=== PATIENT | male | born 1955 | race Caucasian/White ===

== ENCOUNTER 2016-08-04 09:43 | Outpatient (CLI) | payer BC | END 2016-08-04 09:44 | disposition home or self-care (01) | DX: E11.9 Type 2 diabetes mellitus without complications (principal) ==

== ENCOUNTER 2016-08-07 13:54 | Outpatient (CLI) | payer BC | END 2016-08-07 13:55 | disposition home or self-care (01) | DX: L89.613 Pressure ulcer of right heel, stage 3 (principal) ==

== ENCOUNTER 2016-10-30 08:17 | Outpatient (CLI) | payer BC ==
[2016-10-30 09:03] LABS: BASOPHILS # (AUTO) 0.1 10^3/uL (0.0-0.1); BASOPHILS % (AUTO) 0.7 %; EOSINOPHILS # (AUTO) 0.2 10^3/uL (0.0-0.7); EOSINOPHILS % (AUTO) 1.5 %; HCT - HEMATOCRIT 35.3 % (42.0-52.0); HGB - HEMOGLOBIN 11.3 g/dL (14.0-18.0); LYMPHOCYTES # (AUTO) 1.7 10^3/uL (1.5-3.5); LYMPHOCYTES % (AUTO) 15.5 %; MEAN CORPUSCULAR VOLUME 81.4 fL (80.0-94.0); MONOCYTES # (AUTO) 1.2 10^3/uL (0.0-1.0); MONOCYTES % (AUTO) 11.3 %; NEUTROPHILS # (AUTO) 7.7 10^3/uL (1.5-6.6); NUCLEATED RED BLOOD CELLS AUTO 0.1 /100WBC; RED BLOOD COUNT 4.34 10^6/uL (4.70-6.10); RED CELL DISTRIBUTION WIDTH 18.5 % (12.0-15.0); UNCORRECTED WHITE BLOOD COUNT 10.9 x10^3/uL; WHITE BLOOD COUNT 10.9 x10^3/uL (4.8-10.8)
[2016-10-30 09:25] LABS: HEMOGLOBIN A1C 0.63 g/dL
[2016-10-30 09:40] LABS: ALBUMIN/GLOBULIN RATIO 0.7 (1.0-2.2); BILIRUBIN,TOTAL 0.4 mg/dL (0.2-1.0); BUN - BLOOD UREA NITROGEN 26 mg/dL (6-20); CALCIUM 9.1 mg/dL (8.5-10.3); CARBON DIOXIDE - CO2 26 mmol/L (21-32); CHLORIDE 108 mmol/L (101-111); CHOL/HDL RATIO 4.2 (<5.0); CHOLESTEROL 161 mg/dL; CREATININE 0.8 mg/dL (0.6-1.2); GFR - MDRD 99 (>89); GLUCOSE 134 mg/dL (70-100); HDL CHOLESTEROL 38 mg/dL; LDL/HDL RATIO 2.1 (<3.6); POTASSIUM 4.3 mmol/L (3.5-5.0); SODIUM 142 mmol/L (135-145); TOTAL PROTEIN 7.2 g/dL (6.7-8.2); TRIGLYCERIDES 221 mg/dL; VLDL CHOLESTEROL 44 mg/dL
== END 2016-10-30 08:18 | disposition home or self-care (01) ==
LOC: LAB 08:17
PROVIDERS: ATTEND Family Medicine
DX: E11.9 Type 2 diabetes mellitus without complications (principal)
CPT/HCPCS: 36415; 80053; 80061; 81599; 82043; 83036; 84443; 85025; 85651; 86480; 87340

== ENCOUNTER 2016-11-08 08:07 | Outpatient (CLI) | payer BC ==
--- NOTE | 2016-11-09 13:40 | Ultrasound Report ---
DEXA SCAN: 11/08/2016 CLINICAL INDICATION: History of long-term prednisone use for rheumatoid arthritis. TECHNIQUE: Dual energy x-ray absorptiometry (DXA) was performed on a ZALORA system. Regions measured are the AP spine, femoral neck, and, if needed, forearm. COMPARISON: None, using the data from the left forearm and lumbar spine. In accordance with the International Society for Clinical Densitometry (ISCD) guidelines, data from previous exams may be reanalyzed using current recommendations and techniques. This is done to allow a more accurate basis for comparison with the current study. FINDINGS: The data for the lumbar spine is as follows: REGION BMD (g/cm/cm) T-SCORE Z-SCORE L1 1.076 -0.7 -0.7 L2 1.319 0.7 0.7 L3 1.259 0.2 0.2 L4 1.192 -0.4 -0.4 TOTAL 1.211 -0.1 -0.1 NOTE: All evaluable vertebrae are used for classification. The data for the forearm is as follows: REGION BMD (g/cm/cm) T-SCORE Z-SCORE 1/3 0.816 -1.8 -1.3 NOTE: The 33% radius of the nondominant forearm is used for classification. IMPRESSION: THE WHO CLASSIFICATION BASED ON THE INTERNATIONAL REFERENCE STANDARD IS OSTEOPENIA. THE FRACTURE RISK IS INCREASED. RECOMMENDATION: Patients with diagnosis of osteoporosis or osteopenia should have regular bone mineral density assessment. For those eligible for Medicare, routine testing is allowed once every 2 years. Testing frequency can be increased for patients who have rapidly progressing disease or for those who are receiving medical therapy to restore bone mass. COMMENT: World Health Organization (WHO) definitions for osteoporosis and osteopenia: NORMAL BMD: T-score at -1.0 or higher, fracture risk is low. OSTEOPENIA BMD: T-score between -1.0 and -2.5, fracture risk is increased. OSTEOPOROSIS BMD: T-score at -2.5 or lower, fracture risk high. National Osteoporosis Foundation recommends: 1. Obtain adequate dietary calcium (at least 1200 mg per day) and vitamin D (400 -800 international units per day). 2. Participate, as appropriate, in regular weightbearing and muscle- strengthening exercise. 3. Avoid tobacco use and reduce alcohol and caffeine intake. 4. For more detailed information see the website at www.NOF.org. MTDD
== END 2016-11-08 08:08 | disposition home or self-care (01) ==
LOC: DI 08:07
PROVIDERS: ATTEND Internal Medicine Rheumatology
DX: M85.839 Other specified disorders of bone density and structure, unspecified forearm (principal)
CPT/HCPCS: 77080; 77081

== ENCOUNTER → 2016-12-19 | Outpatient (CLI) | payer BC | LOC: LAB.WCP 08:00 | PROVIDERS: ATTEND Family Medicine | DX: L89.612 Pressure ulcer of right heel, stage 2 (principal) | CPT/HCPCS: 87070; 87077; 87205 ==

== ENCOUNTER 2017-01-05 17:01 | Outpatient (CLI) | payer BC ==
--- NOTE | 2017-01-05 18:12 | Ultrasound Preliminary Report ---
Exam: US Duplex Ext Veins Right IMPRESSION: No evidence for deep venous thrombosis. [facility] SITE ID: [id number]
--- NOTE | 2017-01-05 18:15 | Ultrasound Report ---
EXAM: RIGHT LOWER EXTREMITY VENOUS ULTRASOUND EXAM DATE: 01/05/2017 05:48 PM. CLINICAL HISTORY: RT LEG PAIN. COMPARISON: None. TECHNIQUE: Real-time sonographic vascular imaging was performed by the shirt maker through the lower extremity utilizing both color-flow and Doppler spectral analysis. Multiple access services representative static jessica ges were saved for review. FINDINGS: Common Femoral Vein (CFV): Normal. CFV-GSV Junction: Normal. Profunda Femoral Vein (PFV): Normal. Femoral Vein (FV) Prox: Normal. Femoral Vein (FV) Mid: Normal. Femoral Vein (FV) Dist: Normal. Popliteal Vein: Normal. Posterior Tibial Veins: Normal. Peroneal Veins: Normal. Contralateral Side CFV: Normal. Other: None. IMPRESSION: No evidence for deep venous thrombosis. [facility] Referring Provider Line: [phone] SITE ID: [id number]
== END 2017-01-05 17:02 | disposition home or self-care (01) ==
LOC: DI 17:01
PROVIDERS: ATTEND Family Medicine
DX: M79.604 Pain in right leg (principal)

== ENCOUNTER 2017-01-22 16:59 | Outpatient (CLI) | payer BC ==
--- NOTE | 2017-01-23 12:43 | Ultrasound Report ---
BILATERAL LOWER EXTREMITY ARTERIAL DUPLEX: 01/22/2017 CLINICAL INDICATION: Right pain. TECHNIQUE: Real-time sonographic vascular imaging was performed by the accountant clerk through the lower extremities utilizing both color-flow and Doppler spectral analysis. Multiple retail field representative static images were saved for review. RIGHT SIDE SITE PSV WAVEFORM STEN MADYSON -- -- -- MAO -- -- -- SKIP -- -- -- GLADIS -- -- -- EIA -- -- -- INSPECTION AND TESTING SUPERVISOR 105 TRIPHASIC -- PSFA 37 MONOPHASIC -- MSFA -- -- -- DSFA 73 MONOPHASIC -- PFA 125 TRIPHASIC -- POP 52 MONOPHASIC -- JAYNA 43 MONOPHASIC -- SALES AND IN HOME DELIVERY SPECIALIST 48 MONOPHASIC -- PER 41 MONOPHASIC -- DPA 53 MONOPHASIC -- LEFT SIDE SITE PSV WAVEFORM STEN GLADIS -- -- -- EIA -- -- -- INSPECTION AND TESTING SUPERVISOR 54 MONOPHASIC -- PSFA 55 MONOPHASIC -- MSFA -- -- -- DSFA -- -- -- PFA 75 TRIPHASIC -- POP 56 MONOPHASIC -- JAYNA 52 MONOPHASIC -- SALES AND IN HOME DELIVERY SPECIALIST 61 MONOPHASIC -- PER -- -- -- DPA 74 MONOPHASIC -- FINDINGS: Right leg: There is occlusion of the right mid superficial femoral artery, with collateral reconstitution distally. Monophasic flow is seen to the ankle. Left leg: There is occlusion of the left [id number] superficial femoral artery, with collateral reconstitution of the popliteal. Monophasic runoff is seen to the ankle, but the left peroneal artery only demonstrates minimal flow. IMPRESSION: BILATERAL SUPERFICIAL FEMORAL ARTERY OCCLUSIONS, WITH COLLATERAL RECONSTITUTION DISTALLY. [facility]
== END 2017-01-22 17:00 | disposition home or self-care (01) ==
LOC: DI 16:59
PROVIDERS: ATTEND Physician Assistant Medical
DX: M79.604 Pain in right leg (principal); I73.9 Peripheral vascular disease, unspecified; I77.1 Stricture of artery
CPT/HCPCS: 93925

== ENCOUNTER 2017-02-15 13:35 | Outpatient (CLI) | payer BC ==
[2017-02-15 13:24] LABS: BASOPHILS % (AUTO) 0.5 %; HCT - HEMATOCRIT 41.9 % (42.0-52.0); HGB - HEMOGLOBIN 13.7 g/dL (14.0-18.0); LYMPHOCYTES % (AUTO) 26.3 %; MEAN CORPUSCULAR HGB CONC 32.8 g/dL (32.0-36.0); MEAN CORPUSCULAR VOLUME 88.5 fL (80.0-94.0); MEAN PLATELET VOLUME 6.9 fL (7.4-11.4); MONOCYTES % (AUTO) 10.1 %; NEUTROPHILS % (AUTO) 63.1 %; RED BLOOD COUNT 4.73 10^6/uL (4.70-6.10); RED CELL DISTRIBUTION WIDTH 19.3 % (12.0-15.0); UNCORRECTED WHITE BLOOD COUNT 11.6 x10^3/uL; WHITE BLOOD COUNT 11.6 x10^3/uL (4.8-10.8)
[2017-02-15 14:38] LABS: BAND NEUTROPHILS % (MANUAL) 0 %
[2017-02-15 14:46] LABS: BASOPHILS % (MANUAL) 1 %; BILIRUBIN,TOTAL 0.6 mg/dL (0.2-1.0); CREATININE 0.8 mg/dL (0.6-1.2); LYMPHOCYTES % (MANUAL) 30 %; NEUTROPHILS % (MANUAL) 55 %; POTASSIUM 4.4 mmol/L (3.5-5.0); TOTAL CELLS COUNTED 100; TOTAL PROTEIN 6.9 g/dL (6.7-8.2)
[2017-02-15 14:48] LABS: NP AUTO DIFFERENTIAL? YES; NP MAN DIFFERENTIAL? NO
== END 2017-02-15 13:36 | disposition home or self-care (01) ==
LOC: LAB.WCP 13:35
PROVIDERS: ATTEND Internal Medicine Rheumatology
DX: L40.50 Arthropathic psoriasis, unspecified (principal)
CPT/HCPCS: 36415; 80053; 85025; 85651; 86140

== ENCOUNTER 2017-05-15 08:00 | Outpatient (CLI) | payer BC ==
[2017-05-15 19:04] LABS: BASOPHILS # (AUTO) 0.1 10^3/uL (0.0-0.1); BASOPHILS % (AUTO) 0.6 %; HCT - HEMATOCRIT 42.4 % (42.0-52.0); HGB - HEMOGLOBIN 13.9 g/dL (14.0-18.0); LYMPHOCYTES # (AUTO) 1.5 10^3/uL (1.5-3.5); LYMPHOCYTES % (AUTO) 10.2 %; MEAN CORPUSCULAR HEMOGLOBIN 30.7 pg (27.0-31.0); MEAN CORPUSCULAR HGB CONC 32.8 g/dL (32.0-36.0); MEAN CORPUSCULAR VOLUME 93.5 fL (80.0-94.0); MEAN PLATELET VOLUME 7.4 fL (7.4-11.4); MONOCYTES # (AUTO) 1.2 10^3/uL (0.0-1.0); MONOCYTES % (AUTO) 8.1 %; NEUTROPHILS # (AUTO) 12.2 10^3/uL (1.5-6.6); NEUTROPHILS % (AUTO) 81.1 %; NUCLEATED RED BLOOD CELLS AUTO 0.1 /100WBC; RED BLOOD COUNT 4.54 10^6/uL (4.70-6.10); RED CELL DISTRIBUTION WIDTH 16.9 % (12.0-15.0)
[2017-05-15 19:17] LABS: ALBUMIN/GLOBULIN RATIO 1.3 (1.0-2.2); BILIRUBIN,TOTAL 0.5 mg/dL (0.2-1.0); CALCIUM 9.1 mg/dL (8.5-10.3); CREATININE 0.9 mg/dL (0.6-1.2); POTASSIUM 4.2 mmol/L (3.5-5.0); TOTAL PROTEIN 6.3 g/dL (6.7-8.2)
[2017-05-15 19:22] LABS: HEMOGLOBIN A1C 0.99 g/dL
== END 2017-05-15 08:01 | disposition home or self-care (01) ==
LOC: LAB.WCP 08:00
PROVIDERS: ATTEND Family Medicine
DX: E11.9 Type 2 diabetes mellitus without complications (principal)
CPT/HCPCS: 36415; 80053; 83036; 85025

== ENCOUNTER 2017-06-20 14:51 | Outpatient (CLI) | payer BC | END 2017-06-20 14:52 | disposition home or self-care (01) | LOC: LAB.WCP 14:51 | PROVIDERS: ATTEND Internal Medicine Rheumatology | DX: L40.50 Arthropathic psoriasis, unspecified (principal) | CPT/HCPCS: 36415; 85651; 86140 ==

== ENCOUNTER 2017-11-13 08:00 | Outpatient (CLI) | payer BC ==
[2017-11-13 12:28] LABS: HB2 TOTAL 16.4 g/dL; HEMOGLOBIN A1C 1.06 g/dL; HEMOGLOBIN A1C % 8.1 % (4.6-6.2)
[2017-11-13 12:35] LABS: BASOPHILS # (AUTO) 0.1 10^3/uL (0.0-0.1); BASOPHILS % (AUTO) 0.8 %; HGB - HEMOGLOBIN 14.3 g/dL (14.0-18.0); LYMPHOCYTES % (AUTO) 21.4 %; MEAN CORPUSCULAR HEMOGLOBIN 31.5 pg (27.0-31.0); MEAN CORPUSCULAR HGB CONC 33.7 g/dL (32.0-36.0); MEAN CORPUSCULAR VOLUME 93.6 fL (80.0-94.0); MEAN PLATELET VOLUME 7.2 fL (7.4-11.4); MONOCYTES # (AUTO) 0.9 10^3/uL (0.0-1.0); MONOCYTES % (AUTO) 9.9 %; NEUTROPHILS # (AUTO) 6.3 10^3/uL (1.5-6.6); NEUTROPHILS % (AUTO) 67.9 %; PLT - PLATELET COUNT 282 10^3/uL (130-450); RED BLOOD COUNT 4.54 10^6/uL (4.70-6.10); RED CELL DISTRIBUTION WIDTH 16.6 % (12.0-15.0); WHITE BLOOD COUNT 9.3 x10^3/uL (4.8-10.8)
[2017-11-13 12:36] LABS: ALBUMIN 3.4 g/dL (3.2-5.5); ALKALINE PHOSPHATASE 104 IU/L (42-121); ALT ALANINE AMINOTRANSFERASE 30 IU/L (10-60); AST ASPARTATE AMINOTRANSFERASE 21 IU/L (10-42); BILIRUBIN,TOTAL 0.7 mg/dL (0.2-1.0); BUN - BLOOD UREA NITROGEN 27 mg/dL (6-20); CALCIUM 8.9 mg/dL (8.5-10.3); CARBON DIOXIDE - CO2 25 mmol/L (21-32); CHLORIDE 107 mmol/L (101-111); CHOL/HDL RATIO 5.4 (<5.0); CHOLESTEROL 185 mg/dL; CREATININE 0.7 mg/dL (0.6-1.2); GFR - MDRD 115 (>89); GLUCOSE 244 mg/dL (70-100); HDL CHOLESTEROL 34 mg/dL; SODIUM 136 mmol/L (135-145); TOTAL PROTEIN 6.7 g/dL (6.7-8.2)
[2017-11-13 13:10] LABS: LDL CHOLESTEROL,DIRECT 41 mg/dL; LDLD/HDL RATIO 1.2 (<3.6)
== END 2017-11-13 08:01 | disposition home or self-care (01) ==
LOC: LAB.WCP 08:00
PROVIDERS: ATTEND Family Medicine
DX: I10 Essential (primary) hypertension (principal); E78.2 Mixed hyperlipidemia; E11.9 Type 2 diabetes mellitus without complications; Z12.5 Encounter for screening for malignant neoplasm of prostate; L40.50 Arthropathic psoriasis, unspecified
CPT/HCPCS: 36415; 80053; 80061; 82043; 83036; 83721; 84153; 84443; 85025; 85651; 86140

== ENCOUNTER 2018-01-24 20:43 | Outpatient (CLI) | payer BC ==
--- NOTE | 2018-01-25 11:11 | Ultrasound Report ---
Reason: SYNOVIAL CYST Procedure Date: 01/24/2018 Accession Number: [id number] / [id number] Procedure: US - Ext Limited Non Vascular CPT Code: FULL RESULT: EXAM: RIGHT LOWER EXTREMITY ULTRASOUND - LIMITED EXAM DATE: 01/24/2018 08:51 PM. CLINICAL HISTORY: Synovial cyst. COMPARISON: None. TECHNIQUE: Real-time scanning was performed with static images obtained. FINDINGS: Medially along the right knee is a 4.4 x 4.6 x 1.8 cm hypoechoic heterogeneous mass with internal echoes which does not demonstrate vascularity by color Doppler. IMPRESSION: Hypoechoic hypovascular heterogeneous mass as described. The finding is not a simple cyst. [facility]
== END 2018-01-24 20:44 | disposition home or self-care (01) ==
LOC: DI 20:43
PROVIDERS: ATTEND Family Medicine
DX: R22.41 Localized swelling, mass and lump, right lower limb (principal)
CPT/HCPCS: 76882

== ENCOUNTER 2018-02-18 08:00 | Outpatient (CLI) | payer BC ==
[2018-02-18 14:17] LABS: BASOPHILS % (AUTO) 0.4 %; HGB - HEMOGLOBIN 12.6 g/dL (14.0-18.0); LYMPHOCYTES # (AUTO) 2.6 10^3/uL (1.5-3.5); LYMPHOCYTES % (AUTO) 29.3 %; MEAN CORPUSCULAR HEMOGLOBIN 31.6 pg (27.0-31.0); MEAN CORPUSCULAR HGB CONC 34.6 g/dL (32.0-36.0); MEAN CORPUSCULAR VOLUME 91.4 fL (80.0-94.0); MEAN PLATELET VOLUME 6.6 fL (7.4-11.4); MONOCYTES # (AUTO) 0.9 10^3/uL (0.0-1.0); MONOCYTES % (AUTO) 10.1 %; NEUTROPHILS # (AUTO) 5.4 10^3/uL (1.5-6.6); NEUTROPHILS % (AUTO) 60.2 %; PLT - PLATELET COUNT 342 10^3/uL (130-450); RED BLOOD COUNT 3.98 10^6/uL (4.70-6.10); RED CELL DISTRIBUTION WIDTH 16.5 % (12.0-15.0)
[2018-02-18 14:29] LABS: ALBUMIN 3.3 g/dL (3.2-5.5); BILIRUBIN,TOTAL 0.4 mg/dL (0.2-1.0); CALCIUM 8.8 mg/dL (8.5-10.3); CREATININE 0.8 mg/dL (0.6-1.2); CRP - C-REACTIVE PROTEIN 1.4 mg/dL (0-1.0); TOTAL PROTEIN 6.7 g/dL (6.7-8.2)
== END 2018-02-18 08:01 ==
LOC: LAB.WCP 08:00
PROVIDERS: ATTEND Internal Medicine Rheumatology
DX: L40.50 Arthropathic psoriasis, unspecified (principal); L08.9 Local infection of the skin and subcutaneous tissue, unspecified
CPT/HCPCS: 36415; 80053; 85025; 85651; 86140

== ENCOUNTER 2018-06-05 07:48 | Outpatient (CLI) | payer BC ==
[2018-06-05 12:45] LABS: ALBUMIN 3.3 g/dL (3.2-5.5); ALBUMIN/GLOBULIN RATIO 1.1 (1.0-2.2); ALKALINE PHOSPHATASE 94 IU/L (42-121); ALT ALANINE AMINOTRANSFERASE 20 IU/L (10-60); AST ASPARTATE AMINOTRANSFERASE 20 IU/L (10-42); BILIRUBIN,TOTAL 0.5 mg/dL (0.2-1.0); BUN - BLOOD UREA NITROGEN 20 mg/dL (6-20); CARBON DIOXIDE - CO2 27 mmol/L (21-32); CHLORIDE 104 mmol/L (101-111); CHOL/HDL RATIO 4.5 (<5.0); CHOLESTEROL 197 mg/dL; CREATININE 0.9 mg/dL (0.6-1.2); GFR - MDRD 86 (>89); GLUCOSE 85 mg/dL (70-100); HB2 TOTAL 13.9 g/dL; HDL CHOLESTEROL 44 mg/dL; HEMOGLOBIN A1C 0.96 g/dL; HEMOGLOBIN A1C % 8.5 % (4.6-6.2); LDL CHOLESTEROL,CALCULATED 90 mg/dL; SODIUM 141 mmol/L (135-145); TOTAL PROTEIN 6.3 g/dL (6.7-8.2); VLDL CHOLESTEROL 63 mg/dL
[2018-06-05 12:55] LABS: BASOPHILS # (AUTO) 0.1 10^3/uL (0.0-0.1); BASOPHILS % (AUTO) 0.8 %; HGB - HEMOGLOBIN 13.3 g/dL (14.0-18.0); LYMPHOCYTES # (AUTO) 2.9 10^3/uL (1.5-3.5); LYMPHOCYTES % (AUTO) 28.9 %; MEAN CORPUSCULAR HEMOGLOBIN 30.3 pg (27.0-31.0); MEAN CORPUSCULAR VOLUME 89.2 fL (80.0-94.0); MONOCYTES % (AUTO) 9.7 %; NEUTROPHILS # (AUTO) 6.1 10^3/uL (1.5-6.6); NEUTROPHILS % (AUTO) 60.6 %; PLT - PLATELET COUNT 382 10^3/uL (130-450); RED CELL DISTRIBUTION WIDTH 18.6 % (12.0-15.0); WHITE BLOOD COUNT 10.1 x10^3/uL (4.8-10.8)
== END 2018-06-05 23:59 | disposition home or self-care (01) ==
LOC: LAB.WCP 07:48
PROVIDERS: ATTEND Family Medicine
DX: E11.9 Type 2 diabetes mellitus without complications (principal); L40.50 Arthropathic psoriasis, unspecified; M45.9 Ankylosing spondylitis of unspecified sites in spine
CPT/HCPCS: 36415; 80053; 80061; 82043; 83036; 83721; 85025; 85651; 86140

== ENCOUNTER 2018-06-07 11:18 | Outpatient (CLI) | payer BC ==
--- NOTE | 2018-06-07 15:45 | XRAY Report ---
Reason: TYPE 2 DIABETES MELLITUS WITH FOOT ULCER Procedure Date: 06/07/2018 Accession Number: [id number] / [id number] Procedure: XR - Calcaneus RT CPT Code: FULL RESULT: EXAM: RIGHT CALCANEUS RADIOGRAPHY EXAM DATE: 06/07/2018 11:54 AM. CLINICAL HISTORY: Type 2 diabetes mellitus with foot ulcer. COMPARISON: None. TECHNIQUE: 2 views. FINDINGS: Bones: Bones are qualitatively osteopenic with no definite fracture identified. Joints: Extensive tibiotalar degenerative changes are incompletely visualized. There is a tibiotalar joint effusion. Soft Tissues: Perception of possible soft tissue defect underneath the heel. In the same region there is heterotopic ossification underneath the heel, 7 x 2 mm. Extensive vascular calcifications. No soft tissue gas is identified. IMPRESSION: Degenerative changes and heterotopic ossification in the region of a perceived soft tissue defect as described. [facility]
== END 2018-06-07 11:19 | disposition home or self-care (01) ==
LOC: DI 11:18
PROVIDERS: ATTEND Family Medicine
DX: E11.621 Type 2 diabetes mellitus with foot ulcer (principal); L97.519 Non-pressure chronic ulcer of other part of right foot with unspecified severity; M19.071 Primary osteoarthritis, right ankle and foot; M85.871 Other specified disorders of bone density and structure, right ankle and foot

== ENCOUNTER 2018-08-19 08:00 | Outpatient (CLI) | payer BC ==
[2018-08-19 13:28] LABS: HB2 TOTAL 13.4 g/dL; HEMOGLOBIN A1C 0.58 g/dL; HEMOGLOBIN A1C % 6.1 % (4.6-6.2)
== END 2018-08-19 23:59 | disposition home or self-care (01) ==
LOC: LAB.WCP 08:00
PROVIDERS: ATTEND Orthopaedic Surgery Foot and Ankle Surgery
DX: E11.9 Type 2 diabetes mellitus without complications (principal); L40.9 Psoriasis, unspecified; M13.872 Other specified arthritis, left ankle and foot; M19.071 Primary osteoarthritis, right ankle and foot
CPT/HCPCS: 36415; 82306; 83036

== ENCOUNTER 2019-08-05 12:03 | Outpatient (CLI) | payer BC ==
[2019-08-05 18:55] LABS: BASOPHILS # (AUTO) 0.1 10^3/uL (0.0-0.1); BASOPHILS % (AUTO) 0.9 %; HGB - HEMOGLOBIN 11.7 g/dL (14.0-18.0); LYMPHOCYTES # (AUTO) 1.5 10^3/uL (1.5-3.5); LYMPHOCYTES % (AUTO) 13.1 %; MEAN CORPUSCULAR HGB CONC 30.2 g/dL (32.0-36.0); MEAN CORPUSCULAR VOLUME 89.6 fL (80.0-94.0); MONOCYTES # (AUTO) 0.8 10^3/uL (0.0-1.0); MONOCYTES % (AUTO) 7.5 %; NEUTROPHILS # (AUTO) 8.6 10^3/uL (1.5-6.6); NEUTROPHILS % (AUTO) 76.9 %; PLT - PLATELET COUNT 378 10^3/uL (130-450); RED BLOOD COUNT 4.33 10^6/uL (4.70-6.10); RED CELL DISTRIBUTION WIDTH 17.2 % (12.0-15.0); WHITE BLOOD COUNT 11.1 x10^3/uL (4.8-10.8)
[2019-08-05 19:16] LABS: ALBUMIN 3.2 g/dL (3.2-5.5); ALBUMIN/GLOBULIN RATIO 1.3 (1.0-2.2); ALKALINE PHOSPHATASE 91 IU/L (42-121); ALT ALANINE AMINOTRANSFERASE 12 IU/L (10-60); AST ASPARTATE AMINOTRANSFERASE 17 IU/L (10-42); BILIRUBIN,TOTAL 0.4 mg/dL (0.2-1.0); BUN - BLOOD UREA NITROGEN 24 mg/dL (6-20); CALCIUM 8.5 mg/dL (8.5-10.3); CARBON DIOXIDE - CO2 26 mmol/L (21-32); CHLORIDE 106 mmol/L (101-111); CHOL/HDL RATIO 4.3 (<5.0); CHOLESTEROL 163 mg/dL; GFR - MDRD 75 (>89); GLUCOSE 140 mg/dL (70-100); HDL CHOLESTEROL 38 mg/dL; LDL CHOLESTEROL,CALCULATED 49 mg/dL; LDL/HDL RATIO 1.3 (<3.6); SODIUM 141 mmol/L (135-145); TOTAL PROTEIN 5.7 g/dL (6.7-8.2); VLDL CHOLESTEROL 76 mg/dL
[2019-08-05 19:19] LABS: HB2 TOTAL 12.4 g/dL; HEMOGLOBIN A1C 0.62 g/dL; HEMOGLOBIN A1C % 6.7 % (4.6-6.2)
[2019-08-06 12:26] LABS: HEPATITIS C ANTIBODY NON-REACTIVE (NON-REACTIVE)
== END 2019-08-05 23:59 | disposition home or self-care (01) ==
LOC: LAB.WCP 12:03
PROVIDERS: ATTEND Family Medicine
DX: E11.9 Type 2 diabetes mellitus without complications (principal); Z11.59 Encounter for screening for other viral diseases
CPT/HCPCS: 36415; 80053; 80061; 82043; 83036; 83721; 85025; 86803

== ENCOUNTER 2019-10-22 15:22 | Outpatient (CLI) | payer BC ==
[2019-10-22 17:48] LABS: BASOPHILS # (AUTO) 0.1 10^3/uL (0.0-0.1); BASOPHILS % (AUTO) 1.1 %; EOSINOPHILS # (AUTO) 0.2 10^3/uL (0.0-0.7); EOSINOPHILS % (AUTO) 1.9 %; HGB - HEMOGLOBIN 11.4 g/dL (14.0-18.0); LYMPHOCYTES # (AUTO) 1.8 10^3/uL (1.5-3.5); LYMPHOCYTES % (AUTO) 16.7 %; MEAN CORPUSCULAR HEMOGLOBIN 28.3 pg (27.0-31.0); MEAN CORPUSCULAR HGB CONC 30.3 g/dL (32.0-36.0); MEAN CORPUSCULAR VOLUME 93.3 fL (80.0-94.0); MEAN PLATELET VOLUME 8.8 fL (7.4-11.4); MONOCYTES # (AUTO) 0.9 10^3/uL (0.0-1.0); MONOCYTES % (AUTO) 8.3 %; NEUTROPHILS # (AUTO) 7.7 10^3/uL (1.5-6.6); NEUTROPHILS % (AUTO) 71.3 %; PLT - PLATELET COUNT 423 10^3/uL (130-450); RED BLOOD COUNT 4.03 10^6/uL (4.70-6.10); RED CELL DISTRIBUTION WIDTH 17.9 % (12.0-15.0); WHITE BLOOD COUNT 10.8 x10^3/uL (4.8-10.8)
[2019-10-22 18:10] LABS: ALBUMIN 3.4 g/dL (3.2-5.5); ALBUMIN/GLOBULIN RATIO 1.1 (1.0-2.2); BILIRUBIN,TOTAL 0.4 mg/dL (0.2-1.0); CALCIUM 8.6 mg/dL (8.5-10.3); CREATININE 1.1 mg/dL (0.6-1.2); TOTAL PROTEIN 6.5 g/dL (6.7-8.2)
== END 2019-10-22 23:59 | disposition home or self-care (01) ==
LOC: LAB.WCP 15:22
PROVIDERS: ATTEND Internal Medicine Rheumatology
DX: L40.50 Arthropathic psoriasis, unspecified (principal)
CPT/HCPCS: 36415; 80053; 85025; 85651

== ENCOUNTER 2019-11-25 07:25 | Day surgery (SDC) | payer BC ==
[2019-11-25] MEDS ORDERED: fentaNYL 250 MCG/5 ML VIAL IVP ONE (07:26)
[2019-11-25] MEDS ORDERED: MIDAZOLAM 2 MG/2 ML VIAL IVP ONE (07:26)
[2019-11-25] MEDS ORDERED: LACTATED RINGERS 1,000 ML IV ONE (07:33)
[2019-11-25 10:51] VITALS: BP 108/62
== END 2019-11-25 07:26 | disposition home or self-care (01) ==
LOC: SDS 07:25
PROVIDERS: ATTEND Surgery
PROC: 0DBM8ZZ Excision of Descending Colon, Via Natural or Artificial Opening Endoscopic (ICD-10-PCS; 2019-11-25)
PROC: 0DBP8ZZ Excision of Rectum, Via Natural or Artificial Opening Endoscopic (ICD-10-PCS; principal; 2019-11-25 08:45)
DX: R19.5 Other fecal abnormalities (principal); D12.4 Benign neoplasm of descending colon; K62.1 Rectal polyp; I10 Essential (primary) hypertension; D64.9 Anemia, unspecified
CPT/HCPCS: 45380; 45385; J3010; J7120

== ENCOUNTER 2020-08-25 08:00 | Outpatient (CLI) | payer BC ==
[2020-08-25 18:11] LABS: BASOPHILS # (AUTO) 0.1 10^3/uL (0.0-0.1); BASOPHILS % (AUTO) 0.6 %; HCT - HEMATOCRIT 38.5 % (42.0-52.0); HGB - HEMOGLOBIN 12.6 g/dL (14.0-18.0); LYMPHOCYTES # (AUTO) 1.4 10^3/uL (1.5-3.5); LYMPHOCYTES % (AUTO) 12.3 %; MEAN CORPUSCULAR HEMOGLOBIN 31.6 pg (27.0-31.0); MEAN CORPUSCULAR HGB CONC 32.7 g/dL (32.0-36.0); MEAN CORPUSCULAR VOLUME 96.5 fL (80.0-94.0); MEAN PLATELET VOLUME 9.1 fL (7.4-11.4); MONOCYTES # (AUTO) 0.8 10^3/uL (0.0-1.0); MONOCYTES % (AUTO) 7.1 %; NEUTROPHILS # (AUTO) 9.1 10^3/uL (1.5-6.6); NEUTROPHILS % (AUTO) 79.3 %; PLT - PLATELET COUNT 310 10^3/uL (130-450); RED BLOOD COUNT 3.99 10^6/uL (4.70-6.10); RED CELL DISTRIBUTION WIDTH 16.1 % (12.0-15.0); WHITE BLOOD COUNT 11.5 x10^3/uL (4.8-10.8)
[2020-08-25 18:43] LABS: ALBUMIN 3.6 g/dL (3.2-5.5); ALBUMIN/GLOBULIN RATIO 1.1 (1.0-2.2); ALKALINE PHOSPHATASE 102 IU/L (42-121); ALT ALANINE AMINOTRANSFERASE 17 IU/L (10-60); AST ASPARTATE AMINOTRANSFERASE 23 IU/L (10-42); BILIRUBIN,TOTAL 0.7 mg/dL (0.2-1.0); BUN - BLOOD UREA NITROGEN 28 mg/dL (6-20); CALCIUM 9.2 mg/dL (8.5-10.3); CARBON DIOXIDE - CO2 23 mmol/L (21-32); CHLORIDE 108 mmol/L (101-111); CHOLESTEROL 130 mg/dL; CRP - C-REACTIVE PROTEIN 6.9 mg/dL (0-1.0); GFR - MDRD 75 (>89); GLUCOSE 97 mg/dL (70-100); HDL CHOLESTEROL 43 mg/dL; LDL CHOLESTEROL,CALCULATED 28 mg/dL; LDL/HDL RATIO 0.7 (<3.6); POTASSIUM 4.1 mmol/L (3.5-5.0); SODIUM 140 mmol/L (135-145); TOTAL PROTEIN 6.8 g/dL (6.7-8.2); TRIGLYCERIDES 293 mg/dL; VLDL CHOLESTEROL 59 mg/dL
[2020-08-25 19:37] LABS: CREATININE,URINE 227.8 mg/dL; MICROALBUM/CREATININE RATIO,UR 7.9 ug/mg (<30.0); MICROALBUMIN,URINE 1.8 mg/dL (0-300.0)
[2020-08-25 20:13] LABS: ESTIMATED AVERAGE GLUCOSE 114 mg/dL (70-100); HEMOGLOBIN A1c% 5.6 % (4.27-6.07)
== END 2020-08-25 23:59 | disposition home or self-care (01) ==
LOC: LAB.WCP 08:00
PROVIDERS: ATTEND Family Medicine
DX: E11.9 Type 2 diabetes mellitus without complications (principal); M45.9 Ankylosing spondylitis of unspecified sites in spine; L40.50 Arthropathic psoriasis, unspecified
CPT/HCPCS: 36415; 80053; 80061; 82043; 82570; 83036; 83721; 85025; 85651; 86140

== ENCOUNTER 2020-11-12 08:00 | Outpatient (CLI) | payer BC ==
[2020-11-12 11:34] LABS: BASOPHILS # (AUTO) 0.1 10^3/uL (0.0-0.1); BASOPHILS % (AUTO) 0.7 %; EOSINOPHILS # (AUTO) 0.1 10^3/uL (0.0-0.7); EOSINOPHILS % (AUTO) 0.7 %; HCT - HEMATOCRIT 38.2 % (42.0-52.0); HGB - HEMOGLOBIN 12.7 g/dL (14.0-18.0); LYMPHOCYTES # (AUTO) 1.2 10^3/uL (1.5-3.5); LYMPHOCYTES % (AUTO) 8.7 %; MEAN CORPUSCULAR HEMOGLOBIN 32.1 pg (27.0-31.0); MEAN CORPUSCULAR HGB CONC 33.2 g/dL (32.0-36.0); MEAN CORPUSCULAR VOLUME 96.5 fL (80.0-94.0); MEAN PLATELET VOLUME 8.7 fL (7.4-11.4); MONOCYTES % (AUTO) 7.7 %; NEUTROPHILS # (AUTO) 10.9 10^3/uL (1.5-6.6); NEUTROPHILS % (AUTO) 81.7 %; PLT - PLATELET COUNT 328 10^3/uL (130-450); RED BLOOD COUNT 3.96 10^6/uL (4.70-6.10); RED CELL DISTRIBUTION WIDTH 15.3 % (12.0-15.0); WHITE BLOOD COUNT 13.4 x10^3/uL (4.8-10.8)
[2020-11-12 12:34] LABS: ALBUMIN 3.6 g/dL (3.2-5.5); ALBUMIN/GLOBULIN RATIO 1.5 (1.0-2.2); ALKALINE PHOSPHATASE 118 IU/L (42-121); ALT ALANINE AMINOTRANSFERASE 14 IU/L (10-60); AST ASPARTATE AMINOTRANSFERASE 21 IU/L (10-42); BILIRUBIN,TOTAL 0.8 mg/dL (0.2-1.0); BUN - BLOOD UREA NITROGEN 27 mg/dL (6-20); CALCIUM 8.9 mg/dL (8.5-10.3); CARBON DIOXIDE - CO2 21 mmol/L (21-32); CHLORIDE 108 mmol/L (101-111); CHOL/HDL RATIO 3.1 (<5.0); CHOLESTEROL 136 mg/dL; CREATININE 1.1 mg/dL (0.6-1.2); GFR - MDRD 67 (>89); GLUCOSE 206 mg/dL (70-100); HDL CHOLESTEROL 44 mg/dL; LDL CHOLESTEROL,CALCULATED 45 mg/dL; POTASSIUM 4.4 mmol/L (3.5-5.0); SODIUM 139 mmol/L (135-145); TRIGLYCERIDES 237 mg/dL; VLDL CHOLESTEROL 47 mg/dL
[2020-11-12 13:16] LABS: ESTIMATED AVERAGE GLUCOSE 114 mg/dL (70-100); HEMOGLOBIN A1c% 5.6 % (4.27-6.07)
[2020-11-12 13:42] LABS: CREATININE,URINE 219.8 mg/dL; MICROALBUM/CREATININE RATIO,UR 12.7 ug/mg (<30.0); MICROALBUMIN,URINE 2.8 mg/dL (0-300.0)
== END 2020-11-12 08:01 | disposition home or self-care (01) ==
LOC: LAB.WCP 08:00
PROVIDERS: ATTEND Family Medicine
DX: I10 Essential (primary) hypertension (principal); E11.9 Type 2 diabetes mellitus without complications; E78.2 Mixed hyperlipidemia; Z12.5 Encounter for screening for malignant neoplasm of prostate; Z79.4 Long term (current) use of insulin
CPT/HCPCS: 36415; 80053; 80061; 82043; 82570; 83036; 83721; 84153; 85025

== ENCOUNTER 2021-03-14 08:00 | Outpatient (CLI) | payer BC ==
[2021-03-14 18:14] LABS: BASOPHILS # (AUTO) 0.1 10^3/uL (0.0-0.1); EOSINOPHILS # (AUTO) 0.4 10^3/uL (0.0-0.7); EOSINOPHILS % (AUTO) 4.4 %; HCT - HEMATOCRIT 39.4 % (42.0-52.0); HGB - HEMOGLOBIN 12.2 g/dL (14.0-18.0); LYMPHOCYTES # (AUTO) 1.1 10^3/uL (1.5-3.5); LYMPHOCYTES % (AUTO) 12.8 %; MEAN CORPUSCULAR HEMOGLOBIN 31.1 pg (27.0-31.0); MEAN CORPUSCULAR VOLUME 100.5 fL (80.0-94.0); MEAN PLATELET VOLUME 9.4 fL (7.4-11.4); MONOCYTES # (AUTO) 0.8 10^3/uL (0.0-1.0); MONOCYTES % (AUTO) 9.8 %; NEUTROPHILS % (AUTO) 71.5 %; PLT - PLATELET COUNT 353 10^3/uL (130-450); RED BLOOD COUNT 3.92 10^6/uL (4.70-6.10); RED CELL DISTRIBUTION WIDTH 15.8 % (12.0-15.0); WHITE BLOOD COUNT 8.4 x10^3/uL (4.8-10.8)
[2021-03-14 18:44] LABS: ALBUMIN 3.7 g/dL (3.2-5.5); BILIRUBIN,TOTAL 0.7 mg/dL (0.2-1.0); CALCIUM 9.2 mg/dL (8.5-10.3); CREATININE 0.9 mg/dL (0.6-1.2); CRP - C-REACTIVE PROTEIN 9.9 mg/dL (0-1.0); POTASSIUM 4.9 mmol/L (3.5-5.0); TOTAL PROTEIN 7.3 g/dL (6.7-8.2)
[2021-03-14 20:40] LABS: ESTIMATED AVERAGE GLUCOSE 111 mg/dL (70-100); HEMOGLOBIN A1c% 5.5 % (4.27-6.07)
== END 2021-03-14 23:59 | disposition home or self-care (01) ==
LOC: LAB.WCP 08:00
PROVIDERS: ATTEND Internal Medicine Rheumatology
DX: L40.50 Arthropathic psoriasis, unspecified (principal)
CPT/HCPCS: 36415; 80053; 83036; 85025; 85651; 86140

== ENCOUNTER 2021-06-11 15:47 | Outpatient (CLI) | payer MEDICARE, BC | END 2021-06-11 15:48 | disposition critical access hospital (66) | LOC: EMS 15:47 | DX: R11.2 Nausea with vomiting, unspecified (principal); R19.7 Diarrhea, unspecified; R06.02 Shortness of breath; R53.81 Other malaise | CPT/HCPCS: A0425; A0427 ==

== ENCOUNTER 2021-06-11 16:07 | Inpatient (IN) | payer MEDICARE, BC ==
--- NOTE | 2021-06-11 16:17 | ED Physician Documentation ---
PD HPI DYSPNEA - Stated complaint Stated Complaint: SOA - History obtained from History obtained from: Patient, EMS - Additional information Additional information: 65-year-old gentleman with history of ankylosing spondylitis and psoriatic a rthritis on multiple types of immunosuppressive therapy, also peripheral vascular disease although was never a smoker, and recent surgery for a cyst on his knee with a 3-day hospitalization a few days before Mariano has been sick for about a week. It started with a cough minimally productive and has been progressive since then with shortness of breath. His was sick just before he became sick and was tested for COVID but was negative. Paramedics found him to have room air sats below 50% although does seem to respond to a nasal cannula. On the way here he received Solu-Medrol and a DuoNeb. Review of Systems Ten Systems: 10 systems reviewed and negative Constitutional: denies: Fever, Chills Nose: denies: Rhinorrhea / runny nose Respiratory: reports: Dyspnea, Cough PD PAST MEDICAL HISTORY - Past Medical History Cardiovascular: Hypertension, High cholesterol Respiratory: None Endocrine/Autoimmune: Type 2 diabetes GI: None : None HEENT: None Psych: None Musculoskeletal: None Derm: Psoriasis - Past Surgical History Past Surgical History: Yes General: Appendectomy Ortho: Hip replacement, Knee replacement, Other - Present Medications Home Medications: Ambulatory Orders Medication Instructions Recorded Confirmed Prednisone 20 mg PO DAILY 10/09/12 11/25/19 Metoprolol Tartrate [Lopressor] 12.5 mg PO BID 08/13/15 11/25/19 Oxycodone HCl/Acetaminophen 1 - 2 each PO Q6H PRN #14 tablet 08/29/15 11/25/19 [Percocet 5-325 mg Tablet] Cholecalciferol [Vitamin D3] 2,000 units PO DAILY 09/27/15 11/25/19 Insulin Glargine,Hum.rec.anlog 35 units SQ BID 09/27/15 11/25/19 [Lantus] Multivitamin [Multivitamins] 1 tab PO DAILY 09/27/15 11/25/19 amLODIPine [Norvasc] 5 mg PO DAILY 09/27/15 11/25/19 Indomethacin 50 mg PO TID 11/23/15 11/25/19 Sulfasalazine [Sulfazine] 500 mg PO BID 03/28/16 11/25/19 Atorvastatin Calcium 40 mg PO DAILY 11/25/19 11/25/19 Clopidogrel [Plavix] 75 mg PO ONCE 11/25/19 11/25/19 metHOTREXate sodium [Methotrexate] 2.5 mg PO DAILY 11/25/19 11/25/19 - Allergies Allergies/Adverse Reactions: Allergies Allergy/AdvReac Type Severity Reaction Status Date / Time infliximab [From Remicade] Allergy Rash Verified 06/11/21 16:18 vancomycin AdvReac Severe RENAL Verified 06/11/21 16:18 FAILURE - Social History Does the pt smoke?: No Smoking Status: Never smoker Does the pt drink ETOH?: Yes Does the pt have substance abuse?: No - Immunizations Immunizations are current?: Yes - POLST Patient has POLST: Yes PD ED PE NORMAL - Vitals Vital signs reviewed: Yes - General General: Alert and oriented X 3, Other (Clearly labored breathing with respiratory rates in the 30s and peripheral cyanosis) - HEENT HEENT: PERRL, Pharynx benign - Neck Neck: Supple, no meningeal sign, No bony TTP - Cardiac Cardiac: Other (Tachycardia, regular, no murmur) - Respiratory Respiratory: Other (Tachypneic and labored but lungs are relatively clear) - Abdomen Abdomen: Normal bowel sounds, Soft, Non tender - Back Back: No CVA TTP, No spinal TTP - Derm Derm: Normal color, Warm and dry - Extremities Extremities: No edema, No calf tenderness / cord - Neuro Neuro: Alert and oriented X 3, Normal speech Results - Vitals Vitals: Vital Signs - 24 hr 06/11/21 06/11/21 06/11/21 16:10 16:21 16:47 Temperature 36.5 C Heart Rate 108 H 104 H 100 Respiratory 38 H 37 H 30 H Rate Blood Pressure 152/81 H 157/84 H 135/71 H O2 Saturation 96 98 99 06/11/21 06/11/21 06/11/21 17:17 17:30 18:00 Temperature Heart Rate 97 96 100 Respiratory 27 H 28 H 24 Rate Blood Pressure 142/78 H 140/76 H 162/90 H O2 Saturation 100 100 100 Oxygen O2 Source [Without Activity] 2L O2 via NC O2 Source [facility] [address] - Labs Labs: Laboratory Tests 06/11/21 06/11/21 06/11/21 16:15 16:15 16:15 WBC 20.3 H RBC 3.71 L Hgb 11.0 L Hct 33.8 L MCV 91.1 MCH 29.6 MCHC 32.5 RDW 16.7 H Plt Count 612 H MPV 8.6 Neut # (Auto) 17.7 H Lymph # (Auto) 0.9 L Hughes # (Auto) 1.2 H Eos # (Auto) 0.0 Baso # (Auto) 0.1 Absolute Nucleated RBC 0.09 Band Neuts % (Manual) Not Reportable Abnorm Lymph % (Manual) Not Reportable Nucleated RBC % 0.4 Neutrophils # (Manual) Not Reportable Lymphocytes # (Manual) Not Reportable Monocytes # (Manual) Not Reportable Eosinophils # (Manual) Not Reportable Basophils # (Manual) Not Reportable Differential Comment MANUAL=AUTO DIFF Manual Slide Review Indicated WBC Morphology 1+ HYPERSEG NEUT Platelet Estimate INCREASED (>450,000) Platelet Morphology NORMAL APPEARANCE RBC Morph Micro Appear NORMAL APPEARANCE PT 17.4 H INR 1.6 H D-Dimer VBG pH VBG pCO2 VBG pO2 VBG HCO3 VBG Total CO2 VBG O2 Saturation VBG Base Excess Sodium 135 Potassium 5.6 H Chloride 105 Carbon Dioxide 15 L Anion Gap 15.0 H BUN 114 H* Creatinine 2.3 H Estimated GFR (MDRD) 29 L Glucose 253 H Lactic Acid Calcium 8.6 Phosphorus 5.0 H Magnesium 2.6 Total Bilirubin 0.6 AST 42 ALT 18 Alkaline Phosphatase 147 H Troponin I High Sens B-Natriuretic Peptide Total Protein 7.8 Albumin 2.5 L Globulin 5.3 H Albumin/Globulin Ratio 0.5 L Lipase 62 H Nasal Adenovirus (PCR) Nasal B. parapertussis DNA (PCR) Nasal Coronavir 229E PCR Nasal Coronavir HKU1 PCR Nasal Coronavir NL63 PCR Nasal Coronavir OC43 PCR Nasal Enterovir/Rhinovir PCR Nasal Influenza B PCR Nasal Influenza A PCR Nasal Parainfluen 1 PCR Nasal Parainfluen 2 PCR Nasal Parainfluen 3 PCR Nasal Parainfluen 4 PCR Nasal RSV (PCR) Nasal B.pertussis DNA PCR Nasal C.pneumoniae (PCR) Zain Human Metapneumo PCR Nasal M.pneumoniae (PCR) Nasal SARS-CoV-2 (PCR) 06/11/21 06/11/21 06/11/21 16:15 16:15 16:15 WBC RBC Hgb Hct MCV MCH MCHC RDW Plt Count MPV Neut # (Auto) Lymph # (Auto) Hughes # (Auto) Eos # (Auto) Baso # (Auto) Absolute Nucleated RBC Band Neuts % (Manual) Abnorm Lymph % (Manual) Nucleated RBC % Neutrophils # (Manual) Lymphocytes # (Manual) Monocytes # (Manual) Eosinophils # (Manual) Basophils # (Manual) Differential Comment Manual Slide Review WBC Morphology Platelet Estimate Platelet Morphology RBC Morph Micro Appear PT INR D-Dimer VBG pH VBG pCO2 VBG pO2 VBG HCO3 VBG Total CO2 VBG O2 Saturation VBG Base Excess Sodium Potassium Chloride Carbon Dioxide Anion Gap BUN Creatinine Estimated GFR (MDRD) Glucose Lactic Acid 3.8 H* Calcium Phosphorus Magnesium Total Bilirubin AST ALT Alkaline Phosphatase Troponin I High Sens 41.8 H* B-Natriuretic Peptide 110 H Total Protein Albumin Globulin Albumin/Globulin Ratio Lipase Nasal Adenovirus (PCR) Nasal B. parapertussis DNA (PCR) Nasal Coronavir 229E PCR Nasal Coronavir HKU1 PCR Nasal Coronavir NL63 PCR Nasal Coronavir OC43 PCR Nasal Enterovir/Rhinovir PCR Nasal Influenza B PCR Nasal Influenza A PCR Nasal Parainfluen 1 PCR Nasal Parainfluen 2 PCR Nasal Parainfluen 3 PCR Nasal Parainfluen 4 PCR Nasal RSV (PCR) Nasal B.pertussis DNA PCR Nasal C.pneumoniae (PCR) Zain Human Metapneumo PCR Nasal M.pneumoniae (PCR) Nasal SARS-CoV-2 (PCR) 06/11/21 06/11/21 06/11/21 16:15 16:15 17:42 WBC RBC Hgb Hct MCV MCH MCHC RDW Plt Count MPV Neut # (Auto) Lymph # (Auto) Hughes # (Auto) Eos # (Auto) Baso # (Auto) Absolute Nucleated RBC Band Neuts % (Manual) Abnorm Lymph % (Manual) Nucleated RBC % Neutrophils # (Manual) Lymphocytes # (Manual) Monocytes # (Manual) Eosinophils # (Manual) Basophils # (Manual) Differential Comment Manual Slide Review WBC Morphology Platelet Estimate Platelet Morphology RBC Morph Micro Appear PT INR D-Dimer > 1050.0 H VBG pH 7.320 VBG pCO2 28.7 L VBG pO2 24.9 L VBG HCO3 14.5 L VBG Total CO2 15.3 L VBG O2 Saturation 38.7 L VBG Base Excess -10.3 L Sodium Potassium Chloride Carbon Dioxide Anion Gap BUN Creatinine Estimated GFR (MDRD) Glucose Lactic Acid Calcium Phosphorus Magnesium Total Bilirubin AST ALT Alkaline Phosphatase Troponin I High Sens B-Natriuretic Peptide Total Protein Albumin Globulin Albumin/Globulin Ratio Lipase Nasal Adenovirus (PCR) NOT DETECTED Nasal B. parapertussis DNA (PCR) NOT DETECTED Nasal Coronavir 229E PCR NOT DETECTED Nasal Coronavir HKU1 PCR NOT DETECTED Nasal Coronavir NL63 PCR NOT DETECTED Nasal Coronavir OC43 PCR NOT DETECTED Nasal Enterovir/Rhinovir PCR NOT DETECTED Nasal Influenza B PCR NOT DETECTED Nasal Influenza A PCR NOT DETECTED Nasal Parainfluen 1 PCR NOT DETECTED Nasal Parainfluen 2 PCR NOT DETECTED Nasal Parainfluen 3 PCR NOT DETECTED Nasal Parainfluen 4 PCR NOT DETECTED Nasal RSV (PCR) NOT DETECTED Nasal B.pertussis DNA PCR NOT DETECTED Nasal C.pneumoniae (PCR) NOT DETECTED Zain Human Metapneumo PCR NOT DETECTED Nasal M.pneumoniae (PCR) NOT DETECTED Nasal SARS-CoV-2 (PCR) DETECTED A - Rads (name of study) 1v cxr Radiology: EMP read contemporaneously (Bilateral interstitial type infiltrates, COVID more likely than CHF.) PD MEDICAL DECISION MAKING - ED course Complexity details: d/w healthcare network consultant (Spoke with Dr Friedman for admit [id number]) ED course: 65-year-old gentleman who is fully vaccinated and boosted against COVID presents with severe shortness of breath and profound hypoxemia. He is a "set up" for vaccine failure given that he is on multiple immunomodulatory medications and is found to be positive for COVID. Given the elevated white count there is also concern for sepsis and he was given cefepime and azithromycin after blood cultures. He was given IV fluids and he does not appear fluid overloaded or in heart failure. He is found to be in acute renal failure with metabolic acidosis with respiratory compensation. He is placed on high flow O2 with good improvem ent although not resolution in his increased work of breathing and very acceptable pulse oximetry's. We discussed CODE STATUS and he is full code for now. - Critical Care Time(min): 45 Time Includes: Direct patient care, Review records, Reassess patient, Document care, Coordinate care, Medical consult, Family consult for tx dec Data interpretation: Labs, Pulse ox Procedures included in critical care time: Peripheral IV Departure - Departure Disposition: 66 [facility] DC/Xfer Clinical Impression: COVID-19, ARF (acute renal failure), Prerenal azotemia Condition: Critical
[2021-06-11 16:27] LABS: NUCLEATED RED BLOOD CELLS AUTO 0.4 /100WBC
[2021-06-11 16:29] LABS: BASOPHILS # (AUTO) 0.1 10^3/uL (0.0-0.1); BASOPHILS % (AUTO) 0.5 %; HCT - HEMATOCRIT 33.8 % (42.0-52.0); LYMPHOCYTES # (AUTO) 0.9 10^3/uL (1.5-3.5); LYMPHOCYTES % (AUTO) 4.6 %; MEAN CORPUSCULAR HEMOGLOBIN 29.6 pg (27.0-31.0); MEAN CORPUSCULAR HGB CONC 32.5 g/dL (32.0-36.0); MEAN CORPUSCULAR VOLUME 91.1 fL (80.0-94.0); MEAN PLATELET VOLUME 8.6 fL (7.4-11.4); MONOCYTES # (AUTO) 1.2 10^3/uL (0.0-1.0); MONOCYTES % (AUTO) 5.8 %; NEUTROPHILS # (AUTO) 17.7 10^3/uL (1.5-6.6); NEUTROPHILS % (AUTO) 87.5 %; NRBC ABSOLUTE COUNT (AUTO) 0.09 x10^3/uL; PLT - PLATELET COUNT 612 10^3/uL (130-450); RED BLOOD COUNT 3.71 10^6/uL (4.70-6.10); RED CELL DISTRIBUTION WIDTH 16.7 % (12.0-15.0); WHITE BLOOD COUNT 20.3 x10^3/uL (4.8-10.8)
[2021-06-11 16:32] LABS: INR 1.6 (0.8-1.2); PT - PROTHROMBIN TIME 17.4 secs (9.9-12.6)
[2021-06-11] MEDS ORDERED: iohexoL-300 100 ML VIAL ONE (16:34)
[2021-06-11 16:42] LABS: VBG BASE EXCESS -10.3 mmol/L (-2 - +2); VBG HCO3 14.5 mmol/L (23-28); VBG OXYGEN SATURATION 38.7 % (60-80); VBG PCO2 28.7 mmHg (41-51); VBG PH 7.32 (7.31-7.41); VBG PO2 24.9 mmHg (25-47); VBG TOTAL CO2 15.3 mmol/L (24-29)
[2021-06-11 16:47] LABS: SLIDE REVIEW? Indicated
[2021-06-11] MEDS ORDERED: CEFEPIME 2 GM in SODIUM CHLORIDE 0.9% MINIBAG 100 ML IV STA (16:48)
[2021-06-11] MEDS ORDERED: SODIUM CHLORIDE 0.9% 1,000 ML IV STA ×2 (16:48→17:15)
[2021-06-11 17:00] LABS: ALBUMIN 2.5 g/dL (3.2-5.5); ALBUMIN/GLOBULIN RATIO 0.5 (1.0-2.2); BILIRUBIN,TOTAL 0.6 mg/dL (0.2-1.0); CALCIUM 8.6 mg/dL (8.5-10.3); CREATININE 2.3 mg/dL (0.6-1.2); MAGNESIUM 2.6 mg/dL (1.7-2.8); POTASSIUM 5.6 mmol/L (3.5-5.0); TOTAL PROTEIN 7.8 g/dL (6.7-8.2)
[2021-06-11 17:03] LABS: DIFFERENTIAL COMMENT MANUAL=AUTO DIFF; PLATELET ESTIMATE, MANUAL INCREASED (>450,000) (NORMAL); PLATELET MORPHOLOGY NORMAL APPEARANCE (NORMAL); RBC MORPHOLOGY (MULTIPLE) NORMAL APPEARANCE (NORMAL); WBC MORPHOLOGY (MULTIPLE) 1+ HYPERSEG NEUT (NORMAL)
--- NOTE | 2021-06-11 17:10 | XRAY Report ---
PROCEDURE: Chest 1 View X-Ray INDICATIONS: dyspnea TECHNIQUE: One view of the chest was acquired. COMPARISON: 12/17/2015. Correlation is also made with chest CT angiogram, 12/17/2015. FINDINGS: Surgical changes and devices: None. Lungs and pleura: No pleural effusions or pneumothorax. Abnormal interstitial infiltrates are seen, right worse than left. Lung volumes are low. No large pneumothorax or large pleural effusion can be s een. Mediastinum: Mediastinal contours appear normal. Heart size is normal. Bones and chest wall: No suspicious bony lesions. Age-appropriate degenerative changes are seen. Overlying soft tissues appear unremarkable. IMPRESSION: Bilateral interstitial type infiltrates are seen. Please consider COVID pneumonia versus fluid overlo ad. Reviewed by: Ike Ross MD on 06/11/2021 4:08 PM [facility] Approved by: Ike Ross MD on 06/11/2021 4:08 PM [facility] Station ID: [id number]
[2021-06-11] MEDS ORDERED: AZITHROMYCIN INJ 500 MG in SODIUM CHLORIDE 0.9% 250 ML IV STA (17:30)
[2021-06-11 17:33] LABS: CORONAVIRUS 229E-RESP PCR NOT DETECTED; CORONAVIRUS HKU1-RESP PCR NOT DETECTED; CORONAVIRUS NL63-RESP PCR NOT DETECTED; CORONAVIRUS OC43-RESP PCR NOT DETECTED
[2021-06-11 17:36] LABS: B. PARAPERTUSSIS- RESP PCR PAN NOT DETECTED; B. PERTUSSIS- RESP PCR PANEL NOT DETECTED; C. PNEUMONIAE- RESP PCR PANEL NOT DETECTED; HUMAN METAPNEUMOVIRUS NOT DETECTED; INFLUENZA A- RESP PCR PANEL NOT DETECTED; INFLUENZA B - RESP PCR PANEL NOT DETECTED; M. PNEUMONIAE- RESP PCR PANEL NOT DETECTED; PARAINFLUENZA VIRUS 1 NOT DETECTED; PARAINFLUENZA VIRUS 2 NOT DETECTED; PARAINFLUENZA VIRUS 3 NOT DETECTED; PARAINFLUENZA VIRUS 4 NOT DETECTED; RHINOVIRUS/ENTEROVIRUS NOT DETECTED; RSV- RESP PCR PANEL NOT DETECTED; SARS-CoV-2 -RESP PCR PANEL DETECTED
[2021-06-11] MEDS ORDERED: ONDANSETRON 4 MG/2 ML VIAL IVP PRN (18:12)
[2021-06-11] MEDS ORDERED: hydrALAZINE INJ 20 MG/ML VIAL IVP PRN (18:33)
[2021-06-11] MEDS ORDERED: oxyCODONE 5 MG TABLET PO PRN (18:38)
[2021-06-11] MEDS ORDERED: MORPHINE 2 MG/ML CARPUJECT IVP PRN (18:38)
[2021-06-11] MEDS: ACETAMINOPHEN 325 MG TABLET PO PRN (20:03)
[2021-06-11] MEDS: ATORVASTATIN 40 MG TABLET PO SCH (20:03)
[2021-06-11] MEDS: ENOXAPARIN 80 MG/0.8 ML SYRINGE SUBQ SCH (20:04)
[2021-06-11] MEDS: INSULIN ASPART 300 UNIT/3 ML PEN SUBQ SCH (20:05)
[2021-06-11] MEDS: INSULIN GLARGINE 300 UNIT/3 ML PEN SUBQ SCH (20:06)
[2021-06-11] MEDS: SODIUM CHLORIDE 0.9% 1,000 ML IV SCH (20:12)
[2021-06-11] MEDS: guaiFENesin 600 MG TABLET PO SCH (20:26)
--- NOTE | 2021-06-11 20:57 | HISTORY & PHYSICAL EXAMINATION ---
Chief Complaint - Chief Complaint Chief Complaint: SOB and cough History of Present Illness - Admitted From Admitted From:: ED - History Obtained From History obtained from: ED provider, chart review and the patient - History of Present Illness HPI Comment/Other: This is a 65-year-old white male with history of ankylosing spondylitis and psoriatic arthritis on 3 immunosuppressants, PVD with leg stents, hypertension, he has had 3 Covid vaccinations, he also has DM on insulin and possibly asthma not on inhalers. He developed a cough with progressively worse sputum produ ction 1 week ago and non-painful diarrhea for a week. He has had intermittent chills but does not know if he spiked a fever. He has had no nausea or vomiting. He had a knee cyst removed at [facility] and was hospitalized there for 3 days. His also had a cough but she tested COVID-negative. Today his SOB was so bad he called an ambulance. His oxygen saturation was in the 50% at the scene. He received Solu-Medrol and a nebulizer on route. In the ED he had labored breathing and required supplemental oxygen, up to needing HiFlow and work-up shows he is COVID-positive, has bilateral infiltrates on chest x-ray, has dehydration and new renal failure with elevated BUN and creatinine. He had a diarrheal bowel movement. The patient is being admitted to the Hospitalist team into the ICU. We discussed his CODE STATUS and wants to be a Full Code. We discussed if he is agreeable to be on a ventilator if it is required, and he at first said "intubation is okay but I only want to be on the ventilator for 5 days". I explained to him that some people need just over 5 days and some need many more days and that there is no way to predict. He then agreed to be on the ventilator as long as it is needed. History - Past Medical History Cardiovascular: reports: Hypertension, High cholesterol, Peripheral Vascular Disease, Murmur Respiratory: reports: Asthma (He told RT he has probable asthma but does not use inhalers.) Neuro: reports: None Endocrine/Autoimmune: reports: Type 2 diabetes GI: reports: None : reports: None HEENT: reports: None Psych: reports: None Musculoskeletal: reports: Osteoarthritis, Other Derm: reports: Psoriasis MRSA Hx?: No Other Past Medical History: Umbilical hernia - Past Surgical History General: reports: Appendectomy Ortho: reports: Hip replacement, Knee replacement, Other Derm: reports: Skin grafts - Family & Social History Living arrangement: At home Living Situation: With spouse/s.o. Social History Notes: He lives with his . He is severely disabled with spine stiffness from his ankylosing spondylitis. He has never smoked. He drinks very rare alcohol - Substance History Use: Uses substance without health or social issues: NONE - POLST Patient has POLST: Yes Meds/Allgy - Home Medications Home Medications: Ambulatory Orders Medication Instructions Recorded Confirmed Prednisone 20 mg PO DAILY 10/09/12 11/25/19 Metoprolol Tartrate [Lopressor] 12.5 mg PO BID 08/13/15 11/25/19 Oxycodone HCl/Acetaminophen 1 - 2 each PO Q6H PRN #14 tablet 08/29/15 11/25/19 [Percocet 5-325 mg Tablet] Cholecalciferol [Vitamin D3] 2,000 units PO DAILY 09/27/15 11/25/19 Insulin Glargine,Hum.rec.anlog 35 units SQ BID 09/27/15 11/25/19 [Lantus] Multivitamin [Multivitamins] 1 tab PO DAILY 09/27/15 11/25/19 amLODIPine [Norvasc] 5 mg PO DAILY 09/27/15 11/25/19 Indomethacin 50 mg PO TID 11/23/15 11/25/19 Sulfasalazine [Sulfazine] 500 mg PO BID 03/28/16 11/25/19 Atorvastatin Calcium 40 mg PO DAILY 11/25/19 11/25/19 Clopidogrel [Plavix] 75 mg PO ONCE 11/25/19 11/25/19 metHOTREXate sodium [Methotrexate] 2.5 mg PO DAILY 11/25/19 11/25/19 - Allergies Allergies/Adverse Reactions: Allergies Allergy/AdvReac Type Severity Reaction Status Date / Time infliximab [From Remicade] Allergy Rash Verified 06/11/21 16:18 vancomycin AdvReac Severe RENAL Verified 06/11/21 16:18 FAILURE Review of Systems - Constitutional Constitutional: reports: Chills, Malaise - Respiratory Respiratory: reports: Cough, Sputum production (at first had green, now brown sputum), SOB at rest, SOB with exertion - Gastrointestinal Gastrointestinal: reports: Diarrhea - Neurological Neurological: reports: General weakness, Numbness - All Other Systems All Other Systems: reports: Reviewed and negative Exam - Vital Signs Vital Signs: Vital Signs x48h Temp Pulse Resp BP Pulse Ox 06/11/21 19:43 36.9 C 06/11/21 18:30 36.6 C 100 24 160/90 H 100 06/11/21 18:00 100 24 162/90 H 100 06/11/21 17:30 96 28 H 140/76 H 100 06/11/21 17:17 97 27 H 142/78 H 100 06/11/21 16:47 100 30 H 135/71 H 99 06/11/21 16:21 104 H 37 H 157/84 H 98 06/11/21 16:10 36.5 C 108 H 38 H 152/81 H 96 - Physical Exam General Appearance: positive: Mild distress (Tachypneic when he speaks), Other (Tall thin white male) Eyes Bilateral: positive: Normal inspection ENT: positive: Dry mucous membranes, Other (Wearing high flow nasal cannula oxygen) Neck: positive: Nml inspection, Stiff neck (His neck is permanently bent forward from his ankylosing spondylitis.) Respiratory: positive: Breath sounds nml, Other (Tachypnea) Cardiovascular: positive: Regular rate & rhythm, No murmur Abdomen: positive: Non-tender, Nml bowel sounds, No distention Skin: positive: Warm, Dry Extremities: positive: No pedal edema, Other (Hands have disfigured morphology (ankylosing spondylitis and arthritis)) Neurologic/Psychiatric: positive: Oriented x3, CN's nml (2-12) Conclusion/Plan - Problem List (1) Acute respiratory failure with hypoxia Conclusion/Plan: Continue with supplemental oxygen keeping sats greater than 92%. Remain in the ICU in case of worsening oxygenation and need for BIPAP or ventilator Treat the underlying problem, the COVID-pneumonia. Also treating a possible community-acquired pneumonia, with empiric ceftriaxone and Zithromax, given the very high WBC. Also treating potential pulmonary emboli of COVID, given the high D-dimer Will order IV morphine as needed dyspnea (2) Pneumonia due to COVID-19 virus Conclusion/Plan: Begin remdesivir for 5-day course. Begin Decadron high-dose for 8 to 10-day course. Begin therapeutic twice daily Lovenox for treating any potential clot formation from COVID, since his D-dimer is very high Treat with Imodium for the diarrhea and adjust his diet to easily-digestible pured diet. Sleeping prone was advised and discussed with the patient. Because of his neck and spine stiffness, assistance to get into that position with RN will be ordered. Isolation precautions ordered (3) COVID-19 Conclusion/Plan: He has had 6 days of diarrhea, he has adjusted his diet appropriately down to scrambled eggs, soft food that is easily digestible and lots of liquids. Will order a pured diet which she is requesting. Will order Imodium for his diarrhea. We will treat his COVID-pneumonia as described here (4) Dehydration Conclusion/Plan: Related to fluid loss and his diarrhea and will be treated as described above (5) ARF (acute renal failure) Conclusion/Plan: Likely due to 6 days of watery diarrhea. IV fluids of NS ordered and will continue. No limit on oral fluid intake also. Avoid nephrotoxins. Follow BMP daily (6) HTN (hypertension) Conclusion/Plan: Will resume his usual medications when they are reconciled and use as needed IV hydralazine (7) Uncontrolled diabetes mellitus with hyperglycemia, with long-term current use of insulin Conclusion/Plan: We will order a diabetic diet, hypoglycemia protocol, insulin coverage and sliding scale insulin coverage. He will likely have poor glu control since needing to be on high-dose steroids Check A1c with a.m. labs (8) Ankylosing spondylitis Conclusion/Plan: Resume his pain medications and other treatment, when his med list is rec onciled. Indocin is one of the medications. We will therefore put him on po Protonix for stress ulcer prophylaxis He is on Decadron now instead of the po Prednisone (9) Psoriatic arthritis Conclusion/Plan: Will resume medications when list reconciled (10) PVD (peripheral vascular disease) Conclusion/Plan: He is on baby aspirin daily which will be resumed. Any other medications for his PVD will also be resumed when the list is reconciled. - Lab Results Lab results reviewed: Yes Fish Bones: 06/11/21 16:15 06/11/21 16:15 - Diagnostic Imaging Results Diagnostic Imaging Results: positive: Final report reviewed - Other Other Results/Comments: Attestation: The patient is expected to be discharged or transferred to another facility for 96 hours.
[2021-06-11] MEDS ORDERED: INSULIN ASPART 300 UNIT/3 ML PEN SUBQ SCH (21:00)
[2021-06-11] MEDS: MORPHINE 2 MG/ML CARPUJECT IVP PRN (21:51)
[2021-06-11] MEDS ORDERED: INDOMETHACIN 25 MG CAPSULE PO ONE (22:00)
[2021-06-11] MEDS ORDERED: ASPIRIN EC 81 MG TABLET PO ONE (22:00)
[2021-06-11] MEDS: sulfaSALAzine 500 MG TABLET PO SCH (22:04)
[2021-06-11 22:47] LABS: CALCIUM 8.3 mg/dL (8.5-10.3); CREATININE 1.8 mg/dL (0.6-1.2); POTASSIUM 5.8 mmol/L (3.5-5.0)
[2021-06-12] MEDS: SODIUM CHLORIDE 0.9% 1,000 ML IV SCH ×2 (02:01→14:15)
[2021-06-12] MEDS: SODIUM CHLORIDE FLUSH 0.9% 10 ML SYRINGE IVP SCH ×5 (02:28→23:24)
[2021-06-12 05:26] LABS: BASOPHILS % (AUTO) 0.1 %; HCT - HEMATOCRIT 31.9 % (42.0-52.0); HGB - HEMOGLOBIN 10.2 g/dL (14.0-18.0); LYMPHOCYTES % (AUTO) 6.2 %; MEAN CORPUSCULAR HEMOGLOBIN 29.3 pg (27.0-31.0); MEAN CORPUSCULAR VOLUME 91.7 fL (80.0-94.0); MEAN PLATELET VOLUME 8.4 fL (7.4-11.4); MONOCYTES # (AUTO) 1.3 10^3/uL (0.0-1.0); MONOCYTES % (AUTO) 8.7 %; NEUTROPHILS # (AUTO) 12.9 10^3/uL (1.5-6.6); NEUTROPHILS % (AUTO) 83.4 %; NRBC ABSOLUTE COUNT (AUTO) 0.12 x10^3/uL; NUCLEATED RED BLOOD CELLS AUTO 0.8 /100WBC; PLT - PLATELET COUNT 591 10^3/uL (130-450); RED BLOOD COUNT 3.48 10^6/uL (4.70-6.10); RED CELL DISTRIBUTION WIDTH 16.4 % (12.0-15.0); WHITE BLOOD COUNT 15.5 x10^3/uL (4.8-10.8)
[2021-06-12 05:29] LABS: CALCIUM 8.4 mg/dL (8.5-10.3); CREATININE 1.5 mg/dL (0.6-1.2); POTASSIUM 5.5 mmol/L (3.5-5.0)
[2021-06-12 05:53] LABS: MAGNESIUM 2.7 mg/dL (1.7-2.8); PHOSPHORUS 4.4 mg/dL (2.5-4.6)
[2021-06-12 06:03] LABS: CALCIUM, IONIZED 1.15 mmol/L (1.15-1.33); VBG PH 7.343 (7.31-7.41)
[2021-06-12] MEDS: PANTOPRAZOLE 40 MG TABLET PO SCH (06:23)
[2021-06-12] MEDS: MORPHINE 2 MG/ML CARPUJECT IVP PRN ×3 (06:24→20:33)
[2021-06-12] MEDS: ACETAMINOPHEN 325 MG TABLET PO PRN ×3 (06:24→20:31)
--- NOTE | 2021-06-12 07:50 | PROVIDER PROGRESS NOTE ---
Assessment/Plan - Problem List (1) Acute respiratory failure with hypoxia Assessment/Plan: Secondary to COVID 19 pneumonia. Patient was vaccinated and also received boosters. Decadron 07/06 Remdesivir 06/01. Azithromycin 2/3. Cefepime Patient was initially on high flow nasal cannula FiO2 80% flow rate 40 with oxygen saturation at 94%. However due to slight increase in work of breathing he was switched to a BiPAP 8/4 with FiO2 60% White blood cell count improved from 20.5 down to 15.5. Gram stain on respiratory cultures showed moderate gram-positive cocci and few gram-negative rods. Blood cultures pending. Chest x-ray done on 06/11/2021 showed bilateral interstitial type infiltrates suspicious of COVID pneumonia. D dimer was greater than 1050. Patient is on Lovenox 80 mg subcu twice daily (2) Pneumonia due to COVID-19 virus Assessment/Plan: Patient was vaccinated and also received boosters. Decadron 07/06 Remdesivir 06/01. Azithromycin 2/3. Cefepime Patient was initially on high flow nasal cannula FiO2 80% flow rate 40 with oxygen saturation at 94%. However due to slight increase in work of breathing he was switched to a BiPAP 8/4 with FiO2 60% White blood cell count improved from 20.5 down to 15.5. Gram stain on respiratory cultures showed moderate gram-positive cocci and few gram-negative rods. Blood cultures pending. Chest x-ray done on 06/11/2021 showed bilateral interstitial type infiltrates suspicious of COVID pneumonia. D dimer was greater than 1050. Patient is on Lovenox 80 mg subcu twice daily (3) NSTEMI (non-ST elevated myocardial infarction) Assessment/Plan: Troponin: 41.8-> 105.5-> 381.1-> 817.4 Lovenox 80 mg SQ twice daily Aspirin 81 mg p.o. daily Plavix 75 mg p.o. daily Metoprolol Succinate 25 mg p.o. daily Atorvastatin 40 mg p.o. every afternoon (4) ARF (acute renal failure) Assessment/Plan: Likely secondary to dehydration. Creatinine At admission was 2.3. Currently creatinine is 1.5. Patient received gentle IV hydration with normal saline for over 24hrs. We will hold off on any further IV hydration for now. (5) Dehydration Assessment/Plan: Improving Creatinine at admission was 2.3. Currently creatinine is 1.5. Patient received gentle IV hydration with normal saline for over 24hrs. We will hold off on any further IV hydration for now. (6) Ankylosing spondylitis Assessment/Plan: Currently on Dexamethasone 6 mg IV daily. Indomethacin 25 mg p.o. twice daily Calcium 500 mg p.o. twice daily (7) Psoriatic arthritis Assessment/Plan: Currently on Dexamethasone 6 mg IV daily. Indomethacin 25 mg p.o. twice daily Calcium 500 mg p.o. twice daily (8) Uncontrolled diabetes mellitus with hyperglycemia, with long-term current use of insulin Assessment/Plan: Lantus 35 units subcu twice daily High-dose sliding scale insulin. Hemoglobin A1c pending. (9) PVD (peripheral vascular disease) Assessment/Plan: On baby aspirin and Plavix 75 mg p.o. daily (10) HTN (hypertension) Assessment/Plan: Currently normotensive. Amlodipine 5 mg p.o. daily. Metoprolol succinate 25 mg p.o. daily. - Current Meds Current Meds: Current Medications Generic Name Dose Route Start Last Admin Trade Name Freq PRN Reason Stop Dose Admin Acetaminophen 650 mg 06/11/21 18:12 06/12/21 06:24 Acetaminophen 325 Mg Tablet PO 650 mg Q4HR PRN Administration Pain 1 to 4 Atorvastatin Calcium 40 mg 06/11/21 21:00 06/11/21 20:03 Atorvastatin 40 Mg Tablet PO 40 mg QPM [place] Administration Enoxaparin Sodium 80 mg 06/11/21 21:00 06/11/21 20:04 Enoxaparin 80 Mg/0.8 Ml Syringe SUBQ 80 mg BID [place] Administration Guaifenesin 600 mg 06/11/21 21:00 06/11/21 20:26 Guaifenesin 600 Mg Tablet PO 600 mg BID [place] Administration Sodium Chloride 1,000 mls @ 100 mls/hr 06/11/21 19:00 06/12/21 04:00 Normal Saline 0.9% IV 100 mls/hr .Q10H [place] Infusion Insulin Aspart 3 - 11 unit 06/11/21 21:00 06/11/21 20:05 Insulin Aspart 300 Unit/3 Ml Pen SUBQ 5 unit 0800,1200,1700,2100 [place] Administration Protocol Insulin Glargine 35 unit 06/11/21 21:00 06/11/21 20:06 Insulin Glargine 300 Unit/3 Ml Pen SUBQ 35 unit BID [place] Administration Morphine Sulfate 2 mg 06/11/21 20:03 06/12/21 06:24 Morphine 2 Mg/Ml Carpuject IVP 2 mg Q6HR PRN Administration Dyspnea Pantoprazole Sodium 40 mg 06/12/21 07:00 06/12/21 06:23 Pantoprazole 40 Mg Tablet PO 40 mg QDAC [place] Administration Sodium Chloride 10 ml 06/12/21 01:00 06/12/21 02:28 Sodium Chloride Flush 0.9% 10 Ml Syringe IVP Not Given 0100,0900,1700 [place] Sulfasalazine 500 mg 06/11/21 22:00 06/11/21 22:04 Sulfasalazine 500 Mg Tablet PO 500 mg BID [place] Administration - Lab Result Fish Bone Diagrams: 06/12/21 05:00 06/12/21 05:00 - Additional Planning My Orders: My Active Orders 06/11/21 18:12 Activity Orders [RC] Q2HR Daily Weight [RC] 0600 IO [RC] Q1HR Initiate Bowel Care Protocol [RC] QSHIFT Initiate ICU Electrolyte Prot. [RC] .protocol Initiate Line Care Protocol [RC] .protocol Initiate Personal Care Protoco [RC] .protocol Vital Signs [RC] Q1HR Acetaminophen [Tylenol] 650 mg PO Q4HR PRN Ondansetron Inj [Zofran Inj] 4 mg IVP Q6HR PRN Sodium Chloride Flush 0.9% [Normal Saline Flush 0.9%] 10 ml IVP PRN PRN Code Status [OTHERS] Routine Condition of Patient [OTHERS] Routine DVT Prophylaxis [OTHERS] Routine 06/11/21 18:17 Oxygen Therapy [RC] .PRN Telemetry- [RC] Q4HR 06/11/21 18:26 Blood Glucose Checks - Eating [RC] 0800,1200,1700,2100 06/11/21 18:31 Initiate Hypoglycemia Protocol [RC] .protocol 06/11/21 18:33 hydrALAZINE INJ [Apresoline Inj] 10 mg IVP Q4H PRN 06/11/21 18:38 oxyCODONE [Roxicodone] 5 mg PO Q4HR PRN 06/11/21 19:00 Sodium Chloride 0.9% [Normal Saline 0.9%] 1,000 ml IV 100 mls/hr 06/11/21 21:00 Atorvastatin [Lipitor] 40 mg PO QPM Enoxaparin [Lovenox] 80 mg SUBQ BID Insulin Aspart [NovoLOG] 3 - 11 unit SUBQ 0800,1200,1700,2100 Insulin Glargine [Lantus Solostar] 35 unit SUBQ BID 06/12/21 01:00 Sodium Chloride Flush 0.9% [Normal Saline Flush 0.9%] 10 ml IVP 0100,0900,1700 06/12/21 05:00 HEMOGLOBIN A1c% [CHEM] DAILYLAB 06/12/21 07:00 Pantoprazole [Protonix] 40 mg PO QDAC 06/12/21 09:00 Azithromycin Inj [Zithromax Inj] 500 mg Sodium Chloride 0.9% [Normal Saline 0.9%] 250 ml IV DAILY Cefepime 2 gm Sodium Chloride 0.9% Minibag [Normal Saline 0.9% Minibag] 100 ml IV BID Clopidogrel [Plavix] 75 mg PO DAILY Metoprolol Succinate [Toprol Xl] 25 mg PO DAILY amLODIPine [Norvasc] 5 mg PO DAILY dexAMETHasone [Decadron] 6 mg IVP DAILY 06/12/21 10:00 TROPONIN I HIGH SENSITIVITY [IAI] Q6H 06/13/21 05:00 BMP - BASIC METABOLIC PANEL [CHEM] DAILYLAB CALCIUM, IONIZED ([facility]) [BG] DAILYLAB CBC - COMP BLD CT W/AUTO DIFF [HEME] DAILYLAB MAGNESIUM [CHEM] DAILYLAB PHOSPHORUS [CHEM] DAILYLAB 06/14/21 05:00 BMP - BASIC METABOLIC PANEL [CHEM] DAILYLAB CALCIUM, IONIZED ([facility]) [BG] DAILYLAB CBC - COMP BLD CT W/AUTO DIFF [HEME] DAILYLAB MAGNESIUM [CHEM] DAILYLAB PHOSPHORUS [CHEM] DAILYLAB 06/15/21 05:00 BMP - BASIC METABOLIC PANEL [CHEM] DAILYLAB CBC - COMP BLD CT W/AUTO DIFF [HEME] DAILYLAB 06/16/21 05:00 BMP - BASIC METABOLIC PANEL [CHEM] DAILYLAB CBC - COMP BLD CT W/AUTO DIFF [HEME] DAILYLAB 06/17/21 05:00 BMP - BASIC METABOLIC PANEL [CHEM] DAILYLAB CBC - COMP BLD CT W/AUTO DIFF [HEME] DAILYLAB 06/18/21 05:00 BMP - BASIC METABOLIC PANEL [CHEM] DAILYLAB CBC - COMP BLD CT W/AUTO DIFF [HEME] DAILYLAB Subjective - Subjective Patient Reports: Other (Appeared to be resting comfortably at time of exam however he was very tachypneic with respiratory rate in the 30s. He was on a high flow nasal cannula at an FiO2 of 80% and a flow rate of 40 L/min. Oxygen saturation was 94%. He denied chest pain. Afebrile, no abdominal pain nausea or vomiting.) Objective Vital Signs: Vital Signs - 24 hr 06/11/21 06/11/21 06/11/21 16:10 16:21 16:47 Temperature 36.5 C Heart Rate 108 H 104 H 100 Heart Rate [ Monitoring electrodes] Respiratory 38 H 37 H 30 H Rate Blood Pressure 152/81 H 157/84 H 135/71 H Blood Pressure [Left Brachial artery] O2 Saturation 96 98 99 06/11/21 06/11/21 06/11/21 17:17 17:30 18:00 Temperature Heart Rate 97 96 100 Heart Rate [ Monitoring electrodes] Respiratory 27 H 28 H 24 Rate Blood Pressure 142/78 H 140/76 H 162/90 H Blood Pressure [Left Brachial artery] O2 Saturation 100 100 100 06/11/21 06/11/21 06/11/21 18:30 19:43 21:00 Temperature 36.6 C 36.9 C Heart Rate 100 Heart Rate [ 108 H Monitoring electrodes] Respiratory 24 34 H Rate Blood Pressure 160/90 H Blood Pressure 145/54 H [Left Brachial artery] O2 Saturation 100 95 06/11/21 06/11/21 06/12/21 22:00 23:00 00:00 Temperature 36.6 C Heart Rate Heart Rate [ 107 H 106 H 104 H Monitoring electrodes] Respiratory 39 H 38 H 32 H Rate Blood Pressure Blood Pressure 120/84 H 131/72 H 131/87 H [Left Brachial artery] O2 Saturation 96 96 96 06/12/21 06/12/21 06/12/21 01:00 02:00 03:00 Temperature Heart Rate Heart Rate [ 98 103 H 101 H Monitoring electrodes] Respiratory 39 H 41 H 34 H Rate Blood Pressure Blood Pressure 131/78 H 139/92 H 126/74 [Left Brachial artery] O2 Saturation 98 90 L 96 06/12/21 06/12/21 06/12/21 04:00 05:00 06:00 Temperature Heart Rate Heart Rate [ 95 103 H 102 H Monitoring electrodes] Respiratory 34 H 32 H 27 H Rate Blood Pressure Blood Pressure 150/73 H 153/80 H 135/83 H [Left Brachial artery] O2 Saturation 97 93 97 06/12/21 07:00 Temperature Heart Rate Heart Rate [ 99 Monitoring electrodes] Respiratory 34 H Rate Blood Pressure Blood Pressure 116/73 [Left Brachial artery] O2 Saturation 98 Oxygen O2 Source [Without Activity] 2L O2 via NC O2 Source FGA I&O (Last 24 Hrs): Intake and Output Totals x24h 06/10/21 06/11/21 06/12/21 23:59 23:59 23:59 Intake Total 2323 1100.000 Output Total 550 1125 Balance 1773 -25.000 General: Alert, Moderate distress (Respiratory) HEENT: PERRLA, EOMI Neck: Supple, No JVD Neuro: Alert Cardiovascular: Regular rate, No murmurs Respiratory: Chest non-tender, Other (Coarse but no wheezing or rhonchi) Abdomen: Normal bowel sounds, Soft, No tenderness Extremities: No edema, No tenderness/swelling, Other (disfigured morphology of lower extremities and hands from ankylosing spondylitis and arthritis) Skin: No rashes (Dry skin with flakes/plaques and scabs especially in lower extremity) - Results Results: Laboratory Results WBC 15.5 x10^3/uL (4.8-10.8) H 06/12/21 05:00 RBC 3.48 10^6/uL (4.70-6.10) L 06/12/21 05:00 Hgb 10.2 g/dL (14.0-18.0) L 06/12/21 05:00 Hct 31.9 % (42.0-52.0) L 06/12/21 05:00 MCV 91.7 fL (80.0-94.0) 06/12/21 05:00 MCH 29.3 pg (27.0-31.0) 06/12/21 05:00 MCHC 32.0 g/dL (32.0-36.0) 06/12/21 05:00 RDW 16.4 % (12.0-15.0) H 06/12/21 05:00 Plt Count 591 10^3/uL (130-450) H 06/12/21 05:00 MPV 8.4 fL (7.4-11.4) 06/12/21 05:00 Neut # (Auto) 12.9 10^3/uL (1.5-6.6) H 06/12/21 05:00 Lymph # (Auto) 1.0 10^3/uL (1.5-3.5) L 06/12/21 05:00 Wilkes # (Auto) 1.3 10^3/uL (0.0-1.0) H 06/12/21 05:00 Eos # (Auto) 0.0 10^3/uL (0.0-0.7) 06/12/21 05:00 Baso # (Auto) 0.0 10^3/uL (0.0-0.1) 06/12/21 05:00 Absolute Nucleated RBC 0.12 x10^3/uL 06/12/21 05:00 Band Neuts % (Manual) Not Reportable 06/11/21 16:15 Abnorm Lymph % (Manual) Not Reportable 06/11/21 16:15 Nucleated RBC % 0.8 /100WBC 06/12/21 05:00 Neutrophils # (Manual) Not Reportable 06/11/21 16:15 Lymphocytes # (Manual) Not Reportable 06/11/21 16:15 Monocytes # (Manual) Not Reportable 06/11/21 16:15 Eosinophils # (Manual) Not Reportable 06/11/21 16:15 Basophils # (Manual) Not Reportable 06/11/21 16:15 Differential Comment MANUAL=AUTO DIFF 06/11/21 16:15 Manual Slide Review Indicated 06/11/21 16:15 WBC Morphology 1+ HYPERSEG NEUT (NORMAL) 06/11/21 16:15 Platelet Estimate INCREASED (>450,000) (NORMAL) 06/11/21 16:15 Platelet Morphology NORMAL APPEARANCE (NORMAL) 06/11/21 16:15 RBC Morph Micro Appear NORMAL APPEARANCE (NORMAL) 06/11/21 16:15 PT 17.4 secs (9.9-12.6) H 06/11/21 16:15 INR 1.6 (0.8-1.2) H 06/11/21 16:15 D-Dimer > 1050.0 ng/mL (200.0-255.0) H 06/11/21 17:42 VBG pH 7.343 (7.31-7.41) 06/12/21 05:07 VBG pCO2 28.7 mmHg (41-51) L 06/11/21 16:15 VBG pO2 24.9 mmHg (25-47) L 06/11/21 16:15 VBG HCO3 14.5 mmol/L (23-28) L 06/11/21 16:15 VBG Total CO2 15.3 mmol/L (24-29) L 06/11/21 16:15 VBG O2 Saturation 38.7 % (60-80) L 06/11/21 16:15 VBG Base Excess -10.3 mmol/L (-2 - +2) L 06/11/21 16:15 Ionized Calcium 1.15 mmol/L (1.15-1.33) 06/12/21 05:07 Sodium 142 mmol/L (135-145) 06/12/21 05:00 Potassium 5.5 mmol/L (3.5-5.0) H 06/12/21 05:00 Chloride 113 mmol/L (101-111) H 06/12/21 05:00 Carbon Dioxide 18 mmol/L (21-32) L 06/12/21 05:00 Anion Gap 11.0 (6-13) 06/12/21 05:00 BUN 98 mg/dL (6-20) H* 06/12/21 05:00 Creatinine 1.5 mg/dL (0.6-1.2) H 06/12/21 05:00 Estimated GFR (MDRD) 47 (>89) L 06/12/21 05:00 Glucose 114 mg/dL (70-100) H 06/12/21 05:00 Lactic Acid 1.9 mmol/L (0.5-2.2) 06/12/21 00:05 Calcium 8.4 mg/dL (8.5-10.3) L 06/12/21 05:00 Phosphorus 4.4 mg/dL (2.5-4.6) 06/12/21 05:07 Magnesium 2.7 mg/dL (1.7-2.8) 06/12/21 05:07 Total Bilirubin 0.6 mg/dL (0.2-1.0) 06/11/21 16:15 AST 42 IU/L (10-42) 06/11/21 16:15 ALT 18 IU/L (10-60) 06/11/21 16:15 Alkaline Phosphatase 147 IU/L (42-121) H 06/11/21 16:15 Troponin I High Sens 381.1 ng/L (2.3-19.7) H* 06/12/21 05:00 B-Natriuretic Peptide 110 pg/mL (5-100) H 06/11/21 16:15 Total Protein 7.8 g/dL (6.7-8.2) 06/11/21 16:15 Albumin 2.5 g/dL (3.2-5.5) L 06/11/21 16:15 Globulin 5.3 g/dL (2.1-4.2) H 06/11/21 16:15 Albumin/Globulin Ratio 0.5 (1.0-2.2) L 06/11/21 16:15 Lipase 62 U/L (22-51) H 06/11/21 16:15 Nasal Adenovirus (PCR) NOT DETECTED 06/11/21 16:15 Nasal B. parapertussis DNA (PCR) NOT DETECTED 06/11/21 16:15 Nasal Coronavir 229E PCR NOT DETECTED 06/11/21 16:15 Nasal Coronavir HKU1 PCR NOT DETECTED 06/11/21 16:15 Nasal Coronavir NL63 PCR NOT DETECTED 06/11/21 16:15 Nasal Coronavir OC43 PCR NOT DETECTED 06/11/21 16:15 Nasal Enterovir/Rhinovir PCR NOT DETECTED 06/11/21 16:15 Nasal Influenza B PCR NOT DETECTED 06/11/21 16:15 Nasal Influenza A PCR NOT DETECTED 06/11/21 16:15 Nasal Parainfluen 1 PCR NOT DETECTED 06/11/21 16:15 Nasal Parainfluen 2 PCR NOT DETECTED 06/11/21 16:15 Nasal Parainfluen 3 PCR NOT DETECTED 06/11/21 16:15 Nasal Parainfluen 4 PCR NOT DETECTED 06/11/21 16:15 Nasal RSV (PCR) NOT DETECTED 06/11/21 16:15 Nasal Screen MRSA (PCR) NEGATIVE (NEGATIVE) 06/11/21 19:29 Nasal B.pertussis DNA PCR NOT DETECTED 06/11/21 16:15 Nasal C.pneumoniae (PCR) NOT DETECTED 06/11/21 16:15 Zain Human Metapneumo PCR NOT DETECTED 06/11/21 16:15 Nasal M.pneumoniae (PCR) NOT DETECTED 06/11/21 16:15 Nasal SARS-CoV-2 (PCR) DETECTED A 06/11/21 16:15 - Procedures Procedures: Procedures EXCISION OF DESCENDING COLON, ENDO (11/25/19) EXCISION OF R FOOT SUBCU/FASCIA, OPEN APPROACH (08/30/15) EXCISION OF RECTUM, ENDO (11/25/19) EXCISION OF RIGHT UPPER LEG SKIN, EXTERNAL APPROACH (10/26/15) INSERTION OF INFUSION DEV INTO SUP VENA CAVA, PERC APPROACH (08/30/15) REPLACE R FOOT SKIN W AUTOL SUB, PART THICK, OIL FIELD ROUSTABOUT (10/26/15) REPLACE R FOOT SKIN W NONAUT SUB, FULL THICK, OIL FIELD ROUSTABOUT (10/06/15) REPLACEMENT OF RIGHT LENS WITH SYNTH SUB, PERC APPROACH (03/29/16) ABX Reporting Has patient been on IV antibiotics over the past 48 hours?: Yes
[2021-06-12] MEDS: INSULIN ASPART 300 UNIT/3 ML PEN SUBQ SCH ×4 (08:34→20:31)
[2021-06-12] MEDS: INDOMETHACIN 25 MG CAPSULE PO SCH ×2 (08:38→17:09)
[2021-06-12] MEDS: amLODIPine 5 MG TABLET PO SCH (08:38)
[2021-06-12] MEDS: CLOPIDOGREL 75 MG TABLET PO SCH (08:39)
[2021-06-12] MEDS: guaiFENesin 600 MG TABLET PO SCH ×2 (08:39→20:32)
[2021-06-12] MEDS: METOPROLOL SUCCINATE 25 MG TABLET PO SCH (08:39)
[2021-06-12] MEDS: sulfaSALAzine 500 MG TABLET PO SCH ×2 (08:40→20:32)
[2021-06-12] MEDS: ENOXAPARIN 80 MG/0.8 ML SYRINGE SUBQ SCH ×2 (08:43→20:32)
[2021-06-12] MEDS: INSULIN GLARGINE 300 UNIT/3 ML PEN SUBQ SCH ×2 (08:48→20:46)
[2021-06-12] MEDS: AZITHROMYCIN INJ 500 MG in SODIUM CHLORIDE 0.9% 250 ML IV SCH (09:00)
[2021-06-12] MEDS: DEXAMETHASONE 4 MG/ML VIAL IVP SCH (09:00)
[2021-06-12] MEDS: ASPIRIN EC 81 MG TABLET PO SCH (09:04)
[2021-06-12] MEDS: CEFEPIME 2 GM in SODIUM CHLORIDE 0.9% MINIBAG 100 ML IV SCH ×2 (10:00→20:29)
[2021-06-12] MEDS ORDERED: REMDESIVIR 100MG VIAL 200 MG in SODIUM CHLORIDE 0.9% 250 ML IV ONE (12:00)
--- NOTE | 2021-06-12 15:05 | PHARMACY PROGRESS NOTE ---
- Best Possible Medication History Admit Date and Time: 06/11/211811 Processed by: Pharmacy Medication History completed: Yes Patient Interview: Completed Secondary Source(s): Physician records, Pharmacy records, Insurance records As the person ultimately responsible for medication therapy, providers are able to order a medication from an existing home medication list in [facility] via the "Reconcile Routine" prior to Confirmation of that medication by academic support specialist. Such practice is discouraged except when the physician, in their clinical judgment, deems that a medical need exists for a medication without regard to previous use.
[2021-06-12] MEDS: ATORVASTATIN 40 MG TABLET PO SCH (20:32)
[2021-06-12 20:44] LABS: ESTIMATED AVERAGE GLUCOSE 140 mg/dL (70-100); HEMOGLOBIN A1c% 6.5 % (4.27-6.07)
[2021-06-12] MEDS: LORazepam 2 MG/ML VIAL IVP STA (23:23)
[2021-06-13] MEDS: MORPHINE 2 MG/ML CARPUJECT IVP PRN (02:54)
[2021-06-13] MEDS: SODIUM CHLORIDE FLUSH 0.9% 10 ML SYRINGE IVP SCH ×3 (02:55→17:44)
[2021-06-13 05:41] LABS: BASOPHILS % (AUTO) 0.4 %; HCT - HEMATOCRIT 34.2 % (42.0-52.0); HGB - HEMOGLOBIN 10.6 g/dL (14.0-18.0); LYMPHOCYTES % (AUTO) 11.5 %; MEAN CORPUSCULAR HEMOGLOBIN 29.1 pg (27.0-31.0); MEAN PLATELET VOLUME 8.4 fL (7.4-11.4); MONOCYTES % (AUTO) 5.6 %; NEUTROPHILS % (AUTO) 80.8 %; PLT - PLATELET COUNT 678 10^3/uL (130-450); RED BLOOD COUNT 3.64 10^6/uL (4.70-6.10); RED CELL DISTRIBUTION WIDTH 17.5 % (12.0-15.0); WHITE BLOOD COUNT 20.7 x10^3/uL (4.8-10.8)
[2021-06-13 05:51] LABS: ABNORMAL LYMPHS % (MANUAL) 0 %; BAND NEUTROPHILS % (MANUAL) 0 %
[2021-06-13 05:59] LABS: CALCIUM, IONIZED 1.21 mmol/L (1.15-1.33); VBG PH 7.337 (7.31-7.41)
[2021-06-13 06:01] LABS: CALCIUM 8.8 mg/dL (8.5-10.3); MAGNESIUM 2.3 mg/dL (1.7-2.8); PHOSPHORUS 2.4 mg/dL (2.5-4.6); POTASSIUM 5.2 mmol/L (3.5-5.0)
[2021-06-13 06:07] LABS: EOSINOPHILS # (MANUAL) 0.2 10^3/uL (0-0.7); LYMPHOCYTES # (MANUAL) 3.1 10^3/uL (1.5-3.5); LYMPHOCYTES % (MANUAL) 15 %; MONOCYTES # (MANUAL) 0.4 10^3/uL (0.0-1.0); MYELOCYTES % (MANUAL) 1 %; NEUTROPHILS # (MANUAL) 16.8 10^3/uL (1.5-6.6); PLATELET ESTIMATE, MANUAL INCREASED (>450,000) (NORMAL); PLATELET MORPHOLOGY NORMAL APPEARANCE (NORMAL); RBC MORPHOLOGY (MULTIPLE) 1+ ANISOCYTOSIS (NORMAL); WBC MORPHOLOGY (MULTIPLE) NORMAL APPEARANCE (NORMAL)
[2021-06-13 06:08] LABS: DIFFERENTIAL COMMENT MANUAL DIFFERENTIAL
[2021-06-13] MEDS: PANTOPRAZOLE 40 MG TABLET PO SCH (06:13)
[2021-06-13] MEDS: LORazepam 2 MG/ML VIAL IVP STA (06:30)
[2021-06-13] MEDS: DEXTROSE 50% ABBOJECT 25 GM/50 ML SYRINGE IVP ONE ×2 (06:59→11:44)
[2021-06-13] MEDS ORDERED: guaiFENesin/CODEINE 5 ML UDC PO PRN (07:50)
--- NOTE | 2021-06-13 08:05 | PROVIDER PROGRESS NOTE ---
Assessment/Plan - Problem List (1) Acute respiratory failure with hypoxia Assessment/Plan: Secondary to COVID 19 pneumonia. Patient's respiratory status worsened earlier this morning. He did not tolerate the BiPAP machine this morning. He was tachypneic at 1 point with respiratory rate of as high as 50. Patient appeared very exhausted at time of exam. After discussion about the likelihood of him tiring out he agreed to be intubated. He was a very difficult intubation due to the effects of ankylosing spondylitis on his musculature.but was successfully done Initially sedated using propofol however it was not successful in achieving appropriate sedation consequently Versed and fentanyl was ordered with plan to titrate and wean off propofol. Patient's systolic blood pressure was low as a result of sedation dropping to as low as a systolic blood pressure in the sixties. As a result Levophed was in itiated. ABG showed pH 7.26, PCO2 42, PO2 130, HCO3 18.4. On assist control mode, respiratory rate 18, FiO2 100, tidal volume 450, PEEP 5 Patient was vaccinated and also received boosters. Decadron 08/03 Remdesivir 07/02. Azithromycin 07/28. Cefepime White blood cell count is 20.7 This is likely exacerbated by steroid use Gram stain on respiratory cultures showed moderate gram-positive cocci and few gram-negative rods. Blood cultures are NGTD. Chest x-ray done on 06/11/2021 showed bilateral interstitial type infiltrates suspicious of COVID pneumonia. D dimer was greater than 1050. Patient is on Lovenox 80 mg subcu twice daily Tube feed initiated 06/13/2021 (2) Pneumonia due to COVID-19 virus Assessment/Plan: Patient's respiratory status worsened earlier this morning. He did not tolerate the BiPAP machine this morning. He was tachypneic at 1 point with respiratory rate of as high as 50. Patient appeared very exhausted at time of exam. After discussion about the likelihood of him tiring out he agreed to be intubated. He was a very difficult intubation due to the effects of ankylosing spondylitis on his musculature.but was successfully done Initially sedated using propofol however it was not successful in achieving appropriate sedation consequently Versed and fentanyl was ordered with plan to titrate and wean off propofol. Patient's systolic blood pressure was low as a result of sedation dropping to as low as a systolic blood pressure in the sixties. As a result Levophed was initiated. ABG showed pH 7.26, PCO2 42, PO2 130, HCO3 18.4. On assist control mode, respiratory rate 18, FiO2 100, tidal volume 450, PEEP 5 Patient was vaccinated and also received boosters. Decadron 08/03 Remdesivir 07/02. Azithromycin 07/28. Cefepime White blood cell count is 20.7 This is likely exacerbated by steroid use Gram stain on respiratory cultures showed moderate gram-positive cocci and few gram-negative rods. Blood cultures are NGTD. Chest x-ray done on 06/11/2021 showed bilateral interstitial type infiltrates suspicious of COVID pneumonia. D dimer was greater than 1050. Patient is on Lovenox 80 mg subcu twice daily Tube feed initiated 06/13/2021 (3) NSTEMI (non-ST elevated myocardial infarction) Assessment/Plan: Assessment/Plan: Troponin: 41.8-> 105.5-> 381.1-> 817.4-> 637.8 Lovenox 80 mg SQ twice daily Aspirin 81 mg p.o. daily Plavix 75 mg p.o. daily Metoprolol Succinate 25 mg p.o. daily Atorvastatin 40 mg p.o. every afternoon (4) ARF (acute renal failure) Assessment/Plan: Likely secondary to dehydration. Improved/ Resolved Creatinine at admission was 2.3. Currently creatinine is 0.8. Patient received gentle IV hydration with normal saline for over 24hrs. Continue to hold IV hydration for now. (5) Dehydration Assessment/Plan: Improved/ Resolved Creatinine at admission was 2.3. Currently creatinine is 0.8. Patient received gentle IV hydration with normal saline for over 24hrs. Continue to hold IV hydration for now. (6) Ankylosing spondylitis Assessment/Plan: Currently on Dexamethasone 6 mg IV daily. Indomethacin 25 mg p.o. twice daily Sulfasalazine 500 mg p.o. twice daily (7) Psoriatic arthritis Assessment/Plan: Currently on Dexamethasone 6 mg IV daily. Indomethacin 25 mg p.o. twice daily Sulfasalazine 500 mg p.o. twice daily (8) Uncontrolled diabetes mellitus with hyperglycemia, with long-term current use of insulin Assessment/Plan: Lantus 35 units subcu twice daily High-dose sliding scale insulin. Hemoglobin A1c 6.5. (9) PVD (peripheral vascular disease) Assessment/Plan: On baby aspirin and Plavix 75 mg p.o. daily (10) HTN (hypertension) Assessment/Plan: Currently on Levophed due to hypotension with sedation. - Current Meds Current Meds: Current Medications Generic Name Dose Route Start Last Admin Trade Name Freq PRN Reason Stop Dose Admin Acetaminophen 650 mg 06/11/21 18:12 06/12/21 20:31 Acetaminophen 325 Mg Tablet PO 650 mg Q4HR PRN Administration Pain 1 to 4 Amlodipine Besylate 5 mg 06/12/21 09:00 06/12/21 08:38 Amlodipine 5 Mg Tablet PO 5 mg DAILY [place] Administration Aspirin 81 mg 06/12/21 09:00 06/12/21 09:04 Aspirin Ec 81 Mg Tablet PO 81 mg DAILY [place] Administration Atorvastatin Calcium 40 mg 06/11/21 21:00 06/12/21 20:32 Atorvastatin 40 Mg Tablet PO 40 mg QPM [place] Administration Clopidogrel Bisulfate 75 mg 06/12/21 09:00 06/12/21 08:39 Clopidogrel 75 Mg Tablet PO 75 mg DAILY [place] Administration Dexamethasone 6 mg 06/12/21 09:00 06/12/21 09:00 Dexamethasone 4 Mg/Ml Vial IVP 06/19/21 09:01 6 mg DAILY [place] Administration Enoxaparin Sodium 80 mg 06/11/21 21:00 06/12/21 20:32 Enoxaparin 80 Mg/0.8 Ml Syringe SUBQ 80 mg BID [place] Administration Guaifenesin 600 mg 06/11/21 21:00 06/12/21 20:32 Guaifenesin 600 Mg Tablet PO 600 mg BID [place] Administration Azithromycin 500 mg/ Sodium 250 mls @ 250 mls/hr 06/12/21 09:00 06/12/21 10:00 Chloride IV 06/13/21 09:59 Infused DAILY [place] Infusion Cefepime HCl 2 gm/ Sodium 100 mls @ 200 mls/hr 06/12/21 09:00 06/12/21 21:20 Chloride IV Infused BID [place] Infusion Indomethacin 25 mg 06/12/21 08:00 06/12/21 17:09 Indomethacin 25 Mg Capsule PO 25 mg BIDWM [place] Administration Insulin Aspart 3 - 11 unit 06/11/21 21:00 06/12/21 20:31 Insulin Aspart 300 Unit/3 Ml Pen SUBQ Not Given 0800,1200,1700,2100 [facility] Protocol Metoprolol Succinate 25 mg 06/12/21 09:00 06/12/21 08:39 Metoprolol Succinate 25 Mg Tablet PO 25 mg DAILY [place] Administration Morphine Sulfate 2 mg 06/11/21 20:03 06/13/21 02:54 Morphine 2 Mg/Ml Carpuject IVP 2 mg Q6HR PRN Administration Dyspnea Pantoprazole Sodium 40 mg 06/12/21 07:00 06/13/21 06:13 Pantoprazole 40 Mg Tablet PO 40 mg QDAC [place] Administration Sodium Chloride 10 ml 06/12/21 01:00 06/13/21 02:55 Sodium Chloride Flush 0.9% 10 Ml Syringe IVP 10 ml 0100,0900,1700 [place] Administration Sulfasalazine 500 mg 06/11/21 22:00 06/12/21 20:32 Sulfasalazine 500 Mg Tablet PO 500 mg BID [place] Administration - Lab Result Fish Bone Diagrams: 06/13/21 04:50 06/13/21 04:50 - Additional Planning My Orders: My Active Orders 06/12/21 09:00 Azithromycin Inj [Zithromax Inj] 500 mg Sodium Chloride 0.9% [Normal Saline 0.9%] 250 ml IV DAILY Cefepime 2 gm Sodium Chloride 0.9% Minibag [Normal Saline 0.9% Minibag] 100 ml IV BID Clopidogrel [Plavix] 75 mg PO DAILY Metoprolol Succinate [Toprol Xl] 25 mg PO DAILY amLODIPine [Norvasc] 5 mg PO DAILY dexAMETHasone [Decadron] 6 mg IVP DAILY 06/13/21 07:48 RT - Obtain Arterial Specimen [RC] .ONCE ABG - ARTERIAL BLOOD GAS [BG] Stat 06/13/21 07:50 guaiFENesin/CODEINE [Robitussin AC] 5 ml PO Q6HR PRN 06/13/21 09:00 Insulin Glargine [Lantus Solostar] 20 unit SUBQ BID Remdesivir 100Mg Vial [Veklury] 100 mg Sodium Chloride 0.9% 100Ml [Normal Saline 0.9% 100Ml] 100 ml IV DAILY 06/14/21 05:00 BMP - BASIC METABOLIC PANEL [CHEM] DAILYLAB CALCIUM, IONIZED ([facility]) [BG] DAILYLAB CBC - COMP BLD CT W/AUTO DIFF [HEME] DAILYLAB MAGNESIUM [CHEM] DAILYLAB PHOSPHORUS [CHEM] DAILYLAB 06/15/21 05:00 BMP - BASIC METABOLIC PANEL [CHEM] DAILYLAB CBC - COMP BLD CT W/AUTO DIFF [HEME] DAILYLAB 06/16/21 05:00 BMP - BASIC METABOLIC PANEL [CHEM] DAILYLAB CBC - COMP BLD CT W/AUTO DIFF [HEME] DAILYLAB 06/17/21 05:00 BMP - BASIC METABOLIC PANEL [CHEM] DAILYLAB CBC - COMP BLD CT W/AUTO DIFF [HEME] DAILYLAB 06/18/21 05:00 BMP - BASIC METABOLIC PANEL [CHEM] DAILYLAB CBC - COMP BLD CT W/AUTO DIFF [HEME] DAILYLAB Subjective - Subjective Patient Reports: Other (Patient appeared very exhausted this morning. It was reported that he was tachypneic earlier in the morning with respiratory rates as high as the fifties. I discussed intubation with the patient and he was agreeable to it.) Objective Vital Signs: Vital Signs - 24 hr 06/12/21 06/12/21 06/12/21 09:00 09:55 10:00 Temperature Heart Rate Heart Rate [ 96 88 Monitoring electrodes] Respiratory 29 H 28 H 29 H Rate Blood Pressure 148/62 H 119/71 [Left Brachial artery] O2 Saturation 98 97 95 06/12/21 06/12/21 06/12/21 11:00 12:00 13:00 Temperature Heart Rate Heart Rate [ 93 93 82 Monitoring electrodes] Respiratory 28 H 32 H 35 H Rate Blood Pressure 147/93 H 137/76 H 129/76 [Left Brachial artery] O2 Saturation 91 L 90 L 96 06/12/21 06/12/21 06/12/21 14:00 14:15 15:00 Temperature Heart Rate Heart Rate [ 99 95 Monitoring electrodes] Respiratory 34 H 25 H 26 H Rate Blood Pressure 139/69 H 117/66 [Left Brachial artery] O2 Saturation 98 100 100 06/12/21 06/12/21 06/12/21 16:00 17:00 18:00 Temperature 36.6 C Heart Rate Heart Rate [ 81 100 79 Monitoring electrodes] Respiratory 34 H 33 H 34 H Rate Blood Pressure 129/76 122/78 121/77 [Left Brachial artery] O2 Saturation 100 97 100 06/12/21 06/12/21 06/12/21 19:00 20:00 21:00 Temperature 36.9 C Heart Rate Heart Rate [ 80 83 96 Monitoring electrodes] Respiratory 39 H 35 H 34 H Rate Blood Pressure 129/73 133/83 H 128/73 [Left Brachial artery] O2 Saturation 100 97 92 06/12/21 06/12/21 06/12/21 22:00 23:00 23:36 Temperature 36.8 C Heart Rate Heart Rate [ 92 93 Monitoring electrodes] Respiratory 28 H 34 H 35 H Rate Blood Pressure 107/59 L 116/70 [Left Brachial artery] O2 Saturation 100 98 95 06/13/21 06/13/21 06/13/21 00:00 01:00 02:00 Temperature Heart Rate Heart Rate [ 94 94 95 Monitoring electrodes] Respiratory 36 H 30 H 34 H Rate Blood Pressure 84/60 L 107/66 131/65 H [Left Brachial artery] O2 Saturation 100 99 99 06/13/21 06/13/21 06/13/21 03:00 03:06 03:30 Temperature 37.2 C Heart Rate 86 Heart Rate [ 105 H Monitoring electrodes] Respiratory 26 H Rate Blood Pressure 123/76 [Left Brachial artery] O2 Saturation 94 06/13/21 06/13/21 06/13/21 04:00 05:00 06:00 Temperature Heart Rate Heart Rate [ 95 110 H 120 H Monitoring electrodes] Respiratory 29 H 41 H 31 H Rate Blood Pressure 118/70 139/89 H 154/83 H [Left Brachial artery] O2 Saturation 95 94 76 L 06/13/21 06/13/21 06/13/21 07:00 07:02 08:00 Temperature Heart Rate 90 Heart Rate [ 126 H 114 H Monitoring electrodes] Respiratory 23 31 H Rate Blood Pressure 165/84 H 85/57 L [Left Brachial artery] O2 Saturation 95 100 Oxygen O2 Source [Without Activity] 2L O2 via NC O2 Source BIPAP I&O (Last 24 Hrs): Intake and Output Totals x24h 06/11/21 06/12/21 06/13/21 23:59 23:59 23:59 Intake Total 2323 4608.667 400 Output Total 550 3000 350 Balance 1773 1608.667 50 Comments/Notes: General: Alert, Severe distress (Respiratory), Exhausted HEENT: PERRLA, EOMI Neck: Supple, No JVD Neuro: Alert Cardiovascular: Regular rate, No murmurs Respiratory: Chest non-tender, Other (Coarse but no wheezing or rhonchi) Abdomen: Normal bowel sounds, Soft, No tenderness Extremities: No edema, No tenderness/swelling, Other (disfigured morphology of lower extremities and hands from ankylosing spondylitis and arthritis) Skin: No rashes (Dry skin with flakes/plaques and scabs especially in lower extremity) - Results Results: Laboratory Results WBC 20.7 x10^3/uL (4.8-10.8) H 06/13/21 04:50 RBC 3.64 10^6/uL (4.70-6.10) L 06/13/21 04:50 Hgb 10.6 g/dL (14.0-18.0) L 06/13/21 04:50 Hct 34.2 % (42.0-52.0) L 06/13/21 04:50 MCV 94.0 fL (80.0-94.0) 06/13/21 04:50 MCH 29.1 pg (27.0-31.0) 06/13/21 04:50 MCHC 31.0 g/dL (32.0-36.0) L 06/13/21 04:50 RDW 17.5 % (12.0-15.0) H 06/13/21 04:50 Plt Count 678 10^3/uL (130-450) H 06/13/21 04:50 MPV 8.4 fL (7.4-11.4) 06/13/21 04:50 Neut # (Auto) Not Reportable 06/13/21 04:50 Lymph # (Auto) Not Reportable 06/13/21 04:50 [place] # (Auto) Not Reportable 06/13/21 04:50 Eos # (Auto) Not Reportable 06/13/21 04:50 Baso # (Auto) Not Reportable 06/13/21 04:50 Absolute Nucleated RBC Not Reportable 06/13/21 04:50 Total Counted 100 06/13/21 04:50 Band Neuts % (Manual) 0 % (0-10) 06/13/21 04:50 Abnorm Lymph % (Manual) 0 % 06/13/21 04:50 Myelocytes % 1 % (-0) H 06/13/21 04:50 Nucleated RBC % Not Reportable 06/13/21 04:50 Neutrophils # (Manual) 16.8 10^3/uL (1.5-6.6) H 06/13/21 04:50 Lymphocytes # (Manual) 3.1 10^3/uL (1.5-3.5) 06/13/21 04:50 Monocytes # (Manual) 0.4 10^3/uL (0.0-1.0) 06/13/21 04:50 Eosinophils # (Manual) 0.2 10^3/uL (0-0.7) 06/13/21 04:50 Basophils # (Manual) 0.0 10^3/uL (0-0.1) 06/13/21 04:50 Differential Comment MANUAL DIFFERENTIAL 06/13/21 04:50 Manual Slide Review Indicated 06/11/21 16:15 WBC Morphology NORMAL APPEARANCE (NORMAL) 06/13/21 04:50 Platelet Estimate INCREASED (>450,000) (NORMAL) 06/13/21 04:50 Platelet Morphology NORMAL APPEARANCE (NORMAL) 06/13/21 04:50 RBC Morph Micro Appear 1+ ANISOCYTOSIS (NORMAL) 06/13/21 04:50 PT 17.4 secs (9.9-12.6) H 06/11/21 16:15 INR 1.6 (0.8-1.2) H 06/11/21 16:15 D-Dimer > 1050.0 ng/mL (200.0-255.0) H 06/11/21 17:42 VBG pH 7.337 (7.31-7.41) 06/13/21 04:50 VBG pCO2 28.7 mmHg (41-51) L 06/11/21 16:15 VBG pO2 24.9 mmHg (25-47) L 06/11/21 16:15 VBG HCO3 14.5 mmol/L (23-28) L 06/11/21 16:15 VBG Total CO2 15.3 mmol/L (24-29) L 06/11/21 16:15 VBG O2 Saturation 38.7 % (60-80) L 06/11/21 16:15 VBG Base Excess -10.3 mmol/L (-2 - +2) L 06/11/21 16:15 Ionized Calcium 1.21 mmol/L (1.15-1.33) 06/13/21 04:50 Sodium 144 mmol/L (135-145) 06/13/21 04:50 Potassium 5.2 mmol/L (3.5-5.0) H 06/13/21 04:50 Chloride 113 mmol/L (101-111) H 06/13/21 04:50 Carbon Dioxide 20 mmol/L (21-32) L 06/13/21 04:50 Anion Gap 11.0 (6-13) 06/13/21 04:50 BUN 52 mg/dL (6-20) H 06/13/21 04:50 Creatinine 1.0 mg/dL (0.6-1.2) 06/13/21 04:50 Estimated GFR (MDRD) 75 (>89) L 06/13/21 04:50 Glucose 49 mg/dL (70-100) L* 06/13/21 04:50 Estimat Average Glucose 140 mg/dL (70-100) H 06/12/21 05:00 Hemoglobin A1c % 6.5 % (4.27-6.07) H 06/12/21 05:00 Lactic Acid 1.9 mmol/L (0.5-2.2) 06/12/21 00:05 Calcium 8.8 mg/dL (8.5-10.3) 06/13/21 04:50 Phosphorus 2.4 mg/dL (2.5-4.6) L 06/13/21 04:50 Magnesium 2.3 mg/dL (1.7-2.8) 06/13/21 04:50 Total Bilirubin 0.6 mg/dL (0.2-1.0) 06/11/21 16:15 AST 42 IU/L (10-42) 06/11/21 16:15 ALT 18 IU/L (10-60) 06/11/21 16:15 Alkaline Phosphatase 147 IU/L (42-121) H 06/11/21 16:15 Troponin I High Sens 637.8 ng/L (2.3-19.7) H* 06/12/21 17:11 B-Natriuretic Peptide 110 pg/mL (5-100) H 06/11/21 16:15 Total Protein 7.8 g/dL (6.7-8.2) 06/11/21 16:15 Albumin 2.5 g/dL (3.2-5.5) L 06/11/21 16:15 Globulin 5.3 g/dL (2.1-4.2) H 06/11/21 16:15 Albumin/Globulin Ratio 0.5 (1.0-2.2) L 06/11/21 16:15 Lipase 62 U/L (22-51) H 06/11/21 16:15 Nasal Adenovirus (PCR) NOT DETECTED 06/11/21 16:15 Nasal B. parapertussis DNA (PCR) NOT DETECTED 06/11/21 16:15 Nasal Coronavir 229E PCR NOT DETECTED 06/11/21 16:15 Nasal Coronavir HKU1 PCR NOT DETECTED 06/11/21 16:15 Nasal Coronavir NL63 PCR NOT DETECTED 06/11/21 16:15 Nasal Coronavir OC43 PCR NOT DETECTED 06/11/21 16:15 Nasal Enterovir/Rhinovir PCR NOT DETECTED 06/11/21 16:15 Nasal Influenza B PCR NOT DETECTED 06/11/21 16:15 Nasal Influenza A PCR NOT DETECTED 06/11/21 16:15 Nasal Parainfluen 1 PCR NOT DETECTED 06/11/21 16:15 Nasal Parainfluen 2 PCR NOT DETECTED 06/11/21 16:15 Nasal Parainfluen 3 PCR NOT DETECTED 06/11/21 16:15 Nasal Parainfluen 4 PCR NOT DETECTED 06/11/21 16:15 Nasal RSV (PCR) NOT DETECTED 06/11/21 16:15 Nasal Screen MRSA (PCR) NEGATIVE (NEGATIVE) 06/11/21 19:29 Nasal B.pertussis DNA PCR NOT DETECTED 06/11/21 16:15 Nasal C.pneumoniae (PCR) NOT DETECTED 06/11/21 16:15 Zain Human Metapneumo PCR NOT DETECTED 06/11/21 16:15 Nasal M.pneumoniae (PCR) NOT DETECTED 06/11/21 16:15 Nasal SARS-CoV-2 (PCR) DETECTED A 06/11/21 16:15 - Procedures Procedures: Procedures EXCISION OF DESCENDING COLON, ENDO (11/25/19) EXCISION OF R FOOT SUBCU/FASCIA, OPEN APPROACH (08/30/15) EXCISION OF RECTUM, ENDO (11/25/19) EXCISION OF RIGHT UPPER LEG SKIN, EXTERNAL APPROACH (10/26/15) INSERTION OF INFUSION DEV INTO SUP VENA CAVA, PERC APPROACH (08/30/15) REPLACE R FOOT SKIN W AUTOL SUB, PART THICK, WIRE COATING OPERATOR METAL (10/26/15) REPLACE R FOOT SKIN W NONAUT SUB, FULL THICK, WIRE COATING OPERATOR METAL (10/06/15) REPLACEMENT OF RIGHT LENS WITH SYNTH SUB, PERC APPROACH (03/29/16) ABX Reporting Has patient been on IV antibiotics over the past 48 hours?: Yes
[2021-06-13] MEDS: INSULIN ASPART 300 UNIT/3 ML PEN SUBQ SCH ×4 (08:26→21:01)
[2021-06-13] MEDS ORDERED: ETOMIDATE 40 MG/20 ML VIAL IVP ONE (09:30)
[2021-06-13] MEDS ORDERED: MIDAZOLAM 2 MG/2 ML VIAL ONE ×2 (09:30→13:03)
[2021-06-13 09:38] LABS: ABG BASE EXCESS -4.6 mmol/L (-2.0-3.0); ABG HCO3 18.1 mmol/L (22.0-26.0); ABG OXYGEN SATURATION 97 % (94-98); ABG PCO2 27 mmHg (34-45); ABG PH 7.45 (7.35-7.45); ABG PO2 89 mmHg (80-100); ALLEN TEST POSITIVE
[2021-06-13] MEDS ORDERED: SUCCINYLCHOLINE 200 MG/10 ML VIAL ONE (10:57)
[2021-06-13] MEDS ORDERED: ePHEDrine 50 MG/ML VIAL IVP ONE ×2 (10:57→13:02)
[2021-06-13] MEDS ORDERED: PHENYLEPHRINE 10 MG/ML VIAL ONE (10:57)
[2021-06-13] MEDS ORDERED: ROCURONIUM 50 MG/5 ML VIAL ONE (10:57)
[2021-06-13] MEDS ORDERED: PROPOFOL 200 MG/20 ML VIAL IVP ONE (10:57)
[2021-06-13] MEDS ORDERED: PROPOFOL 1000 MG/100 ML 1,000 MG/100 ML BOTTLE IV SCH (11:00)
--- NOTE | 2021-06-13 11:26 | CONSULTATION NOTE ---
Consultation Report: consulted for emergency intubation by Hospitalist due to Covid-19 respiratory failure. Informed consent obtained. All emergency equipment at the bedside. 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 Pt unable to extend at all. Unable to obtain view of oral pharynx. Unable to assess trachea. After preoxygenation, IV induction with Versed 2mg, Etomidate 30mg, and Succinylcholine 200mg. Glidescope with #4 blade used, Grade 4 view, with babatunde ngeal manipulation able to achieve Grade 3 view. #7.0 ETT placed, cuff visualized through the VC, secured at 25cm. +BBS, +CO2, o2 sat remained 90%. total intubation time less than 1 minute. Pt placed on vent with setting by RT/MD orders. Discussed with air liaison and special staff, RT, and Hospitalist pt's difficult airway. Care turned over to primary team
[2021-06-13] MEDS: ENOXAPARIN 80 MG/0.8 ML SYRINGE SUBQ SCH ×2 (11:27→20:44)
--- NOTE | 2021-06-13 11:27 | ANESTHESIA PROCEDURE NOTE ---
Anesthesia Intubation Template - Intubation Blade: positive: Glidescope Tube: Size-enter number (7.0), Cuffed, Marked at teeth-enter cm Route: Oral Placement Confirmation: End tidal CO2, Direct visualization, Bilateral breath sounds Complications: No complications
[2021-06-13] MEDS: DEXAMETHASONE 4 MG/ML VIAL IVP SCH (11:30)
[2021-06-13] MEDS: INSULIN GLARGINE 300 UNIT/3 ML PEN SUBQ SCH ×2 (11:38→21:01)
[2021-06-13] MEDS: INDOMETHACIN 25 MG CAPSULE PO SCH ×2 (11:42→17:44)
[2021-06-13] MEDS: amLODIPine 5 MG TABLET PO SCH (11:42)
[2021-06-13 12:02] LABS: ABG HCO3 18.4 mmol/L (22.0-26.0); ABG PCO2 42 mmHg (34-45); ABG PH 7.26 (7.35-7.45); ABG PO2 130 mmHg (80-100); ABG TCO2 19.7 MMOL/L (21.0-29.0)
[2021-06-13 12:03] LABS: ABG BASE EXCESS -8.2 mmol/L (-2.0-3.0); ABG MODE OF VENTILATION ASSIST/CONTROL; ABG OXYGEN SATURATION 98 % (94-98); ALLEN TEST POSITIVE
[2021-06-13 12:04] LABS: ABG RESPIRATORY RATE 18 b/min
[2021-06-13] MEDS: DEXTROSE 5% 1,000 ML IV SCH ×2 (12:51→22:51)
[2021-06-13] MEDS: sulfaSALAzine 500 MG TABLET PO SCH ×2 (12:57→20:44)
[2021-06-13] MEDS: guaiFENesin 600 MG TABLET PO SCH ×2 (12:58→20:44)
[2021-06-13] MEDS: METOPROLOL SUCCINATE 25 MG TABLET PO SCH (12:58)
[2021-06-13] MEDS ORDERED: SODIUM CHLORIDE 0.9% 10 ML VIAL IVP ONE (13:02)
--- NOTE | 2021-06-13 14:51 | XRAY Report ---
PROCEDURE: Chest for Line Placement INDICATIONS: cvl TECHNIQUE: One view of the chest was acquired. COMPARISON: 06/11/2021 FINDINGS: Surgical changes and devices: Interval placement of endotracheal tube is tip is 3.8 cm above the vee na. Right IJ central venous line tip projects over the expected location of the cavoatrial junction. A nasogastric tube is present. The tip is inferior to the diaphragm.. Lungs and pleura: Multifocal bilateral alveolar opacities and interstitial thickening. No dense conso lidations, effusion, or pneumothorax. Mediastinum: Mediastinal contours appear normal. Heart size is normal. Bones and chest wall: No suspicious bony lesions. Overlying soft tissues appear unremarkable. IMPRESSION: Fairly stable appearance of mixed interstitial and alveolar opacities throughout both lungs. Adequate placement of support tubes and lines as described. Reviewed by: Yvonne Bauer MD on 06/13/2021 2:50 PM PST Approved by: Yvonne Bauer MD on 06/13/2021 2:50 PM PST Station ID: [id number]
[2021-06-13] MEDS: ASPIRIN EC 81 MG TABLET PO SCH (15:27)
[2021-06-13] MEDS: CLOPIDOGREL 75 MG TABLET PO SCH (15:27)
[2021-06-13] MEDS: fentaNYL 2,500 MCG/250 ML 2,500 MCG/250 ML BAG IV SCH (15:42)
[2021-06-13] MEDS: MIDAZOLAM DRIP 50 MG/50 ML 50 MG/50 ML BAG IV SCH (15:52)
[2021-06-13] MEDS: REMDESIVIR 100MG VIAL 100 MG in SODIUM CHLORIDE 0.9% 100ML 100 ML IV SCH (15:57)
[2021-06-13] MEDS: CEFEPIME 2 GM in SODIUM CHLORIDE 0.9% MINIBAG 100 ML IV SCH ×2 (16:00→20:45)
[2021-06-13] MEDS: AZITHROMYCIN INJ 500 MG in SODIUM CHLORIDE 0.9% 250 ML IV SCH (16:05)
--- NOTE | 2021-06-13 16:18 | ANESTHESIA PROCEDURE NOTE ---
Anesth Central Line Template - Central Line Central Line Preparation: Consent Obtained Central line location: Right IJ Central line type: Triple lumen Central line catheter tip site resides: Superior vena cava (SVC) Central line aftercare: Chlorhexidine disc placed, Secured, Placement confirmed, No pneumothorax, No complications, Bundle checklist complete, Pt tolerated well
[2021-06-13] MEDS: ATORVASTATIN 40 MG TABLET PO SCH (20:44)
[2021-06-14] MEDS: SODIUM CHLORIDE FLUSH 0.9% 10 ML SYRINGE IVP PRN ×6 (00:56→19:58)
[2021-06-14] MEDS: CHLORHEXIDINE GLUCONATE 15 ML UDC PO SCH ×3 (00:56→21:03)
[2021-06-14] MEDS: SODIUM CHLORIDE FLUSH 0.9% 10 ML SYRINGE IVP SCH ×3 (00:56→16:13)
[2021-06-14] MEDS: MIDAZOLAM DRIP 50 MG/50 ML 50 MG/50 ML BAG IV SCH ×3 (00:57→19:09)
[2021-06-14] MEDS: ACETAMINOPHEN 325 MG TABLET PO PRN (03:55)
[2021-06-14 05:03] LABS: ABG BASE EXCESS -9.7 mmol/L (-2.0-3.0); ABG HCO3 19.1 mmol/L (22.0-26.0); ABG PCO2 55 mmHg (34-45); ABG PO2 78 mmHg (80-100); ABG TCO2 20.8 MMOL/L (21.0-29.0)
[2021-06-14 05:04] LABS: ABG MODE OF VENTILATION ASSIST/CONTROL; ABG OXYGEN SATURATION 93 % (94-98); ABG RESPIRATORY RATE 18 b/min; ALLEN TEST POSITIVE
[2021-06-14 05:07] LABS: ABG PH 7.16 (7.35-7.45)
[2021-06-14] MEDS ORDERED: DEXTROSE 5% 1,000 ML IV ONE (05:35)
[2021-06-14] MEDS: fentaNYL 2,500 MCG/250 ML 2,500 MCG/250 ML BAG IV SCH (05:35)
[2021-06-14] MEDS ORDERED: SODIUM BICARBONATE 8.4% 50 MEQ/50 ML VIAL ONE (05:42)
[2021-06-14] MEDS ORDERED: SODIUM BICARBONATE 150 MEQ in DEXTROSE 5% 1,000 ML IV SCH (06:00)
[2021-06-14 06:03] LABS: CALCIUM, IONIZED 1.1 mmol/L (1.15-1.33); VBG PH 7.128 (7.31-7.41)
[2021-06-14 06:04] LABS: BASOPHILS % (AUTO) 0.5 %; EOSINOPHILS % (AUTO) 0.3 %; HCT - HEMATOCRIT 31.6 % (42.0-52.0); LYMPHOCYTES % (AUTO) 4.7 %; MEAN CORPUSCULAR HGB CONC 31.6 g/dL (32.0-36.0); MEAN CORPUSCULAR VOLUME 94.9 fL (80.0-94.0); MEAN PLATELET VOLUME 8.3 fL (7.4-11.4); NEUTROPHILS % (AUTO) 90.1 %; PLT - PLATELET COUNT 474 10^3/uL (130-450); RED BLOOD COUNT 3.33 10^6/uL (4.70-6.10); RED CELL DISTRIBUTION WIDTH 18.8 % (12.0-15.0)
[2021-06-14 06:13] LABS: WHITE BLOOD COUNT 35.4 x10^3/uL (4.8-10.8)
[2021-06-14 06:14] LABS: ABNORMAL LYMPHS % (MANUAL) 0 %
[2021-06-14 06:22] LABS: BAND NEUTROPHILS % (MANUAL) 1 %; LYMPHOCYTES # (MANUAL) 1.8 10^3/uL (1.5-3.5); LYMPHOCYTES % (MANUAL) 5 %; MONOCYTES # (MANUAL) 0.7 10^3/uL (0.0-1.0); NEUTROPHILS # (MANUAL) 32.9 10^3/uL (1.5-6.6)
[2021-06-14 06:23] LABS: DIFFERENTIAL COMMENT MANUAL DIFFERENTIAL; PLATELET ESTIMATE, MANUAL INCREASED (>450,000) (NORMAL); PLATELET MORPHOLOGY NORMAL APPEARANCE (NORMAL); WBC MORPHOLOGY (MULTIPLE) NORMAL APPEARANCE (NORMAL)
[2021-06-14 06:48] LABS: ALBUMIN/GLOBULIN RATIO 0.5 (1.0-2.2); BILIRUBIN,TOTAL 0.6 mg/dL (0.2-1.0); CALCIUM 8.1 mg/dL (8.5-10.3); MAGNESIUM 2.1 mg/dL (1.7-2.8); PHOSPHORUS 5.1 mg/dL (2.5-4.6); TOTAL PROTEIN 5.9 g/dL (6.7-8.2)
[2021-06-14 06:49] LABS: POTASSIUM 6.6 mmol/L (3.5-5.0)
[2021-06-14] MEDS ORDERED: INSULIN REGULAR HUMAN 300 UNIT/3 ML VIAL IVP ONE ×2 (06:50→12:00)
[2021-06-14] MEDS ORDERED: SODIUM BICARBONATE ABBOJECT 50 MEQ/50 ML SYRINGE IVP ONE (06:51)
[2021-06-14] MEDS ORDERED: DEXTROSE 50% ABBOJECT 25 GM/50 ML SYRINGE IVP ONE ×2 (06:51→12:00)
[2021-06-14] MEDS: PANTOPRAZOLE 40 MG TABLET PO SCH (06:54)
[2021-06-14] MEDS ORDERED: SODIUM POLYSTYRENE SULFONATE 15 GM/60 ML BOTTLE PO ONE (07:53)
--- NOTE | 2021-06-14 08:38 | PROVIDER PROGRESS NOTE ---
Subjective - Prog Note Date Prog Note Date: 06/14/21 - Subjective Subjective: He remains intubated and sedated. Current Medications - Current Medications Current Medications: Active Medications Acetaminophen (Acetaminophen 325 Mg Tablet) 650 mg PO Q4HR PRN PRN Reason: Pain 1 to 4 Last Admin: 06/14/21 03:55 Dose: 650 mg Aspirin (Aspirin Ec 81 Mg Tablet) 81 mg PO DAILY [facility] Last Admin: 06/14/21 09:15 Dose: 81 mg Atorvastatin Calcium (Atorvastatin 40 Mg Tablet) 40 mg PO QPM [facility] Last Admin: 06/13/21 20:44 Dose: 40 mg Chlorhexidine Gluconate (Chlorhexidine Gluconate 15 Ml Udc) 15 ml PO BID [facility] Last Admin: 06/14/21 09:14 Dose: 15 ml Clopidogrel Bisulfate (Clopidogrel 75 Mg Tablet) 75 mg PO DAILY [facility] Last Admin: 06/14/21 09:14 Dose: 75 mg Dexamethasone (Dexamethasone 4 Mg/Ml Vial) 6 mg IVP DAILY [facility] Stop: 06/19/21 09:01 Last Admin: 06/14/21 09:16 Dose: 6 mg Enoxaparin Sodium (Enoxaparin 80 Mg/0.8 Ml Syringe) 80 mg SUBQ BID [facility] Last Admin: 06/14/21 09:16 Dose: 80 mg Folic Acid (Folic Acid 1 Mg Tablet) 1 mg PO DAILY [facility] Last Admin: 06/14/21 09:14 Dose: 1 mg Guaifenesin (Guaifenesin 600 Mg Tablet) 600 mg PO BID [facility] Last Admin: 06/14/21 09:14 Dose: 600 mg Guaifenesin/Codeine Phosphate (Guaifenesin/Codeine 5 Ml Udc) 5 ml PO Q6HR PRN PRN Reason: Cough Hydromorphone HCl (Hydromorphone 2 Mg/Ml Vial) 2 mg IVP Q2H PRN PRN Reason: PAIN Cefepime HCl 2 gm/ Sodium (Chloride) 100 mls @ 200 mls/hr IV BID [facility] Last Infusion: 06/14/21 09:45 Dose: Infused Remdesivir 100 mg/ Sodium (Chloride) 100 mls @ 200 mls/hr IV DAILY [facility] Stop: 06/16/21 09:29 Last Infusion: 06/14/21 11:15 Dose: Infused Midazolam HCl (Versed Drip 50 Mg/50 Ml) 50 mg in 50 mls @ 2.94 mls/hr IV .[id number] [facility]; Protocol Last Admin: 06/14/21 09:16 Dose: 0.08 mg/kg/hr, 5.88 mls/hr Norepinephrine Bitartrate 8 mg (/ Dextrose) 250 mls @ 15 mls/hr IV .[id number] [facility]; Protocol Last Admin: 06/14/21 13:18 Dose: 24 mcg/min, 45 mls/hr Linezolid (Zyvox 600 Mg/300 Ml) 600 mg in 300 mls @ 300 mls/hr IV Q12H [facility] Last Admin: 06/14/21 12:37 Dose: 300 mls/hr Vasopressin 20 unit/ Dextrose 100 mls @ 6 mls/hr IV .[id number] [facility] Last Titration: 06/14/21 11:02 Dose: 0.03 unit/min, 9 mls/hr Propofol (Diprivan) 1,000 mg in 100 mls @ 4.44 mls/hr IV .[id number] [facility]; Protocol Last Admin: 06/14/21 12:36 Dose: 40 mcg/kg/min, 17.76 mls/hr Insulin Aspart (Insulin Aspart 300 Unit/3 Ml Pen) 3 - 11 unit SUBQ 0800,1200,1700,2100 [facility]; Protocol Last Admin: 06/14/21 12:38 Dose: Not Given Insulin Glargine (Insulin Glargine 300 Unit/3 Ml Pen) 20 unit SUBQ BID [facility] Last Admin: 06/14/21 10:37 Dose: 20 unit Insulin Human Regular (Insulin Regular Human 300 Unit/3 Ml Vial) 1 - 5 unit SUBQ Q6HR [facility]; Protocol Last Admin: 06/14/21 12:38 Dose: 1 unit Metoprolol Succinate (Metoprolol Succinate 25 Mg Tablet) 25 mg PO DAILY [facility] Last Admin: 06/14/21 09:22 Dose: Not Given Morphine Sulfate (Morphine 2 Mg/Ml Carpuject) 2 mg IVP Q6HR PRN PRN Reason: Dyspnea Last Admin: 06/13/21 02:54 Dose: 2 mg Ondansetron HCl (Ondansetron 4 Mg/2 Ml Vial) 4 mg IVP Q6HR PRN PRN Reason: Nausea / Vomiting Oxycodone HCl (Oxycodone 5 Mg Tablet) 5 mg PO Q4HR PRN PRN Reason: PAIN Pantoprazole Sodium (Pantoprazole 40 Mg Vial) 40 mg IVP QDAC [facility] Last Admin: 06/14/21 09:15 Dose: 40 mg Sodium Chloride (Sodium Chloride Flush 0.9% 10 Ml Syringe) 10 ml IVP 0100,0900, 1700 [facility] Last Admin: 06/14/21 09:22 Dose: 10 ml Sodium Chloride (Sodium Chloride Flush 0.9% 10 Ml Syringe) 10 ml IVP PRN PRN PRN Reason: NEEDED PER PROVIDER ORDERS Last Admin: 06/14/21 07:06 Dose: 10 ml Prednisone 25 mg PO DAILY 10/09/12 Metoprolol Tartrate [Lopressor] 12.5 mg PO BID 08/13/15 Insulin Glargine,Hum.rec.anlog [Lantus] 35 units SQ BID 09/27/15 Multivitamin [Multivitamins] 1 tab PO DAILY 09/27/15 amLODIPine [Norvasc] 5 mg PO DAILY 09/27/15 Indomethacin 50 mg PO TID 11/23/15 Sulfasalazine [Sulfazine] 1,500 mg PO BID 03/28/16 Atorvastatin Calcium 40 mg PO QPM 11/25/19 Clopidogrel [Plavix] 75 mg PO DAILY 11/25/19 metHOTREXate sodium [Methotrexate] 22.5 mg PO Q7D 11/25/19 Cholecalciferol (Vitamin D3) [Vitamin D3] 50 mcg PO DAILY 06/12/21 Doxycycline Hyclate [Vibramycin] 100 mg PO BID 06/12/21 Folic Acid 1 mg PO DAILY 06/12/21 Pantoprazole [Protonix] 40 mg PO QDAC 06/12/21 Objective - Vital Signs/Intake & Output Reviewed Vital Signs: Yes Vital Signs: Vital Signs Temp Pulse Pulse Resp BP Pulse Ox 06/14/21 08:00 98 18 92/56 L 96 06/14/21 07:00 98 19 84/54 L 94 06/14/21 06:45 100 20 88/51 L 93 06/14/21 06:30 99 18 84/53 L 91 L 06/14/21 06:15 100 19 86/51 L 92 06/14/21 06:00 100 19 81/49 L 92 06/14/21 05:45 103 H 18 72/54 L 93 06/14/21 05:30 105 H 18 74/51 L 93 06/14/21 05:15 108 H 20 72/48 L 92 06/14/21 05:01 109 H 22 75/51 L 92 06/14/21 05:00 37.2 C 108 H 22 75/51 L 94 06/14/21 04:54 113 H 06/14/21 04:45 111 H 20 75/50 L 91 L 06/14/21 04:43 110 H 20 75/52 L 89 L 06/14/21 04:41 110 H 20 77/49 L 89 L Intake & Output: Intake & Output 06/11/21 06/12/21 06/13/21 06/14/21 23:59 23:59 23:59 23:59 Intake Total 2323 4608.667 2261.789 1164.685 Output Total 550 3000 1541 310 Balance 1773 1608.667 720.789 854.685 - Objective General Appearance: positive: Other (Sedated.) ENT: positive: Other (ET tube in place.) Neck: positive: Nml inspection Respiratory: positive: Rhonchi. negative: Wheezes, Rales Cardiovascular: positive: Regular rate & rhythm. negative: Tachycardia, Systolic murmur Abdomen: positive: Non-tender, No distention Skin: positive: Warm, Dry, Other (Multiple psoriatic lesions located over bilateral lower extremities.) Extremities: positive: No pedal edema Neurologic/Psychiatric: positive: Other (Does not follow commands on sedation.) - Lab Results Fish Bones: 06/14/21 05:45 06/14/21 15:46 Other Labs: Lab Results x24hrs 06/14/21 06/14/21 06/14/21 Range/Units 06:25 05:45 05:45 WBC 35.4 H* (4.8-10.8) x10^3/uL RBC 3.33 L (4.70-6.10) 10^6/uL Hgb 10.0 L (14.0-18.0) g/dL Hct 31.6 L (42.0-52.0) % MCV 94.9 H (80.0-94.0) fL MCH 30.0 (27.0-31.0) pg MCHC 31.6 L (32.0-36.0) g/dL RDW 18.8 H (12.0-15.0) % Plt Count 474 H (130-450) 10^3/uL MPV 8.3 (7.4-11.4) fL Neut # (Auto) Not Reportable Lymph # (Auto) Not Reportable [place] # (Auto) Not Reportable Eos # (Auto) Not Reportable Baso # (Auto) Not Reportable Absolute Nucleated RBC Not Reportable Total Counted 100 Band Neuts % (Manual) 1 (0 - 10) % Abnorm Lymph % (Manual) 0 % Nucleated RBC % Not Reportable Neutrophils # (Manual) 32.9 H (1.5-6.6) 10^3/uL Lymphocytes # (Manual) 1.8 (1.5-3.5) 10^3/uL Monocytes # (Manual) 0.7 (0.0-1.0) 10^3/uL Eosinophils # (Manual) 0.0 (0-0.7) 10^3/uL Basophils # (Manual) 0.0 (0-0.1) 10^3/uL Differential Comment MANUAL DIFFERENTIAL WBC Morphology NORMAL APPEARANCE (NORMAL) Platelet Estimate INCREASED (>450,000) (NORMAL) Platelet Morphology NORMAL APPEARANCE (NORMAL) RBC Morph Micro Appear 1+ HYPOCHROMASIA (NORMAL) Bld Gas Analysis Time Sample Site ABG pH (7.35-7.45) ABG pCO2 (34-45) mmHg ABG pO2 (80-100) mmHg ABG HCO3 (22.0-26.0) mmol/L ABG Total CO2 (21.0-29.0) MMOL/L ABG O2 Saturation (94-98) % ABG Base Excess (-2.0-3.0) mmol/L David Test VBG pH 7.128 L (7.31-7.41) Ionized Calcium 1.10 L (1.15-1.33) mmol/L Respiration Rate b/min O2 Delivery Device Vent Mode FiO2 Tidal Volume mL PEEP cmH2O Pressure Support Vent cmH2O EPAP cmH2O IPAP cmH2O Sodium 136 (135-145) mmol/L Potassium 6.6 H* (3.5-5.0) mmol/L Chloride 108 (101-111) mmol/L Carbon Dioxide 21 (21-32) mmol/L Anion Gap 7.0 (6-13) BUN 50 H (6-20) mg/dL Creatinine 2.0 H (0.6-1.2) mg/dL Estimated GFR (MDRD) 34 L (>89) Glucose 119 H (70-100) mg/dL Calcium 8.1 L (8.5-10.3) mg/dL Phosphorus 5.1 H (2.5-4.6) mg/dL Magnesium 2.1 (1.7-2.8) mg/dL Total Bilirubin 0.6 (0.2-1.0) mg/dL AST 30 (10-42) IU/L ALT 14 (10-60) IU/L Alkaline Phosphatase 115 (42-121) IU/L Total Protein 5.9 L (6.7-8.2) g/dL Albumin 2.0 L (3.2-5.5) g/dL Globulin 3.9 (2.1-4.2) g/dL Albumin/Globulin Ratio 0.5 L (1.0-2.2) Prealbumin 7 L (18-45) mg/dL Triglycerides 79 ( - 149) mg/dL 06/14/21 06/13/21 06/13/21 Range/Units 04:55 11:48 09:25 WBC (4.8-10.8) x10^3/uL RBC (4.70-6.10) 10^6/uL Hgb (14.0-18.0) g/dL Hct (42.0-52.0) % MCV (80.0-94.0) fL MCH (27.0-31.0) pg MCHC (32.0-36.0) g/dL RDW (12.0-15.0) % Plt Count (130-450) 10^3/uL MPV (7.4-11.4) fL Neut # (Auto) Lymph # (Auto) [place] # (Auto) Eos # (Auto) Baso # (Auto) Absolute Nucleated RBC Total Counted Band Neuts % (Manual) (0 - 10) % Abnorm Lymph % (Manual) % Nucleated RBC % Neutrophils # (Manual) (1.5-6.6) 10^3/uL Lymphocytes # (Manual) (1.5-3.5) 10^3/uL Monocytes # (Manual) (0.0-1.0) 10^3/uL Eosinophils # (Manual) (0-0.7) 10^3/uL Basophils # (Manual) (0-0.1) 10^3/uL Differential Comment WBC Morphology (NORMAL) Platelet Estimate (NORMAL) Platelet Morphology (NORMAL) RBC Morph Micro Appear (NORMAL) Bld Gas Analysis Time 050 1159 09:34 Sample Site LEFT BRACHIAL RIGHT RADIAL LEFT BRACHIAL ABG pH 7.16 L* 7.26 L 7.45 (7.35-7.45) ABG pCO2 55 H 42 27 L (34-45) mmHg ABG pO2 78 L 130 H 89 (80-100) mmHg ABG HCO3 19.1 L 18.4 L 18.1 L (22.0-26.0) mmol/L ABG Total CO2 20.8 L 19.7 L 19.0 L (21.0-29.0) MMOL/L ABG O2 Saturation 93 L 98 97 (94-98) % ABG Base Excess -9.7 L -8.2 L -4.6 L (-2.0-3.0) mmol/L David Test POSITIVE POSITIVE POSITIVE VBG pH (7.31-7.41) Ionized Calcium (1.15-1.33) mmol/L Respiration Rate 18 18 b/min O2 Delivery Device VENTILATOR VENTILATOR Vent Mode ASSIST/CONTROL ASSIST/CONTROL FiO2 70.00 100.00 80.00 Tidal Volume 450 450 mL PEEP 10 5 cmH2O Pressure Support Vent 10 cmH2O EPAP 6 cmH2O IPAP 8 cmH2O Sodium (135-145) mmol/L Potassium (3.5-5.0) mmol/L Chloride (101-111) mmol/L Carbon Dioxide (21-32) mmol/L Anion Gap (6-13) BUN (6-20) mg/dL Creatinine (0.6-1.2) mg/dL Estimated GFR (MDRD) (>89) Glucose (70-100) mg/dL Calcium (8.5-10.3) mg/dL Phosphorus (2.5-4.6) mg/dL Magnesium (1.7-2.8) mg/dL Total Bilirubin (0.2-1.0) mg/dL AST (10-42) IU/L ALT (10-60) IU/L Alkaline Phosphatase (42-121) IU/L Total Protein (6.7-8.2) g/dL Albumin (3.2-5.5) g/dL Globulin (2.1-4.2) g/dL Albumin/Globulin Ratio (1.0-2.2) Prealbumin (18-45) mg/dL Triglycerides ( - 149) mg/dL Assessment/Plan - Problem List (1) Acute respiratory failure with hypoxia Impression: This appears to be secondary to COVID-19 pneumonia. His BNP is only minimally elevated and although his troponins are quite elevated and consistent with NSTEMI, his echocardiogram does not reveal any significant wall motion normalities and his EF is not reduced. He remains on cefepime azithromycin. We did add Zyvox today for MRSA coverage. Continue with Decadron and remdesivir. His overall prognosis is quite guarded. His saturations are fortunately holding on FiO2 of 70% and we will look to hopefully wean this over the next 24 hours. (2) Septic shock Impression: The concern is for septic shock given his hypotension, elevated white count of 35,000 with a left shift. There has been no obvious source of infection. Blood cultures have been negative to date. He has been on antibiotics for pneumonia with cefepime and azithromycin. We will add Zyvox for MRSA coverage. We will check a urine analysis. We will continue norepinephrine and add vasopressin. We will also administer a liter of lactated Ringer's and continue on maintenance IV fluids. Check lactic acid. (3) Pneumonia due to COVID-19 virus Impression: This appears to be the cause of his acute hypoxic respiratory failure. He is va ccinated and does have the booster but unfortunately now has acute hypoxic respiratory failure. He is requiring mechanical ventilation. He remains on Decadron and remdesivir. We are continuing supportive measures and antibiotics for suspected pneumonia. We will continue management as mentioned above. (4) TORY (acute kidney injury) Impression: Initial acute kidney injury had resolved but today his creatinine doubled compared to his baseline of 1.0. Suspect is related to hypotension and likely ATN. We will hydrate him with lactated Ringer's and avoid all nephrotoxins. Continue monitor electrolytes closely as well as urine output. (5) NSTEMI (non-ST elevated myocardial infarction) Impression: The concern was for NSTEMI given his troponins peaked at over 800. Echocardiogram revealed no significant wall motion abnormalities and his EF is preserved. He has been managed with Lovenox. If he is able to survive the COVID-19 pneumonia then we will look to obtain a stress test or cardiology evaluation. Continue Lovenox for the NSTEMI as well as elevated D-dimer as we are unable to obtain a CTA of the chest at this time. (6) Hyperkalemia Impression: This is secondary to acute kidney injury. He has not been treated twice with insulin and dextrose. I have also administered Kayexalate. EKG did reveal a widened QRS of 128. He was given calcium. We will manage his acute kidney injury as mentioned above and continue to manage his hyperkalemia with insulin a nd dextrose. (7) Diabetes mellitus, insulin dependent (IDDM), uncontrolled Impression: We will continue current Lantus regimen with sliding scale as needed. We will use IV insulin as needed for the hyperkalemia. Continue trickle tube feeds. (8) PVD (peripheral vascular disease) Impression: He is on aspirin and Plavix as well as Lipitor at home. We will continue Plavix and Lovenox alone for the time being. Once Lovenox discontinued we will resume aspirin. (10) Ankylosing spondylitis Impression: We are holding indomethacin given the acute kidney injury. We are also holding sulfasalazine at this time.
[2021-06-14] MEDS: FOLIC ACID 1 MG TABLET PO SCH (09:14)
[2021-06-14] MEDS: CLOPIDOGREL 75 MG TABLET PO SCH (09:14)
[2021-06-14] MEDS: guaiFENesin 600 MG TABLET PO SCH ×2 (09:14→21:03)
[2021-06-14] MEDS: CEFEPIME 2 GM in SODIUM CHLORIDE 0.9% MINIBAG 100 ML IV SCH ×2 (09:15→21:04)
[2021-06-14] MEDS: ASPIRIN EC 81 MG TABLET PO SCH (09:15)
[2021-06-14] MEDS: PANTOPRAZOLE 40 MG VIAL IVP SCH (09:15)
[2021-06-14] MEDS: DEXAMETHASONE 4 MG/ML VIAL IVP SCH (09:16)
[2021-06-14] MEDS: ENOXAPARIN 80 MG/0.8 ML SYRINGE SUBQ SCH ×2 (09:16→21:03)
[2021-06-14] MEDS: METOPROLOL SUCCINATE 25 MG TABLET PO SCH (09:22)
[2021-06-14] MEDS: INSULIN ASPART 300 UNIT/3 ML PEN SUBQ SCH ×3 (10:36→16:01)
[2021-06-14] MEDS: INSULIN GLARGINE 300 UNIT/3 ML PEN SUBQ SCH ×2 (10:37→21:22)
[2021-06-14] MEDS: REMDESIVIR 100MG VIAL 100 MG in SODIUM CHLORIDE 0.9% 100ML 100 ML IV SCH (10:42)
[2021-06-14] MEDS: VASOPRESSIN 20 UNIT in DEXTROSE 5% 99 ML IV SCH ×2 (10:50→21:25)
[2021-06-14 11:09] LABS: CALCIUM 7.6 mg/dL (8.5-10.3)
[2021-06-14 11:13] LABS: POTASSIUM 6.8 mmol/L (3.5-5.0)
[2021-06-14] MEDS ORDERED: CALCIUM GLUCONATE IN NS 0.9% 2,000 MG/100 ML BAG IV ONE (12:00)
[2021-06-14] MEDS: PROPOFOL 1000 MG/100 ML 1,000 MG/100 ML BOTTLE IV SCH ×2 (12:36→19:08)
[2021-06-14] MEDS: LINEZOLID 600 MG/300 ML 600 MG/300 ML BAG IV SCH ×2 (12:37→22:09)
[2021-06-14] MEDS: INSULIN REGULAR HUMAN 300 UNIT/3 ML VIAL SUBQ SCH ×2 (12:38→18:21)
--- NOTE | 2021-06-14 14:27 | XRAY Report ---
PROCEDURE: Chest 1 View X-Ray INDICATIONS: Dyspnea, hypoxia, intubation TECHNIQUE: One view of the chest was acquired. COMPARISON: 06/13/2021 chest radiograph FINDINGS: Endotracheal and enteric tubes are in appropriate position. Right IJ central line terminates near the cavoatrial junction. Diffuse bilateral interstitial and airspace opacities are similar. No evidence of pneumothorax or visible pleural effusion. IMPRESSION: Adequate position of support devices. No significant change in diffuse airspace opacities. Reviewed by: William Flower MD on 06/14/2021 2:26 PM PST Approved by: William Flower MD on 06/14/2021 2:26 PM PST Station ID: [id number]
[2021-06-14] MEDS ORDERED: LACTATED RINGERS 1,000 ML IV ONE (15:45)
[2021-06-14 16:05] LABS: CALCIUM 7.2 mg/dL (8.5-10.3); CREATININE 1.6 mg/dL (0.6-1.2)
[2021-06-14 16:08] LABS: POTASSIUM 6.2 mmol/L (3.5-5.0)
[2021-06-14 20:56] LABS: CALCIUM 7.8 mg/dL (8.5-10.3); CREATININE 1.6 mg/dL (0.6-1.2)
[2021-06-14 21:00] LABS: POTASSIUM 6.7 mmol/L (3.5-5.0)
[2021-06-14] MEDS: ATORVASTATIN 40 MG TABLET PO SCH (21:03)
[2021-06-14] MEDS ORDERED: DEXTROSE 5% 100 ML IV ONE (21:23)
[2021-06-14] MEDS ORDERED: INSULIN REGULAR HUMAN 100 UNIT in SODIUM CHLORIDE 0.9% 100ML 99 ML IV ONE (23:34)
[2021-06-15] MEDS ORDERED: SODIUM CHLORIDE 0.9% 100ML 100 ML IV ONE (00:15)
[2021-06-15] MEDS ORDERED: INSULIN ASPART 100 UNIT/1 ML 10 ML MDV SUBQ ONE (00:18)
[2021-06-15] MEDS ORDERED: INSULIN REGULAR HUMAN 100 UNIT/1 ML 10 ML MDV ONE (00:37)
[2021-06-15] MEDS: SODIUM CHLORIDE FLUSH 0.9% 10 ML SYRINGE IVP SCH ×4 (00:48→21:14)
[2021-06-15] MEDS: MIDAZOLAM DRIP 50 MG/50 ML 50 MG/50 ML BAG IV SCH ×3 (02:48→22:46)
[2021-06-15] MEDS: PROPOFOL 1000 MG/100 ML 1,000 MG/100 ML BOTTLE IV SCH ×3 (05:16→23:15)
[2021-06-15 05:31] LABS: BASOPHILS % (AUTO) 0.5 %; HCT - HEMATOCRIT 27.5 % (42.0-52.0); HGB - HEMOGLOBIN 8.5 g/dL (14.0-18.0); LYMPHOCYTES % (AUTO) 2.5 %; MEAN CORPUSCULAR HEMOGLOBIN 29.3 pg (27.0-31.0); MEAN CORPUSCULAR HGB CONC 30.9 g/dL (32.0-36.0); MEAN CORPUSCULAR VOLUME 94.8 fL (80.0-94.0); MEAN PLATELET VOLUME 8.4 fL (7.4-11.4); MONOCYTES % (AUTO) 3.8 %; NEUTROPHILS % (AUTO) 91.3 %; PLT - PLATELET COUNT 429 10^3/uL (130-450); RED CELL DISTRIBUTION WIDTH 17.7 % (12.0-15.0); WHITE BLOOD COUNT 32.2 x10^3/uL (4.8-10.8)
[2021-06-15 05:36] LABS: CALCIUM, IONIZED 1.17 mmol/L (1.15-1.33); CREATININE 1.2 mg/dL (0.6-1.2); POTASSIUM 5.6 mmol/L (3.5-5.0); VBG PH 7.242 (7.31-7.41)
[2021-06-15 05:54] LABS: ABNORMAL LYMPHS % (MANUAL) 0 %
[2021-06-15 06:07] LABS: BAND NEUTROPHILS % (MANUAL) 13 %; DIFFERENTIAL COMMENT MANUAL DIFFERENTIAL; LYMPHOCYTES # (MANUAL) 2.6 10^3/uL (1.5-3.5); LYMPHOCYTES % (MANUAL) 8 %; MONOCYTES # (MANUAL) 1.6 10^3/uL (0.0-1.0); PLATELET ESTIMATE, MANUAL NORMAL (130-450,000) (NORMAL); RBC MORPHOLOGY (MULTIPLE) NORMAL APPEARANCE (NORMAL)
[2021-06-15 06:23] LABS: PHOSPHORUS 3.2 mg/dL (2.5-4.6)
[2021-06-15] MEDS: PANTOPRAZOLE 40 MG VIAL IVP SCH (06:42)
[2021-06-15] MEDS: SODIUM CHLORIDE FLUSH 0.9% 10 ML SYRINGE IVP PRN (06:42)
--- NOTE | 2021-06-15 07:31 | PROVIDER PROGRESS NOTE ---
Subjective - Prog Note Date Prog Note Date: 06/16/21 - Subjective Subjective: He remains intubated and sedated. Current Medications - Current Medications Current Medications: Active Medications Acetaminophen (Acetaminophen 325 Mg Tablet) 650 mg PO Q4HR PRN PRN Reason: Pain 1 to 4 Last Admin: 06/14/21 03:55 Dose: 650 mg Atorvastatin Calcium (Atorvastatin 40 Mg Tablet) 40 mg PO QPM [facility] Last Admin: 06/15/21 21:14 Dose: 40 mg Chlorhexidine Gluconate (Chlorhexidine Gluconate 15 Ml Udc) 15 ml PO BID [facility] Last Admin: 06/15/21 21:14 Dose: 15 ml Clopidogrel Bisulfate (Clopidogrel 75 Mg Tablet) 75 mg PO DAILY [facility] Last Admin: 06/15/21 09:19 Dose: 75 mg Dexamethasone (Dexamethasone 4 Mg/Ml Vial) 6 mg IVP DAILY [facility] Stop: 06/19/21 09:01 Last Admin: 06/15/21 09:33 Dose: 6 mg Enoxaparin Sodium (Enoxaparin 80 Mg/0.8 Ml Syringe) 80 mg SUBQ BID [facility] Last Admin: 06/15/21 21:14 Dose: 80 mg Folic Acid (Folic Acid 1 Mg Tablet) 1 mg PO DAILY [facility] Last Admin: 06/15/21 09:19 Dose: 1 mg Guaifenesin (Guaifenesin 600 Mg Tablet) 600 mg PO BID [facility] Last Admin: 06/15/21 21:14 Dose: 600 mg Guaifenesin/Codeine Phosphate (Guaifenesin/Codeine 5 Ml Udc) 5 ml PO Q6HR PRN PRN Reason: Cough Hydromorphone HCl (Hydromorphone 2 Mg/Ml Vial) 2 mg IVP Q2H PRN PRN Reason: PAIN Remdesivir 100 mg/ Sodium (Chloride) 100 mls @ 200 mls/hr IV DAILY [facility] Stop: 06/16/21 09:29 Last Infusion: 06/15/21 12:15 Dose: Infused Midazolam HCl (Versed Drip 50 Mg/50 Ml) 50 mg in 50 mls @ 2.94 mls/hr IV .[id number] [facility]; Protocol Last Titration: 06/16/21 08:00 Dose: 0.07 mg/kg/hr, 5.145 mls/hr Norepinephrine Bitartrate 8 mg (/ Dextrose) 250 mls @ 15 mls/hr IV .[id number] [facility]; Protocol Last Titration: 06/16/21 08:06 Dose: 6 mcg/min, 11.25 mls/hr Linezolid (Zyvox 600 Mg/300 Ml) 600 mg in 300 mls @ 300 mls/hr IV Q12H [facility] Last Infusion: 06/15/21 22:50 Dose: Infused Vasopressin 20 unit/ Dextrose 100 mls @ 6 mls/hr IV .[id number] [facility] Last Titration: 06/16/21 07:45 Dose: 0 unit/min, 0 mls/hr Propofol (Diprivan) 1,000 mg in 100 mls @ 4.44 mls/hr IV .[id number] [facility]; Protocol Last Admin: 06/16/21 07:55 Dose: 30 mcg/kg/min, 13.32 mls/hr Insulin Human Regular 100 unit (/ Sodium Chloride) 100 mls @ 1 mls/hr IV .Q72H [facility]; Protocol Stop: 06/17/21 23:33 Last Titration: 06/16/21 08:05 Dose: 0 unit/hr, 0 mls/hr Meropenem 1 gm/ Sodium (Chloride) 100 mls @ 200 mls/hr IV Q8H [facility] Last Infusion: 06/16/21 01:25 Dose: Infused Morphine Sulfate (Morphine 2 Mg/Ml Carpuject) 2 mg IVP Q6HR PRN PRN Reason: Dyspnea Last Admin: 06/13/21 02:54 Dose: 2 mg Ondansetron HCl (Ondansetron 4 Mg/2 Ml Vial) 4 mg IVP Q6HR PRN PRN Reason: Nausea / Vomiting Oxycodone HCl (Oxycodone 5 Mg Tablet) 5 mg PO Q4HR PRN PRN Reason: PAIN Pantoprazole Sodium (Pantoprazole 40 Mg Vial) 40 mg IVP QDAC [facility] Last Admin: 06/16/21 06:08 Dose: 40 mg Sodium Chloride (Sodium Chloride Flush 0.9% 10 Ml Syringe) 10 ml IVP 0100,0900,1700 [facility] Last Admin: 06/15/21 21:14 Dose: 10 ml Sodium Chloride (Sodium Chloride Flush 0.9% 10 Ml Syringe) 10 ml IVP PRN PRN PRN Reason: NEEDED PER PROVIDER ORDERS Last Admin: 06/16/21 06:10 Dose: 10 ml Prednisone 25 mg PO DAILY 10/09/12 Metoprolol Tartrate [Lopressor] 12.5 mg PO BID 08/13/15 Insulin Glargine,Hum.rec.anlog [Lantus] 35 units SQ BID 09/27/15 Multivitamin [Multivitamins] 1 tab PO DAILY 09/27/15 amLODIPine [Norvasc] 5 mg PO DAILY 09/27/15 Indomethacin 50 mg PO TID 11/23/15 Sulfasalazine [Sulfazine] 1,500 mg PO BID 03/28/16 Atorvastatin Calcium 40 mg PO QPM 11/25/19 Clopidogrel [Plavix] 75 mg PO DAILY 11/25/19 metHOTREXate sodium [Methotrexate] 22.5 mg PO Q7D 11/25/19 Cholecalciferol (Vitamin D3) [Vitamin D3] 50 mcg PO DAILY 06/12/21 Doxycycline Hyclate [Vibramycin] 100 mg PO BID 06/12/21 Folic Acid 1 mg PO DAILY 06/12/21 Pantoprazole [Protonix] 40 mg PO QDAC 06/12/21 Objective - Vital Signs/Intake & Output Reviewed Vital Signs: Yes Vital Signs: Vital Signs Pulse Pulse Resp BP Pulse Ox 06/15/21 07:00 93 20 144/61 H 94 06/15/21 06:00 88 87 20 133/66 H 96 06/15/21 05:22 88 06/15/21 05:00 86 22 144/51 H 98 06/15/21 04:00 88 91 18 137/63 H 97 Intake & Output: Intake & Output 06/12/21 06/13/21 06/14/21 06/15/21 23:59 23:59 23:59 23:59 Intake Total 4608.667 2261.789 5958.652 871.122 Output Total 3000 1541 1713 565 Balance 1608.667 511.126 9439.652 306.122 - Objective General Appearance: positive: Other (Sedated.) Eyes Bilateral: positive: Conjunctivae nml ENT: positive: ENT inspection nml, Other (ET tube in place.) Respiratory: positive: Rhonchi Cardiovascular: positive: Regular rate & rhythm. negative: Tachycardia Abdomen: positive: Non-tender, No distention Skin: positive: Warm, Dry, Other (Psoriatic lesions over bilateral lower extremities.) Extremities: positive: No pedal edema Neurologic/Psychiatric: positive: Other (Does not follow commands off of sedation.) - Lab Results Fish Bones: 06/16/21 04:44 06/16/21 04:44 Other Labs: Lab Results x24hrs 06/15/21 06/15/21 06/15/21 Range/Units 06:39 06:03 04:50 WBC (4.8-10.8) x10^3/uL RBC (4.70-6.10) 10^6/uL Hgb (14.0-18.0) g/dL Hct (42.0-52.0) % MCV (80.0-94.0) fL MCH (27.0-31.0) pg MCHC (32.0-36.0) g/dL RDW (12.0-15.0) % Plt Count (130-450) 10^3/uL MPV (7.4-11.4) fL Neut # (Auto) Lymph # (Auto) [place] # (Auto) Eos # (Auto) Baso # (Auto) Absolute Nucleated RBC Total Counted Band Neuts % (Manual) (0 - 10) % Abnorm Lymph % (Manual) % Nucleated RBC % Neutrophils # (Manual) (1.5-6.6) 10^3/uL Lymphocytes # (Manual) (1.5-3.5) 10^3/uL Monocytes # (Manual) (0.0-1.0) 10^3/uL Eosinophils # (Manual) (0-0.7) 10^3/uL Basophils # (Manual) (0-0.1) 10^3/uL Differential Comment Platelet Estimate (NORMAL) RBC Morph Micro Appear (NORMAL) VBG pH (7.31-7.41) Ionized Calcium (1.15-1.33) mmol/L Sodium (135-145) mmol/L Potassium (3.5-5.0) mmol/L Chloride (101-111) mmol/L Carbon Dioxide (21-32) mmol/L Anion Gap (6-13) BUN (6-20) mg/dL Creatinine (0.6-1.2) mg/dL Estimated GFR (MDRD) (>89) Glucose (70-100) mg/dL POC Whole Bld Glucose 107 H 126 H 130 H (70 - 100) mg/dL Lactic Acid (0.5-2.2) mmol/L Calcium (8.5-10.3) mg/dL Phosphorus (2.5-4.6) mg/dL Magnesium (1.7-2.8) mg/dL B-Natriuretic Peptide (5-100) pg/mL 06/15/21 06/15/21 06/15/21 Range/Units 04:44 04:44 04:44 WBC (4.8-10.8) x10^3/uL RBC (4.70-6.10) 10^6/uL Hgb (14.0-18.0) g/dL Hct (42.0-52.0) % MCV (80.0-94.0) fL MCH (27.0-31.0) pg MCHC (32.0-36.0) g/dL RDW (12.0-15.0) % Plt Count (130-450) 10^3/uL MPV (7.4-11.4) fL Neut # (Auto) Lymph # (Auto) [place] # (Auto) Eos # (Auto) Baso # (Auto) Absolute Nucleated RBC Total Counted Band Neuts % (Manual) (0 - 10) % Abnorm Lymph % (Manual) % Nucleated RBC % Neutrophils # (Manual) (1.5-6.6) 10^3/uL Lymphocytes # (Manual) (1.5-3.5) 10^3/uL Monocytes # (Manual) (0.0-1.0) 10^3/uL Eosinophils # (Manual) (0-0.7) 10^3/uL Basophils # (Manual) (0-0.1) 10^3/uL Differential Comment Platelet Estimate (NORMAL) RBC Morph Micro Appear (NORMAL) VBG pH 7.242 L (7.31-7.41) Ionized Calcium 1.17 (1.15-1.33) mmol/L Sodium 132 L (135-145) mmol/L Potassium 5.6 H (3.5-5.0) mmol/L Chloride 101 (101-111) mmol/L Carbon Dioxide 24 (21-32) mmol/L Anion Gap 7.0 (6-13) BUN 38 H (6-20) mg/dL Creatinine 1.2 (0.6-1.2) mg/dL Estimated GFR (MDRD) 61 L (>89) Glucose 131 H (70-100) mg/dL POC Whole Bld Glucose (70 - 100) mg/dL Lactic Acid (0.5-2.2) mmol/L Calcium 8.0 L (8.5-10.3) mg/dL Phosphorus 3.2 (2.5-4.6) mg/dL Magnesium 2.0 (1.7-2.8) mg/dL B-Natriuretic Peptide (5-100) pg/mL 06/15/21 06/15/21 06/15/21 Range/Units 04:44 03:31 02:38 WBC 32.2 H (4.8-10.8) x10^3/uL RBC 2.90 L (4.70-6.10) 10^6/uL Hgb 8.5 L (14.0-18.0) g/dL Hct 27.5 L (42.0-52.0) % MCV 94.8 H (80.0-94.0) fL MCH 29.3 (27.0-31.0) pg MCHC 30.9 L (32.0-36.0) g/dL RDW 17.7 H (12.0-15.0) % Plt Count 429 (130-450) 10^3/uL MPV 8.4 (7.4-11.4) fL Neut # (Auto) Not Reportable Lymph # (Auto) Not Reportable [place] # (Auto) Not Reportable Eos # (Auto) Not Reportable Baso # (Auto) Not Reportable Absolute Nucleated RBC Not Reportable Total Counted 100 Band Neuts % (Manual) 13 H (0 - 10) % Abnorm Lymph % (Manual) 0 % Nucleated RBC % Not Reportable Neutrophils # (Manual) 28.0 H (1.5-6.6) 10^3/uL Lymphocytes # (Manual) 2.6 (1.5-3.5) 10^3/uL Monocytes # (Manual) 1.6 H (0.0-1.0) 10^3/uL Eosinophils # (Manual) 0.0 (0-0.7) 10^3/uL Basophils # (Manual) 0.0 (0-0.1) 10^3/uL Differential Comment MANUAL DIFFERENTIAL Platelet Estimate NORMAL (130-450,000) (NORMAL) RBC Morph Micro Appear NORMAL APPEARANCE (NORMAL) VBG pH (7.31-7.41) Ionized Calcium (1.15-1.33) mmol/L Sodium (135-145) mmol/L Potassium (3.5-5.0) mmol/L Chloride (101-111) mmol/L Carbon Dioxide (21-32) mmol/L Anion Gap (6-13) BUN (6-20) mg/dL Creatinine (0.6-1.2) mg/dL Estimated GFR (MDRD) (>89) Glucose (70-100) mg/dL POC Whole Bld Glucose 144 H 136 H (70 - 100) mg/dL Lactic Acid (0.5-2.2) mmol/L Calcium (8.5-10.3) mg/dL Phosphorus (2.5-4.6) mg/dL Magnesium (1.7-2.8) mg/dL B-Natriuretic Peptide (5-100) pg/mL 06/15/21 06/15/21 06/14/21 Range/Units 01:32 00:13 21:11 WBC (4.8-10.8) x10^3/uL RBC (4.70-6.10) 10^6/uL Hgb (14.0-18.0) g/dL Hct (42.0-52.0) % MCV (80.0-94.0) fL MCH (27.0-31.0) pg MCHC (32.0-36.0) g/dL RDW (12.0-15.0) % Plt Count (130-450) 10^3/uL MPV (7.4-11.4) fL Neut # (Auto) Lymph # (Auto) [place] # (Auto) Eos # (Auto) Baso # (Auto) Absolute Nucleated RBC Total Counted Band Neuts % (Manual) (0 - 10) % Abnorm Lymph % (Manual) % Nucleated RBC % Neutrophils # (Manual) (1.5-6.6) 10^3/uL Lymphocytes # (Manual) (1.5-3.5) 10^3/uL Monocytes # (Manual) (0.0-1.0) 10^3/uL Eosinophils # (Manual) (0-0.7) 10^3/uL Basophils # (Manual) (0-0.1) 10^3/uL Differential Comment Platelet Estimate (NORMAL) RBC Morph Micro Appear (NORMAL) VBG pH (7.31-7.41) Ionized Calcium (1.15-1.33) mmol/L Sodium (135-145) mmol/L Potassium (3.5-5.0) mmol/L Chloride (101-111) mmol/L Carbon Dioxide (21-32) mmol/L Anion Gap (6-13) BUN (6-20) mg/dL Creatinine (0.6-1.2) mg/dL Estimated GFR (MDRD) (>89) Glucose (70-100) mg/dL POC Whole Bld Glucose 147 H 192 H 188 H (70 - 100) mg/dL Lactic Acid (0.5-2.2) mmol/L Calcium (8.5-10.3) mg/dL Phosphorus (2.5-4.6) mg/dL Magnesium (1.7-2.8) mg/dL B-Natriuretic Peptide (5-100) pg/mL 06/14/21 06/14/21 06/14/21 Range/Units 20:00 18:05 15:46 WBC (4.8-10.8) x10^3/uL RBC (4.70-6.10) 10^6/uL Hgb (14.0-18.0) g/dL Hct (42.0-52.0) % MCV (80.0-94.0) fL MCH (27.0-31.0) pg MCHC (32.0-36.0) g/dL RDW (12.0-15.0) % Plt Count (130-450) 10^3/uL MPV (7.4-11.4) fL Neut # (Auto) Lymph # (Auto) [place] # (Auto) Eos # (Auto) Baso # (Auto) Absolute Nucleated RBC Total Counted Band Neuts % (Manual) (0 - 10) % Abnorm Lymph % (Manual) % Nucleated RBC % Neutrophils # (Manual) (1.5-6.6) 10^3/uL Lymphocytes # (Manual) (1.5-3.5) 10^3/uL Monocytes # (Manual) (0.0-1.0) 10^3/uL Eosinophils # (Manual) (0-0.7) 10^3/uL Basophils # (Manual) (0-0.1) 10^3/uL Differential Comment Platelet Estimate (NORMAL) RBC Morph Micro Appear (NORMAL) VBG pH (7.31-7.41) Ionized Calcium (1.15-1.33) mmol/L Sodium 132 L 133 L (135-145) mmol/L Potassium 6.7 H* 6.2 H* (3.5-5.0) mmol/L Chloride 103 107 (101-111) mmol/L Carbon Dioxide 23 20 L (21-32) mmol/L Anion Gap 6.0 6.0 (6-13) BUN 46 H 46 H (6-20) mg/dL Creatinine 1.6 H 1.6 H (0.6-1.2) mg/dL Estimated GFR (MDRD) 44 L 44 L (>89) Glucose 221 H 221 H (70-100) mg/dL POC Whole Bld Glucose 223 H (70 - 100) mg/dL Lactic Acid (0.5-2.2) mmol/L Calcium 7.8 L 7.2 L (8.5-10.3) mg/dL Phosphorus (2.5-4.6) mg/dL Magnesium (1.7-2.8) mg/dL B-Natriuretic Peptide (5-100) pg/mL 06/14/21 06/14/21 06/14/21 Range/Units 15:46 11:54 10:34 WBC (4.8-10.8) x10^3/uL RBC (4.70-6.10) 10^6/uL Hgb (14.0-18.0) g/dL Hct (42.0-52.0) % MCV (80.0-94.0) fL MCH (27.0-31.0) pg MCHC (32.0-36.0) g/dL RDW (12.0-15.0) % Plt Count (130-450) 10^3/uL MPV (7.4-11.4) fL Neut # (Auto) Lymph # (Auto) [place] # (Auto) Eos # (Auto) Baso # (Auto) Absolute Nucleated RBC Total Counted Band Neuts % (Manual) (0 - 10) % Abnorm Lymph % (Manual) % Nucleated RBC % Neutrophils # (Manual) (1.5-6.6) 10^3/uL Lymphocytes # (Manual) (1.5-3.5) 10^3/uL Monocytes # (Manual) (0.0-1.0) 10^3/uL Eosinophils # (Manual) (0-0.7) 10^3/uL Basophils # (Manual) (0-0.1) 10^3/uL Differential Comment Platelet Estimate (NORMAL) RBC Morph Micro Appear (NORMAL) VBG pH (7.31-7.41) Ionized Calcium (1.15-1.33) mmol/L Sodium 134 L (135-145) mmol/L Potassium 6.8 H* (3.5-5.0) mmol/L Chloride 104 (101-111) mmol/L Carbon Dioxide 23 (21-32) mmol/L Anion Gap 7.0 (6-13) BUN 53 H (6-20) mg/dL Creatinine 2.0 H (0.6-1.2) mg/dL Estimated GFR (MDRD) 34 L (>89) Glucose 179 H (70-100) mg/dL POC Whole Bld Glucose 168 H (70 - 100) mg/dL Lactic Acid 1.4 (0.5-2.2) mmol/L Calcium 7.6 L (8.5-10.3) mg/dL Phosphorus (2.5-4.6) mg/dL Magnesium (1.7-2.8) mg/dL B-Natriuretic Peptide (5-100) pg/mL 06/14/21 06/14/21 06/13/21 Range/Units 05:50 05:45 23:36 WBC (4.8-10.8) x10^3/uL RBC (4.70-6.10) 10^6/uL Hgb (14.0-18.0) g/dL Hct (42.0-52.0) % MCV (80.0-94.0) fL MCH (27.0-31.0) pg MCHC (32.0-36.0) g/dL RDW (12.0-15.0) % Plt Count (130-450) 10^3/uL MPV (7.4-11.4) fL Neut # (Auto) Lymph # (Auto) [place] # (Auto) Eos # (Auto) Baso # (Auto) Absolute Nucleated RBC Total Counted Band Neuts % (Manual) (0 - 10) % Abnorm Lymph % (Manual) % Nucleated RBC % Neutrophils # (Manual) (1.5-6.6) 10^3/uL Lymphocytes # (Manual) (1.5-3.5) 10^3/uL Monocytes # (Manual) (0.0-1.0) 10^3/uL Eosinophils # (Manual) (0-0.7) 10^3/uL Basophils # (Manual) (0-0.1) 10^3/uL Differential Comment Platelet Estimate (NORMAL) RBC Morph Micro Appear (NORMAL) VBG pH (7.31-7.41) Ionized Calcium (1.15-1.33) mmol/L Sodium (135-145) mmol/L Potassium (3.5-5.0) mmol/L Chloride (101-111) mmol/L Carbon Dioxide (21-32) mmol/L Anion Gap (6-13) BUN (6-20) mg/dL Creatinine (0.6-1.2) mg/dL Estimated GFR (MDRD) (>89) Glucose (70-100) mg/dL POC Whole Bld Glucose 118 H 131 H (70 - 100) mg/dL Lactic Acid (0.5-2.2) mmol/L Calcium (8.5-10.3) mg/dL Phosphorus (2.5-4.6) mg/dL Magnesium (1.7-2.8) mg/dL B-Natriuretic Peptide 233 H (5-100) pg/mL 06/13/21 06/13/21 06/13/21 Range/Units 20:37 16:45 13:23 WBC (4.8-10.8) x10^3/uL RBC (4.70-6.10) 10^6/uL Hgb (14.0-18.0) g/dL Hct (42.0-52.0) % MCV (80.0-94.0) fL MCH (27.0-31.0) pg MCHC (32.0-36.0) g/dL RDW (12.0-15.0) % Plt Count (130-450) 10^3/uL MPV (7.4-11.4) fL Neut # (Auto) Lymph # (Auto) [place] # (Auto) Eos # (Auto) Baso # (Auto) Absolute Nucleated RBC Total Counted Band Neuts % (Manual) (0 - 10) % Abnorm Lymph % (Manual) % Nucleated RBC % Neutrophils # (Manual) (1.5-6.6) 10^3/uL Lymphocytes # (Manual) (1.5-3.5) 10^3/uL Monocytes # (Manual) (0.0-1.0) 10^3/uL Eosinophils # (Manual) (0-0.7) 10^3/uL Basophils # (Manual) (0-0.1) 10^3/uL Differential Comment Platelet Estimate (NORMAL) RBC Morph Micro Appear (NORMAL) VBG pH (7.31-7.41) Ionized Calcium (1.15-1.33) mmol/L Sodium (135-145) mmol/L Potassium (3.5-5.0) mmol/L Chloride (101-111) mmol/L Carbon Dioxide (21-32) mmol/L Anion Gap (6-13) BUN (6-20) mg/dL Creatinine (0.6-1.2) mg/dL Estimated GFR (MDRD) (>89) Glucose (70-100) mg/dL POC Whole Bld Glucose 160 H 121 H 103 H (70 - 100) mg/dL Lactic Acid (0.5-2.2) mmol/L Calcium (8.5-10.3) mg/dL Phosphorus (2.5-4.6) mg/dL Magnesium (1.7-2.8) mg/dL B-Natriuretic Peptide (5-100) pg/mL 06/13/21 06/13/21 06/13/21 Range/Units 12:10 11:43 07:59 WBC (4.8-10.8) x10^3/uL RBC (4.70-6.10) 10^6/uL Hgb (14.0-18.0) g/dL Hct (42.0-52.0) % MCV (80.0-94.0) fL MCH (27.0-31.0) pg MCHC (32.0-36.0) g/dL RDW (12.0-15.0) % Plt Count (130-450) 10^3/uL MPV (7.4-11.4) fL Neut # (Auto) Lymph # (Auto) [place] # (Auto) Eos # (Auto) Baso # (Auto) Absolute Nucleated RBC Total Counted Band Neuts % (Manual) (0 - 10) % Abnorm Lymph % (Manual) % Nucleated RBC % Neutrophils # (Manual) (1.5-6.6) 10^3/uL Lymphocytes # (Manual) (1.5-3.5) 10^3/uL Monocytes # (Manual) (0.0-1.0) 10^3/uL Eosinophils # (Manual) (0-0.7) 10^3/uL Basophils # (Manual) (0-0.1) 10^3/uL Differential Comment Platelet Estimate (NORMAL) RBC Morph Micro Appear (NORMAL) VBG pH (7.31-7.41) Ionized Calcium (1.15-1.33) mmol/L Sodium (135-145) mmol/L Potassium (3.5-5.0) mmol/L Chloride (101-111) mmol/L Carbon Dioxide (21-32) mmol/L Anion Gap (6-13) BUN (6-20) mg/dL Creatinine (0.6-1.2) mg/dL Estimated GFR (MDRD) (>89) Glucose (70-100) mg/dL POC Whole Bld Glucose 105 H 51 L* 96 (70 - 100) mg/dL Lactic Acid (0.5-2.2) mmol/L Calcium (8.5-10.3) mg/dL Phosphorus (2.5-4.6) mg/dL Magnesium (1.7-2.8) mg/dL B-Natriuretic Peptide (5-100) pg/mL 06/13/21 06/13/21 06/12/21 Range/Units 07:13 06:54 20:25 WBC (4.8-10.8) x10^3/uL RBC (4.70-6.10) 10^6/uL Hgb (14.0-18.0) g/dL Hct (42.0-52.0) % MCV (80.0-94.0) fL MCH (27.0-31.0) pg MCHC (32.0-36.0) g/dL RDW (12.0-15.0) % Plt Count (130-450) 10^3/uL MPV (7.4-11.4) fL Neut # (Auto) Lymph # (Auto) [place] # (Auto) Eos # (Auto) Baso # (Auto) Absolute Nucleated RBC Total Counted Band Neuts % (Manual) (0 - 10) % Abnorm Lymph % (Manual) % Nucleated RBC % Neutrophils # (Manual) (1.5-6.6) 10^3/uL Lymphocytes # (Manual) (1.5-3.5) 10^3/uL Monocytes # (Manual) (0.0-1.0) 10^3/uL Eosinophils # (Manual) (0-0.7) 10^3/uL Basophils # (Manual) (0-0.1) 10^3/uL Differential Comment Platelet Estimate (NORMAL) RBC Morph Micro Appear (NORMAL) VBG pH (7.31-7.41) Ionized Calcium (1.15-1.33) mmol/L Sodium (135-145) mmol/L Potassium (3.5-5.0) mmol/L Chloride (101-111) mmol/L Carbon Dioxide (21-32) mmol/L Anion Gap (6-13) BUN (6-20) mg/dL Creatinine (0.6-1.2) mg/dL Estimated GFR (MDRD) (>89) Glucose (70-100) mg/dL POC Whole Bld Glucose 103 H 66 L 140 H (70 - 100) mg/dL Lactic Acid (0.5-2.2) mmol/L Calcium (8.5-10.3) mg/dL Phosphorus (2.5-4.6) mg/dL Magnesium (1.7-2.8) mg/dL B-Natriuretic Peptide (5-100) pg/mL 06/12/21 06/12/21 06/12/21 Range/Units 17:04 12:16 08:17 WBC (4.8-10.8) x10^3/uL RBC (4.70-6.10) 10^6/uL Hgb (14.0-18.0) g/dL Hct (42.0-52.0) % MCV (80.0-94.0) fL MCH (27.0-31.0) pg MCHC (32.0-36.0) g/dL RDW (12.0-15.0) % Plt Count (130-450) 10^3/uL MPV (7.4-11.4) fL Neut # (Auto) Lymph # (Auto) [place] # (Auto) Eos # (Auto) Baso # (Auto) Absolute Nucleated RBC Total Counted Band Neuts % (Manual) (0 - 10) % Abnorm Lymph % (Manual) % Nucleated RBC % Neutrophils # (Manual) (1.5-6.6) 10^3/uL Lymphocytes # (Manual) (1.5-3.5) 10^3/uL Monocytes # (Manual) (0.0-1.0) 10^3/uL Eosinophils # (Manual) (0-0.7) 10^3/uL Basophils # (Manual) (0-0.1) 10^3/uL Differential Comment Platelet Estimate (NORMAL) RBC Morph Micro Appear (NORMAL) VBG pH (7.31-7.41) Ionized Calcium (1.15-1.33) mmol/L Sodium (135-145) mmol/L Potassium (3.5-5.0) mmol/L Chloride (101-111) mmol/L Carbon Dioxide (21-32) mmol/L Anion Gap (6-13) BUN (6-20) mg/dL Creatinine (0.6-1.2) mg/dL Estimated GFR (MDRD) (>89) Glucose (70-100) mg/dL POC Whole Bld Glucose 118 H 169 H 75 (70 - 100) mg/dL Lactic Acid (0.5-2.2) mmol/L Calcium (8.5-10.3) mg/dL Phosphorus (2.5-4.6) mg/dL Magnesium (1.7-2.8) mg/dL B-Natriuretic Peptide (5-100) pg/mL 06/11/21 Range/Units 20:02 WBC (4.8-10.8) x10^3/uL RBC (4.70-6.10) 10^6/uL Hgb (14.0-18.0) g/dL Hct (42.0-52.0) % MCV (80.0-94.0) fL MCH (27.0-31.0) pg MCHC (32.0-36.0) g/dL RDW (12.0-15.0) % Plt Count (130-450) 10^3/uL MPV (7.4-11.4) fL Neut # (Auto) Lymph # (Auto) [place] # (Auto) Eos # (Auto) Baso # (Auto) Absolute Nucleated RBC Total Counted Band Neuts % (Manual) (0 - 10) % Abnorm Lymph % (Manual) % Nucleated RBC % Neutrophils # (Manual) (1.5-6.6) 10^3/uL Lymphocytes # (Manual) (1.5-3.5) 10^3/uL Monocytes # (Manual) (0.0-1.0) 10^3/uL Eosinophils # (Manual) (0-0.7) 10^3/uL Basophils # (Manual) (0-0.1) 10^3/uL Differential Comment Platelet Estimate (NORMAL) RBC Morph Micro Appear (NORMAL) VBG pH (7.31-7.41) Ionized Calcium (1.15-1.33) mmol/L Sodium (135-145) mmol/L Potassium (3.5-5.0) mmol/L Chloride (101-111) mmol/L Carbon Dioxide (21-32) mmol/L Anion Gap (6-13) BUN (6-20) mg/dL Creatinine (0.6-1.2) mg/dL Estimated GFR (MDRD) (>89) Glucose (70-100) mg/dL POC Whole Bld Glucose 194 H (70 - 100) mg/dL Lactic Acid (0.5-2.2) mmol/L Calcium (8.5-10.3) mg/dL Phosphorus (2.5-4.6) mg/dL Magnesium (1.7-2.8) mg/dL B-Natriuretic Peptide (5-100) pg/mL Assessment/Plan - Problem List (1) Acute respiratory failure with hypoxia Impression: This is secondary to the COVID-19 pneumonia as well as the Klebsiella pneumonia infection. His FiO2 requirements are improved today to 50%. Now that he is on meropenem for the Klebsiella pneumonia infection, I suspect he will have further improvement and I am hoping he can be extubated and a couple of days. Continue with vent management as per protocol. (2) Septic shock Impression: This is likely secondary to the Klebsiella pneumonia infection as well as the COVID-19 infection. We will keep him on linezolid which was started yesterday but we will discontinue cefepime and start meropenem given he has ESBL Klebsiella. We will continue norepinephrine and vasopressin but fortunately his pressor requirements are improving and we will look to wean these off today. Continue pressors for goal mean arterial pressure greater than 65 mmHg. (3) Infection due to ESBL-producing Klebsiella pneumoniae Impression: Respiratory culture grew ESBL Klebsiella pneumonia as well as E. coli. This is likely contributing to his septic shock and respiratory failure. We will discontinue cefepime and switch him to meropenem. He will need at least 7 days of therapy. (4) Pneumonia due to COVID-19 virus Impression: This is contributing to his respiratory failure. He has been treated with remdesivir which we will continue as well as Decadron. He is also now on meropenem for the Klebsiella pneumonia infection. I am hopeful as FiO2 requirements improve he can be extubated in a couple of days. (5) TORY (acute kidney injury) Impression: This is improved and his creatinine is now down to 1.2. This was likely related to ATN due to hypotension. We will continue pressors for goal mean arterial pressure in 65 mmHg. We will hold off on further IV fluids at this time as he does not appear hypovolemic. We will continue to avoid nephrotoxins and monitor his urine output. (6) NSTEMI (non-ST elevated myocardial infarction) Impression: The concern was for NSTEMI given his troponins peaked at over 800. Echocardiogram revealed no significant wall motion abnormalities and his EF is preserved. There was evidence of what appears to be right heart strain. He has been managed with Lovenox. Based off of his clinical improvement, we will consider a stress test at some point or discussed with cardiology for need for an angiogram. Continue Lovenox for the NSTEMI as well as elevated D-dimer. We will look to obtain CTA once he is more stable but for the time being will order a duplex. (7) Hyperkalemia Impression: This was secondary to the acute kidney injury as well as the hyperglycemia. Potassium today is improved to 5.6. We will keep him on an insulin drip and recheck BMP this morning. (8) Diabetes mellitus, insulin dependent (IDDM), uncontrolled Impression: His blood glucose was better controlled after we start him on insulin drip. We will continue this for the time being given his blood glucose has been labile due to steroids and tube feeds. He also had hyperkalemia. We will hopefully be able to transition him to subcutaneous insulin over the next 24 hours as long as his electrolytes are stable. (9) PVD (peripheral vascular disease) Impression: He is on aspirin and Plavix as well as Lipitor at home. We will continue Plavix and Lovenox alone for the time being. Once Lovenox is discontinued we will resume aspirin. (10) Psoriatic arthritis Impression: We are holding his home immunosuppressants given the sepsis. (11) Ankylosing spondylitis Impression: We are holding his home immunosuppressants given the sepsis. Also holding the NSAIDs given his recent acute kidney injury.
[2021-06-15 08:14] LABS: BILIRUBIN,URINE NEGATIVE (NEGATIVE); GLUCOSE, URINE (UA) NEGATIVE (NEGATIVE); KETONES,URINE (UA) NEGATIVE (NEGATIVE); LEUKOCYTE ESTERASE, URINE NEGATIVE (NEGATIVE); NITRITE,URINE NEGATIVE (NEGATIVE); OCCULT BLOOD,URINE MODERATE (NEGATIVE); PH,URINE 5.5 PH (5.0-7.5); PROTEIN,URINE TRACE mg/dL (NEGATIVE); UROBILINOGEN,URINE 0.2 (NORMAL) E.U./dL (NORMAL)
[2021-06-15] MEDS: METOPROLOL SUCCINATE 25 MG TABLET PO SCH (08:14)
[2021-06-15 08:21] LABS: CLARITY,URINE SL. CLOUDY (CLEAR)
[2021-06-15 08:28] LABS: % IRON SATURATION 11 % (20-50); IRON 12 ug/dL (45-182); TOTAL IRON BINDING CAPACITY 113 ug/dL (250-450); TRANSFERRIN 81 mg/dL (180-329)
[2021-06-15 08:32] LABS: WBC,URINE 0-3 /HPF (0-3)
[2021-06-15 08:33] LABS: BACTERIA,URINE Moderate /HPF (None Seen); CASTS, URINE 6-10 Course Granular /LPF; RBC,URINE 0-5 /HPF (0-5); SQUAMOUS EPITHELIAL CELL,UR NONE SEEN (<= Few)
[2021-06-15 09:11] LABS: ABG HCO3 25.1 mmol/L (22.0-26.0); ABG PCO2 51 mmHg (34-45); ABG PH 7.31 (7.35-7.45); ABG TCO2 26.7 MMOL/L (21.0-29.0)
[2021-06-15 09:12] LABS: ABG BASE EXCESS -1.4 mmol/L (-2.0-3.0); ABG MODE OF VENTILATION ASSIST/CONTROL
[2021-06-15 09:13] LABS: ABG OXYGEN SATURATION 71 % (94-98); ABG PO2 37 mmHg (80-100)
[2021-06-15] MEDS: ENOXAPARIN 80 MG/0.8 ML SYRINGE SUBQ SCH ×2 (09:17→21:14)
[2021-06-15] MEDS: guaiFENesin 600 MG TABLET PO SCH ×2 (09:19→21:14)
[2021-06-15] MEDS: CLOPIDOGREL 75 MG TABLET PO SCH (09:19)
[2021-06-15] MEDS: FOLIC ACID 1 MG TABLET PO SCH (09:19)
[2021-06-15 09:21] LABS: ALLEN TEST POSITIVE
[2021-06-15] MEDS: CHLORHEXIDINE GLUCONATE 15 ML UDC PO SCH ×2 (09:25→21:14)
[2021-06-15] MEDS: VASOPRESSIN 20 UNIT in DEXTROSE 5% 99 ML IV SCH ×2 (09:27→21:19)
[2021-06-15] MEDS: MEROPENEM 1 GM in SODIUM CHLORIDE 0.9% MINIBAG 100 ML IV SCH ×2 (09:32→16:26)
[2021-06-15 09:33] LABS: CALCIUM 7.9 mg/dL (8.5-10.3); CREATININE 1.1 mg/dL (0.6-1.2); POTASSIUM 5.4 mmol/L (3.5-5.0)
[2021-06-15] MEDS: DEXAMETHASONE 4 MG/ML VIAL IVP SCH (09:33)
[2021-06-15] MEDS: REMDESIVIR 100MG VIAL 100 MG in SODIUM CHLORIDE 0.9% 100ML 100 ML IV SCH (11:45)
[2021-06-15] MEDS: LINEZOLID 600 MG/300 ML 600 MG/300 ML BAG IV SCH ×2 (11:45→21:44)
[2021-06-15] MEDS ORDERED: DEXTROSE 50% ABBOJECT 25 GM/50 ML SYRINGE IVP ONE (12:00)
[2021-06-15 20:35] LABS: CALCIUM 7.6 mg/dL (8.5-10.3); POTASSIUM 5.7 mmol/L (3.5-5.0)
[2021-06-15] MEDS: ATORVASTATIN 40 MG TABLET PO SCH (21:14)
[2021-06-16] MEDS: MEROPENEM 1 GM in SODIUM CHLORIDE 0.9% MINIBAG 100 ML IV SCH ×3 (00:50→17:15)
--- NOTE | 2021-06-16 01:44 | Ultrasound Report ---
PROCEDURE: Duplex Ext Veins Bilateral INDICATIONS: BRIANA YOUROCCO TECHNIQUE: Real-time imaging, as well as color and pulse Doppler interrogation, were performed of the deep veins of both legs from the inguinal ligament to the popliteal fossa. COMPARISON: 01/05/2017 FINDINGS: Right: Intraluminal filling defects are noted within distal right superficial femoral vein and poplit eal vein with poor compressibility. Left: The deep veins are normally compressible, and free of intraluminal thrombus. Color and pulse D oppler demonstrate normal phasic intravascular flow. There is normal augmentation response to distal compression maneuver. IMPRESSION: 1. Deep venous thrombosis within right distal superficial femoral vein and popliteal vein. 2. No evidence of DVT in visualized left lower extremity veins. Reviewed by: Rashard Bella MD on 06/16/2021 1:43 AM PST Approved by: Rashard Bella MD on 06/16/2021 1:[address] [facility] Station ID: [id number]
[2021-06-16] MEDS: SODIUM CHLORIDE FLUSH 0.9% 10 ML SYRINGE IVP PRN ×3 (04:44→20:35)
[2021-06-16 05:17] LABS: BASOPHILS % (AUTO) 0.2 %; HCT - HEMATOCRIT 24.6 % (42.0-52.0); HGB - HEMOGLOBIN 7.8 g/dL (14.0-18.0); MEAN CORPUSCULAR HEMOGLOBIN 29.3 pg (27.0-31.0); MEAN CORPUSCULAR HGB CONC 31.7 g/dL (32.0-36.0); MEAN CORPUSCULAR VOLUME 92.5 fL (80.0-94.0); MEAN PLATELET VOLUME 8.6 fL (7.4-11.4); NEUTROPHILS % (AUTO) 92.7 %; PLT - PLATELET COUNT 368 10^3/uL (130-450); RED BLOOD COUNT 2.66 10^6/uL (4.70-6.10); RED CELL DISTRIBUTION WIDTH 17.1 % (12.0-15.0); WHITE BLOOD COUNT 25.3 x10^3/uL (4.8-10.8)
[2021-06-16 05:18] LABS: CALCIUM, IONIZED 1.13 mmol/L (1.15-1.33); VBG PH 7.38 (7.31-7.41)
[2021-06-16 05:24] LABS: ABNORMAL LYMPHS % (MANUAL) 0 %
[2021-06-16 05:30] LABS: ALBUMIN 1.6 g/dL (3.2-5.5); ALBUMIN/GLOBULIN RATIO 0.4 (1.0-2.2); BILIRUBIN,TOTAL 0.5 mg/dL (0.2-1.0); CALCIUM 7.7 mg/dL (8.5-10.3); CREATININE 0.9 mg/dL (0.6-1.2); MAGNESIUM 1.7 mg/dL (1.7-2.8); PHOSPHORUS 2.5 mg/dL (2.5-4.6); POTASSIUM 5.2 mmol/L (3.5-5.0)
[2021-06-16 05:53] LABS: BAND NEUTROPHILS % (MANUAL) 8 %; DIFFERENTIAL COMMENT MANUAL DIFFERENTIAL; LYMPHOCYTES # (MANUAL) 2.3 10^3/uL (1.5-3.5); LYMPHOCYTES % (MANUAL) 9 %; MONOCYTES # (MANUAL) 1.5 10^3/uL (0.0-1.0); NEUTROPHILS # (MANUAL) 21.5 10^3/uL (1.5-6.6); PLATELET ESTIMATE, MANUAL NORMAL (130-450,000) (NORMAL); RBC MORPHOLOGY (MULTIPLE) NORMAL APPEARANCE (NORMAL)
[2021-06-16] MEDS: NEUTRA-PHOS 250 MG TABLET PO SCH ×2 (05:57→10:15)
[2021-06-16] MEDS: PANTOPRAZOLE 40 MG VIAL IVP SCH (06:08)
[2021-06-16] MEDS ORDERED: MAGNESIUM SULFATE 2 GRAM 2 GM/50 ML BAG IV ONE (07:00)
[2021-06-16] MEDS: PROPOFOL 1000 MG/100 ML 1,000 MG/100 ML BOTTLE IV SCH ×3 (07:55→22:07)
--- NOTE | 2021-06-16 08:20 | PROVIDER PROGRESS NOTE ---
Subjective - Prog Note Date Prog Note Date: 06/16/21 - Subjective Subjective: He remains intubated and sedated. Current Medications - Current Medications Current Medications: Active Medications Acetaminophen (Acetaminophen 325 Mg Tablet) 650 mg PO Q4HR PRN PRN Reason: Pain 1 to 4 Last Admin: 06/14/21 03:55 Dose: 650 mg Atorvastatin Calcium (Atorvastatin 40 Mg Tablet) 40 mg PO QPM [facility] Last Admin: 06/15/21 21:14 Dose: 40 mg Chlorhexidine Gluconate (Chlorhexidine Gluconate 15 Ml Udc) 15 ml PO BID [facility] Last Admin: 06/15/21 21:14 Dose: 15 ml Clopidogrel Bisulfate (Clopidogrel 75 Mg Tablet) 75 mg PO DAILY [facility] Last Admin: 06/15/21 09:19 Dose: 75 mg Dexamethasone (Dexamethasone 4 Mg/Ml Vial) 6 mg IVP DAILY [facility] Stop: 06/19/21 09:01 Last Admin: 06/15/21 09:33 Dose: 6 mg Enoxaparin Sodium (Enoxaparin 80 Mg/0.8 Ml Syringe) 80 mg SUBQ BID [facility] Last Admin: 06/15/21 21:14 Dose: 80 mg Folic Acid (Folic Acid 1 Mg Tablet) 1 mg PO DAILY [facility] Last Admin: 06/15/21 09:19 Dose: 1 mg Guaifenesin (Guaifenesin 600 Mg Tablet) 600 mg PO BID [facility] Last Admin: 06/15/21 21:14 Dose: 600 mg Guaifenesin/Codeine Phosphate (Guaifenesin/Codeine 5 Ml Udc) 5 ml PO Q6HR PRN PRN Reason: Cough Hydromorphone HCl (Hydromorphone 2 Mg/Ml Vial) 2 mg IVP Q2H PRN PRN Reason: PAIN Remdesivir 100 mg/ Sodium (Chloride) 100 mls @ 200 mls/hr IV DAILY [facility] Stop: 06/16/21 09:29 Last Infusion: 06/15/21 12:15 Dose: Infused Midazolam HCl (Versed Drip 50 Mg/50 Ml) 50 mg in 50 mls @ 2.94 mls/hr IV .[id number] [facility]; Protocol Last Titration: 06/16/21 08:00 Dose: 0.07 mg/kg/hr, 5.145 mls/hr Norepinephrine Bitartrate 8 mg (/ Dextrose) 250 mls @ 15 mls/hr IV .[id number] [facility]; Protocol Last Titration: 06/16/21 08:06 Dose: 6 mcg/min, 11.25 mls/hr Linezolid (Zyvox 600 Mg/300 Ml) 600 mg in 300 mls @ 300 mls/hr IV Q12H [facility] Last Infusion: 06/15/21 22:50 Dose: Infused Vasopressin 20 unit/ Dextrose 100 mls @ 6 mls/hr IV .[id number] [facility] Last Titration: 06/16/21 07:45 Dose: 0 unit/min, 0 mls/hr Propofol (Diprivan) 1,000 mg in 100 mls @ 4.44 mls/hr IV .[id number] [facility]; Protocol Last Admin: 06/16/21 07:55 Dose: 30 mcg/kg/min, 13.32 mls/hr Insulin Human Regular 100 unit (/ Sodium Chloride) 100 mls @ 1 mls/hr IV .Q72H [facility]; Protocol Stop: 06/17/21 23:33 Last Titration: 06/16/21 08:05 Dose: 0 unit/hr, 0 mls/hr Meropenem 1 gm/ Sodium (Chloride) 100 mls @ 200 mls/hr IV Q8H [facility] Last Infusion: 06/16/21 01:25 Dose: Infused Morphine Sulfate (Morphine 2 Mg/Ml Carpuject) 2 mg IVP Q6HR PRN PRN Reason: Dyspnea Last Admin: 06/13/21 02:54 Dose: 2 mg Ondansetron HCl (Ondansetron 4 Mg/2 Ml Vial) 4 mg IVP Q6HR PRN PRN Reason: Nausea / Vomiting Oxycodone HCl (Oxycodone 5 Mg Tablet) 5 mg PO Q4HR PRN PRN Reason: PAIN Pantoprazole Sodium (Pantoprazole 40 Mg Vial) 40 mg IVP QDAC [facility] Last Admin: 06/16/21 06:08 Dose: 40 mg Sodium Chloride (Sodium Chloride Flush 0.9% 10 Ml Syringe) 10 ml IVP 0100,0900,1700 [facility] Last Admin: 06/15/21 21:14 Dose: 10 ml Sodium Chloride (Sodium Chloride Flush 0.9% 10 Ml Syringe) 10 ml IVP PRN PRN PRN Reason: NEEDED PER PROVIDER ORDERS Last Admin: 06/16/21 06:10 Dose: 10 ml Prednisone 25 mg PO DAILY 10/09/12 Metoprolol Tartrate [Lopressor] 12.5 mg PO BID 08/13/15 Insulin Glargine,Hum.rec.anlog [Lantus] 35 units SQ BID 09/27/15 Multivitamin [Multivitamins] 1 tab PO DAILY 09/27/15 amLODIPine [Norvasc] 5 mg PO DAILY 09/27/15 Indomethacin 50 mg PO TID 11/23/15 Sulfasalazine [Sulfazine] 1,500 mg PO BID 03/28/16 Atorvastatin Calcium 40 mg PO QPM 11/25/19 Clopidogrel [Plavix] 75 mg PO DAILY 11/25/19 metHOTREXate sodium [Methotrexate] 22.5 mg PO Q7D 11/25/19 Cholecalciferol (Vitamin D3) [Vitamin D3] 50 mcg PO DAILY 06/12/21 Doxycycline Hyclate [Vibramycin] 100 mg PO BID 06/12/21 Folic Acid 1 mg PO DAILY 06/12/21 Pantoprazole [Protonix] 40 mg PO QDAC 06/12/21 Objective - Vital Signs/Intake & Output Reviewed Vital Signs: Yes Vital Signs: Vital Signs Temp Pulse Pulse Resp BP Pulse Ox 06/16/21 07:23 76 06/16/21 07:00 36.2 C L 81 25 H 127/67 96 06/16/21 06:00 36.8 C 82 79 24 130/75 96 06/16/21 05:33 82 06/16/21 05:00 81 25 H 137/76 H 95 Intake & Output: Intake & Output 06/13/21 06/14/21 06/15/21 06/16/21 23:59 23:59 23:59 23:59 Intake Total 2262.057 5958.985 3282.071 895.339 Output Total 1541 1713 1785 1000 Balance 179.340 0547.985 1497.071 -104.661 - Objective General Appearance: positive: Other (Sedated.) Eyes Bilateral: positive: Conjunctivae nml ENT: positive: Other (ET tube in place.) Respiratory: positive: Rhonchi. negative: Wheezes, Rales Cardiovascular: positive: Regular rate & rhythm, Extrasystoles. negative: Tachycardia Abdomen: positive: Non-tender, No distention. negative: Tenderness Skin: positive: Warm, Dry, Other (Psoriatic changes over bilateral lower extremities.) Extremities: positive: No pedal edema Neurologic/Psychiatric: positive: Other (Does not follow commands on sedation.) - Lab Results Fish Bones: 06/16/21 14:00 06/16/21 04:44 Other Labs: Lab Results x24hrs 06/16/21 06/16/21 06/16/21 Range/Units 06:44 05:53 04:52 WBC (4.8-10.8) x10^3/uL RBC (4.70-6.10) 10^6/uL Hgb (14.0-18.0) g/dL Hct (42.0-52.0) % MCV (80.0-94.0) fL MCH (27.0-31.0) pg MCHC (32.0-36.0) g/dL RDW (12.0-15.0) % Plt Count (130-450) 10^3/uL MPV (7.4-11.4) fL Neut # (Auto) Lymph # (Auto) [place] # (Auto) Eos # (Auto) Baso # (Auto) Absolute Nucleated RBC Total Counted Band Neuts % (Manual) (0 - 10) % Abnorm Lymph % (Manual) % Nucleated RBC % Neutrophils # (Manual) (1.5-6.6) 10^3/uL Lymphocytes # (Manual) (1.5-3.5) 10^3/uL Monocytes # (Manual) (0.0-1.0) 10^3/uL Eosinophils # (Manual) (0-0.7) 10^3/uL Basophils # (Manual) (0-0.1) 10^3/uL Differential Comment Platelet Estimate (NORMAL) RBC Morph Micro Appear (NORMAL) Bld Gas Analysis Time Sample Site ABG pH (7.35-7.45) ABG pCO2 (34-45) mmHg ABG pO2 (80-100) mmHg ABG HCO3 (22.0-26.0) mmol/L ABG Total CO2 (21.0-29.0) MMOL/L ABG O2 Saturation (94-98) % ABG Base Excess (-2.0-3.0) mmol/L David Test VBG pH (7.31-7.41) Ionized Calcium (1.15-1.33) mmol/L O2 Delivery Device Vent Mode FiO2 Tidal Volume mL PEEP cmH2O Sodium (135-145) mmol/L Potassium (3.5-5.0) mmol/L Chloride (101-111) mmol/L Carbon Dioxide (21-32) mmol/L Anion Gap (6-13) BUN (6-20) mg/dL Creatinine (0.6-1.2) mg/dL Estimated GFR (MDRD) (>89) Glucose (70-100) mg/dL POC Whole Bld Glucose 143 H 141 H 140 H (70 - 100) mg/dL Calcium (8.5-10.3) mg/dL Phosphorus (2.5-4.6) mg/dL Magnesium (1.7-2.8) mg/dL Iron (45-182) ug/dL TIBC (250-450) ug/dL % Saturation (20-50) % Transferrin (180-329) mg/dL Ferritin (23.9-336.2) ng/mL Total Bilirubin (0.2-1.0) mg/dL AST (10-42) IU/L ALT (10-60) IU/L Alkaline Phosphatase (42-121) IU/L Total Protein (6.7-8.2) g/dL Albumin (3.2-5.5) g/dL Globulin (2.1-4.2) g/dL Albumin/Globulin Ratio (1.0-2.2) Prealbumin (18-45) mg/dL Urine Color Urine Clarity (CLEAR) Urine pH (5.0-7.5) PH Ur Specific [place] (1.002-1.030) Urine Protein (NEGATIVE) mg/dL Urine Glucose (UA) (NEGATIVE) mg/dL Urine Ketones (NEGATIVE) mg/dL Urine Occult Blood (NEGATIVE) Urine Nitrite (NEGATIVE) Urine Bilirubin (NEGATIVE) Urine Urobilinogen (NORMAL) E.U./dL Ur Leukocyte Esterase (NEGATIVE) Urine RBC (0-5) /HPF Urine WBC (0-3) /HPF Ur Squamous Epith Cells (<= Few) Urine Bacteria (None Seen) /HPF Urine Casts /LPF Urine Culture Comments 06/16/21 06/16/21 06/16/21 Range/Units 04:44 04:44 04:44 WBC 25.3 H (4.8-10.8) x10^3/uL RBC 2.66 L (4.70-6.10) 10^6/uL Hgb 7.8 L (14.0-18.0) g/dL Hct 24.6 L (42.0-52.0) % MCV 92.5 (80.0-94.0) fL MCH 29.3 (27.0-31.0) pg MCHC 31.7 L (32.0-36.0) g/dL RDW 17.1 H (12.0-15.0) % Plt Count 368 (130-450) 10^3/uL MPV 8.6 (7.4-11.4) fL Neut # (Auto) Not Reportable Lymph # (Auto) Not Reportable [place] # (Auto) Not Reportable Eos # (Auto) Not Reportable Baso # (Auto) Not Reportable Absolute Nucleated RBC Not Reportable Total Counted 100 Band Neuts % (Manual) 8 (0 - 10) % Abnorm Lymph % (Manual) 0 % Nucleated RBC % Not Reportable Neutrophils # (Manual) 21.5 H (1.5-6.6) 10^3/uL Lymphocytes # (Manual) 2.3 (1.5-3.5) 10^3/uL Monocytes # (Manual) 1.5 H (0.0-1.0) 10^3/uL Eosinophils # (Manual) 0.0 (0-0.7) 10^3/uL Basophils # (Manual) 0.0 (0-0.1) 10^3/uL Differential Comment MANUAL DIFFERENTIAL Platelet Estimate NORMAL (130-450,000) (NORMAL) RBC Morph Micro Appear NORMAL APPEARANCE (NORMAL) Bld Gas Analysis Time Sample Site ABG pH (7.35-7.45) ABG pCO2 (34-45) mmHg ABG pO2 (80-100) mmHg ABG HCO3 (22.0-26.0) mmol/L ABG Total CO2 (21.0-29.0) MMOL/L ABG O2 Saturation (94-98) % ABG Base Excess (-2.0-3.0) mmol/L David Test VBG pH 7.380 (7.31-7.41) Ionized Calcium 1.13 L (1.15-1.33) mmol/L O2 Delivery Device Vent Mode FiO2 Tidal Volume mL PEEP cmH2O Sodium 130 L (135-145) mmol/L Potassium 5.2 H (3.5-5.0) mmol/L Chloride 98 L (101-111) mmol/L Carbon Dioxide 23 (21-32) mmol/L Anion Gap 9.0 (6-13) BUN 28 H (6-20) mg/dL Creatinine 0.9 (0.6-1.2) mg/dL Estimated GFR (MDRD) 85 L (>89) Glucose 150 H (70-100) mg/dL POC Whole Bld Glucose (70 - 100) mg/dL Calcium 7.7 L (8.5-10.3) mg/dL Phosphorus 2.5 (2.5-4.6) mg/dL Magnesium 1.7 (1.7-2.8) mg/dL Iron (45-182) ug/dL TIBC (250-450) ug/dL % Saturation (20-50) % Transferrin (180-329) mg/dL Ferritin (23.9-336.2) ng/mL Total Bilirubin 0.5 (0.2-1.0) mg/dL AST 22 (10-42) IU/L ALT 11 (10-60) IU/L Alkaline Phosphatase 99 (42-121) IU/L Total Protein 6.0 L (6.7-8.2) g/dL Albumin 1.6 L (3.2-5.5) g/dL Globulin 4.4 H (2.1-4.2) g/dL Albumin/Globulin Ratio 0.4 L (1.0-2.2) Prealbumin 4 L (18-45) mg/dL Urine Color Urine Clarity (CLEAR) Urine pH (5.0-7.5) PH Ur Specific [place] (1.002-1.030) Urine Protein (NEGATIVE) mg/dL Urine Glucose (UA) (NEGATIVE) mg/dL Urine Ketones (NEGATIVE) mg/dL Urine Occult Blood (NEGATIVE) Urine Nitrite (NEGATIVE) Urine Bilirubin (NEGATIVE) Urine Urobilinogen (NORMAL) E.U./dL Ur Leukocyte Esterase (NEGATIVE) Urine RBC (0-5) /HPF Urine WBC (0-3) /HPF Ur Squamous Epith Cells (<= Few) Urine Bacteria (None Seen) /HPF Urine Casts /LPF Urine Culture Comments 06/16/21 06/16/21 06/16/21 Range/Units 04:09 02:58 01:58 WBC (4.8-10.8) x10^3/uL RBC (4.70-6.10) 10^6/uL Hgb (14.0-18.0) g/dL Hct (42.0-52.0) % MCV (80.0-94.0) fL MCH (27.0-31.0) pg MCHC (32.0-36.0) g/dL RDW (12.0-15.0) % Plt Count (130-450) 10^3/uL MPV (7.4-11.4) fL Neut # (Auto) Lymph # (Auto) [place] # (Auto) Eos # (Auto) Baso # (Auto) Absolute Nucleated RBC Total Counted Band Neuts % (Manual) (0 - 10) % Abnorm Lymph % (Manual) % Nucleated RBC % Neutrophils # (Manual) (1.5-6.6) 10^3/uL Lymphocytes # (Manual) (1.5-3.5) 10^3/uL Monocytes # (Manual) (0.0-1.0) 10^3/uL Eosinophils # (Manual) (0-0.7) 10^3/uL Basophils # (Manual) (0-0.1) 10^3/uL Differential Comment Platelet Estimate (NORMAL) RBC Morph Micro Appear (NORMAL) Bld Gas Analysis Time Sample Site ABG pH (7.35-7.45) ABG pCO2 (34-45) mmHg ABG pO2 (80-100) mmHg ABG HCO3 (22.0-26.0) mmol/L ABG Total CO2 (21.0-29.0) MMOL/L ABG O2 Saturation (94-98) % ABG Base Excess (-2.0-3.0) mmol/L David Test VBG pH (7.31-7.41) Ionized Calcium (1.15-1.33) mmol/L O2 Delivery Device Vent Mode FiO2 Tidal Volume mL PEEP cmH2O Sodium (135-145) mmol/L Potassium (3.5-5.0) mmol/L Chloride (101-111) mmol/L Carbon Dioxide (21-32) mmol/L Anion Gap (6-13) BUN (6-20) mg/dL Creatinine (0.6-1.2) mg/dL Estimated GFR (MDRD) (>89) Glucose (70-100) mg/dL POC Whole Bld Glucose 150 H 158 H 159 H (70 - 100) mg/dL Calcium (8.5-10.3) mg/dL Phosphorus (2.5-4.6) mg/dL Magnesium (1.7-2.8) mg/dL Iron (45-182) ug/dL TIBC (250-450) ug/dL % Saturation (20-50) % Transferrin (180-329) mg/dL Ferritin (23.9-336.2) ng/mL Total Bilirubin (0.2-1.0) mg/dL AST (10-42) IU/L ALT (10-60) IU/L Alkaline Phosphatase (42-121) IU/L Total Protein (6.7-8.2) g/dL Albumin (3.2-5.5) g/dL Globulin (2.1-4.2) g/dL Albumin/Globulin Ratio (1.0-2.2) Prealbumin (18-45) mg/dL Urine Color Urine Clarity (CLEAR) Urine pH (5.0-7.5) PH Ur Specific [place] (1.002-1.030) Urine Protein (NEGATIVE) mg/dL Urine Glucose (UA) (NEGATIVE) mg/dL Urine Ketones (NEGATIVE) mg/dL Urine Occult Blood (NEGATIVE) Urine Nitrite (NEGATIVE) Urine Bilirubin (NEGATIVE) Urine Urobilinogen (NORMAL) E.U./dL Ur Leukocyte Esterase (NEGATIVE) Urine RBC (0-5) /HPF Urine WBC (0-3) /HPF Ur Squamous Epith Cells (<= Few) Urine Bacteria (None Seen) /HPF Urine Casts /LPF Urine Culture Comments 06/16/21 06/15/21 06/15/21 Range/Units 00:53 23:53 23:04 WBC (4.8-10.8) x10^3/uL RBC (4.70-6.10) 10^6/uL Hgb (14.0-18.0) g/dL Hct (42.0-52.0) % MCV (80.0-94.0) fL MCH (27.0-31.0) pg MCHC (32.0-36.0) g/dL RDW (12.0-15.0) % Plt Count (130-450) 10^3/uL MPV (7.4-11.4) fL Neut # (Auto) Lymph # (Auto) [place] # (Auto) Eos # (Auto) Baso # (Auto) Absolute Nucleated RBC Total Counted Band Neuts % (Manual) (0 - 10) % Abnorm Lymph % (Manual) % Nucleated RBC % Neutrophils # (Manual) (1.5-6.6) 10^3/uL Lymphocytes # (Manual) (1.5-3.5) 10^3/uL Monocytes # (Manual) (0.0-1.0) 10^3/uL Eosinophils # (Manual) (0-0.7) 10^3/uL Basophils # (Manual) (0-0.1) 10^3/uL Differential Comment Platelet Estimate (NORMAL) RBC Morph Micro Appear (NORMAL) Bld Gas Analysis Time Sample Site ABG pH (7.35-7.45) ABG pCO2 (34-45) mmHg ABG pO2 (80-100) mmHg ABG HCO3 (22.0-26.0) mmol/L ABG Total CO2 (21.0-29.0) MMOL/L ABG O2 Saturation (94-98) % ABG Base Excess (-2.0-3.0) mmol/L David Test VBG pH (7.31-7.41) Ionized Calcium (1.15-1.33) mmol/L O2 Delivery Device Vent Mode FiO2 Tidal Volume mL PEEP cmH2O Sodium (135-145) mmol/L Potassium (3.5-5.0) mmol/L Chloride (101-111) mmol/L Carbon Dioxide (21-32) mmol/L Anion Gap (6-13) BUN (6-20) mg/dL Creatinine (0.6-1.2) mg/dL Estimated GFR (MDRD) (>89) Glucose (70-100) mg/dL POC Whole Bld Glucose 169 H 181 H 188 H (70 - 100) mg/dL Calcium (8.5-10.3) mg/dL Phosphorus (2.5-4.6) mg/dL Magnesium (1.7-2.8) mg/dL Iron (45-182) ug/dL TIBC (250-450) ug/dL % Saturation (20-50) % Transferrin (180-329) mg/dL Ferritin (23.9-336.2) ng/mL Total Bilirubin (0.2-1.0) mg/dL AST (10-42) IU/L ALT (10-60) IU/L Alkaline Phosphatase (42-121) IU/L Total Protein (6.7-8.2) g/dL Albumin (3.2-5.5) g/dL Globulin (2.1-4.2) g/dL Albumin/Globulin Ratio (1.0-2.2) Prealbumin (18-45) mg/dL Urine Color Urine Clarity (CLEAR) Urine pH (5.0-7.5) PH Ur Specific [place] (1.002-1.030) Urine Protein (NEGATIVE) mg/dL Urine Glucose (UA) (NEGATIVE) mg/dL Urine Ketones (NEGATIVE) mg/dL Urine Occult Blood (NEGATIVE) Urine Nitrite (NEGATIVE) Urine Bilirubin (NEGATIVE) Urine Urobilinogen (NORMAL) E.U./dL Ur Leukocyte Esterase (NEGATIVE) Urine RBC (0-5) /HPF Urine WBC (0-3) /HPF Ur Squamous Epith Cells (<= Few) Urine Bacteria (None Seen) /HPF Urine Casts /LPF Urine Culture Comments 06/15/21 06/15/21 06/15/21 Range/Units 21:59 21:09 20:15 WBC (4.8-10.8) x10^3/uL RBC (4.70-6.10) 10^6/uL Hgb (14.0-18.0) g/dL Hct (42.0-52.0) % MCV (80.0-94.0) fL MCH (27.0-31.0) pg MCHC (32.0-36.0) g/dL RDW (12.0-15.0) % Plt Count (130-450) 10^3/uL MPV (7.4-11.4) fL Neut # (Auto) Lymph # (Auto) [place] # (Auto) Eos # (Auto) Baso # (Auto) Absolute Nucleated RBC Total Counted Band Neuts % (Manual) (0 - 10) % Abnorm Lymph % (Manual) % Nucleated RBC % Neutrophils # (Manual) (1.5-6.6) 10^3/uL Lymphocytes # (Manual) (1.5-3.5) 10^3/uL Monocytes # (Manual) (0.0-1.0) 10^3/uL Eosinophils # (Manual) (0-0.7) 10^3/uL Basophils # (Manual) (0-0.1) 10^3/uL Differential Comment Platelet Estimate (NORMAL) RBC Morph Micro Appear (NORMAL) Bld Gas Analysis Time Sample Site ABG pH (7.35-7.45) ABG pCO2 (34-45) mmHg ABG pO2 (80-100) mmHg ABG HCO3 (22.0-26.0) mmol/L ABG Total CO2 (21.0-29.0) MMOL/L ABG O2 Saturation (94-98) % ABG Base Excess (-2.0-3.0) mmol/L David Test VBG pH (7.31-7.41) Ionized Calcium (1.15-1.33) mmol/L O2 Delivery Device Vent Mode FiO2 Tidal Volume mL PEEP cmH2O Sodium (135-145) mmol/L Potassium (3.5-5.0) mmol/L Chloride (101-111) mmol/L Carbon Dioxide (21-32) mmol/L Anion Gap (6-13) BUN (6-20) mg/dL Creatinine (0.6-1.2) mg/dL Estimated GFR (MDRD) (>89) Glucose (70-100) mg/dL POC Whole Bld Glucose 174 H 124 H 131 H (70 - 100) mg/dL Calcium (8.5-10.3) mg/dL Phosphorus (2.5-4.6) mg/dL Magnesium (1.7-2.8) mg/dL Iron (45-182) ug/dL TIBC (250-450) ug/dL % Saturation (20-50) % Transferrin (180-329) mg/dL Ferritin (23.9-336.2) ng/mL Total Bilirubin (0.2-1.0) mg/dL AST (10-42) IU/L ALT (10-60) IU/L Alkaline Phosphatase (42-121) IU/L Total Protein (6.7-8.2) g/dL Albumin (3.2-5.5) g/dL Globulin (2.1-4.2) g/dL Albumin/Globulin Ratio (1.0-2.2) Prealbumin (18-45) mg/dL Urine Color Urine Clarity (CLEAR) Urine pH (5.0-7.5) PH Ur Specific [place] (1.002-1.030) Urine Protein (NEGATIVE) mg/dL Urine Glucose (UA) (NEGATIVE) mg/dL Urine Ketones (NEGATIVE) mg/dL Urine Occult Blood (NEGATIVE) Urine Nitrite (NEGATIVE) Urine Bilirubin (NEGATIVE) Urine Urobilinogen (NORMAL) E.U./dL Ur Leukocyte Esterase (NEGATIVE) Urine RBC (0-5) /HPF Urine WBC (0-3) /HPF Ur Squamous Epith Cells (<= Few) Urine Bacteria (None Seen) /HPF Urine Casts /LPF Urine Culture Comments 06/15/21 06/15/21 06/15/21 Range/Units 20:10 19:43 18:01 WBC (4.8-10.8) x10^3/uL RBC (4.70-6.10) 10^6/uL Hgb (14.0-18.0) g/dL Hct (42.0-52.0) % MCV (80.0-94.0) fL MCH (27.0-31.0) pg MCHC (32.0-36.0) g/dL RDW (12.0-15.0) % Plt Count (130-450) 10^3/uL MPV (7.4-11.4) fL Neut # (Auto) Lymph # (Auto) [place] # (Auto) Eos # (Auto) Baso # (Auto) Absolute Nucleated RBC Total Counted Band Neuts % (Manual) (0 - 10) % Abnorm Lymph % (Manual) % Nucleated RBC % Neutrophils # (Manual) (1.5-6.6) 10^3/uL Lymphocytes # (Manual) (1.5-3.5) 10^3/uL Monocytes # (Manual) (0.0-1.0) 10^3/uL Eosinophils # (Manual) (0-0.7) 10^3/uL Basophils # (Manual) (0-0.1) 10^3/uL Differential Comment Platelet Estimate (NORMAL) RBC Morph Micro Appear (NORMAL) Bld Gas Analysis Time Sample Site ABG pH (7.35-7.45) ABG pCO2 (34-45) mmHg ABG pO2 (80-100) mmHg ABG HCO3 (22.0-26.0) mmol/L ABG Total CO2 (21.0-29.0) MMOL/L ABG O2 Saturation (94-98) % ABG Base Excess (-2.0-3.0) mmol/L David Test VBG pH (7.31-7.41) Ionized Calcium (1.15-1.33) mmol/L O2 Delivery Device Vent Mode FiO2 Tidal Volume mL PEEP cmH2O Sodium 128 L (135-145) mmol/L Potassium 5.7 H (3.5-5.0) mmol/L Chloride 99 L (101-111) mmol/L Carbon Dioxide 23 (21-32) mmol/L Anion Gap 6.0 (6-13) BUN 29 H (6-20) mg/dL Creatinine 1.0 (0.6-1.2) mg/dL Estimated GFR (MDRD) 75 L (>89) Glucose 130 H (70-100) mg/dL POC Whole Bld Glucose 123 H 130 H (70 - 100) mg/dL Calcium 7.6 L (8.5-10.3) mg/dL Phosphorus (2.5-4.6) mg/dL Magnesium (1.7-2.8) mg/dL Iron (45-182) ug/dL TIBC (250-450) ug/dL % Saturation (20-50) % Transferrin (180-329) mg/dL Ferritin (23.9-336.2) ng/mL Total Bilirubin (0.2-1.0) mg/dL AST (10-42) IU/L ALT (10-60) IU/L Alkaline Phosphatase (42-121) IU/L Total Protein (6.7-8.2) g/dL Albumin (3.2-5.5) g/dL Globulin (2.1-4.2) g/dL Albumin/Globulin Ratio (1.0-2.2) Prealbumin (18-45) mg/dL Urine Color Urine Clarity (CLEAR) Urine pH (5.0-7.5) PH Ur Specific [place] (1.002-1.030) Urine Protein (NEGATIVE) mg/dL Urine Glucose (UA) (NEGATIVE) mg/dL Urine Ketones (NEGATIVE) mg/dL Urine Occult Blood (NEGATIVE) Urine Nitrite (NEGATIVE) Urine Bilirubin (NEGATIVE) Urine Urobilinogen (NORMAL) E.U./dL Ur Leukocyte Esterase (NEGATIVE) Urine RBC (0-5) /HPF Urine WBC (0-3) /HPF Ur Squamous Epith Cells (<= Few) Urine Bacteria (None Seen) /HPF Urine Casts /LPF Urine Culture Comments 06/15/21 06/15/21 06/15/21 Range/Units 16:24 15:16 14:11 WBC (4.8-10.8) x10^3/uL RBC (4.70-6.10) 10^6/uL Hgb (14.0-18.0) g/dL Hct (42.0-52.0) % MCV (80.0-94.0) fL MCH (27.0-31.0) pg MCHC (32.0-36.0) g/dL RDW (12.0-15.0) % Plt Count (130-450) 10^3/uL MPV (7.4-11.4) fL Neut # (Auto) Lymph # (Auto) [place] # (Auto) Eos # (Auto) Baso # (Auto) Absolute Nucleated RBC Total Counted Band Neuts % (Manual) (0 - 10) % Abnorm Lymph % (Manual) % Nucleated RBC % Neutrophils # (Manual) (1.5-6.6) 10^3/uL Lymphocytes # (Manual) (1.5-3.5) 10^3/uL Monocytes # (Manual) (0.0-1.0) 10^3/uL Eosinophils # (Manual) (0-0.7) 10^3/uL Basophils # (Manual) (0-0.1) 10^3/uL Differential Comment Platelet Estimate (NORMAL) RBC Morph Micro Appear (NORMAL) Bld Gas Analysis Time Sample Site ABG pH (7.35-7.45) ABG pCO2 (34-45) mmHg ABG pO2 (80-100) mmHg ABG HCO3 (22.0-26.0) mmol/L ABG Total CO2 (21.0-29.0) MMOL/L ABG O2 Saturation (94-98) % ABG Base Excess (-2.0-3.0) mmol/L David Test VBG pH (7.31-7.41) Ionized Calcium (1.15-1.33) mmol/L O2 Delivery Device Vent Mode FiO2 Tidal Volume mL PEEP cmH2O Sodium (135-145) mmol/L Potassium (3.5-5.0) mmol/L Chloride (101-111) mmol/L Carbon Dioxide (21-32) mmol/L Anion Gap (6-13) BUN (6-20) mg/dL Creatinine (0.6-1.2) mg/dL Estimated GFR (MDRD) (>89) Glucose (70-100) mg/dL POC Whole Bld Glucose 128 H 125 H 133 H (70 - 100) mg/dL Calcium (8.5-10.3) mg/dL Phosphorus (2.5-4.6) mg/dL Magnesium (1.7-2.8) mg/dL Iron (45-182) ug/dL TIBC (250-450) ug/dL % Saturation (20-50) % Transferrin (180-329) mg/dL Ferritin (23.9-336.2) ng/mL Total Bilirubin (0.2-1.0) mg/dL AST (10-42) IU/L ALT (10-60) IU/L Alkaline Phosphatase (42-121) IU/L Total Protein (6.7-8.2) g/dL Albumin (3.2-5.5) g/dL Globulin (2.1-4.2) g/dL Albumin/Globulin Ratio (1.0-2.2) Prealbumin (18-45) mg/dL Urine Color Urine Clarity (CLEAR) Urine pH (5.0-7.5) PH Ur Specific [place] (1.002-1.030) Urine Protein (NEGATIVE) mg/dL Urine Glucose (UA) (NEGATIVE) mg/dL Urine Ketones (NEGATIVE) mg/dL Urine Occult Blood (NEGATIVE) Urine Nitrite (NEGATIVE) Urine Bilirubin (NEGATIVE) Urine Urobilinogen (NORMAL) E.U./dL Ur Leukocyte Esterase (NEGATIVE) Urine RBC (0-5) /HPF Urine WBC (0-3) /HPF Ur Squamous Epith Cells (<= Few) Urine Bacteria (None Seen) /HPF Urine Casts /LPF Urine Culture Comments 06/15/21 06/15/21 06/15/21 Range/Units 13:01 11:40 10:49 WBC (4.8-10.8) x10^3/uL RBC (4.70-6.10) 10^6/uL Hgb (14.0-18.0) g/dL Hct (42.0-52.0) % MCV (80.0-94.0) fL MCH (27.0-31.0) pg MCHC (32.0-36.0) g/dL RDW (12.0-15.0) % Plt Count (130-450) 10^3/uL MPV (7.4-11.4) fL Neut # (Auto) Lymph # (Auto) [place] # (Auto) Eos # (Auto) Baso # (Auto) Absolute Nucleated RBC Total Counted Band Neuts % (Manual) (0 - 10) % Abnorm Lymph % (Manual) % Nucleated RBC % Neutrophils # (Manual) (1.5-6.6) 10^3/uL Lymphocytes # (Manual) (1.5-3.5) 10^3/uL Monocytes # (Manual) (0.0-1.0) 10^3/uL Eosinophils # (Manual) (0-0.7) 10^3/uL Basophils # (Manual) (0-0.1) 10^3/uL Differential Comment Platelet Estimate (NORMAL) RBC Morph Micro Appear (NORMAL) Bld Gas Analysis Time Sample Site ABG pH (7.35-7.45) ABG pCO2 (34-45) mmHg ABG pO2 (80-100) mmHg ABG HCO3 (22.0-26.0) mmol/L ABG Total CO2 (21.0-29.0) MMOL/L ABG O2 Saturation (94-98) % ABG Base Excess (-2.0-3.0) mmol/L Davdi Test VBG pH (7.31-7.41) Ionized Calcium (1.15-1.33) mmol/L O2 Delivery Device Vent Mode FiO2 Tidal Volume mL PEEP cmH2O Sodium (135-145) mmol/L Potassium (3.5-5.0) mmol/L Chloride (101-111) mmol/L Carbon Dioxide (21-32) mmol/L Anion Gap (6-13) BUN (6-20) mg/dL Creatinine (0.6-1.2) mg/dL Estimated GFR (MDRD) (>89) Glucose (70-100) mg/dL POC Whole Bld Glucose 143 H 70 83 (70 - 100) mg/dL Calcium (8.5-10.3) mg/dL Phosphorus (2.5-4.6) mg/dL Magnesium (1.7-2.8) mg/dL Iron (45-182) ug/dL TIBC (250-450) ug/dL % Saturation (20-50) % Transferrin (180-329) mg/dL Ferritin (23.9-336.2) ng/mL Total Bilirubin (0.2-1.0) mg/dL AST (10-42) IU/L ALT (10-60) IU/L Alkaline Phosphatase (42-121) IU/L Total Protein (6.7-8.2) g/dL Albumin (3.2-5.5) g/dL Globulin (2.1-4.2) g/dL Albumin/Globulin Ratio (1.0-2.2) Prealbumin (18-45) mg/dL Urine Color Urine Clarity (CLEAR) Urine pH (5.0-7.5) PH Ur Specific [place] (1.002-1.030) Urine Protein (NEGATIVE) mg/dL Urine Glucose (UA) (NEGATIVE) mg/dL Urine Ketones (NEGATIVE) mg/dL Urine Occult Blood (NEGATIVE) Urine Nitrite (NEGATIVE) Urine Bilirubin (NEGATIVE) Urine Urobilinogen (NORMAL) E.U./dL Ur Leukocyte Esterase (NEGATIVE) Urine RBC (0-5) /HPF Urine WBC (0-3) /HPF Ur Squamous Epith Cells (<= Few) Urine Bacteria (None Seen) /HPF Urine Casts /LPF Urine Culture Comments 06/15/21 06/15/21 06/15/21 Range/Units 09:33 09:15 08:55 WBC (4.8-10.8) x10^3/uL RBC (4.70-6.10) 10^6/uL Hgb (14.0-18.0) g/dL Hct (42.0-52.0) % MCV (80.0-94.0) fL MCH (27.0-31.0) pg MCHC (32.0-36.0) g/dL RDW (12.0-15.0) % Plt Count (130-450) 10^3/uL MPV (7.4-11.4) fL Neut # (Auto) Lymph # (Auto) [place] # (Auto) Eos # (Auto) Baso # (Auto) Absolute Nucleated RBC Total Counted Band Neuts % (Manual) (0 - 10) % Abnorm Lymph % (Manual) % Nucleated RBC % Neutrophils # (Manual) (1.5-6.6) 10^3/uL Lymphocytes # (Manual) (1.5-3.5) 10^3/uL Monocytes # (Manual) (0.0-1.0) 10^3/uL Eosinophils # (Manual) (0-0.7) 10^3/uL Basophils # (Manual) (0-0.1) 10^3/uL Differential Comment Platelet Estimate (NORMAL) RBC Morph Micro Appear (NORMAL) Bld Gas Analysis Time 0855 Sample Site LEFT BRACHIAL ABG pH 7.31 L (7.35-7.45) ABG pCO2 51 H (34-45) mmHg ABG pO2 37 L* (80-100) mmHg ABG HCO3 25.1 (22.0-26.0) mmol/L ABG Total CO2 26.7 (21.0-29.0) MMOL/L ABG O2 Saturation 71 L* (94-98) % ABG Base Excess -1.4 (-2.0-3.0) mmol/L David Test POSITIVE VBG pH (7.31-7.41) Ionized Calcium (1.15-1.33) mmol/L O2 Delivery Device VENTILATOR Vent Mode ASSIST/CONTROL FiO2 50.00 Tidal Volume 450 mL PEEP 10 cmH2O Sodium 130 L (135-145) mmol/L Potassium 5.4 H (3.5-5.0) mmol/L Chloride 100 L (101-111) mmol/L Carbon Dioxide 23 (21-32) mmol/L Anion Gap 7.0 (6-13) BUN 36 H (6-20) mg/dL Creatinine 1.1 (0.6-1.2) mg/dL Estimated GFR (MDRD) 67 L (>89) Glucose 99 (70-100) mg/dL POC Whole Bld Glucose 85 (70 - 100) mg/dL Calcium 7.9 L (8.5-10.3) mg/dL Phosphorus (2.5-4.6) mg/dL Magnesium (1.7-2.8) mg/dL Iron (45-182) ug/dL TIBC (250-450) ug/dL % Saturation (20-50) % Transferrin (180-329) mg/dL Ferritin (23.9-336.2) ng/mL Total Bilirubin (0.2-1.0) mg/dL AST (10-42) IU/L ALT (10-60) IU/L Alkaline Phosphatase (42-121) IU/L Total Protein (6.7-8.2) g/dL Albumin (3.2-5.5) g/dL Globulin (2.1-4.2) g/dL Albumin/Globulin Ratio (1.0-2.2) Prealbumin (18-45) mg/dL Urine Color Urine Clarity (CLEAR) Urine pH (5.0-7.5) PH Ur Specific [place] (1.002-1.030) Urine Protein (NEGATIVE) mg/dL Urine Glucose (UA) (NEGATIVE) mg/dL Urine Ketones (NEGATIVE) mg/dL Urine Occult Blood (NEGATIVE) Urine Nitrite (NEGATIVE) Urine Bilirubin (NEGATIVE) Urine Urobilinogen (NORMAL) E.U./dL Ur Leukocyte Esterase (NEGATIVE) Urine RBC (0-5) /HPF Urine WBC (0-3) /HPF Ur Squamous Epith Cells (<= Few) Urine Bacteria (None Seen) /HPF Urine Casts /LPF Urine Culture Comments 06/15/21 06/15/21 06/15/21 Range/Units 08:51 07:52 04:44 WBC (4.8-10.8) x10^3/uL RBC (4.70-6.10) 10^6/uL Hgb (14.0-18.0) g/dL Hct (42.0-52.0) % MCV (80.0-94.0) fL MCH (27.0-31.0) pg MCHC (32.0-36.0) g/dL RDW (12.0-15.0) % Plt Count (130-450) 10^3/uL MPV (7.4-11.4) fL Neut # (Auto) Lymph # (Auto) [place] # (Auto) Eos # (Auto) Baso # (Auto) Absolute Nucleated RBC Total Counted Band Neuts % (Manual) (0 - 10) % Abnorm Lymph % (Manual) % Nucleated RBC % Neutrophils # (Manual) (1.5-6.6) 10^3/uL Lymphocytes # (Manual) (1.5-3.5) 10^3/uL Monocytes # (Manual) (0.0-1.0) 10^3/uL Eosinophils # (Manual) (0-0.7) 10^3/uL Basophils # (Manual) (0-0.1) 10^3/uL Differential Comment Platelet Estimate (NORMAL) RBC Morph Micro Appear (NORMAL) Bld Gas Analysis Time Sample Site ABG pH (7.35-7.45) ABG pCO2 (34-45) mmHg ABG pO2 (80-100) mmHg ABG HCO3 (22.0-26.0) mmol/L ABG Total CO2 (21.0-29.0) MMOL/L ABG O2 Saturation (94-98) % ABG Base Excess (-2.0-3.0) mmol/L David Test VBG pH (7.31-7.41) Ionized Calcium (1.15-1.33) mmol/L O2 Delivery Device Vent Mode FiO2 Tidal Volume mL PEEP cmH2O Sodium (135-145) mmol/L Potassium (3.5-5.0) mmol/L Chloride (101-111) mmol/L Carbon Dioxide (21-32) mmol/L Anion Gap (6-13) BUN (6-20) mg/dL Creatinine (0.6-1.2) mg/dL Estimated GFR (MDRD) (>89) Glucose (70-100) mg/dL POC Whole Bld Glucose 92 (70 - 100) mg/dL Calcium (8.5-10.3) mg/dL Phosphorus (2.5-4.6) mg/dL Magnesium (1.7-2.8) mg/dL Iron (45-182) ug/dL TIBC (250-450) ug/dL % Saturation (20-50) % Transferrin (180-329) mg/dL Ferritin 966.8 H (23.9-336.2) ng/mL Total Bilirubin (0.2-1.0) mg/dL AST (10-42) IU/L ALT (10-60) IU/L Alkaline Phosphatase (42-121) IU/L Total Protein (6.7-8.2) g/dL Albumin (3.2-5.5) g/dL Globulin (2.1-4.2) g/dL Albumin/Globulin Ratio (1.0-2.2) Prealbumin (18-45) mg/dL Urine Color YELLOW Urine Clarity SL. CLOUDY (CLEAR) Urine pH 5.5 (5.0-7.5) PH Ur Specific [place] 1.025 (1.002-1.030) Urine Protein TRACE (NEGATIVE) mg/dL Urine Glucose (UA) NEGATIVE (NEGATIVE) mg/dL Urine Ketones NEGATIVE (NEGATIVE) mg/dL Urine Occult Blood MODERATE H (NEGATIVE) Urine Nitrite NEGATIVE (NEGATIVE) Urine Bilirubin NEGATIVE (NEGATIVE) Urine Urobilinogen 0.2 (NORMAL) (NORMAL) E.U./dL Ur Leukocyte Esterase NEGATIVE (NEGATIVE) Urine RBC 0-5 (0-5) /HPF Urine WBC 0-3 (0-3) /HPF Ur Squamous Epith Cells NONE SEEN (<= Few) Urine Bacteria Moderate H (None Seen) /HPF Urine Casts 6-10 Course Granular /LPF Urine Culture Comments INDICATED 06/15/21 Range/Units 04:44 WBC (4.8-10.8) x10^3/uL RBC (4.70-6.10) 10^6/uL Hgb (14.0-18.0) g/dL Hct (42.0-52.0) % MCV (80.0-94.0) fL MCH (27.0-31.0) pg MCHC (32.0-36.0) g/dL RDW (12.0-15.0) % Plt Count (130-450) 10^3/uL MPV (7.4-11.4) fL Neut # (Auto) Lymph # (Auto) [place] # (Auto) Eos # (Auto) Baso # (Auto) Absolute Nucleated RBC Total Counted Band Neuts % (Manual) (0 - 10) % Abnorm Lymph % (Manual) % Nucleated RBC % Neutrophils # (Manual) (1.5-6.6) 10^3/uL Lymphocytes # (Manual) (1.5-3.5) 10^3/uL Monocytes # (Manual) (0.0-1.0) 10^3/uL Eosinophils # (Manual) (0-0.7) 10^3/uL Basophils # (Manual) (0-0.1) 10^3/uL Differential Comment Platelet Estimate (NORMAL) RBC Morph Micro Appear (NORMAL) Bld Gas Analysis Time Sample Site ABG pH (7.35-7.45) ABG pCO2 (34-45) mmHg ABG pO2 (80-100) mmHg ABG HCO3 (22.0-26.0) mmol/L ABG Total CO2 (21.0-29.0) MMOL/L ABG O2 Saturation (94-98) % ABG Base Excess (-2.0-3.0) mmol/L David Test VBG pH (7.31-7.41) Ionized Calcium (1.15-1.33) mmol/L O2 Delivery Device Vent Mode FiO2 Tidal Volume mL PEEP cmH2O Sodium (135-145) mmol/L Potassium (3.5-5.0) mmol/L Chloride (101-111) mmol/L Carbon Dioxide (21-32) mmol/L Anion Gap (6-13) BUN (6-20) mg/dL Creatinine (0.6-1.2) mg/dL Estimated GFR (MDRD) (>89) Glucose (70-100) mg/dL POC Whole Bld Glucose (70 - 100) mg/dL Calcium (8.5-10.3) mg/dL Phosphorus (2.5-4.6) mg/dL Magnesium (1.7-2.8) mg/dL Iron 12 L (45-182) ug/dL TIBC 113 L (250-450) ug/dL % Saturation 11 L (20-50) % Transferrin 81 L (180-329) mg/dL Ferritin (23.9-336.2) ng/mL Total Bilirubin (0.2-1.0) mg/dL AST (10-42) IU/L ALT (10-60) IU/L Alkaline Phosphatase (42-121) IU/L Total Protein (6.7-8.2) g/dL Albumin (3.2-5.5) g/dL Globulin (2.1-4.2) g/dL Albumin/Globulin Ratio (1.0-2.2) Prealbumin (18-45) mg/dL Urine Color Urine Clarity (CLEAR) Urine pH (5.0-7.5) PH Ur Specific [place] (1.002-1.030) Urine Protein (NEGATIVE) mg/dL Urine Glucose (UA) (NEGATIVE) mg/dL Urine Ketones (NEGATIVE) mg/dL Urine Occult Blood (NEGATIVE) Urine Nitrite (NEGATIVE) Urine Bilirubin (NEGATIVE) Urine Urobilinogen (NORMAL) E.U./dL Ur Leukocyte Esterase (NEGATIVE) Urine RBC (0-5) /HPF Urine WBC (0-3) /HPF Ur Squamous Epith Cells (<= Few) Urine Bacteria (None Seen) /HPF Urine Casts /LPF Urine Culture Comments Sepsis Event Note (H) - Evaluation Current Stage of Sepsis: Septic shock Possible source of Sepsis: positive: Pulmonary - Sepsis Criteria Sepsis Criteria: Respiratory: Increasing oxygen requirements, WBC count greater than 12,000 or less than 4000, SBP drop more than 40mHg, MAP less than 65 mmHg, SBP less than 90 mmHg, Renal: urine output less than 0.5ml/kg/hr for 2 hours or creatinine gr Assessment/Plan - Problem List (1) Acute respiratory failure with hypoxia Impression: This is likely multifactorial and secondary to COVID-19 pneumonia, Klebsiella pneumonia as well as pulmonary embolism. He remained stable on FiO2 of 50% but his oxygen saturations are improved on this now being in the mid to high 90s. We will look to wean the FiO2 down further in hopes that he can be extubated in 24 to 48 hours. He will remain on remdesivir and Decadron for the COVID-19 infection. He is also on meropenem with today being day 2 for Klebsiella pneumonia. He also remains on Lovenox. Continue vent management as per protocol. Continue sedation with propofol and Dilaudid as needed for pain. (2) Septic shock Impression: Suspect this is secondary to the pneumonia due to COVID-19 as well as the ESBL Klebsiella. He has had significant improvement and he has not been weaned off of the vasopressin and can likely be weaned off of the norepinephrine today as well. I believe his hypotension is related to sepsis rather than the pulmonary embolism especially given his elevated white count. We will keep him on IV meropenem with today being day 2. We will look to possibly extubate him over next 24 to 40 hours as he has been off of pressors and his oxygenation improves. (3) Infection due to ESBL-producing Klebsiella pneumoniae Impression: Respiratory culture grew ESBL Klebsiella pneumonia. He was previously on cefepime but was switched to meropenem yesterday. He has now had improvement in his white count. Today is day 2 of antibiotics and he will need at least 7 days of treatment. (4) Pneumonia due to COVID-19 virus Impression: This is contributing to his acute respiratory failure with hypoxia. He has been treated with remdesivir as well as Decadron. We will complete a total of 5 days of remdesivir and continue the Decadron for up to 10 days. He also remains on Lovenox given his a DVT and likely pulmonary embolism. (5) TORY (acute kidney injury) Impression: This is now resolved. This was likely secondary to ATN due to the hypotension. His renal function is back at baseline. Continue to monitor as well as his urine output. (6) NSTEMI (non-ST elevated myocardial infarction) Impression: Initial concern was for NSTEMI given his troponins peaked over 800. His echocardiogram revealed no LV wall motion normalities and his EF was preserved. There was evidence of right heart strain likely secondary to pulmonary embolism. He remains on Lovenox. I wonder if his elevated troponin was likely due to demand ischemia as well as pulmonary embolism rather than due to coronary artery disease. We will continue the Lovenox for the pulmonary embolism and will discuss further cardiac work-up as he improves clinically. (7) Right leg DVT Impression: Duplex confirmed a right lower extremity DVT. The concern is that he likely has a pulmonary embolism given echo showed evidence of right heart strain. Clinically he is improving with an improvement in his hypotension as well as a decrease in his oxygen requirements. He has been on Lovenox but now with his anemia, we need to consider an IVC filter. (8) Anemia Impression: His hemoglobin has decreased over the past for 8 hours. It is not 7.8 when it was stable around 10 previously. There has been no obvious evidence of bleeding. Iron studies were suggestive of anemia of chronic disease. I have ordered for guaiac testing to ensure there is no evidence of GI bleed. He remains on GI prophylaxis given he has been intubated for more than 48 hours. We will keep him on Lovenox given the DVT but if his hemoglobin continues to decrease, we may need to consider an IVC filter. We will recheck hemoglobin this afternoon. His abdomen is soft but we can consider a CT of the abdomen pelvis to look for hemorrhage. (9) Hyperkalemia Impression: This is significantly improved and was likely secondary to acute kidney injury as well as hyperglycemia. We will monitor his potassium on a daily basis. (10) Diabetes mellitus, insulin dependent (IDDM), uncontrolled Impression: His blood glucose better controlled after starting him on an insulin drip. We will look to transition him to subcutaneous insulin tomorrow as his tube feeds are advanced. (11) PVD (peripheral vascular disease) Impression: Stable. He is on Lovenox and Plavix after we discontinue the aspirin as he would not be on triple therapy. (12) Psoriatic arthritis Impression: We are holding his home immunosuppressants. (13) Ankylosing spondylitis Impression: We are holding his home immunosuppressants.
[2021-06-16] MEDS: MIDAZOLAM DRIP 50 MG/50 ML 50 MG/50 ML BAG IV SCH ×2 (08:40→18:30)
[2021-06-16] MEDS: CHLORHEXIDINE GLUCONATE 15 ML UDC PO SCH ×2 (09:00→20:22)
[2021-06-16] MEDS: SODIUM CHLORIDE FLUSH 0.9% 10 ML SYRINGE IVP SCH ×2 (10:00→17:15)
[2021-06-16] MEDS: DEXAMETHASONE 4 MG/ML VIAL IVP SCH (10:15)
[2021-06-16] MEDS: ENOXAPARIN 80 MG/0.8 ML SYRINGE SUBQ SCH ×2 (10:15→20:22)
[2021-06-16] MEDS: FOLIC ACID 1 MG TABLET PO SCH (10:15)
[2021-06-16] MEDS: guaiFENesin 600 MG TABLET PO SCH ×2 (10:15→20:22)
[2021-06-16] MEDS: CLOPIDOGREL 75 MG TABLET PO SCH (10:15)
[2021-06-16] MEDS: REMDESIVIR 100MG VIAL 100 MG in SODIUM CHLORIDE 0.9% 100ML 100 ML IV SCH (11:15)
[2021-06-16] MEDS: MORPHINE 2 MG/ML CARPUJECT IVP PRN (13:20)
[2021-06-16 14:04] LABS: HCT - HEMATOCRIT 26.6 % (42.0-52.0); HGB - HEMOGLOBIN 8.7 g/dL (14.0-18.0)
[2021-06-16] MEDS: ATORVASTATIN 40 MG TABLET PO SCH (20:22)
[2021-06-16] MEDS: SODIUM CHLORIDE 0.9% 500 ML IV PRN (23:50)
[2021-06-17] MEDS: SODIUM CHLORIDE FLUSH 0.9% 10 ML SYRINGE IVP SCH ×3 (00:50→17:03)
[2021-06-17] MEDS: MEROPENEM 1 GM in SODIUM CHLORIDE 0.9% MINIBAG 100 ML IV SCH ×3 (00:50→17:02)
[2021-06-17] MEDS: MORPHINE 2 MG/ML CARPUJECT IVP PRN (00:50)
[2021-06-17] MEDS: HYDROmorphone 2 MG/ML VIAL IVP PRN ×3 (02:33→16:52)
[2021-06-17] MEDS: SODIUM CHLORIDE FLUSH 0.9% 10 ML SYRINGE IVP PRN ×3 (02:33→06:30)
[2021-06-17] MEDS: MIDAZOLAM DRIP 50 MG/50 ML 50 MG/50 ML BAG IV SCH ×4 (02:45→21:05)
[2021-06-17] MEDS: ACETAMINOPHEN 325 MG TABLET PO PRN (02:52)
[2021-06-17] MEDS: PROPOFOL 1000 MG/100 ML 1,000 MG/100 ML BOTTLE IV SCH ×4 (03:40→23:17)
[2021-06-17] MEDS: VASOPRESSIN 20 UNIT in DEXTROSE 5% 99 ML IV SCH (05:04)
[2021-06-17 05:20] LABS: BASOPHILS % (AUTO) 0.2 %; HCT - HEMATOCRIT 25.5 % (42.0-52.0); HGB - HEMOGLOBIN 7.9 g/dL (14.0-18.0); LYMPHOCYTES % (AUTO) 2.4 %; MEAN CORPUSCULAR VOLUME 93.8 fL (80.0-94.0); MEAN PLATELET VOLUME 8.7 fL (7.4-11.4); MONOCYTES % (AUTO) 5.9 %; NEUTROPHILS % (AUTO) 90.4 %; PLT - PLATELET COUNT 309 10^3/uL (130-450); RED BLOOD COUNT 2.72 10^6/uL (4.70-6.10); RED CELL DISTRIBUTION WIDTH 17.2 % (12.0-15.0)
[2021-06-17 05:25] LABS: ABNORMAL LYMPHS % (MANUAL) 0 %
[2021-06-17 05:35] LABS: CALCIUM 7.8 mg/dL (8.5-10.3); CREATININE 0.8 mg/dL (0.6-1.2); PHOSPHORUS 2.7 mg/dL (2.5-4.6); POTASSIUM 5.2 mmol/L (3.5-5.0)
[2021-06-17 05:40] LABS: CALCIUM, IONIZED 1.14 mmol/L (1.15-1.33); VBG PH 7.327 (7.31-7.41)
[2021-06-17 05:43] LABS: BAND NEUTROPHILS % (MANUAL) 9 %; LYMPHOCYTES # (MANUAL) 0.8 10^3/uL (1.5-3.5); LYMPHOCYTES % (MANUAL) 4 %; MONOCYTES # (MANUAL) 1.3 10^3/uL (0.0-1.0); NEUTROPHILS # (MANUAL) 18.9 10^3/uL (1.5-6.6)
[2021-06-17 05:44] LABS: DIFFERENTIAL COMMENT MANUAL DIFFERENTIAL; PLATELET ESTIMATE, MANUAL NORMAL (130-450,000) (NORMAL); PLATELET MORPHOLOGY NORMAL APPEARANCE (NORMAL); RBC MORPHOLOGY (MULTIPLE) NORMAL APPEARANCE (NORMAL); WBC MORPHOLOGY (MULTIPLE) NORMAL APPEARANCE (NORMAL)
[2021-06-17] MEDS: PANTOPRAZOLE 40 MG VIAL IVP SCH (06:30)
--- NOTE | 2021-06-17 07:20 | PROVIDER PROGRESS NOTE ---
Subjective - Prog Note Date Prog Note Date: 06/17/21 - Subjective Subjective: Remains intubated and sedated. Current Medications - Current Medications Current Medications: Active Medications Acetaminophen (Acetaminophen 325 Mg Tablet) 650 mg PO Q4HR PRN PRN Reason: Pain 1 to 4 Last Admin: 06/17/21 02:52 Dose: 650 mg Atorvastatin Calcium (Atorvastatin 40 Mg Tablet) 40 mg PO QPM [facility] Last Admin: 06/16/21 20:22 Dose: 40 mg Chlorhexidine Gluconate (Chlorhexidine Gluconate 15 Ml Udc) 15 ml PO BID [facility] Last Admin: 06/17/21 08:09 Dose: 15 ml Clopidogrel Bisulfate (Clopidogrel 75 Mg Tablet) 75 mg PO DAILY [facility] Last Admin: 06/17/21 08:09 Dose: 75 mg Dexamethasone (Dexamethasone 4 Mg/Ml Vial) 6 mg IVP DAILY [facility] Stop: 06/19/21 09:01 Last Admin: 06/17/21 08:10 Dose: 6 mg Enoxaparin Sodium (Enoxaparin 80 Mg/0.8 Ml Syringe) 80 mg SUBQ BID [facility] Last Admin: 06/17/21 08:10 Dose: 80 mg Folic Acid (Folic Acid 1 Mg Tablet) 1 mg PO DAILY [facility] Last Admin: 06/17/21 08:10 Dose: 1 mg Furosemide (Furosemide 40 Mg/4 Ml Vial) 40 mg IVP ONCE [facility] Stop: 06/17/21 16:54 Guaifenesin (Guaifenesin 600 Mg Tablet) 600 mg PO BID [facility] Last Admin: 06/17/21 08:10 Dose: 600 mg Guaifenesin/Codeine Phosphate (Guaifenesin/Codeine 5 Ml Udc) 5 ml PO Q6HR PRN PRN Reason: Cough Hydromorphone HCl (Hydromorphone 2 Mg/Ml Vial) 2 mg IVP Q2H PRN PRN Reason: PAIN Last Admin: 06/17/21 09:57 Dose: 2 mg Midazolam HCl (Versed Drip 50 Mg/50 Ml) 50 mg in 50 mls @ 2.94 mls/hr IV .[id number] [facility]; Protocol Last Titration: 06/17/21 13:00 Dose: 0.1 mg/kg/hr, 7.35 mls/hr Propofol (Diprivan) 1,000 mg in 100 mls @ 4.44 mls/hr IV .[id number] [facility]; Protocol Last Titration: 06/17/21 13:40 Dose: 35 mcg/kg/min, 15.54 mls/hr Meropenem 1 gm/ Sodium (Chloride) 100 mls @ 200 mls/hr IV Q8H [facility] Last Infusion: 06/17/21 08:45 Dose: Infused Sodium Chloride (Normal Saline 0.9%) 500 mls @ 20 mls/hr IV Q24H PRN PRN Reason: TKO RATE Last Infusion: 06/17/21 13:00 Dose: 20 mls/hr Insulin Glargine (Insulin Glargine 300 Unit/3 Ml Pen) 30 unit SUBQ BID [facility] Last Admin: 06/17/21 08:11 Dose: 30 unit Morphine Sulfate (Morphine 2 Mg/Ml Carpuject) 2 mg IVP Q6HR PRN PRN Reason: Dyspnea Last Admin: 06/17/21 00:50 Dose: 2 mg Ondansetron HCl (Ondansetron 4 Mg/2 Ml Vial) 4 mg IVP Q6HR PRN PRN Reason: Nausea / Vomiting Pantoprazole Sodium (Pantoprazole 40 Mg Vial) 40 mg IVP QDAC [facility] Last Admin: 06/17/21 06:30 Dose: 40 mg Sodium Chloride (Sodium Chloride Flush 0.9% 10 Ml Syringe) 10 ml IVP 0100,0900,1700 [facility] Last Admin: 06/17/21 08:12 Dose: 10 ml Sodium Chloride (Sodium Chloride Flush 0.9% 10 Ml Syringe) 10 ml IVP PRN PRN PRN Reason: NEEDED PER PROVIDER ORDERS Last Admin: 06/17/21 06:30 Dose: 10 ml Prednisone 25 mg PO DAILY 10/09/12 Metoprolol Tartrate [Lopressor] 12.5 mg PO BID 08/13/15 Insulin Glargine,Hum.rec.anlog [Lantus] 35 units SQ BID 09/27/15 Multivitamin [Multivitamins] 1 tab PO DAILY 09/27/15 amLODIPine [Norvasc] 5 mg PO DAILY 09/27/15 Indomethacin 50 mg PO TID 11/23/15 Sulfasalazine [Sulfazine] 1,500 mg PO BID 03/28/16 Atorvastatin Calcium 40 mg PO QPM 11/25/19 Clopidogrel [Plavix] 75 mg PO DAILY 11/25/19 metHOTREXate sodium [Methotrexate] 22.5 mg PO Q7D 11/25/19 Cholecalciferol (Vitamin D3) [Vitamin D3] 50 mcg PO DAILY 06/12/21 Doxycycline Hyclate [Vibramycin] 100 mg PO BID 06/12/21 Folic Acid 1 mg PO DAILY 06/12/21 Pantoprazole [Protonix] 40 mg PO QDAC 06/12/21 Objective - Vital Signs/Intake & Output Reviewed Vital Signs: Yes Vital Signs: Vital Signs Temp Pulse Pulse Resp BP Pulse Ox 06/17/21 07:00 96 22 105/50 L 91 L 06/17/21 06:00 36.8 C 101 H 21 104/52 L 92 06/17/21 05:32 101 H 06/17/21 05:00 101 H 19 102/52 L 93 06/17/21 04:00 36.9 C 105 H 20 101/50 L 95 06/17/21 03:47 18 93 Intake & Output: Intake & Output 06/14/21 06/15/21 06/16/21 06/17/21 23:59 23:59 23:59 23:59 Intake Total 5959.795 3282.071 2618.225 931.576 Output Total 1713 1785 3940 810 Balance 4246.795 1497.071 -1321.775 121.576 - Objective General Appearance: positive: Other (Sedated.) Eyes Bilateral: positive: Conjunctivae nml ENT: positive: Other (ET tube in place.) Neck: positive: Nml inspection Respiratory: positive: Rhonchi Cardiovascular: positive: Extrasystoles, Tachycardia. negative: Irregularly irregular, Systolic murmur Abdomen: positive: Non-tender, No distention Skin: positive: Warm, Dry, Other (Psoriatic lesions over bilateral lower extremities.) Extremities: positive: No pedal edema - Lab Results Fish Bones: 06/18/21 04:33 06/18/21 04:33 Other Labs: Lab Results x24hrs 06/17/21 06/17/21 06/17/21 Range/Units 06:05 04:40 04:40 WBC (4.8-10.8) x10^3/uL RBC (4.70-6.10) 10^6/uL Hgb (14.0-18.0) g/dL Hct (42.0-52.0) % MCV (80.0-94.0) fL MCH (27.0-31.0) pg MCHC (32.0-36.0) g/dL RDW (12.0-15.0) % Plt Count (130-450) 10^3/uL MPV (7.4-11.4) fL Neut # (Auto) Lymph # (Auto) [place] # (Auto) Eos # (Auto) Baso # (Auto) Absolute Nucleated RBC Total Counted Band Neuts % (Manual) (0 - 10) % Abnorm Lymph % (Manual) % Nucleated RBC % Neutrophils # (Manual) (1.5-6.6) 10^3/uL Lymphocytes # (Manual) (1.5-3.5) 10^3/uL Monocytes # (Manual) (0.0-1.0) 10^3/uL Eosinophils # (Manual) (0-0.7) 10^3/uL Basophils # (Manual) (0-0.1) 10^3/uL Differential Comment WBC Morphology (NORMAL) Platelet Estimate (NORMAL) Platelet Morphology (NORMAL) RBC Morph Micro Appear (NORMAL) VBG pH 7.327 (7.31-7.41) Ionized Calcium 1.14 L (1.15-1.33) mmol/L Sodium (135-145) mmol/L Potassium (3.5-5.0) mmol/L Chloride (101-111) mmol/L Carbon Dioxide (21-32) mmol/L Anion Gap (6-13) BUN (6-20) mg/dL Creatinine (0.6-1.2) mg/dL Estimated GFR (MDRD) (>89) Glucose (70-100) mg/dL POC Whole Bld Glucose 152 H (70 - 100) mg/dL Calcium (8.5-10.3) mg/dL Phosphorus (2.5-4.6) mg/dL Magnesium 2.2 (1.7-2.8) mg/dL Blood Type Antibody Screen 06/17/21 06/17/21 06/17/21 Range/Units 04:40 04:40 04:07 WBC 21.0 H (4.8-10.8) x10^3/uL RBC 2.72 L (4.70-6.10) 10^6/uL Hgb 7.9 L (14.0-18.0) g/dL Hct 25.5 L (42.0-52.0) % MCV 93.8 (80.0-94.0) fL MCH 29.0 (27.0-31.0) pg MCHC 31.0 L (32.0-36.0) g/dL RDW 17.2 H (12.0-15.0) % Plt Count 309 (130-450) 10^3/uL MPV 8.7 (7.4-11.4) fL Neut # (Auto) Not Reportable Lymph # (Auto) Not Reportable [place] # (Auto) Not Reportable Eos # (Auto) Not Reportable Baso # (Auto) Not Reportable Absolute Nucleated RBC Not Reportable Total Counted 100 Band Neuts % (Manual) 9 (0 - 10) % Abnorm Lymph % (Manual) 0 % Nucleated RBC % Not Reportable Neutrophils # (Manual) 18.9 H (1.5-6.6) 10^3/uL Lymphocytes # (Manual) 0.8 L (1.5-3.5) 10^3/uL Monocytes # (Manual) 1.3 H (0.0-1.0) 10^3/uL Eosinophils # (Manual) 0.0 (0-0.7) 10^3/uL Basophils # (Manual) 0.0 (0-0.1) 10^3/uL Differential Comment MANUAL DIFFERENTIAL WBC Morphology NORMAL APPEARANCE (NORMAL) Platelet Estimate NORMAL (130-450,000) (NORMAL) Platelet Morphology NORMAL APPEARANCE (NORMAL) RBC Morph Micro Appear NORMAL APPEARANCE (NORMAL) VBG pH (7.31-7.41) Ionized Calcium (1.15-1.33) mmol/L Sodium 137 (135-145) mmol/L Potassium 5.2 H (3.5-5.0) mmol/L Chloride 105 (101-111) mmol/L Carbon Dioxide 26 (21-32) mmol/L Anion Gap 6.0 (6-13) BUN 32 H (6-20) mg/dL Creatinine 0.8 (0.6-1.2) mg/dL Estimated GFR (MDRD) 97 (>89) Glucose 143 H (70-100) mg/dL POC Whole Bld Glucose 131 H (70 - 100) mg/dL Calcium 7.8 L (8.5-10.3) mg/dL Phosphorus 2.7 (2.5-4.6) mg/dL Magnesium (1.7-2.8) mg/dL Blood Type Antibody Screen 06/17/21 06/16/21 06/16/21 Range/Units 02:10 23:50 22:07 WBC (4.8-10.8) x10^3/uL RBC (4.70-6.10) 10^6/uL Hgb (14.0-18.0) g/dL Hct (42.0-52.0) % MCV (80.0-94.0) fL MCH (27.0-31.0) pg MCHC (32.0-36.0) g/dL RDW (12.0-15.0) % Plt Count (130-450) 10^3/uL MPV (7.4-11.4) fL Neut # (Auto) Lymph # (Auto) [place] # (Auto) Eos # (Auto) Baso # (Auto) Absolute Nucleated RBC Total Counted Band Neuts % (Manual) (0 - 10) % Abnorm Lymph % (Manual) % Nucleated RBC % Neutrophils # (Manual) (1.5-6.6) 10^3/uL Lymphocytes # (Manual) (1.5-3.5) 10^3/uL Monocytes # (Manual) (0.0-1.0) 10^3/uL Eosinophils # (Manual) (0-0.7) 10^3/uL Basophils # (Manual) (0-0.1) 10^3/uL Differential Comment WBC Morphology (NORMAL) Platelet Estimate (NORMAL) Platelet Morphology (NORMAL) RBC Morph Micro Appear (NORMAL) VBG pH (7.31-7.41) Ionized Calcium (1.15-1.33) mmol/L Sodium (135-145) mmol/L Potassium (3.5-5.0) mmol/L Chloride (101-111) mmol/L Carbon Dioxide (21-32) mmol/L Anion Gap (6-13) BUN (6-20) mg/dL Creatinine (0.6-1.2) mg/dL Estimated GFR (MDRD) (>89) Glucose (70-100) mg/dL POC Whole Bld Glucose 155 H 168 H 180 H (70 - 100) mg/dL Calcium (8.5-10.3) mg/dL Phosphorus (2.5-4.6) mg/dL Magnesium (1.7-2.8) mg/dL Blood Type Antibody Screen 06/16/21 06/16/21 06/16/21 Range/Units 20:29 18:56 18:16 WBC (4.8-10.8) x10^3/uL RBC (4.70-6.10) 10^6/uL Hgb (14.0-18.0) g/dL Hct (42.0-52.0) % MCV (80.0-94.0) fL MCH (27.0-31.0) pg MCHC (32.0-36.0) g/dL RDW (12.0-15.0) % Plt Count (130-450) 10^3/uL MPV (7.4-11.4) fL Neut # (Auto) Lymph # (Auto) [place] # (Auto) Eos # (Auto) Baso # (Auto) Absolute Nucleated RBC Total Counted Band Neuts % (Manual) (0 - 10) % Abnorm Lymph % (Manual) % Nucleated RBC % Neutrophils # (Manual) (1.5-6.6) 10^3/uL Lymphocytes # (Manual) (1.5-3.5) 10^3/uL Monocytes # (Manual) (0.0-1.0) 10^3/uL Eosinophils # (Manual) (0-0.7) 10^3/uL Basophils # (Manual) (0-0.1) 10^3/uL Differential Comment WBC Morphology (NORMAL) Platelet Estimate (NORMAL) Platelet Morphology (NORMAL) RBC Morph Micro Appear (NORMAL) VBG pH (7.31-7.41) Ionized Calcium (1.15-1.33) mmol/L Sodium (135-145) mmol/L Potassium (3.5-5.0) mmol/L Chloride (101-111) mmol/L Carbon Dioxide (21-32) mmol/L Anion Gap (6-13) BUN (6-20) mg/dL Creatinine (0.6-1.2) mg/dL Estimated GFR (MDRD) (>89) Glucose (70-100) mg/dL POC Whole Bld Glucose 200 H 203 H 203 H (70 - 100) mg/dL Calcium (8.5-10.3) mg/dL Phosphorus (2.5-4.6) mg/dL Magnesium (1.7-2.8) mg/dL Blood Type Antibody Screen 06/16/21 06/16/21 06/16/21 Range/Units 17:01 16:12 15:27 WBC (4.8-10.8) x10^3/uL RBC (4.70-6.10) 10^6/uL Hgb (14.0-18.0) g/dL Hct (42.0-52.0) % MCV (80.0-94.0) fL MCH (27.0-31.0) pg MCHC (32.0-36.0) g/dL RDW (12.0-15.0) % Plt Count (130-450) 10^3/uL MPV (7.4-11.4) fL Neut # (Auto) Lymph # (Auto) [place] # (Auto) Eos # (Auto) Baso # (Auto) Absolute Nucleated RBC Total Counted Band Neuts % (Manual) (0 - 10) % Abnorm Lymph % (Manual) % Nucleated RBC % Neutrophils # (Manual) (1.5-6.6) 10^3/uL Lymphocytes # (Manual) (1.5-3.5) 10^3/uL Monocytes # (Manual) (0.0-1.0) 10^3/uL Eosinophils # (Manual) (0-0.7) 10^3/uL Basophils # (Manual) (0-0.1) 10^3/uL Differential Comment WBC Morphology (NORMAL) Platelet Estimate (NORMAL) Platelet Morphology (NORMAL) RBC Morph Micro Appear (NORMAL) VBG pH (7.31-7.41) Ionized Calcium (1.15-1.33) mmol/L Sodium (135-145) mmol/L Potassium (3.5-5.0) mmol/L Chloride (101-111) mmol/L Carbon Dioxide (21-32) mmol/L Anion Gap (6-13) BUN (6-20) mg/dL Creatinine (0.6-1.2) mg/dL Estimated GFR (MDRD) (>89) Glucose (70-100) mg/dL POC Whole Bld Glucose 191 H 194 H 175 H (70 - 100) mg/dL Calcium (8.5-10.3) mg/dL Phosphorus (2.5-4.6) mg/dL Magnesium (1.7-2.8) mg/dL Blood Type Antibody Screen 06/16/21 06/16/21 06/16/21 Range/Units 14:00 13:57 13:10 WBC (4.8-10.8) x10^3/uL RBC (4.70-6.10) 10^6/uL Hgb 8.7 L (14.0-18.0) g/dL Hct 26.6 L (42.0-52.0) % MCV (80.0-94.0) fL MCH (27.0-31.0) pg MCHC (32.0-36.0) g/dL RDW (12.0-15.0) % Plt Count (130-450) 10^3/uL MPV (7.4-11.4) fL Neut # (Auto) Lymph # (Auto) [place] # (Auto) Eos # (Auto) Baso # (Auto) Absolute Nucleated RBC Total Counted Band Neuts % (Manual) (0 - 10) % Abnorm Lymph % (Manual) % Nucleated RBC % Neutrophils # (Manual) (1.5-6.6) 10^3/uL Lymphocytes # (Manual) (1.5-3.5) 10^3/uL Monocytes # (Manual) (0.0-1.0) 10^3/uL Eosinophils # (Manual) (0-0.7) 10^3/uL Basophils # (Manual) (0-0.1) 10^3/uL Differential Comment WBC Morphology (NORMAL) Platelet Estimate (NORMAL) Platelet Morphology (NORMAL) RBC Morph Micro Appear (NORMAL) VBG pH (7.31-7.41) Ionized Calcium (1.15-1.33) mmol/L Sodium (135-145) mmol/L Potassium (3.5-5.0) mmol/L Chloride (101-111) mmol/L Carbon Dioxide (21-32) mmol/L Anion Gap (6-13) BUN (6-20) mg/dL Creatinine (0.6-1.2) mg/dL Estimated GFR (MDRD) (>89) Glucose (70-100) mg/dL POC Whole Bld Glucose 162 H 153 H (70 - 100) mg/dL Calcium (8.5-10.3) mg/dL Phosphorus (2.5-4.6) mg/dL Magnesium (1.7-2.8) mg/dL Blood Type Antibody Screen 06/16/21 06/16/21 06/16/21 Range/Units 12:17 11:10 10:06 WBC (4.8-10.8) x10^3/uL RBC (4.70-6.10) 10^6/uL Hgb (14.0-18.0) g/dL Hct (42.0-52.0) % MCV (80.0-94.0) fL MCH (27.0-31.0) pg MCHC (32.0-36.0) g/dL RDW (12.0-15.0) % Plt Count (130-450) 10^3/uL MPV (7.4-11.4) fL Neut # (Auto) Lymph # (Auto) [place] # (Auto) Eos # (Auto) Baso # (Auto) Absolute Nucleated RBC Total Counted Band Neuts % (Manual) (0 - 10) % Abnorm Lymph % (Manual) % Nucleated RBC % Neutrophils # (Manual) (1.5-6.6) 10^3/uL Lymphocytes # (Manual) (1.5-3.5) 10^3/uL Monocytes # (Manual) (0.0-1.0) 10^3/uL Eosinophils # (Manual) (0-0.7) 10^3/uL Basophils # (Manual) (0-0.1) 10^3/uL Differential Comment WBC Morphology (NORMAL) Platelet Estimate (NORMAL) Platelet Morphology (NORMAL) RBC Morph Micro Appear (NORMAL) VBG pH (7.31-7.41) Ionized Calcium (1.15-1.33) mmol/L Sodium (135-145) mmol/L Potassium (3.5-5.0) mmol/L Chloride (101-111) mmol/L Carbon Dioxide (21-32) mmol/L Anion Gap (6-13) BUN (6-20) mg/dL Creatinine (0.6-1.2) mg/dL Estimated GFR (MDRD) (>89) Glucose (70-100) mg/dL POC Whole Bld Glucose 141 H 150 H 139 H (70 - 100) mg/dL Calcium (8.5-10.3) mg/dL Phosphorus (2.5-4.6) mg/dL Magnesium (1.7-2.8) mg/dL Blood Type Antibody Screen 06/16/21 06/16/21 06/16/21 Range/Units 09:08 08:12 07:54 WBC (4.8-10.8) x10^3/uL RBC (4.70-6.10) 10^6/uL Hgb (14.0-18.0) g/dL Hct (42.0-52.0) % MCV (80.0-94.0) fL MCH (27.0-31.0) pg MCHC (32.0-36.0) g/dL RDW (12.0-15.0) % Plt Count (130-450) 10^3/uL MPV (7.4-11.4) fL Neut # (Auto) Lymph # (Auto) [place] # (Auto) Eos # (Auto) Baso # (Auto) Absolute Nucleated RBC Total Counted Band Neuts % (Manual) (0 - 10) % Abnorm Lymph % (Manual) % Nucleated RBC % Neutrophils # (Manual) (1.5-6.6) 10^3/uL Lymphocytes # (Manual) (1.5-3.5) 10^3/uL Monocytes # (Manual) (0.0-1.0) 10^3/uL Eosinophils # (Manual) (0-0.7) 10^3/uL Basophils # (Manual) (0-0.1) 10^3/uL Differential Comment WBC Morphology (NORMAL) Platelet Estimate (NORMAL) Platelet Morphology (NORMAL) RBC Morph Micro Appear (NORMAL) VBG pH (7.31-7.41) Ionized Calcium (1.15-1.33) mmol/L Sodium (135-145) mmol/L Potassium (3.5-5.0) mmol/L Chloride (101-111) mmol/L Carbon Dioxide (21-32) mmol/L Anion Gap (6-13) BUN (6-20) mg/dL Creatinine (0.6-1.2) mg/dL Estimated GFR (MDRD) (>89) Glucose (70-100) mg/dL POC Whole Bld Glucose 139 H 132 H (70 - 100) mg/dL Calcium (8.5-10.3) mg/dL Phosphorus (2.5-4.6) mg/dL Magnesium (1.7-2.8) mg/dL Blood Type O NEGATIVE Antibody Screen NEGATIVE Sepsis Event Note (H) - Evaluation Current Stage of Sepsis: Septic shock Possible source of Sepsis: positive: Pulmonary - Sepsis Criteria Sepsis Criteria: Respiratory: Increasing oxygen requirements, WBC count greater than 12,000 or less than 4000, SBP drop more than 40mHg, MAP less than 65 mmHg, SBP less than 90 mmHg, Renal: urine output less than 0.5ml/kg/hr for 2 hours or creatinine gr Assessment/Plan - Problem List (1) Acute respiratory failure with hypoxia Impression: Secondary to bacterial pneumonia, COVID-pneumonia as well as suspected pulmonary embolism. His FiO2 requirement slightly increased today with his requirements increasing to 60% from 50% yesterday. At this point in time, he is not ready for weaning trials. We will keep him on Lovenox for suspected pulmonary embolism. He remains on Decadron and remdesivir for the COVID-19 infection. Today is also day 3 of meropenem for the Klebsiella pneumonia. Although he is not edematous, we will add Lasix daily given increase in his oxygen requirements and the fact that he has had a significant positive fluid balance since admission. Continue vent management as per protocol. Continue sedation with propofol and Dilaudid as needed for pain. (2) Septic shock Impression: This is likely secondary to pneumonia either due to COVID-19 or the ESBL Klebsiella pneumonia. The septic shock has now resolved. He is off of vasopressors. His white count remains elevated but is improving on a daily basis. We will continue meropenem with today being day 3 for the ESBL Klebsiella pneumonia. (3) Infection due to ESBL-producing Klebsiella pneumoniae Impression: Respiratory culture grew ESBL Klebsiella pneumonia. He was previously on cefepime but was switched to meropenem. He has now had improvement in his white count and is no longer requiring vasopressors. Today is day 3 of antibiotics and he will need at least 7 days of treatment. (4) Pneumonia due to COVID-19 virus Impression: This is contributing to his acute respiratory failure with hypoxia. He has been treated with remdesivir as well as Decadron. We will complete a total of 5 days of remdesivir and continue the Decadron for up to 10 days. (5) NSTEMI (non-ST elevated myocardial infarction) Impression: Initial concern was for NSTEMI given his troponins peaked over 800. Echocardiogram showed evidence of right heart strain which I suspect is due to a pulmonary embolism. LV showed no wall motion abnormalities. In hindsight, his elevated troponin may have been due to the pulmonary embolism and NSTEMI. We are continuing him on Lovenox and he will need further cardiac work-up once he improves from his respiratory failure. (6) Right leg DVT Impression: Duplex confirmed right lower extremity DVT and it is very likely that he has pulmonary embolism given echo showed evidence of right heart strain. Given he is clinically improving and is no longer hypotensive, will hold off on obtaining a CT angiogram as it would not change management administrator. We will continue him on Lovenox. (7) Anemia Impression: His hemoglobin has decreased since admission but has been stable around 8 now over the past 36 hours. I suspect the drop he had was likely dilutional given his white blood cell count and platelet count also decreased. There has been no evidence of bleeding. We will continue Lovenox for DVT and likely pulmonary embolism. (8) Hyperkalemia Impression: This is significantly improved and was secondary to hyperglycemia and acute kidney injury. His potassium was elevated at 5.2 and we will continue to monitor. (9) Diabetes mellitus, insulin dependent (IDDM), uncontrolled Impression: We have transitioned him to subcutaneous insulin today. His blood glucose has been stable previously on the insulin drip. We will start him on Lantus 30 units twice daily and continue tube feeds. (10) PVD (peripheral vascular disease) Impression: Stable. He is on Lovenox and Plavix after we discontinue the aspirin as he woul d not be on triple therapy. (11) Psoriatic arthritis Impression: We are holding his home immunosuppressants. (12) Ankylosing spondylitis Impression: We are holding his home immunosuppressants. (13) TORY (acute kidney injury) Impression: This is now resolved. This was likely secondary to ATN due to the hypotension. His renal function is back at baseline. Continue to monitor as well as his urine output.
[2021-06-17] MEDS: CHLORHEXIDINE GLUCONATE 15 ML UDC PO SCH ×2 (08:09→20:47)
[2021-06-17] MEDS: CLOPIDOGREL 75 MG TABLET PO SCH (08:09)
[2021-06-17] MEDS: ENOXAPARIN 80 MG/0.8 ML SYRINGE SUBQ SCH ×2 (08:10→20:47)
[2021-06-17] MEDS: DEXAMETHASONE 4 MG/ML VIAL IVP SCH (08:10)
[2021-06-17] MEDS: guaiFENesin 600 MG TABLET PO SCH ×2 (08:10→20:48)
[2021-06-17] MEDS: FOLIC ACID 1 MG TABLET PO SCH (08:10)
[2021-06-17] MEDS: INSULIN GLARGINE 300 UNIT/3 ML PEN SUBQ SCH ×2 (08:11→20:54)
[2021-06-17 08:16] LABS: ABG BASE EXCESS 3.4 mmol/L (-2.0-3.0); ABG HCO3 29.5 mmol/L (22.0-26.0); ABG OXYGEN SATURATION 90 % (94-98); ABG PCO2 53 mmHg (34-45); ABG PH 7.36 (7.35-7.45); ABG PO2 63 mmHg (80-100); ABG TCO2 31.1 MMOL/L (21.0-29.0)
[2021-06-17 08:17] LABS: ABG MODE OF VENTILATION AC/VCT; ABG RESPIRATORY RATE 18 b/min; ALLEN TEST POSITIVE
--- NOTE | 2021-06-17 14:06 | XRAY Report ---
PROCEDURE: Chest 1 View X-Ray INDICATIONS: Follow up infiltrates. TECHNIQUE: One view of the chest was acquired. COMPARISON: 06/14/2021 FINDINGS: Surgical changes and devices: ET tube, central venous catheter and NG tube are stable in position. Lungs and pleura: Bilateral lung diffuse airspace desiccation has progressed in the interval since pr ior exam.. Mediastinum: Mediastinal contours appear normal. Heart size is normal. Bones and chest wall: No suspicious bony lesions. Overlying soft tissues appear unremarkable. IMPRESSION: Progression of bilateral diffuse lung opacifications with new areas of consolidation concerning for b ilateral multifocal pneumonia, pulmonary edema or combination of pneumonia and edema. Reviewed by: Leanne Gudino MD, PhD on 06/17/2021 1:04 PM [facility] Approved by: Leanne Gudino MD, PhD on 06/17/2021 1:04 PM [facility] Station ID: [id number]
[2021-06-17 14:32] LABS: HCT - HEMATOCRIT 26.3 % (42.0-52.0); HGB - HEMOGLOBIN 8.1 g/dL (14.0-18.0)
[2021-06-17] MEDS ORDERED: FUROSEMIDE 40 MG/4 ML VIAL IVP STA (16:53)
[2021-06-17] MEDS: INSULIN REGULAR HUMAN 300 UNIT/3 ML VIAL SUBQ SCH (18:20)
[2021-06-17] MEDS: ATORVASTATIN 40 MG TABLET PO SCH (20:48)
[2021-06-18] MEDS: INSULIN REGULAR HUMAN 300 UNIT/3 ML VIAL SUBQ SCH ×4 (00:10→18:46)
[2021-06-18] MEDS: MEROPENEM 1 GM in SODIUM CHLORIDE 0.9% MINIBAG 100 ML IV SCH ×3 (00:11→18:14)
[2021-06-18] MEDS: SODIUM CHLORIDE FLUSH 0.9% 10 ML SYRINGE IVP SCH ×3 (00:11→18:46)
[2021-06-18] MEDS: METOPROLOL 5 MG/5 ML VIAL IVP SCH ×4 (00:37→18:48)
[2021-06-18] MEDS: SODIUM CHLORIDE 0.9% 500 ML IV PRN (00:38)
[2021-06-18] MEDS: MIDAZOLAM DRIP 50 MG/50 ML 50 MG/50 ML BAG IV SCH ×2 (05:46→19:32)
[2021-06-18 05:51] LABS: BASOPHILS % (AUTO) 0.3 %; CALCIUM, IONIZED 1.13 mmol/L (1.15-1.33); HCT - HEMATOCRIT 27.9 % (42.0-52.0); HGB - HEMOGLOBIN 8.5 g/dL (14.0-18.0); LYMPHOCYTES % (AUTO) 3.1 %; MEAN CORPUSCULAR HEMOGLOBIN 29.4 pg (27.0-31.0); MEAN CORPUSCULAR HGB CONC 30.5 g/dL (32.0-36.0); MEAN CORPUSCULAR VOLUME 96.5 fL (80.0-94.0); MEAN PLATELET VOLUME 9.2 fL (7.4-11.4); PLT - PLATELET COUNT 344 10^3/uL (130-450); RED BLOOD COUNT 2.89 10^6/uL (4.70-6.10); RED CELL DISTRIBUTION WIDTH 17.3 % (12.0-15.0); VBG PH 7.311 (7.31-7.41); WHITE BLOOD COUNT 25.9 x10^3/uL (4.8-10.8)
[2021-06-18 06:03] LABS: ABNORMAL LYMPHS % (MANUAL) 0 %; BAND NEUTROPHILS % (MANUAL) 0 %
[2021-06-18 06:06] LABS: CALCIUM 7.9 mg/dL (8.5-10.3); MAGNESIUM 2.4 mg/dL (1.7-2.8)
[2021-06-18 06:08] LABS: POTASSIUM 6.6 mmol/L (3.5-5.0)
[2021-06-18] MEDS: PANTOPRAZOLE 40 MG VIAL IVP SCH (06:20)
[2021-06-18 06:25] LABS: DIFFERENTIAL COMMENT MANUAL DIFFERENTIAL; LYMPHOCYTES % (MANUAL) 4 %; MONOCYTES # (MANUAL) 1.6 10^3/uL (0.0-1.0); NEUTROPHILS # (MANUAL) 23.3 10^3/uL (1.5-6.6); PLATELET ESTIMATE, MANUAL NORMAL (130-450,000) (NORMAL); PLATELET MORPHOLOGY NORMAL APPEARANCE (NORMAL); WBC MORPHOLOGY (MULTIPLE) NORMAL APPEARANCE (NORMAL)
[2021-06-18] MEDS ORDERED: DEXTROSE 50% ABBOJECT 25 GM/50 ML SYRINGE IVP ONE ×2 (06:26→11:04)
[2021-06-18] MEDS ORDERED: INSULIN REGULAR HUMAN 300 UNIT/3 ML VIAL IVP ONE ×4 (06:28→19:03)
[2021-06-18] MEDS: PROPOFOL 1000 MG/100 ML 1,000 MG/100 ML BOTTLE IV SCH ×3 (06:54→22:22)
--- NOTE | 2021-06-18 08:14 | PROVIDER PROGRESS NOTE ---
Subjective - Prog Note Date Prog Note Date: 06/18/21 - Subjective Subjective: Remains intubated and sedated. Current Medications - Current Medications Current Medications: Active Medications Acetaminophen (Acetaminophen 325 Mg Tablet) 650 mg PO Q4HR PRN PRN Reason: Pain 1 to 4 Last Admin: 06/17/21 02:52 Dose: 650 mg Atorvastatin Calcium (Atorvastatin 40 Mg Tablet) 40 mg PO QPM [facility] Last Admin: 06/17/21 20:48 Dose: 40 mg Chlorhexidine Gluconate (Chlorhexidine Gluconate 15 Ml Udc) 15 ml PO BID [facility] Last Admin: 06/17/21 20:47 Dose: 15 ml Clopidogrel Bisulfate (Clopidogrel 75 Mg Tablet) 75 mg PO DAILY [facility] Last Admin: 06/17/21 08:09 Dose: 75 mg Dexamethasone (Dexamethasone 4 Mg/Ml Vial) 6 mg IVP DAILY [facility] Stop: 06/19/21 09:01 Last Admin: 06/17/21 08:10 Dose: 6 mg Enoxaparin Sodium (Enoxaparin 80 Mg/0.8 Ml Syringe) 80 mg SUBQ BID [facility] Last Admin: 06/17/21 20:47 Dose: 80 mg Folic Acid (Folic Acid 1 Mg Tablet) 1 mg PO DAILY [facility] Last Admin: 06/17/21 08:10 Dose: 1 mg Guaifenesin (Guaifenesin 600 Mg Tablet) 600 mg PO BID [facility] Last Admin: 06/17/21 20:48 Dose: 600 mg Guaifenesin/Codeine Phosphate (Guaifenesin/Codeine 5 Ml Udc) 5 ml PO Q6HR PRN PRN Reason: Cough Hydromorphone HCl (Hydromorphone 2 Mg/Ml Vial) 2 mg IVP Q2H PRN PRN Reason: PAIN Last Admin: 06/17/21 16:52 Dose: 2 mg Midazolam HCl (Versed Drip 50 Mg/50 Ml) 50 mg in 50 mls @ 2.94 mls/hr IV .[id number] [facility]; Protocol Last Admin: 06/18/21 05:46 Dose: 0.06 mg/kg/hr, 4.41 mls/hr Propofol (Diprivan) 1,000 mg in 100 mls @ 4.44 mls/hr IV .[id number] [facility]; Protocol Last Admin: 06/18/21 06:54 Dose: 30 mcg/kg/min, 13.32 mls/hr Meropenem 1 gm/ Sodium (Chloride) 100 mls @ 200 mls/hr IV Q8H [facility] Last Infusion: 06/18/21 01:55 Dose: Infused Sodium Chloride (Normal Saline 0.9%) 500 mls @ 20 mls/hr IV Q24H PRN PRN Reason: TKO RATE Last Admin: 06/18/21 00:38 Dose: 20 mls/hr Insulin Glargine (Insulin Glargine 300 Unit/3 Ml Pen) 30 unit SUBQ BID [facility] Last Admin: 06/17/21 20:54 Dose: 30 unit Insulin Human Regular (Insulin Regular Human 300 Unit/3 Ml Vial) 1 - 5 unit SUBQ Q6HR [facility]; Protocol Last Admin: 06/18/21 06:19 Dose: 1 unit Metoprolol Tartrate (Metoprolol 5 Mg/5 Ml Vial) 5 mg IVP Q6HR [facility] Last Admin: 06/18/21 05:45 Dose: 5 mg Morphine Sulfate (Morphine 2 Mg/Ml Carpuject) 2 mg IVP Q6HR PRN PRN Reason: Dyspnea Last Admin: 06/17/21 00:50 Dose: 2 mg Ondansetron HCl (Ondansetron 4 Mg/2 Ml Vial) 4 mg IVP Q6HR PRN PRN Reason: Nausea / Vomiting Pantoprazole Sodium (Pantoprazole 40 Mg Vial) 40 mg IVP QDAC [facility] Last Admin: 06/18/21 06:20 Dose: 40 mg Sodium Chloride (Sodium Chloride Flush 0.9% 10 Ml Syringe) 10 ml IVP 0100,0900,1700 [facility] Last Admin: 06/18/21 00:11 Dose: 10 ml Sodium Chloride (Sodium Chloride Flush 0.9% 10 Ml Syringe) 10 ml IVP PRN PRN PRN Reason: NEEDED PER PROVIDER ORDERS Last Admin: 06/17/21 06:30 Dose: 10 ml Prednisone 25 mg PO DAILY 10/09/12 Metoprolol Tartrate [Lopressor] 12.5 mg PO BID 08/13/15 Insulin Glargine,Hum.rec.anlog [Lantus] 35 units SQ BID 09/27/15 Multivitamin [Multivitamins] 1 tab PO DAILY 09/27/15 amLODIPine [Norvasc] 5 mg PO DAILY 09/27/15 Indomethacin 50 mg PO TID 11/23/15 Sulfasalazine [Sulfazine] 1,500 mg PO BID 03/28/16 Atorvastatin Calcium 40 mg PO QPM 11/25/19 Clopidogrel [Plavix] 75 mg PO DAILY 11/25/19 metHOTREXate sodium [Methotrexate] 22.5 mg PO Q7D 11/25/19 Cholecalciferol (Vitamin D3) [Vitamin D3] 50 mcg PO DAILY 06/12/21 Doxycycline Hyclate [Vibramycin] 100 mg PO BID 06/12/21 Folic Acid 1 mg PO DAILY 06/12/21 Pantoprazole [Protonix] 40 mg PO QDAC 06/12/21 Objective - Vital Signs/Intake & Output Reviewed Vital Signs: Yes Vital Signs: Vital Signs Temp Pulse Pulse Resp BP BP Pulse Ox 06/18/21 07:33 101 H 06/18/21 07:00 101 H 24 111/61 100 06/18/21 06:00 98 29 H 93/59 L 99 06/18/21 05:45 105/69 06/18/21 05:41 99 06/18/21 05:00 103 H 31 H 98/71 99 06/18/21 04:00 98.9 C H 106 H 29 H 101/63 96 Intake & Output: Intake & Output 06/15/21 06/16/21 06/17/21 06/18/21 23:59 23:59 23:59 23:59 Intake Total 3282.071 2618.225 2653.422 382.667 Output Total 1785 3940 2785 395 Balance 1497.071 -1321.775 -131.578 -12.333 - Objective General Appearance: positive: Other (Sedated.) Eyes Bilateral: positive: Conjunctivae nml ENT: positive: ENT inspection nml, Other (ET tube in place.) Respiratory: positive: Rhonchi, Other. negative: Breath sounds nml, Rales Cardiovascular: positive: Extrasystoles, Tachycardia. negative: Systolic murmur Abdomen: positive: Non-tender, No distention. negative: Tenderness Skin: positive: Warm, Dry, Other (Psoriatic lesions over bilateral lower extremities.) Extremities: positive: Pedal edema (Trace edema in bilateral lower extremites.) - Lab Results Fish Bones: 06/18/21 04:33 06/18/21 09:05 Other Labs: Lab Results x24hrs 06/18/21 06/18/21 06/18/21 Range/Units 06:46 04:33 04:33 WBC (4.8-10.8) x10^3/uL RBC (4.70-6.10) 10^6/uL Hgb (14.0-18.0) g/dL Hct (42.0-52.0) % MCV (80.0-94.0) fL MCH (27.0-31.0) pg MCHC (32.0-36.0) g/dL RDW (12.0-15.0) % Plt Count (130-450) 10^3/uL MPV (7.4-11.4) fL Neut # (Auto) Lymph # (Auto) Hinds # (Auto) Eos # (Auto) Baso # (Auto) Absolute Nucleated RBC Total Counted Band Neuts % (Manual) (0 - 10) % Abnorm Lymph % (Manual) % Nucleated RBC % Neutrophils # (Manual) (1.5-6.6) 10^3/uL Lymphocytes # (Manual) (1.5-3.5) 10^3/uL Monocytes # (Manual) (0.0-1.0) 10^3/uL Eosinophils # (Manual) (0-0.7) 10^3/uL Basophils # (Manual) (0-0.1) 10^3/uL Differential Comment WBC Morphology (NORMAL) Platelet Estimate (NORMAL) Platelet Morphology (NORMAL) RBC Morph Micro Appear (NORMAL) Bld Gas Analysis Time Sample Site ABG pH (7.35-7.45) ABG pCO2 (34-45) mmHg ABG pO2 (80-100) mmHg ABG HCO3 (22.0-26.0) mmol/L ABG Total CO2 (21.0-29.0) MMOL/L ABG O2 Saturation (94-98) % ABG Base Excess (-2.0-3.0) mmol/L David Test VBG pH 7.311 (7.31-7.41) Ionized Calcium 1.13 L (1.15-1.33) mmol/L Respiration Rate b/min O2 Delivery Device Vent Mode FiO2 Tidal Volume mL PEEP cmH2O Sodium 138 (135-145) mmol/L Potassium 6.6 H* (3.5-5.0) mmol/L Chloride 102 (101-111) mmol/L Carbon Dioxide 29 (21-32) mmol/L Anion Gap 7.0 (6-13) BUN 43 H (6-20) mg/dL Creatinine 1.0 (0.6-1.2) mg/dL Estimated GFR (MDRD) 75 L (>89) Glucose 159 H (70-100) mg/dL POC Whole Bld Glucose 159 H (70 - 100) mg/dL Calcium 7.9 L (8.5-10.3) mg/dL Magnesium 2.4 (1.7-2.8) mg/dL 06/18/21 06/17/21 06/17/21 Range/Units 04:33 23:55 20:46 WBC 25.9 H (4.8-10.8) x10^3/uL RBC 2.89 L (4.70-6.10) 10^6/uL Hgb 8.5 L (14.0-18.0) g/dL Hct 27.9 L (42.0-52.0) % MCV 96.5 H (80.0-94.0) fL MCH 29.4 (27.0-31.0) pg MCHC 30.5 L (32.0-36.0) g/dL RDW 17.3 H (12.0-15.0) % Plt Count 344 (130-450) 10^3/uL MPV 9.2 (7.4-11.4) fL Neut # (Auto) Not Reportable Lymph # (Auto) Not Reportable Hinds # (Auto) Not Reportable Eos # (Auto) Not Reportable Baso # (Auto) Not Reportable Absolute Nucleated RBC Not Reportable Total Counted 100 Band Neuts % (Manual) 0 (0 - 10) % Abnorm Lymph % (Manual) 0 % Nucleated RBC % Not Reportable Neutrophils # (Manual) 23.3 H (1.5-6.6) 10^3/uL Lymphocytes # (Manual) 1.0 L (1.5-3.5) 10^3/uL Monocytes # (Manual) 1.6 H (0.0-1.0) 10^3/uL Eosinophils # (Manual) 0.0 (0-0.7) 10^3/uL Basophils # (Manual) 0.0 (0-0.1) 10^3/uL Differential Comment MANUAL DIFFERENTIAL WBC Morphology NORMAL APPEARANCE (NORMAL) Platelet Estimate NORMAL (130-450,000) (NORMAL) Platelet Morphology NORMAL APPEARANCE (NORMAL) RBC Morph Micro Appear 1+ HYPOCHROMASIA (NORMAL) Bld Gas Analysis Time Sample Site ABG pH (7.35-7.45) ABG pCO2 (34-45) mmHg ABG pO2 (80-100) mmHg ABG HCO3 (22.0-26.0) mmol/L ABG Total CO2 (21.0-29.0) MMOL/L ABG O2 Saturation (94-98) % ABG Base Excess (-2.0-3.0) mmol/L David Test VBG pH (7.31-7.41) Ionized Calcium (1.15-1.33) mmol/L Respiration Rate b/min O2 Delivery Device Vent Mode FiO2 Tidal Volume mL PEEP cmH2O Sodium (135-145) mmol/L Potassium (3.5-5.0) mmol/L Chloride (101-111) mmol/L Carbon Dioxide (21-32) mmol/L Anion Gap (6-13) BUN (6-20) mg/dL Creatinine (0.6-1.2) mg/dL Estimated GFR (MDRD) (>89) Glucose (70-100) mg/dL POC Whole Bld Glucose 151 H 155 H (70 - 100) mg/dL Calcium (8.5-10.3) mg/dL Magnesium (1.7-2.8) mg/dL 06/17/21 06/17/21 06/17/21 Range/Units 17:54 14:13 11:46 WBC (4.8-10.8) x10^3/uL RBC (4.70-6.10) 10^6/uL Hgb 8.1 L (14.0-18.0) g/dL Hct 26.3 L (42.0-52.0) % MCV (80.0-94.0) fL MCH (27.0-31.0) pg MCHC (32.0-36.0) g/dL RDW (12.0-15.0) % Plt Count (130-450) 10^3/uL MPV (7.4-11.4) fL Neut # (Auto) Lymph # (Auto) Hinds # (Auto) Eos # (Auto) Baso # (Auto) Absolute Nucleated RBC Total Counted Band Neuts % (Manual) (0 - 10) % Abnorm Lymph % (Manual) % Nucleated RBC % Neutrophils # (Manual) (1.5-6.6) 10^3/uL Lymphocytes # (Manual) (1.5-3.5) 10^3/uL Monocytes # (Manual) (0.0-1.0) 10^3/uL Eosinophils # (Manual) (0-0.7) 10^3/uL Basophils # (Manual) (0-0.1) 10^3/uL Differential Comment WBC Morphology (NORMAL) Platelet Estimate (NORMAL) Platelet Morphology (NORMAL) RBC Morph Micro Appear (NORMAL) Bld Gas Analysis Time Sample Site ABG pH (7.35-7.45) ABG pCO2 (34-45) mmHg ABG pO2 (80-100) mmHg ABG HCO3 (22.0-26.0) mmol/L ABG Total CO2 (21.0-29.0) MMOL/L ABG O2 Saturation (94-98) % ABG Base Excess (-2.0-3.0) mmol/L David Test VBG pH (7.31-7.41) Ionized Calcium (1.15-1.33) mmol/L Respiration Rate b/min O2 Delivery Device Vent Mode FiO2 Tidal Volume mL PEEP cmH2O Sodium (135-145) mmol/L Potassium (3.5-5.0) mmol/L Chloride (101-111) mmol/L Carbon Dioxide (21-32) mmol/L Anion Gap (6-13) BUN (6-20) mg/dL Creatinine (0.6-1.2) mg/dL Estimated GFR (MDRD) (>89) Glucose (70-100) mg/dL POC Whole Bld Glucose 162 H 150 H (70 - 100) mg/dL Calcium (8.5-10.3) mg/dL Magnesium (1.7-2.8) mg/dL 06/17/21 06/17/21 Range/Units 10:06 08:00 WBC (4.8-10.8) x10^3/uL RBC (4.70-6.10) 10^6/uL Hgb (14.0-18.0) g/dL Hct (42.0-52.0) % MCV (80.0-94.0) fL MCH (27.0-31.0) pg MCHC (32.0-36.0) g/dL RDW (12.0-15.0) % Plt Count (130-450) 10^3/uL MPV (7.4-11.4) fL Neut # (Auto) Lymph # (Auto) Hinds # (Auto) Eos # (Auto) Baso # (Auto) Absolute Nucleated RBC Total Counted Band Neuts % (Manual) (0 - 10) % Abnorm Lymph % (Manual) % Nucleated RBC % Neutrophils # (Manual) (1.5-6.6) 10^3/uL Lymphocytes # (Manual) (1.5-3.5) 10^3/uL Monocytes # (Manual) (0.0-1.0) 10^3/uL Eosinophils # (Manual) (0-0.7) 10^3/uL Basophils # (Manual) (0-0.1) 10^3/uL Differential Comment WBC Morphology (NORMAL) Platelet Estimate (NORMAL) Platelet Morphology (NORMAL) RBC Morph Micro Appear (NORMAL) Bld Gas Analysis Time 0812 Sample Site LEFT RADIAL ABG pH 7.36 (7.35-7.45) ABG pCO2 53 H (34-45) mmHg ABG pO2 63 L (80-100) mmHg ABG HCO3 29.5 H (22.0-26.0) mmol/L ABG Total CO2 31.1 H (21.0-29.0) MMOL/L ABG O2 Saturation 90 L (94-98) % ABG Base Excess 3.4 H (-2.0-3.0) mmol/L David Test POSITIVE VBG pH (7.31-7.41) Ionized Calcium (1.15-1.33) mmol/L Respiration Rate 18 b/min O2 Delivery Device VENTILATOR Vent Mode AC/VCT FiO2 60.00 Tidal Volume 500 mL PEEP 8 cmH2O Sodium (135-145) mmol/L Potassium (3.5-5.0) mmol/L Chloride (101-111) mmol/L Carbon Dioxide (21-32) mmol/L Anion Gap (6-13) BUN (6-20) mg/dL Creatinine (0.6-1.2) mg/dL Estimated GFR (MDRD) (>89) Glucose (70-100) mg/dL POC Whole Bld Glucose 128 H (70 - 100) mg/dL Calcium (8.5-10.3) mg/dL Magnesium (1.7-2.8) mg/dL Sepsis Event Note (H) - Evaluation Current Stage of Sepsis: Septic shock Possible source of Sepsis: positive: Pulmonary - Sepsis Criteria Sepsis Criteria: Respiratory: Increasing oxygen requirements, WBC count greater than 12,000 or less than 4000, SBP drop more than 40mHg, MAP less than 65 mmHg, SBP less than 90 mmHg, Renal: urine output less than 0.5ml/kg/hr for 2 hours or creatinine gr Assessment/Plan - Problem List (1) Acute respiratory failure with hypoxia Impression: This is ongoing and secondary to bacterial pneumonia, COVID-pneumonia as well as likely pulmonary embolism. Unfortunately, his FiO2 requirements have increased over the past 24 hours and he is now requiring an FiO2 of 70%. Repeat chest x- ray shows worsening infiltrates which may be edema or pneumonia. His white count has also increased today. Our plan will be to start him on Lasix 40 mg IV daily. We will continue Decadron and remdesivir. We will continue meropenem given respiratory cultures grew Klebsiella. We will also add Zyvox again to cover for MRSA given he was improving prior to discontinuation of this. Teo nue vent management as per protocol. Overall prognosis remains quite guarded. (2) Infection due to ESBL-producing Klebsiella pneumoniae Impression: Respiratory cultures grew Klebsiella pneumonia which is sensitive to carbapenems. He has not been on meropenem with today being day 4. Given the increase in his white count and oxygen requirements, will also add Zyvox to cover for MRSA given x-ray shows worsening infiltrates. He will need a least 1 week of treatment. (3) Pneumonia due to COVID-19 virus Impression: This is contributing to his respiratory failure with hypoxia. He remains on Decadron and remdesivir which he will continue. Continue contact precautions. (4) NSTEMI (non-ST elevated myocardial infarction) Impression: Initial concern was for NSTEMI given his troponins peaked over 800. Echocardiogram showed evidence of right heart strain which I suspect is due to a pulmonary embolism. LV showed no wall motion abnormalities. In hindsight, his elevated troponin may have been due to the pulmonary embolism and NSTEMI. We are continuing him on Lovenox and he will need further cardiac work-up once he improves from his respiratory failure. (5) Right leg DVT Impression: Duplex confirmed right lower extremity DVT and it is very likely that he has pulmonary embolism given echo showed evidence of right heart strain. 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 We will continue him on Lovenox. (6) Anemia Impression: Impression: His hemoglobin has decreased since admission but has been stable around 8 now over the past 36 hours. I suspect the drop he had was likely dilutional given his white blood cell count and platelet count also decreased. There has been no evidence of bleeding. We will continue Lovenox for DVT and likely pulmonary embolism. (7) Hyperkalemia Impression: His potassium is increased again today to 6.8 this morning. He does not have acute kidney injury like he previously had. He is a little hyperglycemic but I do not believe this is enough to cause the hyperkalemia. He is not on any medication now suspect to contribute to an elevated potassium. We have given him insulin and dextrose we will recheck in the afternoon. If it is still elevated we will give him Kayexalate. We will check a urine potassium. We cannot check a potassium tubular gradient as serum osmolality and urine osmolality are send out labs. We will continue to monitor closely. (8) Diabetes mellitus, insulin dependent (IDDM), uncontrolled Impression: His blood glucose has been controlled on the current dose of Lantus with sliding scale. Continue tube feeds. (9) PVD (peripheral vascular disease) Impression: Stable. He is on Lovenox and Plavix after we discontinue the aspirin as he would not be on triple therapy. (10) Psoriatic arthritis Impression: We are holding his home immunosuppressants. (11) Ankylosing spondylitis Impression: We are holding his home immunosuppressants. (12) TORY (acute kidney injury) Impression: This was secondary to ATN and has resolved. His renal function remains at baseline. We will continue to monitor. (13) Septic shock Impression: This is likely secondary to pneumonia either due to COVID-19 or the ESBL Klebsiella pneumonia. The septic shock has now resolved. He remains off of vasopressors.
[2021-06-18 08:32] LABS: ABG BASE EXCESS 0.4 mmol/L (-2.0-3.0); ABG HCO3 27.1 mmol/L (22.0-26.0); ABG OXYGEN SATURATION 88 % (94-98); ABG PCO2 55 mmHg (34-45); ABG PH 7.31 (7.35-7.45); ABG PO2 61 mmHg (80-100); ABG TCO2 28.8 MMOL/L (21.0-29.0)
[2021-06-18 08:36] LABS: ABG RESPIRATORY RATE 18 b/min
[2021-06-18] MEDS: CHLORHEXIDINE GLUCONATE 15 ML UDC PO SCH ×2 (09:00→20:31)
[2021-06-18] MEDS: DEXAMETHASONE 4 MG/ML VIAL IVP SCH (09:00)
[2021-06-18] MEDS: CLOPIDOGREL 75 MG TABLET PO SCH (09:02)
[2021-06-18] MEDS: FUROSEMIDE 40 MG/4 ML VIAL IVP SCH (09:15)
[2021-06-18] MEDS: ENOXAPARIN 80 MG/0.8 ML SYRINGE SUBQ SCH ×2 (09:20→20:31)
[2021-06-18 09:57] LABS: CREATININE 1.1 mg/dL (0.6-1.2)
[2021-06-18 09:58] LABS: POTASSIUM 6.2 mmol/L (3.5-5.0)
[2021-06-18] MEDS: INSULIN GLARGINE 300 UNIT/3 ML PEN SUBQ SCH ×2 (11:05→20:37)
[2021-06-18] MEDS: FOLIC ACID 1 MG TABLET PO SCH (11:41)
[2021-06-18] MEDS: LINEZOLID 600 MG/300 ML 600 MG/300 ML BAG IV SCH ×2 (11:44→21:00)
[2021-06-18] MEDS: HYDROmorphone 2 MG/ML VIAL IVP PRN (12:24)
[2021-06-18 15:52] LABS: CALCIUM 7.9 mg/dL (8.5-10.3); CREATININE 1.2 mg/dL (0.6-1.2)
[2021-06-18 15:54] LABS: POTASSIUM 6.8 mmol/L (3.5-5.0)
[2021-06-18] MEDS ORDERED: CALCIUM GLUCONATE IN NS 0.9% 2,000 MG/100 ML BAG IV ONE (15:56)
[2021-06-18] MEDS ORDERED: SODIUM POLYSTYRENE SULFONATE 15 GM/60 ML BOTTLE PO ONE (15:56)
[2021-06-18] MEDS ORDERED: SODIUM POLYSTYRENE SULFONATE 15 GM/60 ML BOTTLE ONE (16:39)
[2021-06-18 18:58] LABS: CALCIUM 8.4 mg/dL (8.5-10.3); CREATININE 1.1 mg/dL (0.6-1.2)
[2021-06-18 19:00] LABS: POTASSIUM 6.7 mmol/L (3.5-5.0)
[2021-06-18] MEDS: ATORVASTATIN 40 MG TABLET PO SCH (20:31)
[2021-06-18 23:37] LABS: CALCIUM 8.4 mg/dL (8.5-10.3); CREATININE 1.1 mg/dL (0.6-1.2)
[2021-06-18 23:38] LABS: POTASSIUM 6.7 mmol/L (3.5-5.0)
[2021-06-18] MEDS ORDERED: INSULIN REGULAR HUMAN 100 UNIT in SODIUM CHLORIDE 0.9% 100ML 99 ML IV ONE (23:40)
[2021-06-19] MEDS: INSULIN REGULAR HUMAN 300 UNIT/3 ML VIAL SUBQ SCH ×2 (00:26→05:07)
[2021-06-19] MEDS ORDERED: INSULIN REGULAR HUMAN 100 UNIT/1 ML 10 ML MDV ONE (00:26)
[2021-06-19] MEDS: METOPROLOL 5 MG/5 ML VIAL IVP SCH ×5 (00:27→23:06)
[2021-06-19] MEDS: MEROPENEM 1 GM in SODIUM CHLORIDE 0.9% MINIBAG 100 ML IV SCH ×3 (00:27→16:59)
[2021-06-19] MEDS: SODIUM CHLORIDE FLUSH 0.9% 10 ML SYRINGE IVP SCH ×3 (00:37→17:29)
[2021-06-19] MEDS: ACETAMINOPHEN 325 MG TABLET PO PRN (05:19)
[2021-06-19 05:41] LABS: CALCIUM, IONIZED 1.17 mmol/L (1.15-1.33); VBG PH 7.324 (7.31-7.41)
[2021-06-19 05:46] LABS: BASOPHILS % (AUTO) 0.1 %; HCT - HEMATOCRIT 26.9 % (42.0-52.0); HGB - HEMOGLOBIN 8.2 g/dL (14.0-18.0); LYMPHOCYTES % (AUTO) 3.1 %; MEAN CORPUSCULAR HEMOGLOBIN 29.6 pg (27.0-31.0); MEAN CORPUSCULAR HGB CONC 30.5 g/dL (32.0-36.0); MEAN CORPUSCULAR VOLUME 97.1 fL (80.0-94.0); MEAN PLATELET VOLUME 9.3 fL (7.4-11.4); MONOCYTES % (AUTO) 7.2 %; NEUTROPHILS % (AUTO) 88.5 %; PLT - PLATELET COUNT 376 10^3/uL (130-450); RED BLOOD COUNT 2.77 10^6/uL (4.70-6.10); RED CELL DISTRIBUTION WIDTH 17.3 % (12.0-15.0); WHITE BLOOD COUNT 21.4 x10^3/uL (4.8-10.8)
[2021-06-19] MEDS: PROPOFOL 1000 MG/100 ML 1,000 MG/100 ML BOTTLE IV SCH ×3 (05:48→19:45)
[2021-06-19 06:00] LABS: ABNORMAL LYMPHS % (MANUAL) 0 %
[2021-06-19 06:04] LABS: ALBUMIN 1.5 g/dL (3.2-5.5); ALBUMIN/GLOBULIN RATIO 0.3 (1.0-2.2); BILIRUBIN,TOTAL 0.4 mg/dL (0.2-1.0); CALCIUM 8.1 mg/dL (8.5-10.3); MAGNESIUM 2.4 mg/dL (1.7-2.8); PHOSPHORUS 3.3 mg/dL (2.5-4.6); TOTAL PROTEIN 6.7 g/dL (6.7-8.2)
[2021-06-19 06:05] LABS: POTASSIUM 6.2 mmol/L (3.5-5.0)
[2021-06-19 06:10] LABS: BAND NEUTROPHILS % (MANUAL) 2 %; LYMPHOCYTES # (MANUAL) 0.9 10^3/uL (1.5-3.5); LYMPHOCYTES % (MANUAL) 4 %; MONOCYTES # (MANUAL) 0.6 10^3/uL (0.0-1.0); MYELOCYTES % (MANUAL) 1 %; NEUTROPHILS # (MANUAL) 19.7 10^3/uL (1.5-6.6)
[2021-06-19 06:11] LABS: DIFFERENTIAL COMMENT MANUAL DIFFERENTIAL; PLATELET ESTIMATE, MANUAL NORMAL (130-450,000) (NORMAL); PLATELET MORPHOLOGY NORMAL APPEARANCE (NORMAL); RBC MORPHOLOGY (MULTIPLE) 1+ ANISOCYTOSIS (NORMAL); WBC MORPHOLOGY (MULTIPLE) NORMAL APPEARANCE (NORMAL)
[2021-06-19] MEDS: PANTOPRAZOLE 40 MG VIAL IVP SCH (06:29)
[2021-06-19] MEDS ORDERED: INSULIN REGULAR HUMAN 300 UNIT/3 ML VIAL IVP ONE (07:24)
--- NOTE | 2021-06-19 07:24 | PROVIDER PROGRESS NOTE ---
Subjective - Prog Note Date Prog Note Date: 06/19/21 - Subjective Subjective: Remains intubated and sedated. Current Medications - Current Medications Current Medications: Active Medications Acetaminophen (Acetaminophen 325 Mg Tablet) 650 mg PO Q4HR PRN PRN Reason: Pain 1 to 4 Last Admin: 06/19/21 05:19 Dose: 650 mg Atorvastatin Calcium (Atorvastatin 40 Mg Tablet) 40 mg PO QPM ON LICENSE OF [facility] Last Admin: 06/18/21 20:31 Dose: 40 mg Chlorhexidine Gluconate (Chlorhexidine Gluconate 15 Ml Udc) 15 ml PO BID ON LICENSE OF [facility] Last Admin: 06/19/21 08:36 Dose: 15 ml Clopidogrel Bisulfate (Clopidogrel 75 Mg Tablet) 75 mg PO DAILY ON LICENSE OF [facility] Last Admin: 06/19/21 08:35 Dose: 75 mg Dexamethasone (Dexamethasone 4 Mg/Ml Vial) 6 mg IVP DAILY ON LICENSE OF [facility] Stop: 06/19/21 09:01 Last Admin: 06/18/21 09:00 Dose: 6 mg Enoxaparin Sodium (Enoxaparin 80 Mg/0.8 Ml Syringe) 80 mg SUBQ BID ON LICENSE OF [facility] Last Admin: 06/19/21 08:36 Dose: 80 mg Folic Acid (Folic Acid 1 Mg Tablet) 1 mg PO DAILY ON LICENSE OF [facility] Last Admin: 06/19/21 08:35 Dose: 1 mg Furosemide (Furosemide 40 Mg/4 Ml Vial) 40 mg IVP DAILY ON LICENSE OF [facility] Last Admin: 06/18/21 09:15 Dose: 40 mg Hydromorphone HCl (Hydromorphone 2 Mg/Ml Vial) 2 mg IVP Q2H PRN PRN Reason: PAIN Last Admin: 06/18/21 12:24 Dose: 2 mg Midazolam HCl (Versed Drip 50 Mg/50 Ml) 50 mg in 50 mls @ 2.94 mls/hr IV .[id number] ON LICENSE OF [facility]; Protocol Last Titration: 06/19/21 05:40 Dose: 0.04 mg/kg/hr, 2.94 mls/hr Propofol (Diprivan) 1,000 mg in 100 mls @ 4.44 mls/hr IV .[id number] ON LICENSE OF [facility]; Protocol Last Admin: 06/19/21 05:48 Dose: 35 mcg/kg/min, 15.54 mls/hr Meropenem 1 gm/ Sodium (Chloride) 100 mls @ 200 mls/hr IV Q8H ON LICENSE OF [facility] Last Admin: 06/19/21 08:36 Dose: 200 mls/hr Sodium Chloride (Normal Saline 0.9%) 500 mls @ 20 mls/hr IV Q24H PRN PRN Reason: TKO RATE Last Infusion: 06/18/21 22:15 Dose: Infused Linezolid (Zyvox 600 Mg/300 Ml) 600 mg in 300 mls @ 300 mls/hr IV Q12H ON LICENSE OF [facility] Last Infusion: 06/18/21 22:14 Dose: Infused Insulin Human Regular 100 unit (/ Sodium Chloride) 100 mls @ 1 mls/hr IV .Q72H ONE; Protocol Stop: 06/21/21 23:39 Last Titration: 06/19/21 06:33 Dose: 0.5 unit/hr, 0.5 mls/hr Insulin Glargine (Insulin Glargine 300 Unit/3 Ml Pen) 30 unit SUBQ BID ON LICENSE OF [facility] Last Admin: 06/18/21 20:37 Dose: 30 unit Insulin Human Regular (Insulin Regular Human 300 Unit/3 Ml Vial) 1 - 5 unit SUBQ Q6HR ON LICENSE OF [facility]; Protocol Last Admin: 06/19/21 05:07 Dose: Not Given Metoprolol Tartrate (Metoprolol 5 Mg/5 Ml Vial) 5 mg IVP Q6HR ON LICENSE OF [facility] Last Admin: 06/19/21 05:20 Dose: 5 mg Morphine Sulfate (Morphine 2 Mg/Ml Carpuject) 2 mg IVP Q6HR PRN PRN Reason: Dyspnea Last Admin: 06/17/21 00:50 Dose: 2 mg Ondansetron HCl (Ondansetron 4 Mg/2 Ml Vial) 4 mg IVP Q6HR PRN PRN Reason: Nausea / Vomiting Pantoprazole Sodium (Pantoprazole 40 Mg Vial) 40 mg IVP QDAC ON LICENSE OF [facility] Last Admin: 06/19/21 06:29 Dose: 40 mg Sodium Chloride (Sodium Chloride Flush 0.9% 10 Ml Syringe) 10 ml IVP 0 100,0900,1700 ON LICENSE OF [facility] Last Admin: 06/19/21 00:37 Dose: 10 ml Sodium Chloride (Sodium Chloride Flush 0.9% 10 Ml Syringe) 10 ml IVP PRN PRN PRN Reason: NEEDED PER PROVIDER ORDERS Last Admin: 06/17/21 06:30 Dose: 10 ml Prednisone 25 mg PO DAILY 10/09/12 Metoprolol Tartrate [Lopressor] 12.5 mg PO BID 08/13/15 Insulin Glargine,Hum.rec.anlog [Lantus] 35 units SQ BID 09/27/15 Multivitamin [Multivitamins] 1 tab PO DAILY 09/27/15 amLODIPine [Norvasc] 5 mg PO DAILY 09/27/15 Indomethacin 50 mg PO TID 11/23/15 Sulfasalazine [Sulfazine] 1,500 mg PO BID 03/28/16 Atorvastatin Calcium 40 mg PO QPM 11/25/19 Clopidogrel [Plavix] 75 mg PO DAILY 11/25/19 metHOTREXate sodium [Methotrexate] 22.5 mg PO Q7D 11/25/19 Cholecalciferol (Vitamin D3) [Vitamin D3] 50 mcg PO DAILY 06/12/21 Doxycycline Hyclate [Vibramycin] 100 mg PO BID 06/12/21 Folic Acid 1 mg PO DAILY 06/12/21 Pantoprazole [Protonix] 40 mg PO QDAC 06/12/21 Objective - Vital Signs/Intake & Output Reviewed Vital Signs: Yes Vital Signs: Vital Signs Temp Pulse Pulse Resp BP BP Pulse Ox 06/19/21 07:00 93 26 H 108/61 96 06/19/21 06:34 37.7 C 06/19/21 06:00 94 22 114/65 96 06/19/21 05:20 131/65 H 06/19/21 05:00 100 22 131/65 H 93 06/19/21 04:53 94 06/19/21 04:00 99 26 H 110/64 97 Intake & Output: Intake & Output 06/16/21 06/17/21 06/18/21 06/19/21 23:59 23:59 23:59 23:59 Intake Total 2618.225 2653.422 3172.667 270.738 Output Total 3940 2785 2085 720 Balance -1321.775 -835.215 1967.667 -449.262 - Objective General Appearance: positive: Other (Sedated.) Eyes Bilateral: positive: Conjunctivae nml ENT: positive: Other (ET tube in place.) Respiratory: positive: Rhonchi Cardiovascular: positive: Regular rate & rhythm, Extrasystoles, Tachycardia Abdomen: positive: Non-tender, No distention. negative: Tenderness Skin: positive: Warm, Dry, Other (Psoriatic skin changes over bilateral lower extremities.) Extremities: positive: Pedal edema (Trace edema in bilateral lower extremities.) - Lab Results Fish Bones: 06/19/21 04:42 06/19/21 16:45 Other Labs: Lab Results x24hrs 06/19/21 06/19/21 06/19/21 Range/Units 06:34 05:05 04:42 WBC (4.8-10.8) x10^3/uL RBC (4.70-6.10) 10^6/uL Hgb (14.0-18.0) g/dL Hct (42.0-52.0) % MCV (80.0-94.0) fL MCH (27.0-31.0) pg MCHC (32.0-36.0) g/dL RDW (12.0-15.0) % Plt Count (130-450) 10^3/uL MPV (7.4-11.4) fL Neut # (Auto) Lymph # (Auto) [place] # (Auto) Eos # (Auto) Baso # (Auto) Absolute Nucleated RBC Total Counted Band Neuts % (Manual) (0 - 10) % Abnorm Lymph % (Manual) % Myelocytes % ( - 0) % Nucleated RBC % Neutrophils # (Manual) (1.5-6.6) 10^3/uL Lymphocytes # (Manual) (1.5-3.5) 10^3/uL Monocytes # (Manual) (0.0-1.0) 10^3/uL Eosinophils # (Manual) (0-0.7) 10^3/uL Basophils # (Manual) (0-0.1) 10^3/uL Differential Comment WBC Morphology (NORMAL) Platelet Estimate (NORMAL) Platelet Morphology (NORMAL) RBC Morph Micro Appear (NORMAL) Bld Gas Analysis Time Sample Site ABG pH (7.35-7.45) ABG pCO2 (34-45) mmHg ABG pO2 (80-100) mmHg ABG HCO3 (22.0-26.0) mmol/L ABG Total CO2 (21.0-29.0) MMOL/L ABG O2 Saturation (94-98) % ABG Base Excess (-2.0-3.0) mmol/L David Test VBG pH (7.31-7.41) Ionized Calcium (1.15-1.33) mmol/L Respiration Rate b/min O2 Delivery Device FiO2 Tidal Volume mL PEEP cmH2O Sodium (135-145) mmol/L Potassium (3.5-5.0) mmol/L Chloride (101-111) mmol/L Carbon Dioxide (21-32) mmol/L Anion Gap (6-13) BUN (6-20) mg/dL Creatinine (0.6-1.2) mg/dL Estimated GFR (MDRD) (>89) Glucose (70-100) mg/dL POC Whole Bld Glucose 150 H 177 H (70 - 100) mg/dL Calcium (8.5-10.3) mg/dL Phosphorus (2.5-4.6) mg/dL Magnesium (1.7-2.8) mg/dL Total Bilirubin (0.2-1.0) mg/dL AST (10-42) IU/L ALT (10-60) IU/L Alkaline Phosphatase (42-121) IU/L B-Natriuretic Peptide 303 H (5-100) pg/mL Total Protein (6.7-8.2) g/dL Albumin (3.2-5.5) g/dL Globulin (2.1-4.2) g/dL Albumin/Globulin Ratio (1.0-2.2) Prealbumin (18-45) mg/dL Urine Potassium mmol/L 06/19/21 06/19/21 06/19/21 Range/Units 04:42 04:42 04:42 WBC 21.4 H (4.8-10.8) x10^3/uL RBC 2.77 L (4.70-6.10) 10^6/uL Hgb 8.2 L (14.0-18.0) g/dL Hct 26.9 L (42.0-52.0) % MCV 97.1 H (80.0-94.0) fL MCH 29.6 (27.0-31.0) pg MCHC 30.5 L (32.0-36.0) g/dL RDW 17.3 H (12.0-15.0) % Plt Count 376 (130-450) 10^3/uL MPV 9.3 (7.4-11.4) fL Neut # (Auto) Not Reportable Lymph # (Auto) Not Reportable [place] # (Auto) Not Reportable Eos # (Auto) Not Reportable Baso # (Auto) Not Reportable Absolute Nucleated RBC Not Reportable Total Counted 100 Band Neuts % (Manual) 2 (0 - 10) % Abnorm Lymph % (Manual) 0 % Myelocytes % 1 H ( - 0) % Nucleated RBC % Not Reportable Neutrophils # (Manual) 19.7 H (1.5-6.6) 10^3/uL Lymphocytes # (Manual) 0.9 L (1.5-3.5) 10^3/uL Monocytes # (Manual) 0.6 (0.0-1.0) 10^3/uL Eosinophils # (Manual) 0.0 (0-0.7) 10^3/uL Basophils # (Manual) 0.0 (0-0.1) 10^3/uL Differential Comment MANUAL DIFFERENTIAL WBC Morphology NORMAL APPEARANCE (NORMAL) Platelet Estimate NORMAL (130-450,000) (NORMAL) Platelet Morphology NORMAL APPEARANCE (NORMAL) RBC Morph Micro Appear 1+ ANISOCYTOSIS (NORMAL) Bld Gas Analysis Time Sample Site ABG pH (7.35-7.45) ABG pCO2 (34-45) mmHg ABG pO2 (80-100) mmHg ABG HCO3 (22.0-26.0) mmol/L ABG Total CO2 (21.0-29.0) MMOL/L ABG O2 Saturation (94-98) % ABG Base Excess (-2.0-3.0) mmol/L David Test VBG pH 7.324 (7.31-7.41) Ionized Calcium 1.17 (1.15-1.33) mmol/L Respiration Rate b/min O2 Delivery Device FiO2 Tidal Volume mL PEEP cmH2O Sodium 138 (135-145) mmol/L Potassium 6.2 H* (3.5-5.0) mmol/L Chloride 102 (101-111) mmol/L Carbon Dioxide 29 (21-32) mmol/L Anion Gap 7.0 (6-13) BUN 52 H (6-20) mg/dL Creatinine 1.0 (0.6-1.2) mg/dL Estimated GFR (MDRD) 75 L (>89) Glucose 182 H (70-100) mg/dL POC Whole Bld Glucose (70 - 100) mg/dL Calcium 8.1 L (8.5-10.3) mg/dL Phosphorus 3.3 (2.5-4.6) mg/dL Magnesium 2.4 (1.7-2.8) mg/dL Total Bilirubin 0.4 (0.2-1.0) mg/dL AST 48 H (10-42) IU/L ALT 30 (10-60) IU/L Alkaline Phosphatase 146 H (42-121) IU/L B-Natriuretic Peptide (5-100) pg/mL Total Protein 6.7 (6.7-8.2) g/dL Albumin 1.5 L (3.2-5.5) g/dL Globulin 5.2 H (2.1-4.2) g/dL Albumin/Globulin Ratio 0.3 L (1.0-2.2) Prealbumin 6 L (18-45) mg/dL Urine Potassium mmol/L 06/19/21 06/19/21 06/18/21 Range/Units 02:58 00:54 23:20 WBC (4.8-10.8) x10^3/uL RBC (4.70-6.10) 10^6/uL Hgb (14.0-18.0) g/dL Hct (42.0-52.0) % MCV (80.0-94.0) fL MCH (27.0-31.0) pg MCHC (32.0-36.0) g/dL RDW (12.0-15.0) % Plt Count (130-450) 10^3/uL MPV (7.4-11.4) fL Neut # (Auto) Lymph # (Auto) [place] # (Auto) Eos # (Auto) Baso # (Auto) Absolute Nucleated RBC Total Counted Band Neuts % (Manual) (0 - 10) % Abnorm Lymph % (Manual) % Myelocytes % ( - 0) % Nucleated RBC % Neutrophils # (Manual) (1.5-6.6) 10^3/uL Lymphocytes # (Manual) (1.5-3.5) 10^3/uL Monocytes # (Manual) (0.0-1.0) 10^3/uL Eosinophils # (Manual) (0-0.7) 10^3/uL Basophils # (Manual) (0-0.1) 10^3/uL Differential Comment WBC Morphology (NORMAL) Platelet Estimate (NORMAL) Platelet Morphology (NORMAL) RBC Morph Micro Appear (NORMAL) Bld Gas Analysis Time Sample Site ABG pH (7.35-7.45) ABG pCO2 (34-45) mmHg ABG pO2 (80-100) mmHg ABG HCO3 (22.0-26.0) mmol/L ABG Total CO2 (21.0-29.0) MMOL/L ABG O2 Saturation (94-98) % ABG Base Excess (-2.0-3.0) mmol/L David Test VBG pH (7.31-7.41) Ionized Calcium (1.15-1.33) mmol/L Respiration Rate b/min O2 Delivery Device FiO2 Tidal Volume mL PEEP cmH2O Sodium 140 (135-145) mmol/L Potassium 6.7 H* (3.5-5.0) mmol/L Chloride 104 (101-111) mmol/L Carbon Dioxide 28 (21-32) mmol/L Anion Gap 8.0 (6-13) BUN 50 H (6-20) mg/dL Creatinine 1.1 (0.6-1.2) mg/dL Estimated GFR (MDRD) 67 L (>89) Glucose 249 H (70-100) mg/dL POC Whole Bld Glucose 190 H 211 H (70 - 100) mg/dL Calcium 8.4 L (8.5-10.3) mg/dL Phosphorus (2.5-4.6) mg/dL Magnesium (1.7-2.8) mg/dL Total Bilirubin (0.2-1.0) mg/dL AST (10-42) IU/L ALT (10-60) IU/L Alkaline Phosphatase (42-121) IU/L B-Natriuretic Peptide (5-100) pg/mL Total Protein (6.7-8.2) g/dL Albumin (3.2-5.5) g/dL Globulin (2.1-4.2) g/dL Albumin/Globulin Ratio (1.0-2.2) Prealbumin (18-45) mg/dL Urine Potassium mmol/L 06/18/21 06/18/21 06/18/21 Range/Units 23:16 20:24 18:41 WBC (4.8-10.8) x10^3/uL RBC (4.70-6.10) 10^6/uL Hgb (14.0-18.0) g/dL Hct (42.0-52.0) % MCV (80.0-94.0) fL MCH (27.0-31.0) pg MCHC (32.0-36.0) g/dL RDW (12.0-15.0) % Plt Count (130-450) 10^3/uL MPV (7.4-11.4) fL Neut # (Auto) Lymph # (Auto) [place] # (Auto) Eos # (Auto) Baso # (Auto) Absolute Nucleated RBC Total Counted Band Neuts % (Manual) (0 - 10) % Abnorm Lymph % (Manual) % Myelocytes % ( - 0) % Nucleated RBC % Neutrophils # (Manual) (1.5-6.6) 10^3/uL Lymphocytes # (Manual) (1.5-3.5) 10^3/uL Monocytes # (Manual) (0.0-1.0) 10^3/uL Eosinophils # (Manual) (0-0.7) 10^3/uL Basophils # (Manual) (0-0.1) 10^3/uL Differential Comment WBC Morphology (NORMAL) Platelet Estimate (NORMAL) Platelet Morphology (NORMAL) RBC Morph Micro Appear (NORMAL) Bld Gas Analysis Time Sample Site ABG pH (7.35-7.45) ABG pCO2 (34-45) mmHg ABG pO2 (80-100) mmHg ABG HCO3 (22.0-26.0) mmol/L ABG Total CO2 (21.0-29.0) MMOL/L ABG O2 Saturation (94-98) % ABG Base Excess (-2.0-3.0) mmol/L David Test VBG pH (7.31-7.41) Ionized Calcium (1.15-1.33) mmol/L Respiration Rate b/min O2 Delivery Device FiO2 Tidal Volume mL PEEP cmH2O Sodium 137 (135-145) mmol/L Potassium 6.7 H* (3.5-5.0) mmol/L Chloride 102 (101-111) mmol/L Carbon Dioxide 28 (21-32) mmol/L Anion Gap 7.0 (6-13) BUN 50 H (6-20) mg/dL Creatinine 1.1 (0.6-1.2) mg/dL Estimated GFR (MDRD) 67 L (>89) Glucose 219 H (70-100) mg/dL POC Whole Bld Glucose 213 H 197 H (70 - 100) mg/dL Calcium 8.4 L (8.5-10.3) mg/dL Phosphorus (2.5-4.6) mg/dL Magnesium (1.7-2.8) mg/dL Total Bilirubin (0.2-1.0) mg/dL AST (10-42) IU/L ALT (10-60) IU/L Alkaline Phosphatase (42-121) IU/L B-Natriuretic Peptide (5-100) pg/mL Total Protein (6.7-8.2) g/dL Albumin (3.2-5.5) g/dL Globulin (2.1-4.2) g/dL Albumin/Globulin Ratio (1.0-2.2) Prealbumin (18-45) mg/dL Urine Potassium mmol/L 06/18/21 06/18/21 06/18/21 Range/Units 18:35 15:24 11:51 WBC (4.8-10.8) x10^3/uL RBC (4.70-6.10) 10^6/uL Hgb (14.0-18.0) g/dL Hct (42.0-52.0) % MCV (80.0-94.0) fL MCH (27.0-31.0) pg MCHC (32.0-36.0) g/dL RDW (12.0-15.0) % Plt Count (130-450) 10^3/uL MPV (7.4-11.4) fL Neut # (Auto) Lymph # (Auto) [place] # (Auto) Eos # (Auto) Baso # (Auto) Absolute Nucleated RBC Total Counted Band Neuts % (Manual) (0 - 10) % Abnorm Lymph % (Manual) % Myelocytes % ( - 0) % Nucleated RBC % Neutrophils # (Manual) (1.5-6.6) 10^3/uL Lymphocytes # (Manual) (1.5-3.5) 10^3/uL Monocytes # (Manual) (0.0-1.0) 10^3/uL Eosinophils # (Manual) (0-0.7) 10^3/uL Basophils # (Manual) (0-0.1) 10^3/uL Differential Comment WBC Morphology (NORMAL) Platelet Estimate (NORMAL) Platelet Morphology (NORMAL) RBC Morph Micro Appear (NORMAL) Bld Gas Analysis Time Sample Site ABG pH (7.35-7.45) ABG pCO2 (34-45) mmHg ABG pO2 (80-100) mmHg ABG HCO3 (22.0-26.0) mmol/L ABG Total CO2 (21.0-29.0) MMOL/L ABG O2 Saturation (94-98) % ABG Base Excess (-2.0-3.0) mmol/L David Test VBG pH (7.31-7.41) Ionized Calcium (1.15-1.33) mmol/L Respiration Rate b/min O2 Delivery Device FiO2 Tidal Volume mL PEEP cmH2O Sodium 134 L (135-145) mmol/L Potassium 6.8 H* (3.5-5.0) mmol/L Chloride 101 (101-111) mmol/L Carbon Dioxide 30 (21-32) mmol/L Anion Gap 3.0 L (6-13) BUN 52 H (6-20) mg/dL Creatinine 1.2 (0.6-1.2) mg/dL Estimated GFR (MDRD) 61 L (>89) Glucose 229 H (70-100) mg/dL POC Whole Bld Glucose 207 H 291 H (70 - 100) mg/dL Calcium 7.9 L (8.5-10.3) mg/dL Phosphorus (2.5-4.6) mg/dL Magnesium (1.7-2.8) mg/dL Total Bilirubin (0.2-1.0) mg/dL AST (10-42) IU/L ALT (10-60) IU/L Alkaline Phosphatase (42-121) IU/L B-Natriuretic Peptide (5-100) pg/mL Total Protein (6.7-8.2) g/dL Albumin (3.2-5.5) g/dL Globulin (2.1-4.2) g/dL Albumin/Globulin Ratio (1.0-2.2) Prealbumin (18-45) mg/dL Urine Potassium mmol/L 06/18/21 06/18/21 06/18/21 Range/Units 09:05 09:05 08:20 WBC (4.8-10.8) x10^3/uL RBC (4.70-6.10) 10^6/uL Hgb (14.0-18.0) g/dL Hct (42.0-52.0) % MCV (80.0-94.0) fL MCH (27.0-31.0) pg MCHC (32.0-36.0) g/dL RDW (12.0-15.0) % Plt Count (130-450) 10^3/uL MPV (7.4-11.4) fL Neut # (Auto) Lymph # (Auto) [place] # (Auto) Eos # (Auto) Baso # (Auto) Absolute Nucleated RBC Total Counted Band Neuts % (Manual) (0 - 10) % Abnorm Lymph % (Manual) % Myelocytes % ( - 0) % Nucleated RBC % Neutrophils # (Manual) (1.5-6.6) 10^3/uL Lymphocytes # (Manual) (1.5-3.5) 10^3/uL Monocytes # (Manual) (0.0-1.0) 10^3/uL Eosinophils # (Manual) (0-0.7) 10^3/uL Basophils # (Manual) (0-0.1) 10^3/uL Differential Comment WBC Morphology (NORMAL) Platelet Estimate (NORMAL) Platelet Morphology (NORMAL) RBC Morph Micro Appear (NORMAL) Bld Gas Analysis Time 0829 Sample Site RIGHT BRACHIAL ABG pH 7.31 L (7.35-7.45) ABG pCO2 55 H (34-45) mmHg ABG pO2 61 L (80-100) mmHg ABG HCO3 27.1 H (22.0-26.0) mmol/L ABG Total CO2 28.8 (21.0-29.0) MMOL/L ABG O2 Saturation 88 L (94-98) % ABG Base Excess 0.4 (-2.0-3.0) mmol/L David Test NOT APPLICABLE VBG pH (7.31-7.41) Ionized Calcium (1.15-1.33) mmol/L Respiration Rate 18 b/min O2 Delivery Device VENTILATOR FiO2 70.00 Tidal Volume 500 mL PEEP 10 cmH2O Sodium 136 (135-145) mmol/L Potassium 6.2 H* (3.5-5.0) mmol/L Chloride 104 (101-111) mmol/L Carbon Dioxide 26 (21-32) mmol/L Anion Gap 6.0 (6-13) BUN 45 H (6-20) mg/dL Creatinine 1.1 (0.6-1.2) mg/dL Estimated GFR (MDRD) 67 L (>89) Glucose 192 H (70-100) mg/dL POC Whole Bld Glucose (70 - 100) mg/dL Calcium 8.0 L (8.5-10.3) mg/dL Phosphorus (2.5-4.6) mg/dL Magnesium (1.7-2.8) mg/dL Total Bilirubin (0.2-1.0) mg/dL AST (10-42) IU/L ALT (10-60) IU/L Alkaline Phosphatase (42-121) IU/L B-Natriuretic Peptide (5-100) pg/mL Total Protein (6.7-8.2) g/dL Albumin (3.2-5.5) g/dL Globulin (2.1-4.2) g/dL Albumin/Globulin Ratio (1.0-2.2) Prealbumin (18-45) mg/dL Urine Potassium 39.1 mmol/L Sepsis Event Note (H) - Evaluation Current Stage of Sepsis: Septic shock Possible source of Sepsis: positive: Pulmonary - Sepsis Criteria Sepsis Criteria: Respiratory: Increasing oxygen requirements, WBC count greater than 12,000 or less than 4000, SBP drop more than 40mHg, MAP less than 65 mmHg, SBP less than 90 mmHg, Renal: urine output less than 0.5ml/kg/hr for 2 hours or creatinine gr Assessment/Plan - Problem List (1) Acute respiratory failure with hypoxia Impression: This is secondary to bacterial pneumonia, COVID-19 pneumonia as well as pulmonary embolism. His FiO2 requirements are stable compared to yesterday evening as he is now requiring an FiO2 of 60%. Chest x-ray yesterday showed worsening infiltrates. ABG this morning showed pH 7.4 with a PCO2 of 50 and a PO2 of 53 on FiO2 of 60%. It appears he has had slight improvement over the past 24 hours or so. We will keep him on the Decadron for the COVID-19. We will continue to diurese him with Lasix 40 mg IV daily. His white count is improved today's we will keep the Zyvox cover for MRSA. Continue meropenem IV given respiratory cultures grew ESBL Klebsiella. Continue vent management per protocol. We will check a CK level and lipid panel since he has been on propofol. (2) Infection due to ESBL-producing Klebsiella pneumoniae Impression: Respiratory cultures grew Klebsiella pneumonia which is sensitive to carbapenems. He has not been on meropenem with today being day 5. We will continue Zyvox cover for MRSA given his white count improved with the addition of this. He will need a total of 1 week of treatment. (3) Pneumonia due to COVID-19 virus Impression: This is contributing to his respiratory failure with hypoxia. Continue Decadron. Continue contact precautions. (4) NSTEMI (non-ST elevated myocardial infarction) Impression: Initial concern was for NSTEMI given his troponins peaked over 800. Echocardiogram showed evidence of right heart strain which I suspect is due to a pulmonary embolism. LV showed no wall motion abnormalities. In hindsight, his elevated troponin may have been due to the pulmonary embolism and NSTEMI. We are continuing him on Lovenox and he will need further cardiac work-up once he improves from his respiratory failure. (5) Right leg DVT Impression: Duplex confirmed right lower extremity DVT and it is very likely that he has pulmonary embolism given echo showed evidence of right heart strain. Given he is clinically improving and is no longer hypotensive, will hold off on obtaining a CT angiogram as it would not exchange engineer. We will continue him on Lovenox. (6) Anemia Impression: After a drop in his hemoglobin about 2 days ago, it has since been stable. That drop was likely due to hemodilution as the other cell counts dropped as well. There has been no evidence of bleeding. His hemoglobin has been stable we will continue Lovenox for DVT and likely pulmonary embolism. (7) Hyperkalemia Impression: This is an ongoing problem. He has been hyperkalemic throughout his hospit alization and it has been worse over the past 24 hours. This morning his potassium is still greater than 6. We will give him another dose of IV insulin. He received Kayexalate yesterday. Urine potassium came back at just less than 40. We cannot check a potassium tubular gradient as serum osmolality and urine osmolality are send out labs. I will order a CK to ensure there is no evidence of rhabdomyolysis which may be causing the hyperkalemia. We will also look to discontinue the beta-[place] all of this was just started so I doubt this is contributing to the hyperkalemia. If he remains hyperkalemic then we will put him back on an insulin drip as this previously did improve his potassium. Continue to check labs every 4 hours. (8) Diabetes mellitus, insulin dependent (IDDM), uncontrolled Impression: His blood glucose is well controlled on the current dose of insulin. If he remains persistently hypokalemic we will switch him back to an insulin infusion. (9) PVD (peripheral vascular disease) Impression: Stable. He is on Lovenox and Plavix after we discontinue the aspirin as he would not be on triple therapy. (10) Psoriatic arthritis Impression: We are holding his home immunosuppressants. (11) Ankylosing spondylitis Impression: We are holding his home immunosuppressants. (12) TORY (acute kidney injury) Impression: This was secondary to ATN and has resolved. His renal function remains at baseline. We will continue to monitor. (13) Septic shock Impression: This is likely secondary to pneumonia either due to COVID-19 or the ESBL Klebsiella pneumonia. The septic shock has now resolved. He remains off of vasopressors.
[2021-06-19] MEDS: CLOPIDOGREL 75 MG TABLET PO SCH (08:35)
[2021-06-19] MEDS: FOLIC ACID 1 MG TABLET PO SCH (08:35)
[2021-06-19] MEDS: ENOXAPARIN 80 MG/0.8 ML SYRINGE SUBQ SCH ×2 (08:36→20:03)
[2021-06-19] MEDS: CHLORHEXIDINE GLUCONATE 15 ML UDC PO SCH ×2 (08:36→20:03)
[2021-06-19] MEDS: DEXAMETHASONE 4 MG/ML VIAL IVP SCH (08:40)
[2021-06-19] MEDS: INSULIN GLARGINE 300 UNIT/3 ML PEN SUBQ SCH (08:49)
[2021-06-19 09:39] LABS: CHOL/HDL RATIO 2.8 (<5.0); CHOLESTEROL 54 mg/dL; CK- CREATINE KINASE 94 IU/L (22-269); CRP - C-REACTIVE PROTEIN 16.9 mg/dL (0-1.0); HDL CHOLESTEROL 19 mg/dL; LDL CHOLESTEROL,CALCULATED 19 mg/dL; TRIGLYCERIDES 80 mg/dL; VLDL CHOLESTEROL 16 mg/dL
[2021-06-19 09:47] LABS: CALCIUM 7.9 mg/dL (8.5-10.3); CREATININE 1.1 mg/dL (0.6-1.2); POTASSIUM 5.9 mmol/L (3.5-5.0)
[2021-06-19] MEDS: MORPHINE 2 MG/ML CARPUJECT IVP PRN ×2 (10:14→23:06)
[2021-06-19] MEDS: FUROSEMIDE 40 MG/4 ML VIAL IVP SCH (10:17)
[2021-06-19] MEDS: LINEZOLID 600 MG/300 ML 600 MG/300 ML BAG IV SCH ×2 (10:20→21:55)
[2021-06-19] MEDS ORDERED: INSULIN REGULAR HUMAN 100 UNIT in SODIUM CHLORIDE 0.9% 100ML 99 ML IV ONE (10:31)
[2021-06-19] MEDS: SODIUM CHLORIDE 0.9% 500 ML IV PRN (11:30)
[2021-06-19] MEDS: polyethylene glycoL 3350 17 GM PACKET PO SCH (11:46)
[2021-06-19] MEDS: MIDAZOLAM DRIP 50 MG/50 ML 50 MG/50 ML BAG IV SCH (12:47)
[2021-06-19 13:24] LABS: CALCIUM 7.9 mg/dL (8.5-10.3); CREATININE 1.1 mg/dL (0.6-1.2)
[2021-06-19 13:26] LABS: POTASSIUM 6.2 mmol/L (3.5-5.0)
[2021-06-19 14:14] LABS: ABG HCO3 31.5 mmol/L (22.0-26.0); ABG PCO2 50 mmHg (34-45)
[2021-06-19 14:15] LABS: ABG MODE OF VENTILATION ASSIST/CONTROL; ABG RESPIRATORY RATE 18 b/min; ALLEN TEST POSITIVE
[2021-06-19 14:18] LABS: ABG SATURATION PULSE OXIMETRY% 94 %
[2021-06-19 14:34] LABS: ABG PO2 53 mmHg (80-100)
[2021-06-19 14:35] LABS: ABG OXYGEN SATURATION 87 % (94-98)
[2021-06-19] MEDS: HYDROmorphone 2 MG/ML VIAL IVP PRN (17:01)
[2021-06-19 17:07] LABS: CALCIUM 8.1 mg/dL (8.5-10.3)
[2021-06-19 17:16] LABS: POTASSIUM 6.3 mmol/L (3.5-5.0)
[2021-06-19] MEDS ORDERED: MIN OIL/DIMETHICON/COCONUT OIL 92 GM TUBE TOP PRN (17:57)
[2021-06-19] MEDS: ATORVASTATIN 40 MG TABLET PO SCH (20:03)
[2021-06-19 21:33] LABS: CALCIUM 7.9 mg/dL (8.5-10.3)
[2021-06-19 21:34] LABS: POTASSIUM 6.3 mmol/L (3.5-5.0)
[2021-06-20] MEDS: MEROPENEM 1 GM in SODIUM CHLORIDE 0.9% MINIBAG 100 ML IV SCH ×3 (00:10→18:26)
[2021-06-20] MEDS: SODIUM CHLORIDE FLUSH 0.9% 10 ML SYRINGE IVP SCH ×3 (00:33→18:29)
[2021-06-20] MEDS: PROPOFOL 1000 MG/100 ML 1,000 MG/100 ML BOTTLE IV SCH ×3 (02:05→18:00)
[2021-06-20] MEDS: MIDAZOLAM DRIP 50 MG/50 ML 50 MG/50 ML BAG IV SCH ×2 (04:29→18:30)
[2021-06-20] MEDS: METOPROLOL 5 MG/5 ML VIAL IVP SCH ×2 (05:36→11:40)
[2021-06-20 05:47] LABS: BASOPHILS % (AUTO) 0.3 %; HCT - HEMATOCRIT 28.6 % (42.0-52.0); HGB - HEMOGLOBIN 8.6 g/dL (14.0-18.0); LYMPHOCYTES % (AUTO) 5.6 %; MEAN CORPUSCULAR HEMOGLOBIN 28.9 pg (27.0-31.0); MEAN CORPUSCULAR HGB CONC 30.1 g/dL (32.0-36.0); MEAN PLATELET VOLUME 9.4 fL (7.4-11.4); MONOCYTES % (AUTO) 9.4 %; NEUTROPHILS % (AUTO) 83.3 %; PLT - PLATELET COUNT 440 10^3/uL (130-450); RED BLOOD COUNT 2.98 10^6/uL (4.70-6.10); RED CELL DISTRIBUTION WIDTH 17.5 % (12.0-15.0); WHITE BLOOD COUNT 22.9 x10^3/uL (4.8-10.8)
[2021-06-20 05:51] LABS: ABNORMAL LYMPHS % (MANUAL) 0 %
[2021-06-20 05:55] LABS: CALCIUM 8.1 mg/dL (8.5-10.3); CREATININE 0.9 mg/dL (0.6-1.2); MAGNESIUM 2.2 mg/dL (1.7-2.8); PHOSPHORUS 3.2 mg/dL (2.5-4.6)
[2021-06-20 05:57] LABS: POTASSIUM 6.2 mmol/L (3.5-5.0)
[2021-06-20] MEDS: PANTOPRAZOLE 40 MG VIAL IVP SCH (06:11)
[2021-06-20 06:22] LABS: BAND NEUTROPHILS % (MANUAL) 3 %; DIFFERENTIAL COMMENT MANUAL DIFFERENTIAL; LYMPHOCYTES # (MANUAL) 1.4 10^3/uL (1.5-3.5); LYMPHOCYTES % (MANUAL) 6 %; MONOCYTES # (MANUAL) 2.3 10^3/uL (0.0-1.0); NEUTROPHILS # (MANUAL) 19.2 10^3/uL (1.5-6.6); PLATELET ESTIMATE, MANUAL NORMAL (130-450,000) (NORMAL); PLATELET MORPHOLOGY NORMAL APPEARANCE (NORMAL); RBC MORPHOLOGY (MULTIPLE) 1+ ANISOCYTOSIS (NORMAL); WBC MORPHOLOGY (MULTIPLE) NORMAL APPEARANCE (NORMAL)
[2021-06-20] MEDS ORDERED: ACETAMINOPHEN 1,000 MG/100 ML 100 ML IV PRN (07:03)
--- NOTE | 2021-06-20 07:29 | PROVIDER PROGRESS NOTE ---
Subjective - Prog Note Date Prog Note Date: 06/20/21 - Subjective Subjective: He had a significant increase in his oxygen requirements morning. He is also febrile. He remains intubated and sedated. Current Medications - Current Medications Current Medications: Active Medications Acetaminophen (Acetaminophen 325 Mg Tablet) 650 mg PO Q4HR PRN PRN Reason: Pain 1 to 4 Last Admin: 06/19/21 05:19 Dose: 650 mg Atorvastatin Calcium (Atorvastatin 40 Mg Tablet) 40 mg PO QPM [facility] Last Admin: 06/19/21 20:03 Dose: 40 mg Chlorhexidine Gluconate (Chlorhexidine Gluconate 15 Ml Udc) 15 ml PO BID [facility] Last Admin: 06/20/21 09:52 Dose: 15 ml Clopidogrel Bisulfate (Clopidogrel 75 Mg Tablet) 75 mg PO DAILY [facility] Last Admin: 06/20/21 09:52 Dose: 75 mg Dexamethasone (Dexamethasone 4 Mg/Ml Vial) 6 mg IVP DAILY [facility] Last Admin: 06/20/21 09:52 Dose: 6 mg Enoxaparin Sodium (Enoxaparin 80 Mg/0.8 Ml Syringe) 80 mg SUBQ BID [facility] Last Admin: 06/20/21 09:53 Dose: 80 mg Folic Acid (Folic Acid 1 Mg Tablet) 1 mg PO DAILY [facility] Last Admin: 06/20/21 09:54 Dose: 1 mg Furosemide (Furosemide 40 Mg/4 Ml Vial) 40 mg IVP DAILY [facility] Last Admin: 06/20/21 09:54 Dose: 40 mg Hydromorphone HCl (Hydromorphone 2 Mg/Ml Vial) 2 mg IVP Q2H PRN PRN Reason: PAIN Last Admin: 06/19/21 17:01 Dose: 2 mg Midazolam HCl (Versed Drip 50 Mg/50 Ml) 50 mg in 50 mls @ 2.94 mls/hr IV .Q17H1M [facility]; Protocol Last Titration: 06/20/21 12:10 Dose: 0.06 mg/kg/hr, 4.41 mls/hr Propofol (Diprivan) 1,000 mg in 100 mls @ 4.44 mls/hr IV .[id number] [facility]; Protocol Last Titration: 06/20/21 12:05 Dose: 40 mcg/kg/min, 17.76 mls/hr Meropenem 1 gm/ Sodium (Chloride) 100 mls @ 200 mls/hr IV Q8H [facility] Last Infusion: 06/20/21 10:30 Dose: Infused Sodium Chloride (Normal Saline 0.9%) 500 mls @ 20 mls/hr IV Q24H PRN PRN Reason: TKO RATE Last Infusion: 06/20/21 12:05 Dose: 20 mls/hr Linezolid (Zyvox 600 Mg/300 Ml) 600 mg in 300 mls @ 300 mls/hr IV Q12H [facility] Last Infusion: 06/20/21 11:37 Dose: Infused Acetaminophen (Ofirmev) 100 mls @ 400 mls/hr IV Q6HR PRN PRN Reason: PAIN Last Infusion: 06/20/21 11:59 Dose: Infused Insulin Human Regular 100 unit (/ Sodium Chloride) 100 mls @ 1 mls/hr IV .Q72H [facility]; Protocol Vecuronium [place] 100 mg/ (Sodium Chloride) 100 mls @ 4.98 mls/hr IV .Q20H5M [facility]; Protocol Mineral Oil (Min Oil/Dimethicon/Coconut Oil 92 Gm Tube) 1 applic TOP PRN PRN PRN Reason: Skin Care Morphine Sulfate (Morphine 2 Mg/Ml Carpuject) 2 mg IVP Q6HR PRN PRN Reason: Dyspnea Last Admin: 06/19/21 23:06 Dose: 2 mg Ondansetron HCl (Ondansetron 4 Mg/2 Ml Vial) 4 mg IVP Q6HR PRN PRN Reason: Nausea / Vomiting Pantoprazole Sodium (Pantoprazole 40 Mg Vial) 40 mg IVP QDAC [facility] Last Admin: 06/20/21 06:11 Dose: 40 mg Polyethylene Glycol (Polyethylene Glycol 3350 17 Gm Packet) 17 gm PO DAILY [facility] Last Admin: 06/20/21 09:54 Dose: 17 gm Sodium Chloride (Sodium Chloride Flush 0.9% 10 Ml Syringe) 10 ml IVP 0100,0900,1700 [facility] Last Admin: 06/20/21 09:55 Dose: 10 ml Sodium Chloride (Sodium Chloride Flush 0.9% 10 Ml Syringe) 10 ml IVP PRN PRN PRN Reason: NEEDED PER PROVIDER ORDERS Last Admin: 06/17/21 06:30 Dose: 10 ml Prednisone 25 mg PO DAILY 10/09/12 Metoprolol Tartrate [Lopressor] 12.5 mg PO BID 08/13/15 Insulin Glargine,Hum.rec.anlog [Lantus] 35 units SQ BID 09/27/15 Multivitamin [Multivitamins] 1 tab PO DAILY 09/27/15 amLODIPine [Norvasc] 5 mg PO DAILY 09/27/15 Indomethacin 50 mg PO TID 11/23/15 Sulfasalazine [Sulfazine] 1,500 mg PO BID 03/28/16 Atorvastatin Calcium 40 mg PO QPM 11/25/19 Clopidogrel [Plavix] 75 mg PO DAILY 11/25/19 metHOTREXate sodium [Methotrexate] 22.5 mg PO Q7D 11/25/19 Cholecalciferol (Vitamin D3) [Vitamin D3] 50 mcg PO DAILY 06/12/21 Doxycycline Hyclate [Vibramycin] 100 mg PO BID 06/12/21 Folic Acid 1 mg PO DAILY 06/12/21 Pantoprazole [Protonix] 40 mg PO QDAC 06/12/21 Objective - Vital Signs/Intake & Output Reviewed Vital Signs: Yes Vital Signs: Vital Signs Temp Pulse Pulse Resp BP BP BP 06/20/21 07:00 95 24 110/63 118/63 06/20/21 06:00 38.7 C H 93 26 H 119/56 L 109/59 L 06/20/21 05:36 131/61 H 06/20/21 05:21 91 06/20/21 05:00 101 H 22 131/61 H 132/66 H 06/20/21 04:00 105 H 18 126/66 136/70 H Pulse Ox 06/20/21 07:00 93 06/20/21 06:00 94 06/20/21 05:36 06/20/21 05:21 06/20/21 05:00 94 06/20/21 04:00 94 Intake & Output: Intake & Output 06/17/21 06/18/21 06/19/21 06/20/21 23:59 23:59 23:59 23:59 Intake Total 2653.422 3172.667 2749.825 258.271 Output Total 2785 2085 2910 1350 Balance -985.705 4443.667 -160.175 -1091.729 - Objective General Appearance: positive: Other (Sedated.) ENT: positive: Other (ET tube in place.) Respiratory: positive: Rhonchi. negative: Wheezes Cardiovascular: positive: Extrasystoles, Tachycardia. negative: Systolic murmur Abdomen: positive: Non-tender, No distention. negative: Tenderness Skin: positive: Other (Psoriatic changes over lower extremities.) Extremities: positive: Pedal edema (+1 edema in extremities.) - Lab Results Fish Bones: 06/20/21 05:05 06/20/21 05:05 Other Labs: Lab Results x24hrs 06/20/21 06/20/21 06/20/21 Range/Units 06:40 05:14 05:05 WBC (4.8-10.8) x10^3/uL RBC (4.70-6.10) 10^6/uL Hgb (14.0-18.0) g/dL Hct (42.0-52.0) % MCV (80.0-94.0) fL MCH (27.0-31.0) pg MCHC (32.0-36.0) g/dL RDW (12.0-15.0) % Plt Count (130-450) 10^3/uL MPV (7.4-11.4) fL Neut # (Auto) Lymph # (Auto) [place] # (Auto) Eos # (Auto) Baso # (Auto) Absolute Nucleated RBC Total Counted Band Neuts % (Manual) (0 - 10) % Abnorm Lymph % (Manual) % Nucleated RBC % Neutrophils # (Manual) (1.5-6.6) 10^3/uL Lymphocytes # (Manual) (1.5-3.5) 10^3/uL Monocytes # (Manual) (0.0-1.0) 10^3/uL Eosinophils # (Manual) (0-0.7) 10^3/uL Basophils # (Manual) (0-0.1) 10^3/uL Differential Comment WBC Morphology (NORMAL) Platelet Estimate (NORMAL) Platelet Morphology (NORMAL) RBC Morph Micro Appear (NORMAL) Bld Gas Analysis Time Sample Site ABG pH (7.35-7.45) ABG pCO2 (34-45) mmHg ABG pO2 (80-100) mmHg ABG HCO3 (22.0-26.0) mmol/L ABG Total CO2 (21.0-29.0) MMOL/L ABG O2 Saturation (94-98) % ABG Oximetry Spot Check % ABG Base Excess (-2.0-3.0) mmol/L David Test Respiration Rate b/min O2 Delivery Device Vent Mode FiO2 Tidal Volume mL PEEP cmH2O EPAP cmH2O Sodium 141 (135-145) mmol/L Potassium 6.2 H* (3.5-5.0) mmol/L Chloride 103 (101-111) mmol/L Carbon Dioxide 32 (21-32) mmol/L Anion Gap 6.0 (6-13) BUN 53 H (6-20) mg/dL Creatinine 0.9 (0.6-1.2) mg/dL Estimated GFR (MDRD) 85 L (>89) Glucose 169 H (70-100) mg/dL POC Whole Bld Glucose 151 H 165 H (70 - 100) mg/dL Calcium 8.1 L (8.5-10.3) mg/dL Phosphorus 3.2 (2.5-4.6) mg/dL Magnesium 2.2 (1.7-2.8) mg/dL Total Creatine Kinase (22-269) IU/L C-Reactive Protein (0-1.0) mg/dL Triglycerides ( - 149) mg/dL Cholesterol ( - 199) mg/dL LDL Cholesterol, Calc ( - 129) mg/dL VLDL Cholesterol mg/dL HDL Cholesterol (60 - ) mg/dL LDL/HDL Ratio (<3.6) Cholesterol/HDL Ratio (<5.0) 06/20/21 06/20/21 06/20/21 Range/Units 05:05 03:06 01:01 WBC 22.9 H (4.8-10.8) x10^3/uL RBC 2.98 L (4.70-6.10) 10^6/uL Hgb 8.6 L (14.0-18.0) g/dL Hct 28.6 L (42.0-52.0) % MCV 96.0 H (80.0-94.0) fL MCH 28.9 (27.0-31.0) pg MCHC 30.1 L (32.0-36.0) g/dL RDW 17.5 H (12.0-15.0) % Plt Count 440 (130-450) 10^3/uL MPV 9.4 (7.4-11.4) fL Neut # (Auto) Not Reportable Lymph # (Auto) Not Reportable [place] # (Auto) Not Reportable Eos # (Auto) Not Reportable Baso # (Auto) Not Reportable Absolute Nucleated RBC Not Reportable Total Counted 100 Band Neuts % (Manual) 3 (0 - 10) % Abnorm Lymph % (Manual) 0 % Nucleated RBC % Not Reportable Neutrophils # (Manual) 19.2 H (1.5-6.6) 10^3/uL Lymphocytes # (Manual) 1.4 L (1.5-3.5) 10^3/uL Monocytes # (Manual) 2.3 H (0.0-1.0) 10^3/uL Eosinophils # (Manual) 0.0 (0-0.7) 10^3/uL Basophils # (Manual) 0.0 (0-0.1) 10^3/uL Differential Comment MANUAL DIFFERENTIAL WBC Morphology NORMAL APPEARANCE (NORMAL) Platelet Estimate NORMAL (130-450,000) (NORMAL) Platelet Morphology NORMAL APPEARANCE (NORMAL) RBC Morph Micro Appear 1+ ANISOCYTOSIS (NORMAL) Bld Gas Analysis Time Sample Site ABG pH (7.35-7.45) ABG pCO2 (34-45) mmHg ABG pO2 (80-100) mmHg ABG HCO3 (22.0-26.0) mmol/L ABG Total CO2 (21.0-29.0) MMOL/L ABG O2 Saturation (94-98) % ABG Oximetry Spot Check % ABG Base Excess (-2.0-3.0) mmol/L David Test Respiration Rate b/min O2 Delivery Device Vent Mode FiO2 Tidal Volume mL PEEP cmH2O EPAP cmH2O Sodium (135-145) mmol/L Potassium (3.5-5.0) mmol/L Chloride (101-111) mmol/L Carbon Dioxide (21-32) mmol/L Anion Gap (6-13) BUN (6-20) mg/dL Creatinine (0.6-1.2) mg/dL Estimated GFR (MDRD) (>89) Glucose (70-100) mg/dL POC Whole Bld Glucose 178 H 201 H (70 - 100) mg/dL Calcium (8.5-10.3) mg/dL Phosphorus (2.5-4.6) mg/dL Magnesium (1.7-2.8) mg/dL Total Creatine Kinase (22-269) IU/L C-Reactive Protein (0-1.0) mg/dL Triglycerides ( - 149) mg/dL Cholesterol ( - 199) mg/dL LDL Cholesterol, Calc ( - 129) mg/dL VLDL Cholesterol mg/dL HDL Cholesterol (60 - ) mg/dL LDL/HDL Ratio (<3.6) Cholesterol/HDL Ratio (<5.0) 06/19/21 06/19/21 06/19/21 Range/Units 23:05 21:09 19:12 WBC (4.8-10.8) x10^3/uL RBC (4.70-6.10) 10^6/uL Hgb (14.0-18.0) g/dL Hct (42.0-52.0) % MCV (80.0-94.0) fL MCH (27.0-31.0) pg MCHC (32.0-36.0) g/dL RDW (12.0-15.0) % Plt Count (130-450) 10^3/uL MPV (7.4-11.4) fL Neut # (Auto) Lymph # (Auto) [place] # (Auto) Eos # (Auto) Baso # (Auto) Absolute Nucleated RBC Total Counted Band Neuts % (Manual) (0 - 10) % Abnorm Lymph % (Manual) % Nucleated RBC % Neutrophils # (Manual) (1.5-6.6) 10^3/uL Lymphocytes # (Manual) (1.5-3.5) 10^3/uL Monocytes # (Manual) (0.0-1.0) 10^3/uL Eosinophils # (Manual) (0-0.7) 10^3/uL Basophils # (Manual) (0-0.1) 10^3/uL Differential Comment WBC Morphology (NORMAL) Platelet Estimate (NORMAL) Platelet Morphology (NORMAL) RBC Morph Micro Appear (NORMAL) Bld Gas Analysis Time Sample Site ABG pH (7.35-7.45) ABG pCO2 (34-45) mmHg ABG pO2 (80-100) mmHg ABG HCO3 (22.0-26.0) mmol/L ABG Total CO2 (21.0-29.0) MMOL/L ABG O2 Saturation (94-98) % ABG Oximetry Spot Check % ABG Base Excess (-2.0-3.0) mmol/L David Test Respiration Rate b/min O2 Delivery Device Vent Mode FiO2 Tidal Volume mL PEEP cmH2O EPAP cmH2O Sodium 139 (135-145) mmol/L Potassium 6.3 H* (3.5-5.0) mmol/L Chloride 102 (101-111) mmol/L Carbon Dioxide 29 (21-32) mmol/L Anion Gap 8.0 (6-13) BUN 58 H (6-20) mg/dL Creatinine 1.0 (0.6-1.2) mg/dL Estimated GFR (MDRD) 75 L (>89) Glucose 189 H (70-100) mg/dL POC Whole Bld Glucose 225 H 168 H (70 - 100) mg/dL Calcium 7.9 L (8.5-10.3) mg/dL Phosphorus (2.5-4.6) mg/dL Magnesium (1.7-2.8) mg/dL Total Creatine Kinase (22-269) IU/L C-Reactive Protein (0-1.0) mg/dL Triglycerides ( - 149) mg/dL Cholesterol ( - 199) mg/dL LDL Cholesterol, Calc ( - 129) mg/dL VLDL Cholesterol mg/dL HDL Cholesterol (60 - ) mg/dL LDL/HDL Ratio (<3.6) Cholesterol/HDL Ratio (<5.0) 06/19/21 06/19/21 06/19/21 Range/Units 16:45 13:55 13:02 WBC (4.8-10.8) x10^3/uL RBC (4.70-6.10) 10^6/uL Hgb (14.0-18.0) g/dL Hct (42.0-52.0) % MCV (80.0-94.0) fL MCH (27.0-31.0) pg MCHC (32.0-36.0) g/dL RDW (12.0-15.0) % Plt Count (130-450) 10^3/uL MPV (7.4-11.4) fL Neut # (Auto) Lymph # (Auto) [place] # (Auto) Eos # (Auto) Baso # (Auto) Absolute Nucleated RBC Total Counted Band Neuts % (Manual) (0 - 10) % Abnorm Lymph % (Manual) % Nucleated RBC % Neutrophils # (Manual) (1.5-6.6) 10^3/uL Lymphocytes # (Manual) (1.5-3.5) 10^3/uL Monocytes # (Manual) (0.0-1.0) 10^3/uL Eosinophils # (Manual) (0-0.7) 10^3/uL Basophils # (Manual) (0-0.1) 10^3/uL Differential Comment WBC Morphology (NORMAL) Platelet Estimate (NORMAL) Platelet Morphology (NORMAL) RBC Morph Micro Appear (NORMAL) Bld Gas Analysis Time 1405 Sample Site A-LINE ABG pH 7.40 (7.35-7.45) ABG pCO2 50 H (34-45) mmHg ABG pO2 53 L* (80-100) mmHg ABG HCO3 31.5 H (22.0-26.0) mmol/L ABG Total CO2 33.0 H (21.0-29.0) MMOL/L ABG O2 Saturation 87 L* (94-98) % ABG Oximetry Spot Check 94 % ABG Base Excess 7.0 H (-2.0-3.0) mmol/L David Test POSITIVE Respiration Rate 18 b/min O2 Delivery Device VENTILATOR Vent Mode ASSIST/CONTROL FiO2 60.00 Tidal Volume 500 mL PEEP 10 cmH2O EPAP 1 cmH2O Sodium 139 136 (135-145) mmol/L Potassium 6.3 H* 6.2 H* (3.5-5.0) mmol/L Chloride 102 100 L (101-111) mmol/L Carbon Dioxide 29 28 (21-32) mmol/L Anion Gap 8.0 8.0 (6-13) BUN 54 H 53 H (6-20) mg/dL Creatinine 1.0 1.1 (0.6-1.2) mg/dL Estimated GFR (MDRD) 75 L 67 L (>89) Glucose 203 H 205 H (70-100) mg/dL POC Whole Bld Glucose (70 - 100) mg/dL Calcium 8.1 L 7.9 L (8.5-10.3) mg/dL Phosphorus (2.5-4.6) mg/dL Magnesium (1.7-2.8) mg/dL Total Creatine Kinase (22-269) IU/L C-Reactive Protein (0-1.0) mg/dL Triglycerides ( - 149) mg/dL Cholesterol ( - 199) mg/dL LDL Cholesterol, Calc ( - 129) mg/dL VLDL Cholesterol mg/dL HDL Cholesterol (60 - ) mg/dL LDL/HDL Ratio (<3.6) Cholesterol/HDL Ratio (<5.0) 06/19/21 06/19/21 06/19/21 Range/Units 11:11 09:41 09:13 WBC (4.8-10.8) x10^3/uL RBC (4.70-6.10) 10^6/uL Hgb (14.0-18.0) g/dL Hct (42.0-52.0) % MCV (80.0-94.0) fL MCH (27.0-31.0) pg MCHC (32.0-36.0) g/dL RDW (12.0-15.0) % Plt Count (130-450) 10^3/uL MPV (7.4-11.4) fL Neut # (Auto) Lymph # (Auto) [place] # (Auto) Eos # (Auto) Baso # (Auto) Absolute Nucleated RBC Total Counted Band Neuts % (Manual) (0 - 10) % Abnorm Lymph % (Manual) % Nucleated RBC % Neutrophils # (Manual) (1.5-6.6) 10^3/uL Lymphocytes # (Manual) (1.5-3.5) 10^3/uL Monocytes # (Manual) (0.0-1.0) 10^3/uL Eosinophils # (Manual) (0-0.7) 10^3/uL Basophils # (Manual) (0-0.1) 10^3/uL Differential Comment WBC Morphology (NORMAL) Platelet Estimate (NORMAL) Platelet Morphology (NORMAL) RBC Morph Micro Appear (NORMAL) Bld Gas Analysis Time Sample Site ABG pH (7.35-7.45) ABG pCO2 (34-45) mmHg ABG pO2 (80-100) mmHg ABG HCO3 (22.0-26.0) mmol/L ABG Total CO2 (21.0-29.0) MMOL/L ABG O2 Saturation (94-98) % ABG Oximetry Spot Check % ABG Base Excess (-2.0-3.0) mmol/L David Test Respiration Rate b/min O2 Delivery Device Vent Mode FiO2 Tidal Volume mL PEEP cmH2O EPAP cmH2O Sodium (135-145) mmol/L Potassium (3.5-5.0) mmol/L Chloride (101-111) mmol/L Carbon Dioxide (21-32) mmol/L Anion Gap (6-13) BUN (6-20) mg/dL Creatinine (0.6-1.2) mg/dL Estimated GFR (MDRD) (>89) Glucose (70-100) mg/dL POC Whole Bld Glucose 168 H 124 H (70 - 100) mg/dL Calcium (8.5-10.3) mg/dL Phosphorus (2.5-4.6) mg/dL Magnesium (1.7-2.8) mg/dL Total Creatine Kinase 94 (22-269) IU/L C-Reactive Protein 16.9 H (0-1.0) mg/dL Triglycerides 80 ( - 149) mg/dL Cholesterol 54 ( - 199) mg/dL LDL Cholesterol, Calc 19 ( - 129) mg/dL VLDL Cholesterol 16 mg/dL HDL Cholesterol 19 L (60 - ) mg/dL LDL/HDL Ratio 1.0 (<3.6) Cholesterol/HDL Ratio 2.8 (<5.0) 06/19/21 06/19/21 Range/Units 09:13 07:43 WBC (4.8-10.8) x10^3/uL RBC (4.70-6.10) 10^6/uL Hgb (14.0-18.0) g/dL Hct (42.0-52.0) % MCV (80.0-94.0) fL MCH (27.0-31.0) pg MCHC (32.0-36.0) g/dL RDW (12.0-15.0) % Plt Count (130-450) 10^3/uL MPV (7.4-11.4) fL Neut # (Auto) Lymph # (Auto) [place] # (Auto) Eos # (Auto) Baso # (Auto) Absolute Nucleated RBC Total Counted Band Neuts % (Manual) (0 - 10) % Abnorm Lymph % (Manual) % Nucleated RBC % Neutrophils # (Manual) (1.5-6.6) 10^3/uL Lymphocytes # (Manual) (1.5-3.5) 10^3/uL Monocytes # (Manual) (0.0-1.0) 10^3/uL Eosinophils # (Manual) (0-0.7) 10^3/uL Basophils # (Manual) (0-0.1) 10^3/uL Differential Comment WBC Morphology (NORMAL) Platelet Estimate (NORMAL) Platelet Morphology (NORMAL) RBC Morph Micro Appear (NORMAL) Bld Gas Analysis Time Sample Site ABG pH (7.35-7.45) ABG pCO2 (34-45) mmHg ABG pO2 (80-100) mmHg ABG HCO3 (22.0-26.0) mmol/L ABG Total CO2 (21.0-29.0) MMOL/L ABG O2 Saturation (94-98) % ABG Oximetry Spot Check % ABG Base Excess (-2.0-3.0) mmol/L David Test Respiration Rate b/min O2 Delivery Device Vent Mode FiO2 Tidal Volume mL PEEP cmH2O EPAP cmH2O Sodium 137 (135-145) mmol/L Potassium 5.9 H (3.5-5.0) mmol/L Chloride 103 (101-111) mmol/L Carbon Dioxide 27 (21-32) mmol/L Anion Gap 7.0 (6-13) BUN 51 H (6-20) mg/dL Creatinine 1.1 (0.6-1.2) mg/dL Estimated GFR (MDRD) 67 L (>89) Glucose 145 H (70-100) mg/dL POC Whole Bld Glucose 141 H (70 - 100) mg/dL Calcium 7.9 L (8.5-10.3) mg/dL Phosphorus (2.5-4.6) mg/dL Magnesium (1.7-2.8) mg/dL Total Creatine Kinase (22-269) IU/L C-Reactive Protein (0-1.0) mg/dL Triglycerides ( - 149) mg/dL Cholesterol ( - 199) mg/dL LDL Cholesterol, Calc ( - 129) mg/dL VLDL Cholesterol mg/dL HDL Cholesterol (60 - ) mg/dL LDL/HDL Ratio (<3.6) Cholesterol/HDL Ratio (<5.0) Sepsis Event Note (H) - Evaluation Current Stage of Sepsis: Septic shock Possible source of Sepsis: positive: Pulmonary - Sepsis Criteria Sepsis Criteria: Respiratory: Increasing oxygen requirements, WBC count greater than 12,000 or less than 4000, SBP drop more than 40mHg, MAP less than 65 mmHg, SBP less than 90 mmHg, Renal: urine output less than 0.5ml/kg/hr for 2 hours or creatinine gr Assessment/Plan - Problem List (1) Acute respiratory failure with hypoxia Impression: Unfortunately, he has had a decline in his respiratory status early this mor piper. He is now saturating 85% on FiO2 of 100% and a PEEP of 15. An ABG was obtained which showed his pH that is acceptable but his PO2 is low at 65. Repeat chest x-ray this morning shows persistent bilateral infiltrates with no evidence of pneumothorax. I did speak with his and I have documented a separate ACP note. I explained to her his poor prognosis and critical condition. She like to speak with her children more to discuss goals of care. I did recommend at least making him a DNR and to see how he does over the next 24 to 40 hours before potentially considering comfort measures. In the interim, we will keep him on meropenem and Zyvox. Continue sedation with propofol and Versed. We will add Dilaudid pushes and we will look to paralyze him with vecuronium to prevent ventilator DC conization. We will use [employer] protocol. Continue diuresis with Lasix IV.We unfortunately cannot prone him due to his ankylosing spondylitis. (2) Fever Impression: He is febrile this morning after he previously had been afebrile for the past few days. His white count slightly increased but stable overall. It remains elevated at over 20,000. Chest x-ray shows stable bilateral infiltrates. We will hold off on repeating urinalysis given he just had one if he is ago which showed no evidence of infection. He has also been on Zyvox and meropenem. We will recheck blood cultures today. (3) Infection due to ESBL-producing Klebsiella pneumoniae Impression: Respiratory cultures grew Klebsiella pneumonia which is sensitive to carbapenems. He has now been on meropenem with today being day 6. We will continue the meropenem and Zyvox was added again due to his elevated white count. The plan was to treat for 1 week but given his fever, we will keep him on antibiotics. (4) Pneumonia due to COVID-19 virus Impression: This is contributing to the respiratory failure with hypoxia. We have kept him on Decadron as he is on chronic steroids at home. We are continuing contact precautions. Overall prognosis remains guarded. (5) NSTEMI (non-ST elevated myocardial infarction) Impression: Initial concern was for NSTEMI given his troponins peaked over 800. Echocardiogram showed evidence of right heart strain which I suspect is due to a pulmonary embolism. LV showed no wall motion abnormalities. In hindsight, his elevated troponin may have been due to the pulmonary embolism and NSTEMI. We are continuing him on Lovenox. (6) Right leg DVT Impression: Duplex confirmed right lower extremity DVT and it is very likely that he has pulmonary embolism given echo showed evidence of right heart strain. 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 We will continue him on Lovenox. (7) Anemia Impression: After a drop in his hemoglobin a few days ago, it has since been stable. That drop was likely due to hemodilution as the other cell counts dropped as well. There has been no evidence of bleeding. His hemoglobin has been stable we will continue Lovenox for DVT and likely pulmonary embolism. (8) Hyperkalemia Impression: He remains hyperkalemic with a potassium of 6.2 and I do not have an etiology for this. He is not hyperglycemic and his creatinine is stable at his baseline. We did check CK and there was no evidence of rhabdomyolysis. He was started on a beta-petrona 2 days ago so we will discontinue this as this may be contributing to the hyperkalemia. We will keep him on insulin drip. We will continue to check labs every 4-6 hours. We will give Kayexalate again. (9) Diabetes mellitus, insulin dependent (IDDM), uncontrolled Impression: His blood glucose has been controlled on the insulin drip which was started yesterday for the hyperkalemia. (10) PVD (peripheral vascular disease) Impression: Stable. He is on Lovenox and Plavix after we discontinue the aspirin as he would not be on triple therapy. (11) Psoriatic arthritis Impression: We are holding his home immunosuppressants. (12) Ankylosing spondylitis Impression: We are holding his home immunosuppressants. (13) TORY (acute kidney injury) Impression: This was secondary to ATN and has resolved. His renal function remains at baseline. We will continue to monitor. (14) Septic shock Impression: This is likely secondary to pneumonia either due to COVID-19 or the ESBL Klebsiella pneumonia. The septic shock has now resolved. He remains off of vasopressors.
[2021-06-20 08:23] LABS: VBG PH 7.412 (7.31-7.41)
[2021-06-20 08:24] LABS: CALCIUM, IONIZED 1.08 mmol/L (1.15-1.33)
[2021-06-20] MEDS ORDERED: CALCIUM GLUCONATE IN NS 0.9% 1,000 MG/50 ML BAG IV ONE (09:23)
[2021-06-20] MEDS: CHLORHEXIDINE GLUCONATE 15 ML UDC PO SCH ×2 (09:52→21:18)
[2021-06-20] MEDS: DEXAMETHASONE 4 MG/ML VIAL IVP SCH (09:52)
[2021-06-20] MEDS: CLOPIDOGREL 75 MG TABLET PO SCH (09:52)
[2021-06-20] MEDS: ENOXAPARIN 80 MG/0.8 ML SYRINGE SUBQ SCH ×2 (09:53→21:20)
[2021-06-20] MEDS: FOLIC ACID 1 MG TABLET PO SCH (09:54)
[2021-06-20] MEDS: FUROSEMIDE 40 MG/4 ML VIAL IVP SCH (09:54)
[2021-06-20] MEDS: polyethylene glycoL 3350 17 GM PACKET PO SCH (09:54)
[2021-06-20] MEDS: LINEZOLID 600 MG/300 ML 600 MG/300 ML BAG IV SCH ×2 (10:04→22:46)
[2021-06-20 11:09] LABS: ABG HCO3 29.3 mmol/L (22.0-26.0); ABG PCO2 54 mmHg (34-45); ABG PH 7.34 (7.35-7.45); ABG PO2 65 mmHg (80-100)
[2021-06-20 11:10] LABS: ABG MODE OF VENTILATION ASSIST/CONTROL; ABG OXYGEN SATURATION 91 % (94-98)
--- NOTE | 2021-06-20 11:12 | XRAY Report ---
PROCEDURE: Chest 1 View X-Ray INDICATIONS: Worsening hypoxia. TECHNIQUE: One view of the chest was acquired. COMPARISON: 06/17/2021, 06/14/2021. FINDINGS: Surgical changes and devices: ET tube tip is approximately 2.2 cm above the kay. Enteric tube tip is below the left hemidiaphragm and is in the expected location of stomach lumen. Right internal jugu lar central venous catheter tip is in the region of SVC. Lungs and pleura: Blunting of right costophrenic angle is noted suggestive of small right pleural eff usion. No gross pneumothorax. Extensive airspace opacities are seen scattered throughout bilateral [place]. Mediastinum: Mediastinal contours appear normal. Heart size is normal. Bones and chest wall: No suspicious bony lesions. Overlying soft tissues appear unremarkable. IMPRESSION: Tube and line positions as above. Persistent extensive bilateral pulmonary infiltrates not significan tly changed from prior study. No gross pneumothorax. Small right pleural effusion. Reviewed by: Rashard Santos MD on 06/20/2021 11:11 AM PST Approved by: Rashard Santos MD on 06/20/2021 11:11 AM PST Station ID: [id number]
--- NOTE | 2021-06-20 12:28 | ADVANCE CARE PLANNING NOTE ---
Advance Care Planning - Planning Encounter Date: 06/20/21 Time: 12:00 Purpose: To discuss goals of care. Parties in Attendance: Patient (intubate), his (Leticia), and patient's RN. Decisional Capacity of the Patient: He is intubated and unable to make his own medical decisions. - Diagnosis for Encounter (1) Acute respiratory failure with hypoxia Summary: He has not been intubated for more than 1 week for acute hypoxic respiratory failure secondary to COVID-19 pneumonia, bacterial pneumonia, and pulmonary embolism. After initial improvement, he has had an increase in his oxygen requirements and is now maxed on FiO2 100% and PEEP of 15 on a ventilator. - Encounter Subjective/Patient's Story: He was independent prior to this admission but had physical limitations due to ankylosing spondylitis. Objective/Medical Story: This is an immunocompromised gentleman who is on chronic steroids for causing spondylitis and psoriatic arthritis presents with COVID-19 pneumonia as well as bacterial pneumonia and likely pulmonary embolism. He has been on the ventilator now for 1 week and although he had been initially improving, has had an increase in his oxygen requirements today. He is also now febrile. He remains on Zyvox, meropenem, Decadron, Lovenox. His oxygen saturations are 85% on FiO2 100% with a PEEP of 15. Goals of Care: He is currently a full code and will remain that way until his can discuss with her children regarding at least making him a DNR. Plan: He will remain a full code for the time being but I asked the patient's to discuss his CODE STATUS with her children as I recommended that he should at least be made a DNR given his critical condition. We will continue to try and support him best we can. We will sedate him further with Dilaudid pushes in addition to the Versed and propofol. We will also start him on vecuronium given his hypoxia and to prevent ventilator desynchronization. We will continue the antibiotics, steroids and diuresis. He will also remain on Lovenox for suspected PE. Additional Discussion: We will attempt to support him best we can until his speaks with her children to discuss goals of care further. I did discuss with her that if there is no improvement over next 24 hours or so, we can consider focusing on his comfort which would entail palliative extubation. Code Status: Attempt Resuscitation Time spent on advance care plannin
[2021-06-20] MEDS ORDERED: SODIUM POLYSTYRENE SULFONATE 15 GM/60 ML BOTTLE PO ONE ×2 (13:25→19:14)
[2021-06-20 13:58] LABS: CALCIUM 8.3 mg/dL (8.5-10.3); CREATININE 0.9 mg/dL (0.6-1.2)
[2021-06-20 14:00] LABS: POTASSIUM 6.5 mmol/L (3.5-5.0)
[2021-06-20] MEDS: INSULIN REGULAR HUMAN 100 UNIT in SODIUM CHLORIDE 0.9% 100ML 99 ML IV SCH (14:00)
[2021-06-20] MEDS: VECURONIUM BROMIDE IV SCH (14:00)
[2021-06-20] MEDS: SODIUM CHLORIDE 0.9% IV SCH (14:00)
[2021-06-20] MEDS ORDERED: DEXTROSE 50% ABBOJECT 25 GM/50 ML SYRINGE IVP ONE (14:00)
[2021-06-20] MEDS ORDERED: INSULIN REGULAR HUMAN 300 UNIT/3 ML VIAL IVP ONE ×2 (14:00→19:13)
[2021-06-20 16:40] LABS: ABG BASE EXCESS 0.9 mmol/L (-2.0-3.0); ABG HCO3 27.8 mmol/L (22.0-26.0); ABG OXYGEN SATURATION 94 % (94-98); ABG PCO2 58 mmHg (34-45); ABG PO2 84 mmHg (80-100); ABG TCO2 29.5 MMOL/L (21.0-29.0)
[2021-06-20 16:41] LABS: ABG RESPIRATORY RATE 20 b/min
[2021-06-20] MEDS: SODIUM CHLORIDE 0.9% 500 ML IV PRN (18:31)
[2021-06-20 19:04] LABS: CALCIUM 8.1 mg/dL (8.5-10.3); CREATININE 1.1 mg/dL (0.6-1.2)
[2021-06-20 19:09] LABS: POTASSIUM 6.8 mmol/L (3.5-5.0)
[2021-06-20] MEDS ORDERED: CALCIUM GLUCONATE IN NS 0.9% 2,000 MG/100 ML BAG IV ONE (19:14)
[2021-06-20] MEDS: ATORVASTATIN 40 MG TABLET PO SCH (21:19)
[2021-06-20 21:34] LABS: ABG BASE EXCESS 3.4 mmol/L (-2.0-3.0); ABG HCO3 31.1 mmol/L (22.0-26.0); ABG OXYGEN SATURATION 96 % (94-98); ABG PH 7.29 (7.35-7.45); ABG PO2 100 mmHg (80-100); ABG TCO2 33.1 MMOL/L (21.0-29.0)
[2021-06-20 21:35] LABS: ABG MODE OF VENTILATION ASSIST/CONTROL; ABG RESPIRATORY RATE 20 b/min
[2021-06-20 21:36] LABS: ABG PCO2 66 mmHg (34-45)
[2021-06-20 22:00] LABS: CALCIUM 8.6 mg/dL (8.5-10.3)
[2021-06-20 22:03] LABS: POTASSIUM 6.5 mmol/L (3.5-5.0)
[2021-06-21] MEDS: MEROPENEM 1 GM in SODIUM CHLORIDE 0.9% MINIBAG 100 ML IV SCH ×3 (00:44→17:02)
[2021-06-21] MEDS: VECURONIUM BROMIDE IV SCH ×2 (00:52→14:23)
[2021-06-21] MEDS: SODIUM CHLORIDE 0.9% IV SCH ×2 (00:52→14:23)
[2021-06-21] MEDS: SODIUM CHLORIDE FLUSH 0.9% 10 ML SYRINGE IVP SCH ×3 (00:54→17:03)
[2021-06-21] MEDS: PROPOFOL 1000 MG/100 ML 1,000 MG/100 ML BOTTLE IV SCH ×4 (04:16→22:47)
[2021-06-21 05:24] LABS: BASOPHILS % (AUTO) 0.2 %; HCT - HEMATOCRIT 28.5 % (42.0-52.0); HGB - HEMOGLOBIN 8.4 g/dL (14.0-18.0); LYMPHOCYTES % (AUTO) 6.8 %; MEAN CORPUSCULAR HGB CONC 29.5 g/dL (32.0-36.0); MEAN CORPUSCULAR VOLUME 98.3 fL (80.0-94.0); MEAN PLATELET VOLUME 9.4 fL (7.4-11.4); MONOCYTES % (AUTO) 11.3 %; NEUTROPHILS % (AUTO) 80.3 %; PLT - PLATELET COUNT 383 10^3/uL (130-450); RED CELL DISTRIBUTION WIDTH 17.8 % (12.0-15.0); WHITE BLOOD COUNT 18.8 x10^3/uL (4.8-10.8)
[2021-06-21 05:31] LABS: ABNORMAL LYMPHS % (MANUAL) 0 %; BAND NEUTROPHILS % (MANUAL) 0 %
[2021-06-21 05:36] LABS: CALCIUM 8.4 mg/dL (8.5-10.3); CREATININE 0.9 mg/dL (0.6-1.2); MAGNESIUM 2.1 mg/dL (1.7-2.8); PHOSPHORUS 3.9 mg/dL (2.5-4.6)
[2021-06-21 05:41] LABS: POTASSIUM 6.3 mmol/L (3.5-5.0)
[2021-06-21 05:52] LABS: LYMPHOCYTES # (MANUAL) 0.6 10^3/uL (1.5-3.5); LYMPHOCYTES % (MANUAL) 3 %; MONOCYTES # (MANUAL) 2.1 10^3/uL (0.0-1.0); MYELOCYTES % (MANUAL) 1 %
[2021-06-21 05:53] LABS: DIFFERENTIAL COMMENT MANUAL DIFFERENTIAL; PLATELET ESTIMATE, MANUAL NORMAL (130-450,000) (NORMAL); PLATELET MORPHOLOGY NORMAL APPEARANCE (NORMAL); WBC MORPHOLOGY (MULTIPLE) NORMAL APPEARANCE (NORMAL)
[2021-06-21] MEDS: PANTOPRAZOLE 40 MG VIAL IVP SCH (06:39)
[2021-06-21 06:55] LABS: CALCIUM, IONIZED 1.15 mmol/L (1.15-1.33); VBG PH 7.359 (7.31-7.41)
[2021-06-21] MEDS ORDERED: DEXTROSE 50% ABBOJECT 25 GM/50 ML SYRINGE IVP ONE (08:50)
[2021-06-21] MEDS ORDERED: INSULIN REGULAR HUMAN 300 UNIT/3 ML VIAL IVP ONE (08:50)
[2021-06-21] MEDS: ENOXAPARIN 80 MG/0.8 ML SYRINGE SUBQ SCH ×2 (09:04→21:39)
[2021-06-21] MEDS: polyethylene glycoL 3350 17 GM PACKET PO SCH (09:05)
[2021-06-21] MEDS: CHLORHEXIDINE GLUCONATE 15 ML UDC PO SCH ×2 (09:06→21:39)
[2021-06-21] MEDS: CLOPIDOGREL 75 MG TABLET PO SCH (09:06)
[2021-06-21] MEDS: FOLIC ACID 1 MG TABLET PO SCH (09:07)
[2021-06-21] MEDS: DEXAMETHASONE 4 MG/ML VIAL IVP SCH (09:08)
[2021-06-21] MEDS: HYDROmorphone 2 MG/ML VIAL IVP PRN (09:37)
[2021-06-21] MEDS: FUROSEMIDE 40 MG/4 ML VIAL IVP SCH (09:37)
[2021-06-21] MEDS: LINEZOLID 600 MG/300 ML 600 MG/300 ML BAG IV SCH ×2 (10:14→22:05)
--- NOTE | 2021-06-21 12:11 | PROVIDER PROGRESS NOTE ---
Subjective - Prog Note Date Prog Note Date: 06/21/21 - Subjective Pt reports feeling: No change (Per his RN, since he is sedated and on the vent.) Objective - Vital Signs/Intake & Output Reviewed Vital Signs: Yes Vital Signs: Vital Signs Temp Pulse Pulse Resp BP BP Pulse Ox 06/21/21 11:07 98 06/21/21 11:00 37.6 C 101 H 30 H 83/53 L 83/52 L 93 06/21/21 10:00 38.0 C H 102 H 30 H 88/52 L 83/53 L 93 06/21/21 09:00 38.2 C H 109 H 30 H 133/68 H 113/59 L 94 06/21/21 08:25 109 H Intake & Output: Intake & Output 06/18/21 06/19/21 06/20/21 06/21/21 23:59 23:59 23:59 23:59 Intake Total 3172.667 2749.825 3339.015 1369.152 Output Total 2085 2910 3455 1435 Balance 1087.667 -160.175 -115.985 -65.848 - Objective General Appearance: positive: Other (Exam done remotely. He is sedated and intubated and on the vent.) ENT: positive: Other (Has ET tube and ng tube) Respiratory: positive: Other (On the vent) Cardiovascular: positive: Irregularly irregular Abdomen: positive: No distention Skin: positive: Warm Extremities: positive: Other (1+ edema) Neurologic/Psychiatric: positive: Other (On iv sedative meds) - Lab Results Fish Bones: 06/21/21 04:50 06/21/21 04:50 Other Labs: Lab Results x24hrs 06/21/21 06/21/21 06/21/21 Range/Units 12:05 10:19 08:22 WBC (4.8-10.8) x10^3/uL RBC (4.70-6.10) 10^6/uL Hgb (14.0-18.0) g/dL Hct (42.0-52.0) % MCV (80.0-94.0) fL MCH (27.0-31.0) pg MCHC (32.0-36.0) g/dL RDW (12.0-15.0) % Plt Count (130-450) 10^3/uL MPV (7.4-11.4) fL Neut # (Auto) Lymph # (Auto) Chambers # (Auto) Eos # (Auto) Baso # (Auto) Absolute Nucleated RBC Total Counted Band Neuts % (Manual) (0 - 10) % Abnorm Lymph % (Manual) % Myelocytes % ( - 0) % Nucleated RBC % Neutrophils # (Manual) (1.5-6.6) 10^3/uL Lymphocytes # (Manual) (1.5-3.5) 10^3/uL Monocytes # (Manual) (0.0-1.0) 10^3/uL Eosinophils # (Manual) (0-0.7) 10^3/uL Basophils # (Manual) (0-0.1) 10^3/uL Differential Comment WBC Morphology (NORMAL) Platelet Estimate (NORMAL) Platelet Morphology (NORMAL) RBC Morph Micro Appear (NORMAL) Bld Gas Analysis Time Sample Site ABG pH (7.35-7.45) ABG pCO2 (34-45) mmHg ABG pO2 (80-100) mmHg ABG HCO3 (22.0-26.0) mmol/L ABG Total CO2 (21.0-29.0) MMOL/L ABG O2 Saturation (94-98) % ABG Base Excess (-2.0-3.0) mmol/L David Test VBG pH (7.31-7.41) Ionized Calcium (1.15-1.33) mmol/L Respiration Rate b/min O2 Delivery Device Vent Mode FiO2 Tidal Volume mL PEEP cmH2O Sodium (135-145) mmol/L Potassium (3.5-5.0) mmol/L Chloride (101-111) mmol/L Carbon Dioxide (21-32) mmol/L Anion Gap (6-13) BUN (6-20) mg/dL Creatinine (0.6-1.2) mg/dL Estimated GFR (MDRD) (>89) Glucose (70-100) mg/dL POC Whole Bld Glucose 191 H 180 H 148 H (70 - 100) mg/dL Calcium (8.5-10.3) mg/dL Phosphorus (2.5-4.6) mg/dL Magnesium (1.7-2.8) mg/dL 06/21/21 06/21/2122 Range/Units 06:35 06:12 04:50 WBC (4.8-10.8) x10^3/uL RBC (4.70-6.10) 10^6/uL Hgb (14.0-18.0) g/dL Hct (42.0-52.0) % MCV (80.0-94.0) fL MCH (27.0-31.0) pg MCHC (32.0-36.0) g/dL RDW (12.0-15.0) % Plt Count (130-450) 10^3/uL MPV (7.4-11.4) fL Neut # (Auto) Lymph # (Auto) Chambers # (Auto) Eos # (Auto) Baso # (Auto) Absolute Nucleated RBC Total Counted Band Neuts % (Manual) (0 - 10) % Abnorm Lymph % (Manual) % Myelocytes % ( - 0) % Nucleated RBC % Neutrophils # (Manual) (1.5-6.6) 10^3/uL Lymphocytes # (Manual) (1.5-3.5) 10^3/uL Monocytes # (Manual) (0.0-1.0) 10^3/uL Eosinophils # (Manual) (0-0.7) 10^3/uL Basophils # (Manual) (0-0.1) 10^3/uL Differential Comment WBC Morphology (NORMAL) Platelet Estimate (NORMAL) Platelet Morphology (NORMAL) RBC Morph Micro Appear (NORMAL) Bld Gas Analysis Time Sample Site ABG pH (7.35-7.45) ABG pCO2 (34-45) mmHg ABG pO2 (80-100) mmHg ABG HCO3 (22.0-26.0) mmol/L ABG Total CO2 (21.0-29.0) MMOL/L ABG O2 Saturation (94-98) % ABG Base Excess (-2.0-3.0) mmol/L David Test VBG pH 7.359 (7.31-7.41) Ionized Calcium 1.15 (1.15-1.33) mmol/L Respiration Rate b/min O2 Delivery Device Vent Mode FiO2 Tidal Volume mL PEEP cmH2O Sodium 144 (135-145) mmol/L Potassium 6.3 H* (3.5-5.0) mmol/L Chloride 101 (101-111) mmol/L Carbon Dioxide 33 H (21-32) mmol/L Anion Gap 10.0 (6-13) BUN 55 H (6-20) mg/dL Creatinine 0.9 (0.6-1.2) mg/dL Estimated GFR (MDRD) 85 L (>89) Glucose 169 H (70-100) mg/dL POC Whole Bld Glucose 149 H (70 - 100) mg/dL Calcium 8.4 L (8.5-10.3) mg/dL Phosphorus 3.9 (2.5-4.6) mg/dL Magnesium 2.1 (1.7-2.8) mg/dL 06/21/21 06/21/21 06/21/21 Range/Units 04:50 04:45 02:07 WBC 18.8 H (4.8-10.8) x10^3/uL RBC 2.90 L (4.70-6.10) 10^6/uL Hgb 8.4 L (14.0-18.0) g/dL Hct 28.5 L (42.0-52.0) % MCV 98.3 H (80.0-94.0) fL MCH 29.0 (27.0-31.0) pg MCHC 29.5 L (32.0-36.0) g/dL RDW 17.8 H (12.0-15.0) % Plt Count 383 (130-450) 10^3/uL MPV 9.4 (7.4-11.4) fL Neut # (Auto) Not Reportable Lymph # (Auto) Not Reportable Chambers # (Auto) Not Reportable Eos # (Auto) Not Reportable Baso # (Auto) Not Reportable Absolute Nucleated RBC Not Reportable Total Counted 100 Band Neuts % (Manual) 0 (0 - 10) % Abnorm Lymph % (Manual) 0 % Myelocytes % 1 H ( - 0) % Nucleated RBC % Not Reportable Neutrophils # (Manual) 16.0 H (1.5-6.6) 10^3/uL Lymphocytes # (Manual) 0.6 L (1.5-3.5) 10^3/uL Monocytes # (Manual) 2.1 H (0.0-1.0) 10^3/uL Eosinophils # (Manual) 0.0 (0-0.7) 10^3/uL Basophils # (Manual) 0.0 (0-0.1) 10^3/uL Differential Comment MANUAL DIFFERENTIAL WBC Morphology NORMAL APPEARANCE (NORMAL) Platelet Estimate NORMAL (130-450,000) (NORMAL) Platelet Morphology NORMAL APPEARANCE (NORMAL) RBC Morph Micro Appear 1+ STOMATOCYTES (NORMAL) Bld Gas Analysis Time Sample Site ABG pH (7.35-7.45) ABG pCO2 (34-45) mmHg ABG pO2 (80-100) mmHg ABG HCO3 (22.0-26.0) mmol/L ABG Total CO2 (21.0-29.0) MMOL/L ABG O2 Saturation (94-98) % ABG Base Excess (-2.0-3.0) mmol/L David Test VBG pH (7.31-7.41) Ionized Calcium (1.15-1.33) mmol/L Respiration Rate b/min O2 Delivery Device Vent Mode FiO2 Tidal Volume mL PEEP cmH2O Sodium (135-145) mmol/L Potassium (3.5-5.0) mmol/L Chloride (101-111) mmol/L Carbon Dioxide (21-32) mmol/L Anion Gap (6-13) BUN (6-20) mg/dL Creatinine (0.6-1.2) mg/dL Estimated GFR (MDRD) (>89) Glucose (70-100) mg/dL POC Whole Bld Glucose 164 H 181 H (70 - 100) mg/dL Calcium (8.5-10.3) mg/dL Phosphorus (2.5-4.6) mg/dL Magnesium (1.7-2.8) mg/dL 06/20/21 06/20/21 06/20/21 Range/Units 23:34 21:51 21:35 WBC (4.8-10.8) x10^3/uL RBC (4.70-6.10) 10^6/uL Hgb (14.0-18.0) g/dL Hct (42.0-52.0) % MCV (80.0-94.0) fL MCH (27.0-31.0) pg MCHC (32.0-36.0) g/dL RDW (12.0-15.0) % Plt Count (130-450) 10^3/uL MPV (7.4-11.4) fL Neut # (Auto) Lymph # (Auto) Chambers # (Auto) Eos # (Auto) Baso # (Auto) Absolute Nucleated RBC Total Counted Band Neuts % (Manual) (0 - 10) % Abnorm Lymph % (Manual) % Myelocytes % ( - 0) % Nucleated RBC % Neutrophils # (Manual) (1.5-6.6) 10^3/uL Lymphocytes # (Manual) (1.5-3.5) 10^3/uL Monocytes # (Manual) (0.0-1.0) 10^3/uL Eosinophils # (Manual) (0-0.7) 10^3/uL Basophils # (Manual) (0-0.1) 10^3/uL Differential Comment WBC Morphology (NORMAL) Platelet Estimate (NORMAL) Platelet Morphology (NORMAL) RBC Morph Micro Appear (NORMAL) Bld Gas Analysis Time Sample Site ABG pH (7.35-7.45) ABG pCO2 (34-45) mmHg ABG pO2 (80-100) mmHg ABG HCO3 (22.0-26.0) mmol/L ABG Total CO2 (21.0-29.0) MMOL/L ABG O2 Saturation (94-98) % ABG Base Excess (-2.0-3.0) mmol/L David Test VBG pH (7.31-7.41) Ionized Calcium (1.15-1.33) mmol/L Respiration Rate b/min O2 Delivery Device Vent Mode FiO2 Tidal Volume mL PEEP cmH2O Sodium 139 (135-145) mmol/L Potassium 6.5 H* (3.5-5.0) mmol/L Chloride 100 L (101-111) mmol/L Carbon Dioxide 32 (21-32) mmol/L Anion Gap 7.0 (6-13) BUN 59 H (6-20) mg/dL Creatinine 1.0 (0.6-1.2) mg/dL Estimated GFR (MDRD) 75 L (>89) Glucose 192 H (70-100) mg/dL POC Whole Bld Glucose 222 H 177 H (70 - 100) mg/dL Calcium 8.6 (8.5-10.3) mg/dL Phosphorus (2.5-4.6) mg/dL Magnesium (1.7-2.8) mg/dL 06/20/21 06/20/21 06/20/21 Range/Units 21:15 20:05 18:17 WBC (4.8-10.8) x10^3/uL RBC (4.70-6.10) 10^6/uL Hgb (14.0-18.0) g/dL Hct (42.0-52.0) % MCV (80.0-94.0) fL MCH (27.0-31.0) pg MCHC (32.0-36.0) g/dL RDW (12.0-15.0) % Plt Count (130-450) 10^3/uL MPV (7.4-11.4) fL Neut # (Auto) Lymph # (Auto) Chambers # (Auto) Eos # (Auto) Baso # (Auto) Absolute Nucleated RBC Total Counted Band Neuts % (Manual) (0 - 10) % Abnorm Lymph % (Manual) % Myelocytes % ( - 0) % Nucleated RBC % Neutrophils # (Manual) (1.5-6.6) 10^3/uL Lymphocytes # (Manual) (1.5-3.5) 10^3/uL Monocytes # (Manual) (0.0-1.0) 10^3/uL Eosinophils # (Manual) (0-0.7) 10^3/uL Basophils # (Manual) (0-0.1) 10^3/uL Differential Comment WBC Morphology (NORMAL) Platelet Estimate (NORMAL) Platelet Morphology (NORMAL) RBC Morph Micro Appear (NORMAL) Bld Gas Analysis Time 2132 Sample Site A-LINE ABG pH 7.29 L (7.35-7.45) ABG pCO2 66 H* (34-45) mmHg ABG pO2 100 (80-100) mmHg ABG HCO3 31.1 H (22.0-26.0) mmol/L ABG Total CO2 33.1 H (21.0-29.0) MMOL/L ABG O2 Saturation 96 (94-98) % ABG Base Excess 3.4 H (-2.0-3.0) mmol/L David Test NOT APPLICABLE VBG pH (7.31-7.41) Ionized Calcium (1.15-1.33) mmol/L Respiration Rate 20 b/min O2 Delivery Device VENTILATOR Vent Mode ASSIST/CONTROL FiO2 100.00 Tidal Volume 520 mL PEEP 15 cmH2O Sodium (135-145) mmol/L Potassium (3.5-5.0) mmol/L Chloride (101-111) mmol/L Carbon Dioxide (21-32) mmol/L Anion Gap (6-13) BUN (6-20) mg/dL Creatinine (0.6-1.2) mg/dL Estimated GFR (MDRD) (>89) Glucose (70-100) mg/dL POC Whole Bld Glucose 208 H 245 H (70 - 100) mg/dL Calcium (8.5-10.3) mg/dL Phosphorus (2.5-4.6) mg/dL Magnesium (1.7-2.8) mg/dL 06/20/21 06/20/21 06/20/21 Range/Units 17:00 16:30 15:57 WBC (4.8-10.8) x10^3/uL RBC (4.70-6.10) 10^6/uL Hgb (14.0-18.0) g/dL Hct (42.0-52.0) % MCV (80.0-94.0) fL MCH (27.0-31.0) pg MCHC (32.0-36.0) g/dL RDW (12.0-15.0) % Plt Count (130-450) 10^3/uL MPV (7.4-11.4) fL Neut # (Auto) Lymph # (Auto) Chambers # (Auto) Eos # (Auto) Baso # (Auto) Absolute Nucleated RBC Total Counted Band Neuts % (Manual) (0 - 10) % Abnorm Lymph % (Manual) % Myelocytes % ( - 0) % Nucleated RBC % Neutrophils # (Manual) (1.5-6.6) 10^3/uL Lymphocytes # (Manual) (1.5-3.5) 10^3/uL Monocytes # (Manual) (0.0-1.0) 10^3/uL Eosinophils # (Manual) (0-0.7) 10^3/uL Basophils # (Manual) (0-0.1) 10^3/uL Differential Comment WBC Morphology (NORMAL) Platelet Estimate (NORMAL) Platelet Morphology (NORMAL) RBC Morph Micro Appear (NORMAL) Bld Gas Analysis Time 1637 Sample Site A-LINE ABG pH 7.30 L (7.35-7.45) ABG pCO2 58 H (34-45) mmHg ABG pO2 84 (80-100) mmHg ABG HCO3 27.8 H (22.0-26.0) mmol/L ABG Total CO2 29.5 H (21.0-29.0) MMOL/L ABG O2 Saturation 94 (94-98) % ABG Base Excess 0.9 (-2.0-3.0) mmol/L David Test NOT APPLICABLE VBG pH (7.31-7.41) Ionized Calcium (1.15-1.33) mmol/L Respiration Rate 20 b/min O2 Delivery Device VENTILATOR Vent Mode FiO2 100.00 Tidal Volume 520 mL PEEP 15 cmH2O Sodium 137 (135-145) mmol/L Potassium 6.8 H* (3.5-5.0) mmol/L Chloride 100 L (101-111) mmol/L Carbon Dioxide 30 (21-32) mmol/L Anion Gap 7.0 (6-13) BUN 61 H (6-20) mg/dL Creatinine 1.1 (0.6-1.2) mg/dL Estimated GFR (MDRD) 67 L (>89) Glucose 254 H (70-100) mg/dL POC Whole Bld Glucose 205 H (70 - 100) mg/dL Calcium 8.1 L (8.5-10.3) mg/dL Phosphorus (2.5-4.6) mg/dL Magnesium (1.7-2.8) mg/dL 06/20/21 06/20/21 Range/Units 14:08 13:30 WBC (4.8-10.8) x10^3/uL RBC (4.70-6.10) 10^6/uL Hgb (14.0-18.0) g/dL Hct (42.0-52.0) % MCV (80.0-94.0) fL MCH (27.0-31.0) pg MCHC (32.0-36.0) g/dL RDW (12.0-15.0) % Plt Count (130-450) 10^3/uL MPV (7.4-11.4) fL Neut # (Auto) Lymph # (Auto) Chambers # (Auto) Eos # (Auto) Baso # (Auto) Absolute Nucleated RBC Total Counted Band Neuts % (Manual) (0 - 10) % Abnorm Lymph % (Manual) % Myelocytes % ( - 0) % Nucleated RBC % Neutrophils # (Manual) (1.5-6.6) 10^3/uL Lymphocytes # (Manual) (1.5-3.5) 10^3/uL Monocytes # (Manual) (0.0-1.0) 10^3/uL Eosinophils # (Manual) (0-0.7) 10^3/uL Basophils # (Manual) (0-0.1) 10^3/uL Differential Comment WBC Morphology (NORMAL) Platelet Estimate (NORMAL) Platelet Morphology (NORMAL) RBC Morph Micro Appear (NORMAL) Bld Gas Analysis Time Sample Site ABG pH (7.35-7.45) ABG pCO2 (34-45) mmHg ABG pO2 (80-100) mmHg ABG HCO3 (22.0-26.0) mmol/L ABG Total CO2 (21.0-29.0) MMOL/L ABG O2 Saturation (94-98) % ABG Base Excess (-2.0-3.0) mmol/L David Test VBG pH (7.31-7.41) Ionized Calcium (1.15-1.33) mmol/L Respiration Rate b/min O2 Delivery Device Vent Mode FiO2 Tidal Volume mL PEEP cmH2O Sodium 137 (135-145) mmol/L Potassium 6.5 H* (3.5-5.0) mmol/L Chloride 99 L (101-111) mmol/L Carbon Dioxide 32 (21-32) mmol/L Anion Gap 6.0 (6-13) BUN 55 H (6-20) mg/dL Creatinine 0.9 (0.6-1.2) mg/dL Estimated GFR (MDRD) 85 L (>89) Glucose 161 H (70-100) mg/dL POC Whole Bld Glucose 146 H (70 - 100) mg/dL Calcium 8.3 L (8.5-10.3) mg/dL Phosphorus (2.5-4.6) mg/dL Magnesium (1.7-2.8) mg/dL Sepsis Event Note (H) - Evaluation Current Stage of Sepsis: Septic shock Possible source of Sepsis: positive: Pulmonary - Sepsis Criteria Sepsis Criteria: Respiratory: Increasing oxygen requirements, WBC count greater than 12,000 or less than 4000, SBP drop more than 40mHg, MAP less than 65 mmHg, SBP less than 90 mmHg, Renal: urine output less than 0.5ml/kg/hr for 2 hours or creatinine gr Assessment/Plan - Problem List (1) Acute respiratory failure with hypoxia Impression: Unfortunately, he has had a decline in his respiratory status since yesterday. He is now needing FiO2 of 100% and a PEEP of 14. His pulm pressures were in the 40's and RT had to increase resp rate and decrease his TV for pressure to drop into the 30's. An ABG was obtained which showed his pH is acidotic today (see #2). Repeat chest x-ray done yesterday morning showed persistent bilateral infiltrates with no evidence of pneumothorax. The last Hospitalist did speak with his yesterday and documented his poor prognosis and critical condition and recommend at least making him a DNR and to see how he does over the next 24 to 40 hours before potentially considering comfort measures. She wanted to speak with her children more to discuss goals of care and code status. In the interim, we are keeping him on meropenem and Zyvox. Continue sedation and paralyzed while on the vent. We added Dilaudid pushes and we will look to paralyze him with vecuronium. We will use [employer] protocol. Continue diuresis with Lasix IV. We unfortunately cannot prone him due to his ankylosing spondylitis. (2) Metabolic acidosis Impression: Worsened pH since yesterday. Unfortunately this may be him shutting down. Will start iv Bicarb drip. Contiunue empiric broad spectrum antibx. (3) Hyperkalemia Impression: He remains hyperkalemic with a potassium of 6.3 and it is possibly from worsened acidosis. He is not hyperglycemic and his creatinine is stable at his baseline. We did check CK and there was no evidence of rhabdomyolysis. He was started on a beta-petrona several days ago which we discontinued, as this may be contributing to the hyperkalemia. Continue insulin drip. We will continue to check labs and VBG every 6-12 hours. We will give Insulin iv push and D50 push again. (4) Infection due to ESBL-producing Klebsiella pneumoniae Impression: Respiratory cultures grew Klebsiella pneumonia which is sensitive to carbapenems. He has now been on meropenem with today being day 7. We will continue the meropenem and Zyvox was added again due to his elevated white count and worsened condition. The plan had been to treat for 1 week but given his f ever, we will keep him on antibiotics. (5) Pneumonia due to COVID-19 virus Impression: Unfortunately he was on immunosuppressants and contracted this. It is con tributing to the respiratory failure with hypoxia. We have kept him on Decadron as he is on chronic steroids at home. We are continuing contact precautions. Overall prognosis remains poor. (6) Fever Impression: He was febrile yesterday and today. His white count slightly decreased but stable overall. It remains elevated at over 20,000. Chest x-ray shows stable bilateral infiltrates. We will hold off on repeating urinalysis given he just had one if he is ago which showed no evidence of infection. He has also been on Zyvox and meropenem. We rechecked blood cultures yesterday. (7) NSTEMI (non-ST elevated myocardial infarction) Impression: Initial concern was for NSTEMI given his troponins peaked over 800. Echocardiogram showed evidence of right heart overload which I suspect is due to a pulmonary embolism (even though there was no VQ scan or CTA chest), since he did have a DVT. LV showed no wall motion abnormalities. In hindsight, his elevated troponin may have been due to the pulmonary embolism and RV NSTEMI. We are continuing him on bid Lovenox. (8) Cor pulmonale Impression: As per Echo and likely from all of his pulmonary pathologies. Continue daily Lasix. (9) Right leg DVT Impression: Duplex confirmed right lower extremity DVT and it is very likely that he has pulmonary embolism given that his Echo showed evidence of right heart overload. 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 We will continue him on bid Lovenox. (10) Anemia Impression: After a drop in his hemoglobin a few days ago, it has since been stable. That drop was likely due to hemodilution as the other cell counts dropped as well. There has been no evidence of bleeding. His hemoglobin has been stable we will continue Lovenox for DVT and a likely pulmonary embolism. (11) Diabetes mellitus, insulin dependent (IDDM), uncontrolled Impression: His blood glucose has been controlled on the insulin drip which was started yesterday for the hyperkalemia. (12) PVD (peripheral vascular disease) Impression: Stable. He is on Lovenox and Plavix after we discontinue the aspirin as he would not be on triple therapy. (13) Psoriatic arthritis Impression: We are holding his home immunosuppressants. He is on Decadron and Dilaudid. (14) Ankylosing spondylitis Impression: We are holding his home immunosuppressants. He is on Decadron and Dilaudid. (15) TORY (acute kidney injury) Impression: This was secondary to ATN and has resolved. His renal function remains at baseline. We will continue to monitor. (16) Septic shock Impression: This was likely secondary to pneumonia either due to COVID-19 or the ESBL Klebsiella pneumonia. The septic shock is now resolving. He remains off of vasopressors.
[2021-06-21] MEDS: MIDAZOLAM DRIP 50 MG/50 ML 50 MG/50 ML BAG IV SCH ×2 (12:13→22:19)
[2021-06-21 13:53] LABS: ABG PH 7.37 (7.35-7.45)
[2021-06-21 13:54] LABS: ABG BASE EXCESS 8.3 mmol/L (-2.0-3.0); ABG HCO3 34.8 mmol/L (22.0-26.0); ABG MODE OF VENTILATION ASSIST/CONTROL; ABG OXYGEN SATURATION 96 % (94-98); ABG PO2 93 mmHg (80-100); ABG TCO2 36.7 MMOL/L (21.0-29.0)
[2021-06-21 13:55] LABS: ABG RESPIRATORY RATE 30 b/min
[2021-06-21 13:57] LABS: ABG PCO2 62 mmHg (34-45)
[2021-06-21] MEDS: SODIUM BICARBONATE 150 MEQ in DEXTROSE 5% 1,000 ML IV SCH (14:22)
[2021-06-21] MEDS: INSULIN REGULAR HUMAN 100 UNIT in SODIUM CHLORIDE 0.9% 100ML 99 ML IV SCH (18:40)
[2021-06-21] MEDS: SODIUM CHLORIDE 0.9% 500 ML IV PRN (20:00)
[2021-06-21] MEDS: ATORVASTATIN 40 MG TABLET PO SCH (21:38)
[2021-06-22] MEDS: SODIUM CHLORIDE 0.9% IV SCH ×2 (00:12→12:00)
[2021-06-22] MEDS: VECURONIUM BROMIDE IV SCH ×2 (00:12→12:00)
[2021-06-22] MEDS: SODIUM BICARBONATE 150 MEQ in DEXTROSE 5% 1,000 ML IV SCH ×2 (00:57→12:05)
[2021-06-22] MEDS: MEROPENEM 1 GM in SODIUM CHLORIDE 0.9% MINIBAG 100 ML IV SCH ×3 (01:02→16:55)
[2021-06-22 05:20] LABS: BASOPHILS % (AUTO) 0.3 %; HGB - HEMOGLOBIN 7.9 g/dL (14.0-18.0); LYMPHOCYTES % (AUTO) 6.4 %; MEAN CORPUSCULAR HEMOGLOBIN 29.2 pg (27.0-31.0); MEAN CORPUSCULAR HGB CONC 29.3 g/dL (32.0-36.0); MEAN CORPUSCULAR VOLUME 99.6 fL (80.0-94.0); MEAN PLATELET VOLUME 9.5 fL (7.4-11.4); MONOCYTES % (AUTO) 11.4 %; NEUTROPHILS % (AUTO) 80.2 %; PLT - PLATELET COUNT 335 10^3/uL (130-450); RED BLOOD COUNT 2.71 10^6/uL (4.70-6.10); RED CELL DISTRIBUTION WIDTH 17.6 % (12.0-15.0); WHITE BLOOD COUNT 15.4 x10^3/uL (4.8-10.8)
[2021-06-22 05:25] LABS: CALCIUM 7.6 mg/dL (8.5-10.3); CREATININE 0.7 mg/dL (0.6-1.2); MAGNESIUM 2.1 mg/dL (1.7-2.8); PHOSPHORUS 3.5 mg/dL (2.5-4.6); POTASSIUM 5.6 mmol/L (3.5-5.0)
[2021-06-22 05:36] LABS: ABNORMAL LYMPHS % (MANUAL) 0 %; BAND NEUTROPHILS % (MANUAL) 0 %
[2021-06-22] MEDS: PANTOPRAZOLE 40 MG VIAL IVP SCH (05:46)
[2021-06-22] MEDS: SODIUM CHLORIDE FLUSH 0.9% 10 ML SYRINGE IVP SCH ×3 (05:47→16:59)
[2021-06-22 06:00] LABS: LYMPHOCYTES # (MANUAL) 1.7 10^3/uL (1.5-3.5); LYMPHOCYTES % (MANUAL) 11 %; MONOCYTES # (MANUAL) 1.1 10^3/uL (0.0-1.0); NEUTROPHILS # (MANUAL) 12.6 10^3/uL (1.5-6.6)
[2021-06-22 06:00] LABS: CALCIUM, IONIZED 1.1 mmol/L (1.15-1.33); VBG PH 7.404 (7.31-7.41)
[2021-06-22 06:01] LABS: DIFFERENTIAL COMMENT MANUAL DIFFERENTIAL; PLATELET ESTIMATE, MANUAL NORMAL (130-450,000) (NORMAL)
[2021-06-22] MEDS: PROPOFOL 1000 MG/100 ML 1,000 MG/100 ML BOTTLE IV SCH ×4 (07:13→21:26)
[2021-06-22] MEDS ORDERED: CALCIUM CHLORIDE 1,000 MG in SODIUM CHLORIDE 0.9% 50 ML IV ONE (07:30)
[2021-06-22] MEDS: CLOPIDOGREL 75 MG TABLET PO SCH (09:45)
[2021-06-22] MEDS: polyethylene glycoL 3350 17 GM PACKET PO SCH (09:45)
[2021-06-22] MEDS: FOLIC ACID 1 MG TABLET PO SCH (09:45)
[2021-06-22] MEDS: MIDAZOLAM DRIP 50 MG/50 ML 50 MG/50 ML BAG IV SCH ×2 (09:45→21:10)
[2021-06-22] MEDS: FUROSEMIDE 40 MG/4 ML VIAL IVP SCH (09:50)
[2021-06-22] MEDS: DEXAMETHASONE 4 MG/ML VIAL IVP SCH (09:50)
[2021-06-22] MEDS: CHLORHEXIDINE GLUCONATE 15 ML UDC PO SCH ×2 (09:50→21:05)
[2021-06-22] MEDS: ENOXAPARIN 80 MG/0.8 ML SYRINGE SUBQ SCH ×2 (10:00→21:05)
[2021-06-22] MEDS: HYDROmorphone 1 MG/ML CARPUJECT IVP SCH ×2 (10:15→16:55)
[2021-06-22] MEDS: LINEZOLID 600 MG/300 ML 600 MG/300 ML BAG IV SCH (10:55)
[2021-06-22 11:35] LABS: ABG PH 7.38 (7.35-7.45)
[2021-06-22 11:36] LABS: ABG HCO3 43.4 mmol/L (22.0-26.0)
--- NOTE | 2021-06-22 11:40 | XRAY Report ---
PROCEDURE: Chest 1 View X-Ray INDICATIONS: PE TECHNIQUE: One view of the chest was acquired. COMPARISON: 06/20/2021 chest xray FINDINGS: Surgical changes and devices: Endotracheal tube, right-sided central venous catheter and nasogastric tube are unchanged. Lungs and pleura: There remains severe bilateral pulmonary opacities, felt to be slightly worse in th e left base and minimally improved in the right base compared to prior exam. Mediastinum: Mediastinal contours appear normal. Heart size is normal. Bones and chest wall: No suspicious bony lesions. Overlying soft tissues appear unremarkable. IMPRESSION: Diffuse bilateral pulmonary opacities, relatively unchanged given overall appearance and most consist ent with pneumonia. Reviewed by: Tiffany Reyes MD on 06/22/2021 11:38 AM PST Approved by: Tiffany Reyes MD on 06/22/2021 11:38 AM PST Station ID: [id number]
[2021-06-22 11:41] LABS: ABG OXYGEN SATURATION 47 % (94-98); ABG PCO2 75 mmHg (34-45); ABG PO2 28 mmHg (80-100); ABG TCO2 45.7 MMOL/L (21.0-29.0)
[2021-06-22 11:42] LABS: ABG MODE OF VENTILATION ASSIST/CONTROL; ABG RESPIRATORY RATE 30 b/min
[2021-06-22] MEDS: MORPHINE 2 MG/ML CARPUJECT IVP PRN ×2 (13:30→20:08)
--- NOTE | 2021-06-22 19:11 | PROVIDER PROGRESS NOTE ---
Subjective - Prog Note Date Prog Note Date: 06/22/21 Objective - Vital Signs/Intake & Output Reviewed Vital Signs: Yes Vital Signs: Vital Signs Temp Pulse Pulse Resp BP BP Pulse Ox 06/22/21 18:00 36.7 C 100 30 H 94/58 L 83/46 L 70 L 06/22/21 17:00 36.6 C 103 H 30 H 96/43 L 73/35 L 63 L 06/22/21 16:53 99 06/22/21 16:00 36.5 C 101 H 30 H 116/61 91/45 L 76 L Intake & Output: Intake & Output 06/19/21 06/20/21 06/21/21 06/22/21 23:59 23:59 23:59 23:59 Intake Total 2749.825 3339.015 2599.270 5302.728 Output Total 2910 0495 2685 1995 Balance -160.175 -115.985 -85.730 3307.728 - Objective General Appearance: positive: Other (sedated on vent) Eyes Bilateral: positive: No lid inflammation ENT: positive: No signs of dehydration Neck: positive: Stiff neck (from ankylosing spondylitis) Respiratory: positive: Other (on vent, clear lungs bilat) Cardiovascular: positive: Regular rate & rhythm, No murmur Abdomen: positive: No distention Extremities: positive: No pedal edema, Other (exzema) Neurologic/Psychiatric: positive: Other (sedated (on the vent)) - Lab Results Fish Bones: 06/22/21 04:17 06/22/21 04:17 Other Labs: Lab Results x24hrs 06/22/21 06/22/21 06/22/21 Range/Units 17:58 16:08 11:46 WBC (4.8-10.8) x10^3/uL RBC (4.70-6.10) 10^6/uL Hgb (14.0-18.0) g/dL Hct (42.0-52.0) % MCV (80.0-94.0) fL MCH (27.0-31.0) pg MCHC (32.0-36.0) g/dL RDW (12.0-15.0) % Plt Count (130-450) 10^3/uL MPV (7.4-11.4) fL Neut # (Auto) Lymph # (Auto) Frontier # (Auto) Eos # (Auto) Baso # (Auto) Absolute Nucleated RBC Total Counted Band Neuts % (Manual) (0 - 10) % Abnorm Lymph % (Manual) % Nucleated RBC % Neutrophils # (Manual) (1.5-6.6) 10^3/uL Lymphocytes # (Manual) (1.5-3.5) 10^3/uL Monocytes # (Manual) (0.0-1.0) 10^3/uL Eosinophils # (Manual) (0-0.7) 10^3/uL Basophils # (Manual) (0-0.1) 10^3/uL Differential Comment Platelet Estimate (NORMAL) RBC Morph Micro Appear (NORMAL) Bld Gas Analysis Time Sample Site ABG pH (7.35-7.45) ABG pCO2 (34-45) mmHg ABG pO2 (80-100) mmHg ABG HCO3 (22.0-26.0) mmol/L ABG Total CO2 (21.0-29.0) MMOL/L ABG O2 Saturation (94-98) % ABG Base Excess (-2.0-3.0) mmol/L David Test VBG pH (7.31-7.41) Ionized Calcium (1.15-1.33) mmol/L Respiration Rate b/min O2 Delivery Device Vent Mode FiO2 Tidal Volume mL PEEP cmH2O Sodium (135-145) mmol/L Potassium (3.5-5.0) mmol/L Chloride (101-111) mmol/L Carbon Dioxide (21-32) mmol/L Anion Gap (6-13) BUN (6-20) mg/dL Creatinine (0.6-1.2) mg/dL Estimated GFR (MDRD) (>89) Glucose (70-100) mg/dL POC Whole Bld Glucose 219 H 236 H 148 H (70 - 100) mg/dL Calcium (8.5-10.3) mg/dL Phosphorus (2.5-4.6) mg/dL Magnesium (1.7-2.8) mg/dL 06/22/21 06/22/21 06/22/21 Range/Units 11:20 10:07 07:41 WBC (4.8-10.8) x10^3/uL RBC (4.70-6.10) 10^6/uL Hgb (14.0-18.0) g/dL Hct (42.0-52.0) % MCV (80.0-94.0) fL MCH (27.0-31.0) pg MCHC (32.0-36.0) g/dL RDW (12.0-15.0) % Plt Count (130-450) 10^3/uL MPV (7.4-11.4) fL Neut # (Auto) Lymph # (Auto) Frontier # (Auto) Eos # (Auto) Baso # (Auto) Absolute Nucleated RBC Total Counted Band Neuts % (Manual) (0 - 10) % Abnorm Lymph % (Manual) % Nucleated RBC % Neutrophils # (Manual) (1.5-6.6) 10^3/uL Lymphocytes # (Manual) (1.5-3.5) 10^3/uL Monocytes # (Manual) (0.0-1.0) 10^3/uL Eosinophils # (Manual) (0-0.7) 10^3/uL Basophils # (Manual) (0-0.1) 10^3/uL Differential Comment Platelet Estimate (NORMAL) RBC Morph Micro Appear (NORMAL) Bld Gas Analysis Time 1120 Sample Site A-LINE ABG pH 7.38 (7.35-7.45) ABG pCO2 75 H* (34-45) mmHg ABG pO2 28 L* (80-100) mmHg ABG HCO3 43.4 H (22.0-26.0) mmol/L ABG Total CO2 45.7 H* (21.0-29.0) MMOL/L ABG O2 Saturation 47 L* (94-98) % ABG Base Excess 16.0 H (-2.0-3.0) mmol/L David Test NOT APPLICABLE VBG pH (7.31-7.41) Ionized Calcium (1.15-1.33) mmol/L Respiration Rate 30 b/min O2 Delivery Device VENTILATOR Vent Mode ASSIST/CONTROL FiO2 100.00 Tidal Volume 420 mL PEEP 12 cmH2O Sodium (135-145) mmol/L Potassium (3.5-5.0) mmol/L Chloride (101-111) mmol/L Carbon Dioxide (21-32) mmol/L Anion Gap (6-13) BUN (6-20) mg/dL Creatinine (0.6-1.2) mg/dL Estimated GFR (MDRD) (>89) Glucose (70-100) mg/dL POC Whole Bld Glucose 144 H 151 H (70 - 100) mg/dL Calcium (8.5-10.3) mg/dL Phosphorus (2.5-4.6) mg/dL Magnesium (1.7-2.8) mg/dL 06/22/21 06/22/21 06/22/21 Range/Units 05:45 05:45 04:29 WBC (4.8-10.8) x10^3/uL RBC (4.70-6.10) 10^6/uL Hgb (14.0-18.0) g/dL Hct (42.0-52.0) % MCV (80.0-94.0) fL MCH (27.0-31.0) pg MCHC (32.0-36.0) g/dL RDW (12.0-15.0) % Plt Count (130-450) 10^3/uL MPV (7.4-11.4) fL Neut # (Auto) Lymph # (Auto) Frontier # (Auto) Eos # (Auto) Baso # (Auto) Absolute Nucleated RBC Total Counted Band Neuts % (Manual) (0 - 10) % Abnorm Lymph % (Manual) % Nucleated RBC % Neutrophils # (Manual) (1.5-6.6) 10^3/uL Lymphocytes # (Manual) (1.5-3.5) 10^3/uL Monocytes # (Manual) (0.0-1.0) 10^3/uL Eosinophils # (Manual) (0-0.7) 10^3/uL Basophils # (Manual) (0-0.1) 10^3/uL Differential Comment Platelet Estimate (NORMAL) RBC Morph Micro Appear (NORMAL) Bld Gas Analysis Time Sample Site ABG pH (7.35-7.45) ABG pCO2 (34-45) mmHg ABG pO2 (80-100) mmHg ABG HCO3 (22.0-26.0) mmol/L ABG Total CO2 (21.0-29.0) MMOL/L ABG O2 Saturation (94-98) % ABG Base Excess (-2.0-3.0) mmol/L David Test VBG pH 7.404 (7.31-7.41) Ionized Calcium 1.10 L (1.15-1.33) mmol/L Respiration Rate b/min O2 Delivery Device Vent Mode FiO2 Tidal Volume mL PEEP cmH2O Sodium (135-145) mmol/L Potassium (3.5-5.0) mmol/L Chloride (101-111) mmol/L Carbon Dioxide (21-32) mmol/L Anion Gap (6-13) BUN (6-20) mg/dL Creatinine (0.6-1.2) mg/dL Estimated GFR (MDRD) (>89) Glucose (70-100) mg/dL POC Whole Bld Glucose 173 H 180 H (70 - 100) mg/dL Calcium (8.5-10.3) mg/dL Phosphorus (2.5-4.6) mg/dL Magnesium (1.7-2.8) mg/dL 06/22/21 06/22/21 06/22/21 Range/Units 04:17 04:17 02:21 WBC 15.4 H (4.8-10.8) x10^3/uL RBC 2.71 L (4.70-6.10) 10^6/uL Hgb 7.9 L (14.0-18.0) g/dL Hct 27.0 L (42.0-52.0) % MCV 99.6 H (80.0-94.0) fL MCH 29.2 (27.0-31.0) pg MCHC 29.3 L (32.0-36.0) g/dL RDW 17.6 H (12.0-15.0) % Plt Count 335 (130-450) 10^3/uL MPV 9.5 (7.4-11.4) fL Neut # (Auto) Not Reportable Lymph # (Auto) Not Reportable Frontier # (Auto) Not Reportable Eos # (Auto) Not Reportable Baso # (Auto) Not Reportable Absolute Nucleated RBC Not Reportable Total Counted 100 Band Neuts % (Manual) 0 (0 - 10) % Abnorm Lymph % (Manual) 0 % Nucleated RBC % Not Reportable Neutrophils # (Manual) 12.6 H (1.5-6.6) 10^3/uL Lymphocytes # (Manual) 1.7 (1.5-3.5) 10^3/uL Monocytes # (Manual) 1.1 H (0.0-1.0) 10^3/uL Eosinophils # (Manual) 0.0 (0-0.7) 10^3/uL Basophils # (Manual) 0.0 (0-0.1) 10^3/uL Differential Comment MANUAL DIFFERENTIAL Platelet Estimate NORMAL (130-450,000) (NORMAL) RBC Morph Micro Appear 1+ HYPOCHROMASIA (NORMAL) Bld Gas Analysis Time Sample Site ABG pH (7.35-7.45) ABG pCO2 (34-45) mmHg ABG pO2 (80-100) mmHg ABG HCO3 (22.0-26.0) mmol/L ABG Total CO2 (21.0-29.0) MMOL/L ABG O2 Saturation (94-98) % ABG Base Excess (-2.0-3.0) mmol/L David Test VBG pH (7.31-7.41) Ionized Calcium (1.15-1.33) mmol/L Respiration Rate b/min O2 Delivery Device Vent Mode FiO2 Tidal Volume mL PEEP cmH2O Sodium 140 (135-145) mmol/L Potassium 5.6 H (3.5-5.0) mmol/L Chloride 96 L (101-111) mmol/L Carbon Dioxide 38 H (21-32) mmol/L Anion Gap 6.0 (6-13) BUN 52 H (6-20) mg/dL Creatinine 0.7 (0.6-1.2) mg/dL Estimated GFR (MDRD) 113 (>89) Glucose 184 H (70-100) mg/dL POC Whole Bld Glucose 190 H (70 - 100) mg/dL Calcium 7.6 L (8.5-10.3) mg/dL Phosphorus 3.5 (2.5-4.6) mg/dL Magnesium 2.1 (1.7-2.8) mg/dL 06/21/21 06/21/21 06/21/21 Range/Units 23:36 22:04 19:47 WBC (4.8-10.8) x10^3/uL RBC (4.70-6.10) 10^6/uL Hgb (14.0-18.0) g/dL Hct (42.0-52.0) % MCV (80.0-94.0) fL MCH (27.0-31.0) pg MCHC (32.0-36.0) g/dL RDW (12.0-15.0) % Plt Count (130-450) 10^3/uL MPV (7.4-11.4) fL Neut # (Auto) Lymph # (Auto) Frontier # (Auto) Eos # (Auto) Baso # (Auto) Absolute Nucleated RBC Total Counted Band Neuts % (Manual) (0 - 10) % Abnorm Lymph % (Manual) % Nucleated RBC % Neutrophils # (Manual) (1.5-6.6) 10^3/uL Lymphocytes # (Manual) (1.5-3.5) 10^3/uL Monocytes # (Manual) (0.0-1.0) 10^3/uL Eosinophils # (Manual) (0-0.7) 10^3/uL Basophils # (Manual) (0-0.1) 10^3/uL Differential Comment Platelet Estimate (NORMAL) RBC Morph Micro Appear (NORMAL) Bld Gas Analysis Time Sample Site ABG pH (7.35-7.45) ABG pCO2 (34-45) mmHg ABG pO2 (80-100) mmHg ABG HCO3 (22.0-26.0) mmol/L ABG Total CO2 (21.0-29.0) MMOL/L ABG O2 Saturation (94-98) % ABG Base Excess (-2.0-3.0) mmol/L David Test VBG pH (7.31-7.41) Ionized Calcium (1.15-1.33) mmol/L Respiration Rate b/min O2 Delivery Device Vent Mode FiO2 Tidal Volume mL PEEP cmH2O Sodium (135-145) mmol/L Potassium (3.5-5.0) mmol/L Chloride (101-111) mmol/L Carbon Dioxide (21-32) mmol/L Anion Gap (6-13) BUN (6-20) mg/dL Creatinine (0.6-1.2) mg/dL Estimated GFR (MDRD) (>89) Glucose (70-100) mg/dL POC Whole Bld Glucose 232 H 211 H 223 H (70 - 100) mg/dL Calcium (8.5-10.3) mg/dL Phosphorus (2.5-4.6) mg/dL Magnesium (1.7-2.8) mg/dL Sepsis Event Note (H) - Evaluation Current Stage of Sepsis: Septic shock Possible source of Sepsis: positive: Pulmonary - Sepsis Criteria Sepsis Criteria: Respiratory: Increasing oxygen requirements, WBC count greater than 12,000 or less than 4000, SBP drop more than 40mHg, MAP less than 65 mmHg, SBP less than 90 mmHg, Renal: urine output less than 0.5ml/kg/hr for 2 hours or creatinine gr Assessment/Plan - Problem List (1) Acute respiratory failure with hypoxia Impression: (1) Acute respiratory failure with hypoxia Impression: For the past 2 days, he has needed an FiO2 of 100% and a PEEP of 14. We are keeping him on meropenem and Zyvox. Continue sedation and paralyzed while on the vent. We added Dilaudid pushes scheduled. We will use [employer] protocol. Continue diuresis with Lasix IV. We unfortunately cannot prone him due to his ankylosing spondylitis. Today at mid-day his sats dropped to 50%, despite max settings and RT noted that when his HOB is elevated, his airway pressure increase and sats drop, probably due to tracheal compression, due to his neck stiffness from ankylosing spondylitis and cervical fusions. A repeat chest x-ray was done today and showed persistent extensive, bilateral infiltrates, no pneumothorax. He was ambu bagged and sats improved to only 70%, then he was put back on his max vent settings. I spoke with his at bedside and updated her on this critical event, despite treating him everything medically available here. She then asked to make him a DNR, but to continue all intensive medical management. She wanted to speak with her children. Both children came separately to see him then. After approx. 6 hours with sats running 70%, the and one of the sons, at his bedside, requested I update them on his chances of recovery and what damage may have occurred from hypoxia, which I did at 1940. They were then waiting for both sons to be at bedside and will probably request end-of-life comfort care. I signed out this information to the Transmission Tester at 1999. (2) Metabolic acidosis Impression: Worsened pH since yesterday. Unfortunately this may be him shutting down. Will cont iv Bicarb drip. Contiunue empiric broad spectrum antibx. (3) Hyperkalemia Impression: Improving since on bicarb drip, it was likely from worsened acidosis. Cont bicarb drip (4) Infection due to ESBL-producing Klebsiella pneumoniae Impression: Respiratory cultures grew Klebsiella pneumonia which is sensitive to carbapenems. He has now been on meropenem with today being day 8. We will continue the meropenem and Zyvox was added again due to his elevated white count and worsened condition. The plan had been to treat for 1 week but given his critical condition, we will keep him on antibiotics. (5) Pneumonia due to COVID-19 virus Impression: Unfortunately he was on immunosuppressants and contracted this. It is contributing to the respiratory failure with hypoxia. We have kept him on Decadron as he is on chronic steroids at home. Today he canbe taken off contact precautions. Overall prognosis remains poor. THis was diswcussed with the at bedside twice and son from [place] at bedside once (6) Fever Impression: He was febrile yesterday. His white count stable but elevated at over 20,000. Chest x-ray today shows unchanged extensive bilateral infiltrates. He has also been on Zyvox and meropenem. The lasty set of bld cx are neg to date (7) NSTEMI (non-ST elevated myocardial infarction) Impression: Initial concern was for NSTEMI given his troponins peaked over 800. Echocardiogram showed evidence of right heart overload which I suspect is due to a pulmonary embolism (even though there was no VQ scan or CTA chest), since he did have a DVT. LV showed no wall motion abnormalities. In hindsight, his elevated troponin may have been due to the pulmonary embolism and RV NSTEMI. We are continuing him on bid Lovenox. (8) Cor pulmonale Impression: As per Echo and likely from all of his pulmonary pathologies. Continue daily Lasix. (9) Right leg DVT Impression: Duplex confirmed right lower extremity DVT and it is very likely that he has pulmonary embolism given that his Echo showed evidence of right heart overload. Given he is clinically improving and is no longer hypotensive, will held off on obtaining a CT angiogram as it would not change control analyst. We are continueing him on bid Lovenox. (10) Anemia Impression: After a drop in his hemoglobin a few days ago, it has since been stable. That drop was likely due to hemodilution as the other cell counts dropped as well. There has been no evidence of bleeding, tus we will continue Lovenox for DVT and a likely pulmonary embolism. (11) Diabetes mellitus, insulin dependent (IDDM), uncontrolled Impression: His blood glucose has been controlled on the insulin drip. (12) PVD (peripheral vascular disease) Impression: Stable. He is on Lovenox and Plavix after we discontinued the aspirin as he would not be on triple therapy. (13) Psoriatic arthritis Impression: We are holding his home immunosuppressants. He is on Decadron and today Dilaudid is scheduled. (14) Ankylosing spondylitis Impression: We are holding his home immunosuppressants. He is on Decadron and today Dilaudid is scheduled, since the son remarked that the patient's pain is usually worse from not moving. (15) TORY (acute kidney injury) Impression: This was secondary to ATN and has resolved. His renal function remains at baseline. We will continue to monitor. (16) Septic shock Impression: This was likely secondary to pneumonia either due to COVID-19 or the ESBL Klebsiella pneumonia. The septic shock has resolved. He remains off of vasopressors.
[2021-06-22] MEDS: ATORVASTATIN 40 MG TABLET PO SCH (21:05)
[2021-06-22 21:17] VITALS: BP 99/59
[2021-06-22] MEDS ORDERED: HALOPERIDOL 5 MG/ML VIAL IVP PRN (21:50)
[2021-06-22] MEDS ORDERED: MORPHINE 2 MG/ML CARPUJECT IVP PRN (21:52)
--- NOTE | 2021-06-23 07:55 | DISCHARGE SUMMARY ---
Discharge Summary Admit Date: 06/11/21 Discharge Date: 06/22/21 Discharging Provider: Dr Ange Boucher Primary Care Provider: Dr Francia Forde Discharge Disposition: 20 - HPI History of Present Illness: This is a 65-year-old white male with history of ankylosing spondylitis, c-spine fusion, and psoriatic arthritis on 3 immunosuppressants, PVD with leg stents, hypertension, he has had Covid vaccinations, he also has DM on insulin and possibly asthma not on inhalers. He developed a cough with progressively worse sputum production 1 week ago and non-painful diarrhea for a week. He has had int ermittent chills but does not know if he spiked a fever. He has had no nausea or vomiting. He had a knee cyst removed recently at [facility] and was hospitalized there for 3 days. His also had a cough but she tested COVID- negative. Today his SOB was so bad he called an ambulance. His oxygen saturation was in the 50% at the scene. He received Solu-Medrol and a nebulizer en route. In the ED he had labored breathing and required supplemental oxygen with HiFlow and work-up shows he is COVID-positive, has bilateral infiltrates on chest x-ray, has dehydration and new renal failure with elevated BUN and creatinine. He had a diarrheal bowel movement. We discussed his CODE STATUS and wants to be a Full Code. We discussed if he is agreeable to be on a ventilator if it is required, and he at first said "intubation is okay but I only want to be on the ventilator for 5 days". I exp lained to him that some people need over 5 days and some need many more days and that there is no way to predict. He then agreed to be on the ventilator as long as it is needed. - HOSPITAL COURSE Hospital Course: (1) Septic shock After his first day, his BP worsened from volume depletion and he was in septic shock, from COVID pneumonia or due to ESBL-producing Klebsiella pneumonia, which the sputum culture grew. He required several days of vasopressors, iv fluids, and treating the underlying infections, then shock resolved. (2) Acute respiratory failure with hypoxia He had a rapid decline in his respiratory status, requiring BIPAP on Day2, and intubation on Day3. He could not be managed with proning due to his c-spine condition from ankylosing spondylitis. His O2 needs on the vent continuously needed to be increased, until he was on maximum settings (FiO2 of 100% and high PEEP). Repeat chest x-rays all showed persistent bilateral infiltrates. On his final day, his O2 saturations dropped to 70% despite maximal medical and vent management. The (and 2 sons) then requested he be a DNR and later requested he have comfort measures and also requested extubation, after which he . (3) Metabolic acidosis On his last 2 days, he was in metabolic acidosis, and new renal failure and needed iv Bicarb drip. (4) Hyperkalemia He was hyperkalemic on his final several days, probably from metabolic acidosis. He needed pushes of Insulin iv and D50 iv and bicarb drip. (5) Infection due to ESBL-producing Klebsiella pneumoniae Respiratory cultures grew Klebsiella pneumonia which was sensitive to meropenem. We continued the meropenem and Zyvox was added again due to his worsening elevated white count and worsened condition. (6) Pneumonia due to COVID-19 virus Unfortunately he was on immunosuppressants as an outpt, and contracted COVID. He received CD approved treatment and was contact precautions. (7) Fever He was febrile at admission and again later in his hospital course. (8) NSTEMI (non-ST elevated myocardial infarction) NSTEMI was diagnosed, since his troponins peaked over 800. He was on bid therapeutic Lovenox dosing. An Echocardiogram showed the LV had no wall motion abnormalities, but there was evidence of right heart overload which we suspected was due to a pulmonary embolism (even though he had no VQ scan or CTA chest), because he did have a DVT. In hindsight, his elevated troponin may have been due to the pulmonary embolism and an RV NSTEMI. (9) Cor pulmonale As per Echo and likely from all of his pulmonary pathologies. He was on daily Lasix. (10) Right leg DVT Duplex confirmed right lower extremity DVT and it was very likely that he had a pulmonary embolism, since his Echo showed evidence of right heart overload. We had him on bid Lovenox. (11) Anemia There was a drop in his hemoglobin likely due to hemodilution as the other cell counts dropped as well. There was no evidence of bleeding and we continued Lovenox for DVT and likely pulmonary embolism. (12) Diabetes mellitus, insulin dependent (IDDM), uncontrolled His blood glucose required insulin drip. He received ng tube feeds. (13) PVD (peripheral vascular disease) He was on Lovenox and Plavix after we discontinue the aspirin, so as not to be on triple therapy. (14) Psoriatic arthritis We were holding his home immunosuppressants. He was on iv Decadron and empiric iv Dilaudid near the end. (15) Ankylosing spondylitis We wee holding his home immunosuppressants. He is on iv Decadron and iv Dilaudid near the end. (16) TORY (acute kidney injury) This was secondary to ATN and resolved, then worsened before he . - ALLERGIES Allergies/Adverse Reactions: Allergies Allergy/AdvReac Type Severity Reaction Status Date / Time infliximab [From Remicade] Allergy Rash Verified 06/11/21 16:18 vancomycin AdvReac Severe RENAL Verified 06/11/21 16:18 FAILURE - MEDICATIONS Home Medications: Ambulatory Orders Medication Instructions Recorded Confirmed Prednisone 25 mg PO DAILY 10/09/12 06/12/21 Metoprolol Tartrate [Lopressor] 12.5 mg PO BID 08/13/15 06/12/21 Insulin Glargine,Hum.rec.anlog 35 units SQ BID 09/27/15 06/12/21 [Lantus] Multivitamin [Multivitamins] 1 tab PO DAILY 09/27/15 06/12/21 amLODIPine [Norvasc] 5 mg PO DAILY 09/27/15 06/12/21 Indomethacin 50 mg PO TID 11/23/15 06/12/21 Sulfasalazine [Sulfazine] 1,500 mg PO BID 03/28/16 06/12/21 Atorvastatin Calcium 40 mg PO QPM 11/25/19 06/12/21 Clopidogrel [Plavix] 75 mg PO DAILY 11/25/19 06/12/21 metHOTREXate sodium [Methotrexate] 22.5 mg PO Q7D 11/25/19 06/12/21 Cholecalciferol (Vitamin D3) 50 mcg PO DAILY 06/12/21 06/12/21 [Vitamin D3] Doxycycline Hyclate [Vibramycin] 100 mg PO BID 06/12/21 06/12/21 Folic Acid 1 mg PO DAILY 06/12/21 06/12/21 Pantoprazole [Protonix] 40 mg PO QDAC 06/12/21 06/12/21 - LABS Result Diagrams: 06/22/21 04:17 06/22/21 04:17 - SEPSIS Current Stage of Sepsis: Septic shock Possible source of Sepsis: Pulmonary Sepsis Criteria: Respiratory: Increasing oxygen requirements, WBC count greater than 12,000 or less than 4000, SBP drop more than 40mHg, MAP less than 65 mmHg, SBP less than 90 mmHg, Renal: urine output less than 0.5ml/kg/hr for 2 hours or creatinine gr
== END 2021-06-22 22:40 | disposition expired | DRG 870 ==
LOC: EDUNIT# → ED 16:07 → ICU 18:12
PROVIDERS: ADMIT Internal Medicine; ATTEND Internal Medicine
PROC: 5A1955Z Respiratory Ventilation, Greater than 96 Consecutive Hours (ICD-10-PCS; principal; 2021-06-13)
PROC: 0BH17EZ Insertion of Endotracheal Airway into Trachea, Via Natural or Artificial Opening (ICD-10-PCS; 2021-06-13)
PROC: 5A09357 Assistance with Respiratory Ventilation, Less than 24 Consecutive Hours, Continuous Positive Airway Pressure (ICD-10-PCS; 2021-06-13)
PROC: 05HM33Z Insertion of Infusion Device into Right Internal Jugular Vein, Percutaneous Approach (ICD-10-PCS; 2021-06-13)
PROC: 3E033XZ Introduction of Vasopressor into Peripheral Vein, Percutaneous Approach (ICD-10-PCS; 2021-06-14)
DX: A41.89 Other specified sepsis (principal); N17.9 Acute kidney failure, unspecified; U07.1 COVID-19; E11.9 Type 2 diabetes mellitus without complications; J12.82 Pneumonia due to coronavirus disease 2019; R65.21 Severe sepsis with septic shock; J96.01 Acute respiratory failure with hypoxia; J15.0 Pneumonia due to Klebsiella pneumoniae; I21.4 Non-ST elevation (NSTEMI) myocardial infarction; I26.09 Other pulmonary embolism with acute cor pulmonale; N17.0 Acute kidney failure with tubular necrosis; E87.2 Acidosis; I82.401 Acute embolism and thrombosis of unspecified deep veins of right lower extremity; A41.4 Sepsis due to anaerobes; E11.51 Type 2 diabetes mellitus with diabetic peripheral angiopathy without gangrene; E11.65 Type 2 diabetes mellitus with hyperglycemia; E78.00 Pure hypercholesterolemia, unspecified; E86.0 Dehydration; E87.5 Hyperkalemia; I10 Essential (primary) hypertension; J45.909 Unspecified asthma, uncomplicated; L40.50 Arthropathic psoriasis, unspecified; D64.9 Anemia, unspecified; M19.90 Unspecified osteoarthritis, unspecified site; M45.2 Ankylosing spondylitis of cervical region; R19.7 Diarrhea, unspecified; Z66 Do not resuscitate; Z79.4 Long term (current) use of insulin; Z79.52 Long term (current) use of systemic steroids; Z79.899 Other long term (current) drug therapy; Z88.1 Allergy status to other antibiotic agents; Z88.8 Allergy status to other drugs, medicaments and biological substances; Z96.649 Presence of unspecified artificial hip joint; Z96.659 Presence of unspecified artificial knee joint; Z98.1 Arthrodesis status
CPT/HCPCS: 36415; 36600; 71045; 80048; 80053; 80061; 81001; 82330; 82550; 82728; 82803; 83036; 83540; 83605; 83690; 83735; 83880; 84100; 84133; 84134; 84466; 84478; 84484; 85014; 85018; 85025; 85379; 85610; 86140; 86850; 86900; 86901; 87040; 87070; 87077; 87086; 87150; 87181; 87205; 87631; 93005; 93306; 93970; 94002; 94003; 94660; 96365; 96367; 99285; 99291; A6250; A9270; J0131; J0330; J1170; J1650; J1815; J2020; J2060; J2185; J3010; J7040; J7120; 0202U; 82272; 83721; 84132; 94770